=== PATIENT | female | born 1955 | race Two or more races ===

== ENCOUNTER 2022-04-22 08:55 | Outpatient (REF) | payer MEDICARE, MEDICAID, SELFPAY ==
[2022-04-22 10:00] LABS: Hematocrit 37.7 % (37.0-47.0); Hemoglobin 12.2 g/dl (12.0-16.0); Mean Corpuscular HGB Conc 32.4 g/dl (31.0-35.0); Mean Corpuscular Hemoglobin 29.3 pg (27.0-33.0); Mean Corpuscular Volume 90.4 fL (80.0-98.0); Mean Platelet Volume 9.5 fL (9.4-12.3); Platelet Count 349 X10*3/uL (160-400); Red Blood Count 4.17 X10*6/uL (4.20-5.50); Red Cell Distribution Width 14.8 % (11.0-16.0); White Blood Count 11.5 X10*3/uL (4.8-10.8)
[2022-04-22 10:44] LABS: Alanine Aminotransferase 21 U/L (0-31); Albumin Level 3.5 g/dL (3.5-5.0); Alkaline Phosphatase 79 U/L (39-117); Anion Gap 15 (12-20); Aspartate Amino Transferase 20 U/L (5-31); Bilirubin Total 0.3 mg/dL (0.0-1.0); Blood Urea Nitrogen 46 mg/dL (9-16); Carbon Dioxide 18 mmol/L (22-29); Chloride 109 mmol/L (96-108); Cholesterol 169 mg/dL; Estimated Glomerular Filt Rate 17; Glucose Random 101 mg/dL (60-115); HDL Cholesterol 60 mg/dL; LDL Cholesterol Calculated 82 mg/dl; Potassium 4.9 mmol/L (3.3-5.1); Sodium 137 mmol/L (135-145); Total Protein 6.2 g/dL (6.5-8.0); Triglycerides 135 mg/dL
[2022-04-22 10:58] LABS: TSH reflex Free T4 0.28 uIU/mL (0.32-4.0)
[2022-04-22 12:27] LABS: Estimated Average Glucose 114 mg/dL; Hemoglobin A1c % 5.6 %
== END 2022-04-22 08:56 | disposition home or self-care (01) ==
LOC: HO.LAB 08:55
PROVIDERS: PCP Nurse Practitioner Family; Visit Provider Nurse Practitioner Family
DX: E11.22 Type 2 diabetes mellitus with diabetic chronic kidney disease (principal); N18.4 Chronic kidney disease, stage 4 (severe); E04.1 Nontoxic single thyroid nodule; Z13.0 Encounter for screening for diseases of the blood and blood-forming organs and certain disorders involving the immune mechanism; Z13.21 Encounter for screening for nutritional disorder; Z13.29 Encounter for screening for other suspected endocrine disorder; Z13.220 Encounter for screening for lipoid disorders
CPT/HCPCS: 36415; 80053; 80061; 82306; 83036; 84439; 84443; 85027

== ENCOUNTER → 2022-05-18 09:10 | Outpatient (BNVA) | payer MEDICARE, MEDICAID, SELFPAY | PROVIDERS: PCP Nurse Practitioner Family; Visit Provider Internal Medicine | DX: K57.92 Diverticulitis of intestine, part unspecified, without perforation or abscess without bleeding (principal); K20.90 Esophagitis, unspecified without bleeding; K92.2 Gastrointestinal hemorrhage, unspecified | CPT/HCPCS: 99202 ==

== ENCOUNTER 2022-05-26 08:41 | Outpatient (REF) | payer MEDICARE, MEDICAID, SELFPAY ==
--- NOTE | ~2022-05-26 | US_ITS ---
EXAMINATION: US THYROID CLINICAL INFORMATION: Nontoxic single thyroid nodule. COMPARISON: None available. TECHNIQUE: Linear transducer grayscale and color Doppler examination with attention to the region of the thyroid. FINDINGS: SIZE: Measurements of the thyroid lobes and nodules are given in sagittal, anteroposterior and transverse dimensions respectively. Right Thyroid Lobe: 6.0 x 2.8 x 2.4 cm, volume 21.1 mL. Parenchyma: The gland echotexture is heterogeneous. Thyroid vascularity is normal. Left Thyroid Lobe: 5.7 x 2.2 x 1.8 cm, volume 11.8 mL. Parenchyma: The gland echotexture is heterogeneous. Thyroid vascularity is normal. Isthmus: 0.6 cm in maximum AP dimension. No focal thyroid nodule is seen. NODES: No lymphadenopathy is seen in the tissue surrounding the thyroid gland. US/US thyroid IMPRESSION: Heterogeneous thyroid parenchyma. No focal nodule. ACR TI-RADS RECOMMENDATION REFERENCE: Ultrasound-guided fine-needle aspiration, followup ultrasound, no further follow up. * TR1 (0 point) and TR2 (2 points): No FNA or follow up. * TR3 (3 points): FNA if more than or equal to 2.5 cm in maximum dimension, followup ultrasound in 1, 3 and 5 years if 1.5 to 2.4 cm in maximum dimension. * TR4 (4-6 points): FNA if more than or equal to 1.5 cm in maximum dimension, followup ultrasound in 1, 2, 3 and 5 years if 1 to 1.4 cm in maximum dimension. * TR5 (more than or equal to 7 points): FNA if more than or equal to 1 cm in maximum dimension, followup ultrasound every year for 5 years if 0.5 to 0.9 cm in maximum dimension. * TR3, TR4 or TR5 nodules that are below the size threshold for followup receive no follow up.
[2022-05-26 09:37] LABS: Estimated Average Glucose 117 mg/dL; Hemoglobin A1c % 5.7 %
[2022-05-26 10:10] LABS: TSH reflex Free T4 0.28 uIU/mL (0.32-4.0)
== END 2022-05-26 08:42 | disposition home or self-care (01) ==
LOC: HO.US 08:41
PROVIDERS: PCP Nurse Practitioner Family; Visit Provider Nurse Practitioner Family
DX: E04.1 Nontoxic single thyroid nodule (principal); E11.9 Type 2 diabetes mellitus without complications; E03.9 Hypothyroidism, unspecified
CPT/HCPCS: 36415; 76536; 83036; 84439; 84443

== ENCOUNTER 2022-05-27 13:25 | Outpatient (REF) | payer MEDICARE, MEDICAID, SELFPAY ==
--- NOTE | ~2022-05-27 | CT_ITS ---
EXAMINATION: CT CHEST SCREENING CLINICAL INFORMATION: 40 pack year smoking history. Former smoker. Quit 1 year ago. COMPARISON: None available. TECHNIQUE: Multidetector volumetric CT imaging of the chest is performed without contrast using low dose technique. Additional 2D coronal and sagittal reformatted images and axial 3D maximum intensity projection (MIP) images are generated on the CT workstation. This CT examination was performed using dose optimization techniques as appropriate, variously including the following: *Automated exposure control *Adjustment of mA and/or kV according to patient size (this includes techniques or standardized protocols for targeted exams where dose is matched to indication/reason for exam; i.e. extremities or head) *Use of iterative reconstruction technique DLP: 56 mGy-cm FINDINGS: LUNGS: Mild emphysema. 8 mm left upper lobe nodule in the anterior segment adjacent to the mediastinum axial image 168 series 5. Heterogeneous predominantly groundglass attenuation area in the inferior segment of the lingula measuring 1.5 cm axial image 291 series 5 MEDIASTINUM: Small calcification in the right lobe of the thyroid gland. No imaging follow-up recommended. Normal heart size. No pericardial effusion. Calcified but normal caliber thoracic aorta. No enlarged hilar or mediastinal lymph nodes no pericardial effusion. CORONARY ARTERY CALCIFICATION: Moderate PLEURA: There is no pleural effusion. No pleural mass or thickening. AXILLA: No lymphadenopathy. UPPER ABDOMEN: The gallbladder is been removed. Low-attenuation bilateral adrenal nodules. OSSEOUS STRUCTURES: Degenerative changes of the spine and curvature to the right. CT/CT lung screening IMPRESSION: Emphysema. 8 mm left upper lobe nodule. 1.5 cm groundglass attenuation area in the lingula. ASSESSMENT: Lung-RADS category 4A: Suspicious RECOMMENDATION: Low-dose chest CT follow-up in 3 months, PET/CT scan or tissue sampling should be considered.
== END 2022-05-27 13:26 | disposition home or self-care (01) ==
LOC: HO.CT 13:25
PROVIDERS: PCP Nurse Practitioner Family; Visit Provider Physician Assistant Medical
DX: Z12.2 Encounter for screening for malignant neoplasm of respiratory organs (principal); Z87.891 Personal history of nicotine dependence
CPT/HCPCS: 71271; G0296

== ENCOUNTER 2022-06-06 09:54 | Emergency (ER) | payer MEDICARE, MEDICAID, SELFPAY ==
--- NOTE | ~2022-06-06 | CT_ITS ---
EXAMINATION: CT ABDOMEN AND PELVIS WITHOUT CONTRAST CLINICAL INFORMATION: Lower abdominal pain COMPARISON: None available. TECHNIQUE: Multidetector volumetric imaging was performed from the superior aspect of the liver through the pubic symphysis. Sagittal and coronal reformatted images were obtained on the technologist's workstation. This CT examination was performed using dose optimization techniques as appropriate, variously including the following: *Automated exposure control *Adjustment of mA and/or kV according to patient size (this includes techniques or standardized protocols for targeted exams where dose is matched to indication/reason for exam; i.e. extremities or head) *Use of iterative reconstruction technique DLP: 5-7 mGy-cm FINDINGS: LUNG BASES: The visualized lung bases are unremarkable. LIVER, GALLBLADDER, AND BILIARY TREE: The liver is normal in size, shape, and attenuation. No focal hepatic lesion or biliary ductal dilatation is present. The gallbladder has been removed. PANCREAS: Unremarkable. SPLEEN: Unremarkable. ADRENAL GLANDS: Bilateral low-attenuation adrenal nodules suggestive of benign lipid rich adenomas. These measure 1.6 x 2.6 cm on the right and 1.4 x 2.3 cm on the left. No imaging follow-up recommended. KIDNEYS AND URETERS: The kidneys are normal in size, shape, and attenuation. No hydronephrosis, hydroureter, or calculi seen. No perinephric stranding. BLADDER: Unremarkable. GASTROINTESTINAL TRACT: There is diverticulosis of the colon. There is wall thickening of the sigmoid colon and stranding of the surrounding fat suggestive of acute sigmoid diverticulitis. This abuts the uterus and adnexa. No evidence of obstruction, perforation or abscess. There is constipation. Small and large bowel are otherwise normal. The appendix is normal. ABDOMINAL WALL: No significant hernia is appreciated. LYMPH NODES: Normal. VASCULAR: Atherosclerotic disease. No aneurysm PELVIC VISCERA: Diverticulitis of the sigmoid colon abuts the uterus and both adnexa. OSSEOUS STRUCTURES: Scoliosis and degenerative changes of the spine. Mild degenerative changes at the. CT/CT abdomen pelvis wo IV con IMPRESSION: Sigmoid diverticulitis. Fleischner guidelines were followed.
[2022-06-06 10:22] VITALS: BP 141/65; PULSE 67; RESP 18; TEMP 36.1; O2SAT 99; BMI 29.9
--- NOTE | 2022-06-06 11:08 | ED_ITS ---
HPI - Abdominal Pain General Chief Complaint: Extremity Injury, Lower Stated Complaint: abd pain Time Seen by Provider: 06/06/22 11:00 Source: patient, family (son) and associate scientist Mode of arrival: ambulatory Limitations: language barrier History of Present Illness HPI narrative: Patient is a 66-year-old female with history chronic kidney disease stage 4, HTN, hypercholesterolemia, type 2 diabetes, hypothyroid, emphysema, esophagitis, diverticulitis, GI bleed, rheumatoid arthritis presenting with lower abdominal pain since last night. Patient does endorse nausea this morning but denies any current nausea. She denies any vomiting, diarrhea, or constipation. She denies any fevers. She denies any urinary symptoms. She does report lower back pain but states this is chronic. Son reports that he recently brought patient here from [place] and states that while patient was there in March of this ye ar she had diverticulitis with perforation as well as GI bleeding. Son reports the patient has seen a new PCP here and has care scheduled with specialists. Related Data Home Medications Medication Instructions Recorded Confirmed amlodipine 5 mg tablet 5 mg PO DAILY 04/04/22 05/02/22 atorvastatin 40 mg tablet 40 mg PO DAILY 04/04/22 05/02/22 carbamazepine 200 mg tablet 200 mg PO BID 04/04/22 05/02/22 albuterol sulfate 2 mg/5 mL oral 2 mg PO TID 05/18/22 syrup albuterol sulfate 90 mcg/actuation 1 inh inhalation QID 05/18/22 aerosol inhaler (Ventolin HFA) Previous Rx's Medication Instructions Recorded empagliflozin 10 mg tablet 10 mg PO DAILY 30 days #90 tabs 05/16/22 (Jardiance) glipizide 10 mg tablet 10 mg PO DAILY 30 days #90 tabs 05/16/22 linagliptin 5 mg tablet (Tradjenta) 5 mg PO DAILY 30 days #90 tabs 05/16/22 lisinopril 40 mg tablet 40 mg PO DAILY 30 days #90 tabs 05/16/22 montelukast 10 mg tablet 10 mg PO DAILY 30 days #90 tabs 05/16/22 peg 3350-electrolytes 236 240 ml PO Q10M colonoscopy #4,000 05/18/22 gram-22.74 gram-6.74 gram-5.86 mL gram solution (Golytely) levothyroxine 175 mcg capsule 175 mcg PO DAILY #30 caps 05/26/22 amoxicillin 500 mg-potassium 1 tab PO BID diverticulitis #20 06/06/22 clavulanate 125 mg tablet tabs (Augmentin) oxycodone 5 mg tablet 5 mg PO Q6H PRN pain #12 tabs 06/06/22 Allergies Allergy/AdvReac Type Severity Reaction Status Date / Time No Known Allergies Allergy Verified 06/06/22 10:24 Review of Systems Review of Systems Yes all other systems are reviewed and are negative [facility] Past Medical History Medical History CKD (chronic kidney disease), stage IV Diverticulitis Emphysema lung Epilepsy GI bleed Gout HTN (hypertension) Hypercholesteremia Hypothyroid Personal history of nicotine dependence Rheumatoid arthritis Right elbow pain Thyroid nodule Type 2 diabetes mellitus Surgical History History of cholecystectomy History of esophagogastroduodenoscopy (EGD) History of tubal ligation Hx of colonoscopy Family History Family History Sister SLE (systemic lupus erythematosus) Breast cancer Mental health problem Mother Diabetes Father Diabetes Brother Brain tumor Social History Social History (Updated 05/27/22 @ 13:29 by Edwina Thrasher PA-C) Household Members: Children Household Members Other:: Living with son in his house Housing: House Alcohol intake: never Patient Tobacco Use Status: Former Tobacco user Years Smoked: (former smoker - onset 16yo - 1ppd x 50yrs, 50pyh - quit 12/2021) Smoked in Last 30 Days: No Use of substances other than those prescribed or required for medical reasons: No Advance Directives: No Advance Directives Information Provided: Yes service: No Physical Exam ED Vital Signs: Vital Signs - 24 hr 06/06/22 10:22 06/06/22 14:43 Temperature 97.0 F Pulse Rate 67 61 Respiratory Rate 18 18 Blood Pressure 141/65 H 124/56 L Pulse Oximetry 99 98 Oxygen Delivery Method Room Air Room Air BMI result Body Mass Index 29.9 Appearance: Alert. Oriented X3. No acute distress. Head: normocephalic, atraumatic. Eyes: Pupils equal, round and reactive to light. ENT: Pharynx normal. No tonsillar swelling or exudate. Neck: Normal inspection. Neck supple. CVS: Normal heart rate and rhythm. Pulses normal. Respiratory: No respiratory distress. Breath sounds normal. Abdomen: Soft, tenderness to both lower quadrants, R>L, +BS x4, no CVA tenderness Skin: Skin warm and dry. Normal skin color. Normal skin turgor. No rashes. Extremities: No lower extremity edema. No joint swelling. Neuro/psych: Oriented X 3. No motor deficit. No sensory deficit. CN II-XII intact. Normal speech and cognition. Course Course Course Narrative: 13:37 CT abdomen reveals sigmoid diverticulitis, creatnine elevated as compared to prior one month ago, leukocytosis on CBC. Ordered normal saline bolus, await ing results of urinalysis and will repeat BMP after bolus infused. Ordered Zofran for nausea and Morphine for pain. Medical Decision Making Medical Decision Making [facility] Narrative: 66-year-old female with recent diverticulitis with perforation presenting with lower abdominal pain since last night. CT abdomen reveals sigmoid diverticulitis. Leukocytosis on CBC, creatnine elevated but improved after IV fluids. Overall patient nontoxic appearing, no fever, pain controlled, tolerating PO. Discussed with patient and son outpatient treatment versus admission. Through shared decision making, patient and son prefer to attempt outpatient treatment at this time. Return precautions discussed with patient and son including fever, worsening pain, persistent nausea and vomiting, new onset of melena. Differential Diagnosis Differential Diagnoses: The differential diagnosis associated with the presentation includes Considered appendicitis, ovarian cyst, malignancy or mass, Crohns or inflammatory bowel disease, perforated diverticulum, urinary tract infection, renal colic, pyelonephritis. Admission/Observation Consideration of admission/observation: Escalation of care including admission/observation considered Discussed option of admission with patient and son, they prefer to treat outpatient at this time and will return with any complications. Lab Data [facility] Lab Attestation statement: I reviewed the patient's lab results. 06/06/22 12:21 06/06/22 12:21 Labs: Lab Results 06/06/22 06/06/22 06/06/22 Range/Units 12:21 12:21 13:36 WBC 16.9 H (4.8-10.8) X10*3/uL RBC 4.26 (4.20-5.50) X10*6/uL Hgb 12.5 (12.0-16.0) g/dl Hct 38.7 (37.0-47.0) % MCV 90.8 (80.0-98.0) fL MCH 29.3 (27.0-33.0) pg MCHC 32.3 (31.0-35.0) g/dl RDW 14.0 (11.0-16.0) % Plt Count 337 (160-400) X10*3/uL MPV 8.9 L (9.4-12.3) fL Immature Gran % (Auto) 0.8 H (0.0-0.4) % Neut % (Auto) 79.4 H (45-73) % Lymph % (Auto) 14.0 L (20-40) % [place] % (Auto) 5.0 (2-11) % Eos % (Auto) 0.5 (0-4) % Baso % (Auto) 0.3 (0-2) % Lymph # (Auto) 2.4 (1.2-4.9) X10*3/uL [place] # (Auto) 0.8 (0.1-1.2) X10*3/uL Eos # (Auto) 0.1 (0.0-0.4) X10*3/uL Baso # (Auto) 0.1 (0.0-0.2) X10*3/uL Abs Immat Gran (auto) 0.14 H (0.00-0.03) X10*3/uL Absolute Neuts (auto) 13.4 H (2.0-8.3) x10*3/uL Absolute Nucleated RBC 0.000 (0.0-0.012) X10*3/uL Nucleated RBC % (auto) 0.0 (0.0-0.2) /100WBC Sodium 138 (135-145) mmol/L Potassium 5.1 (3.3-5.1) mmol/L Chloride 111 H (96-108) mmol/L Carbon Dioxide 19 L (22-29) mmol/L Anion Gap 13 (12-20) BUN 46 H (9-16) mg/dL Creatinine 3.23 H (0.5-1.4) mg/dL Estim Creat Clear Calc 16.7 Estimated GFR 14 Random Glucose 133 H (60-115) mg/dL Calcium 9.3 (8.4-10.2) mg/dL Urine Color Yellow Urine Appearance Clear Urine pH 5.5 (5.0-9.0) Ur Specific [place] 1.015 (1.005-1.025) Urine Protein 300 (3+) H (Neg-Trace) mg/dL Urine Glucose (UA) 500 H (Negative) mg/dL Urine Ketones Negative (Negative) mg/dL Urine Blood Trace H (Negative) Urine Nitrite Negative (Negative) Ur Leukocyte Esterase Negative (Negative) Urine RBC 0-2 (0-2) /HPF Urine WBC 0-5 (0-5) /HPF Ur Squamous Epith Cells 0-2 (0-2) /HPF Urine Bacteria None Seen (None Seen) Hyaline Casts 0-2 (0-2) /LPF 06/06/22 Range/Units 15:43 WBC (4.8-10.8) X10*3/uL RBC (4.20-5.50) X10*6/uL Hgb (12.0-16.0) g/dl Hct (37.0-47.0) % MCV (80.0-98.0) fL MCH (27.0-33.0) pg MCHC (31.0-35.0) g/dl RDW (11.0-16.0) % Plt Count (160-400) X10*3/uL MPV (9.4-12.3) fL Immature Gran % (Auto) (0.0-0.4) % Neut % (Auto) (45-73) % Lymph % (Auto) (20-40) % [place] % (Auto) (2-11) % Eos % (Auto) (0-4) % Baso % (Auto) (0-2) % Lymph # (Auto) (1.2-4.9) X10*3/uL [place] # (Auto) (0.1-1.2) X10*3/uL Eos # (Auto) (0.0-0.4) X10*3/uL Baso # (Auto) (0.0-0.2) X10*3/uL Abs Immat Gran (auto) (0.00-0.03) X10*3/uL Absolute Neuts (auto) (2.0-8.3) x10*3/uL Absolute Nucleated RBC (0.0-0.012) X10*3/uL Nucleated RBC % (auto) (0.0-0.2) /100WBC Sodium 138 (135-145) mmol/L Potassium 4.8 (3.3-5.1) mmol/L Chloride 114 H (96-108) mmol/L Carbon Dioxide 19 L (22-29) mmol/L Anion Gap 10 L (12-20) BUN 42 H (9-16) mg/dL Creatinine 2.99 H (0.5-1.4) mg/dL Estim Creat Clear Calc 18.1 Estimated GFR 16 Random Glucose 146 H (60-115) mg/dL Calcium 8.3 L D (8.4-10.2) mg/dL Urine Color Urine Appearance Urine pH (5.0-9.0) Ur Specific [place] (1.005-1.025) Urine Protein (Neg-Trace) mg/dL Urine Glucose (UA) (Negative) mg/dL Urine Ketones (Negative) mg/dL Urine Blood (Negative) Urine Nitrite (Negative) Ur Leukocyte Esterase (Negative) Urine RBC (0-2) /HPF Urine WBC (0-5) /HPF Ur Squamous Epith Cells (0-2) /HPF Urine Bacteria (None Seen) Hyaline Casts (0-2) /LPF Independent Interpretation I performed an independent interpretation of an: CT Scan Interpretation: I independently reviewed the CT scan and agree with the radiologist's interpretation. Radiology Impression Discussion of test interpretation with radiology: I have reviewed the radiologist's reading. Independent Historian Clinical information obtained from an independent historian. History obtained from or confirmed by: Other (son at bedside) External Record Review External record reviewed: Outpatient record recent PCP visits Prescription Management I considered prescription management with: Pain Medication and Antibiotic Chronic Conditions Patient?s care impacted by: Diabetes, Hypertension and Other (CKD) Medications Administered Discontinued Medications Generic Name Dose Route Start Last Admin Trade Name Freq PRN Reason Stop Dose Admin Sodium Chloride 1,000 mls @ 999 mls/hr 06/06/22 13:34 06/06/22 16:00 Ns IV 06/06/22 14:34 Infused .Q1H1M STA Infusion Morphine Sulfate 4 mg 06/06/22 13:48 06/06/22 14:10 Morphine Sulfate 4 Mg/Ml Cartridge IVPUSH 06/06/22 13:49 4 mg ONCE ONE Administration Protocol Ondansetron HCl 4 mg 06/06/22 13:48 06/06/22 14:11 Ondansetron Hcl 4 Mg/2 Ml Vial IVPUSH 06/06/22 13:49 4 mg ONCE ONE Administration Discharge Plan Discharge Clinical Impression: Sigmoid diverticulitis Patient Disposition: Home, Self-Care Instructions: Diverticulitis (ED), Diverticulitis Diet (ED) Additional Instructions: Controle charlie niveles de glucosa en nan velvet veces al d?a. Comun?quese con erickson proveedor de atenci?n primaria si charlie niveles de az?car en la nan se elevan. Regrese si presenta fiebre, empeoramiento del dolor, n?useas y v?mitos persistentes, o heces de color shawn oscuro o con nan. Le est?n recetando medicamentos para el dolor, as? kendall un antibi?mika para tratar erickson infecci?n. Debe nixon todo el curso de antibi?ticos seg?n lo prescrito hasta que se terminen. Comun?quese con erickson proveedor de atenci?n primaria para notificarle que le diagnosticaron diverticulitis hoy para que puedan programar meet visita de seguimiento. Prescriptions: New amoxicillin-pot clavulanate [Augmentin] 500-125 mg tablet 1 tab PO BID Qty: 20 0RF oxycodone 5 mg tablet 5 mg PO Q6H PRN (Reason: pain) Qty: 12 0RF Rx Instructions: Partial Fill upon patient request. No Action Jardiance 10 mg tablet 10 mg PO DAILY 30 Days Qty: 90 0RF glipizide 10 mg tablet 10 mg PO DAILY 30 Days Qty: 90 0RF Tradjenta 5 mg tablet 5 mg PO DAILY 30 Days Qty: 90 0RF lisinopril 40 mg tablet 40 mg PO DAILY 30 Days Qty: 90 0RF montelukast 10 mg tablet 10 mg PO DAILY 30 Days Qty: 90 0RF levothyroxine 175 mcg capsule 175 mcg PO DAILY Qty: 30 3RF carbamazepine 200 mg tablet 200 mg PO BID amlodipine 5 mg tablet 5 mg PO DAILY atorvastatin 40 mg tablet 40 mg PO DAILY albuterol sulfate [Ventolin HFA] 90 mcg/actuation HFA aerosol inhaler 1 inh inhalation QID albuterol sulfate 2 mg/5 mL syrup 2 mg PO TID peg 3350-electrolytes [Golytely] 236-22.74-6.74 -5.86 gram recon soln 240 ml PO Q10M Qty: 4000 0RF Rx Instructions: as per split prep instructions, until fecal effluent is clear Interventions: ED Discharge Assessment Last Done: 06/06/22 16:56 Discharge Date/Time: 06/06/22 16:56 Print Language: Palestinian
[2022-06-06 12:24] LABS: MANUAL DIFF FLAG NO
[2022-06-06 12:25] LABS: Basophils Absolute Auto 0.1 X10*3/uL (0.0-0.2); Basophils Percent Auto 0.3 % (0-2); Eosinophils Absolute Auto 0.1 X10*3/uL (0.0-0.4); Eosinophils Percent Auto 0.5 % (0-4); Hematocrit 38.7 % (37.0-47.0); Hemoglobin 12.5 g/dl (12.0-16.0); Imm Gran Abs Auto 0.14 X10*3/uL (0.00-0.03); Imm Gran Pct Auto 0.8 % (0.0-0.4); Lymphocytes Absolute Auto 2.4 X10*3/uL (1.2-4.9); Mean Corpuscular HGB Conc 32.3 g/dl (31.0-35.0); Mean Corpuscular Hemoglobin 29.3 pg (27.0-33.0); Mean Corpuscular Volume 90.8 fL (80.0-98.0); Mean Platelet Volume 8.9 fL (9.4-12.3); Monocytes Absolute Auto 0.8 X10*3/uL (0.1-1.2); Neutrophils Absolute Auto 13.4 x10*3/uL (2.0-8.3); Neutrophils Percent Auto 79.4 % (45-73); Platelet Count 337 X10*3/uL (160-400); Red Blood Count 4.26 X10*6/uL (4.20-5.50); White Blood Count 16.9 X10*3/uL (4.8-10.8)
[2022-06-06 12:39] LABS: Anion Gap 13 (12-20); Blood Urea Nitrogen 46 mg/dL (9-16); Calcium 9.3 mg/dL (8.4-10.2); Carbon Dioxide 19 mmol/L (22-29); Chloride 111 mmol/L (96-108); Creatinine Clr Calc Pharmacy 16.7; Estimated Glomerular Filt Rate 14; Glucose Random 133 mg/dL (60-115); Potassium 5.1 mmol/L (3.3-5.1); Sodium 138 mmol/L (135-145)
[2022-06-06 13:54] LABS: Appearance Urine Clear; Color Urine Yellow; Glucose Urine UA 500 mg/dL (Negative); Leukocyte Esterase Urine Negative (Negative); Nitrite Urine Negative (Negative); PH 5.5 (5.0-9.0); Specific Gravity - Urine 1.015 (1.005-1.025); UMIC TRIGGER UACC YES; Urine Blood Trace (Negative); Urine Ketones Negative (Negative); Urine Protein 300 (3+) mg/dL (Neg-Trace)
[2022-06-06 13:59] LABS: Bacteria Urine None Seen (None Seen); Hyaline Casts Urine 0-2 /LPF (0-2); RBC Urine 0-2 /HPF (0-2); Squamous Epithelial Cell Urine 0-2 /HPF (0-2); WBC Urine 0-5 /HPF (0-5)
[2022-06-06] MEDS: 0.9 % Sodium Chloride 1,000 ML 999 ML IV (14:05)
[2022-06-06] MEDS: Morphine Sulfate 4 MG/ML CARTRIDGE IVPUSH (14:10)
[2022-06-06] MEDS: ondansetron HCL 4 MG/2 ML VIAL IVPUSH (14:11)
[2022-06-06 14:43] VITALS: BP 124/56; PULSE 61; RESP 18; O2SAT 98
[2022-06-06 16:08] LABS: Anion Gap 10 (12-20); Blood Urea Nitrogen 42 mg/dL (9-16); Calcium 8.3 mg/dL (8.4-10.2); Carbon Dioxide 19 mmol/L (22-29); Chloride 114 mmol/L (96-108); Creatinine Clr Calc Pharmacy 18.1; Estimated Glomerular Filt Rate 16; Glucose Random 146 mg/dL (60-115); Potassium 4.8 mmol/L (3.3-5.1); Sodium 138 mmol/L (135-145)
== END 2022-06-06 16:56 | disposition home or self-care (01) ==
PROVIDERS: Registered Nurse Emergency; Emergency Provider Emergency Medicine; PCP Nurse Practitioner Family
DX: K57.32 Diverticulitis of large intestine without perforation or abscess without bleeding (principal); R10.30 Lower abdominal pain, unspecified; E11.22 Type 2 diabetes mellitus with diabetic chronic kidney disease; I12.9 Hypertensive chronic kidney disease with stage 1 through stage 4 chronic kidney disease, or unspecified chronic kidney disease; N18.4 Chronic kidney disease, stage 4 (severe); E78.00 Pure hypercholesterolemia, unspecified; Z79.02 Long term (current) use of antithrombotics/antiplatelets; Z79.899 Other long term (current) drug therapy
CPT/HCPCS: 36415; 74176; 80048; 81001; 85025; 96361; 96374; 96375; 99284; J2270; J2405

== ENCOUNTER 2022-06-22 07:37 | Outpatient (REF) | payer MEDICARE, MEDICAID, SELFPAY ==
--- NOTE | ~2022-06-22 | MM_ITS ---
EXAMINATION: MM SCREENING DIGITAL BREAST TOMOSYNTHESIS, BILATERAL CLINICAL INFORMATION: Screening. Asymptomatic. Prior outside mammography from [place] currently unavailable. The lifetime risk of breast cancer based on the Tyrer-Cuzick Model is 5%. COMPARISON: None. TECHNIQUE: Digital breast tomosynthesis is performed in both the craniocaudal and mediolateral oblique views along with computer-aided detection (CAD). Synthesized 2D images are generated from the tomosynthesis. Additional bilateral MLO views are provided. FINDINGS: There are scattered areas of fibroglandular density (ACR BI-RADS breast composition Category b). There are no significant masses, abnormal calcifications, or other abnormalities. There is no architectural abnormality. The axilla and skin contours are unremarkable. If prior outside mammography is able to be retrieved, comparison will be made in an addendum report. MM/MM tomosynthesis screening BI IMPRESSION: No mammographic evidence of malignancy. ASSESSMENT: BI-RADS 1: Negative RECOMMENDATION: Routine annual mammography screening. This patient's information was entered into a reminder system with a target due date for their next mammogram.
== END 2022-06-22 07:38 | disposition home or self-care (01) ==
LOC: HO.MAMMO 07:37
PROVIDERS: PCP Nurse Practitioner Family; Visit Provider Nurse Practitioner Family
DX: Z12.31 Encounter for screening mammogram for malignant neoplasm of breast (principal)
CPT/HCPCS: 77063; 77067

== ENCOUNTER → 2022-06-24 09:02 | Outpatient (BNVA) | payer MEDICAID, SELFPAY | PROVIDERS: PCP Nurse Practitioner Family; Visit Provider Surgery | DX: R91.1 Solitary pulmonary nodule (principal) | CPT/HCPCS: 99202 ==

== ENCOUNTER → 2022-06-29 08:50 | Outpatient (BNVA) | payer MEDICAID, SELFPAY | PROVIDERS: PCP Nurse Practitioner Family; Visit Provider Internal Medicine Endocrinology, Diabetes & Metabolism | DX: E03.9 Hypothyroidism, unspecified (principal) | CPT/HCPCS: 99202 ==

== ENCOUNTER 2022-06-29 09:25 | Outpatient (REF) | payer MEDICAID, SELFPAY ==
[2022-06-29 11:38] LABS: Free T4 (Free Thyroxine) 1.48 ng/dL (0.71-1.85); Thyroid Stimulating Hormone 0.07 uIU/mL (0.32-4.0)
[2022-07-01 10:29] LABS: Thyroid Peroxidase Antibodies >900 IU/mL (<9)
== END 2022-06-29 09:26 | disposition home or self-care (01) ==
LOC: HO.10HDL 09:25
PROVIDERS: Visit Provider Internal Medicine Endocrinology, Diabetes & Metabolism
DX: E03.9 Hypothyroidism, unspecified (principal)
CPT/HCPCS: 36415; 84439; 84443; 86376

== ENCOUNTER 2022-07-01 08:29 | Outpatient (REF) | payer MEDICAID, SELFPAY ==
--- NOTE | 2022-07-01 09:40 | PFT_ITS ---
FLOWS: 1. FEV1 62% of predicted at 1.42 L. 2. FVC 62% of predicted at 1.84 L. 3. FEV1 to FVC ratio of 0.77. 4. No bronchodilator response except in small to medium airways. LUNG VOLUMES: 1. Total lung capacity 73% of predicted at 3.61 L. 2. Residual volume 87% of predicted at 1.80 L. 3. Slow vital capacity 63% of predicted at 1.80 L. 4. Expiratory reserve volume 12% of predicted at 0.79 L. 5. Diffusion capacity is moderately decreased, diffusion capacity adjusted, being mildly decreased after correction for alveolar ventilation. IMPRESSION: Moderate restrictive ventilatory defect with no bronchodilator response except in small to medium airways. Diffuse expiratory reserve volume suggest extrathoracic restriction likely secondary to abdominal obesity. Decreased diffusion capacity suggests restrictive ventilatory defect, suggest underlying primary parenchymal disease. Clinical correlation is advised. MD MARLENY Goldberg/MODL / [id number]
== END 2022-07-01 08:30 | disposition home or self-care (01) ==
LOC: HO.RESP 08:29
PROVIDERS: PCP Nurse Practitioner Family; Visit Provider Surgery
DX: R91.1 Solitary pulmonary nodule (principal)
CPT/HCPCS: 94010; 94727; 94729

== ENCOUNTER 2022-07-25 09:30 | Outpatient (RCR) | payer MEDICAID, MEDICARE, SELFPAY ==
--- NOTE | 2022-05-23 09:51 | MHC.OT.EP ---
[address] [phone] Occupational Therapy Plan of Care Patient Name: Alberto Cr Date of Evaluation: 05/23/22 Diagnosis: Right elbow pain Pain Location: Right forearm musculature, 8/10 w/ movement Right elbow painful w/ resting on table Pain Score: 8 Pain Scale Used: Numeric (0 - 10) Aggravating Factors: Movement, sleeping Alleviating Factors: None used currently Assessment: 66 yo right hand dominant female fell and broke her elbow December 2021, elbow was repair w/ ORIF, she was never referred to therapy, but know has insurance approval and referred for OT through PCP. She has recently moved from [place] and lives with her son, he has been doing most of the housework, although prior to injury she was ind w/ all aspect. On assessment, she has decreased end range elbow flex, ext, pro and sup and gross grasp is low B/L'ly, but significant;y lower on right side (25lb left gross grasp versus 10lb right gross grasp). Pain is primarily in forearm musculature and occasionally in elbow at surgical site, but mostly just wehen she rests her arm down on harder surface. She will benefit from cont'd therapy to optimize range and strength, while also encouraging functional activity to increase independence. Frequency and Duration: The patient will be seen 2/x wk for 6 weeks Short Term Goals: Ind w/ HEP Elbow ext to 20 degrees Pt to demo light bimanual funtional task w/ ease (folding towels) Pt to report ease w/ getting out of bed using right arm for assist Shelter Goals: QuickDASH score <35 pts Right gross grasp >25lb Pt to report ease w/ showers and dressing Right elbow ext 15 degress Right elbow flex 140 degrees Pain free elbow at rest Treatment Plan: Therapeutic Exercise Therapeutic Activity Home Exercise Program Patient Education ADL Training MHP Joint Mobilization Soft Tissue Mobilization Electronically Signed By: KEIRA Walker/Nicolas CHT Please Sign and return to therapist. Thank you once again for your referral.
--- NOTE | 2022-07-25 10:19 | MHC.OT.DC ---
[address] [phone] F: [phone] Occupational Therapy Discharge Note Patient Name: Alberto Dee Provider: JARED Arreguin Diagnosis: Right elbow pain Date of Evaluation: 05/23/22 Date of Discharge: 07/25/22 Treatments to Date: 9 Discharge Status: Achieved Goals Improved Function Independent with HEP Recommend MD Follow-up Discharge Summary: Alberto was referred to OT for management of right elbow pain and stiffness following fracture last year. She has done well w/ goals for elbow w/ no c/o elbow pain and overall good functional range in elbow. Primary issue now is high pain in thumb. She has relief w/ nighttime spice and we have fabricated hand based CMC orthosis for comfort and support. She would benefit from referral to outpatient plant specialist, and possible return to OT to address hand/thumb pain. Electronically Signed By: Nery Heart OTR/Nicolas CHT Reviewed/agree with student documentation: Therapist: Please Sign and return to therapist, thank you for your referral.
== END 2022-07-25 10:20 | disposition home or self-care (01) ==
LOC: HO.OT 09:30
PROVIDERS: PCP Nurse Practitioner Family; Visit Provider Nurse Practitioner Family
DX: M25.521 Pain in right elbow (principal)
CPT/HCPCS: 29125; 97035; 97110; 97140; 97166; 97760

== ENCOUNTER → 2022-08-01 08:57 | Outpatient (BNVA) | payer MEDICARE, MEDICAID, SELFPAY | PROVIDERS: PCP Nurse Practitioner Family; Visit Provider Nurse Practitioner Family | DX: G40.909 Epilepsy, unspecified, not intractable, without status epilepticus (principal); R40.0 Somnolence; R06.83 Snoring; R91.1 Solitary pulmonary nodule | CPT/HCPCS: 99202 ==

== ENCOUNTER 2022-08-11 09:40 | Day surgery (SDC) | payer MEDICARE, MEDICAID, SELFPAY ==
[2022-08-09 10:04] VITALS: BMI 30.5
--- NOTE | 2022-08-09 14:43 | P.CONAN_ITS ---
HPI - Anesthesia Eval Consult details Narrative: 66yo F for Upper Endoscopy and Colonoscopy CKD St 4 Hx seizures - none x >15 years per neuro visit [facility] Active Problems Active Problems: All Active Problems (Updated 08/01/22 @ 10:31 by Kevon Singh CNP) Daytime sleepiness (Acute) Snoring (Acute) Pulmonary nodule (Acute) Esophagitis (Acute) Epilepsy (Acute) CKD (chronic kidney disease), stage IV (Acute) HTN (hypertension) (Acute) Hypercholesteremia (Acute) Type 2 diabetes mellitus (Acute) Hypothyroid (Acute) Thyroid nodule (Acute) Emphysema lung (Acute) Personal history of nicotine dependence (Acute) Gout (Acute) Right elbow pain (Acute) GI bleed (Acute) Diverticulitis (Acute) Rheumatoid arthritis (Acute) Past Medical History Medical History CKD (chronic kidney disease), stage IV Diverticulitis Emphysema lung Epilepsy Esophagitis GI bleed Gout HTN (hypertension) Hypercholesteremia Hypothyroid Personal history of nicotine dependence Rheumatoid arthritis Right elbow pain Thyroid nodule Tubular adenoma of colon Type 2 diabetes mellitus Family History Family History Sister SLE (systemic lupus erythematosus) Breast cancer Mental health problem Mother Diabetes Acute arthritis Alzheimer disease Age related osteoporosis Father Diabetes HTN (hypertension) Brother Brain tumor Family/Other Breast cancer Lupus Acute arthritis Family/Other HTN (hypertension) Thyroid cancer Other Mental health disorder Surgical History Surgical History History of cholecystectomy History of colonoscopy History of elbow surgery History of esophagogastroduodenoscopy (EGD) History of lung surgery History of tubal ligation Social History Social History Household Members: Children Household Members Other:: Living with son in his house Housing: House Alcohol intake: never Patient Tobacco Use Status: Former Tobacco user Years Smoked: (former smoker - onset 16yo - 1ppd x 50yrs, 50pyh - quit 12/2021) e-Cigarette/Vaping Use: Never Used Second Hand Smoke Exposure: Yes service: No Cognitive needs: Yes (WHEELCHAIR) Hearing needs: No Vision needs: Yes (Glasses) Meds Allergies Allergy/AdvReac Type Severity Reaction Status Date / Time No Known Allergies Allergy Verified 08/26/22 10:29 Home Medications Medication Instructions Recorded Confirmed Last Taken Type albuterol sulfate 2 mg/5 mL oral 2 mg PO TID 05/18/22 08/26/22 Unknown History syrup amlodipine 5 mg tablet 10 mg PO DAILY 08/02/22 08/26/22 Unknown History Exam Exam Date and Time: August 09, 2022 1443 Height,Weight and Vital Signs: Height 5 ft 3 in Weight 78.018 kg Pertinent Lab Results Pertinent Lab Results: Laboratory Tests 06/06/22 06/06/22 12:21 15:43 WBC 16.9 H Hgb 12.5 Hct 38.7 Plt Count 337 Sodium 138 Potassium 4.8 Chloride 114 H Carbon Dioxide 19 L BUN 42 H Creatinine 2.99 H Narrative Narrative: PFT 06/2022 FLOWS:? 1. FEV1 62% of predicted at 1.42 L. 2. FVC 62% of predicted at 1.84 L. 3. FEV1 to FVC ratio of 0.77. 4. No bronchodilator response except in small to medium airways. ?? LUNG VOLUMES:? 1. Total lung capacity 73% of predicted at 3.61 L. 2. Residual volume 87% of predicted at 1.80 L. 3. Slow vital capacity 63% of predicted at 1.80 L. 4. Expiratory reserve volume 12% of predicted at 0.79 L. 5. Diffusion capacity is moderately decreased, diffusion capacity adjusted, being mildly decreased after correction for alveolar ventilation. ?? IMPRESSION:? Moderate restrictive ventilatory defect with no bronchodilator response except in small to medium airways.? Diffuse expiratory reserve volume suggest extrathoracic restriction likely secondary to abdominal obesity.? Decreased diffusion capacity suggests restrictive ventilatory defect, suggest underlying primary parenchymal disease.? Clinical correlation is advised. Assessment and Plan Assessment Anesthesia Assessment: Chart Reviewed
--- NOTE | 2022-08-11 09:15 | MHC.SHP ---
Pre-Procedural Eval Section A Date of Service: 08/11/22 Section B Chief Complaint: Diverticulitis intestine, part unspecified,reflux Details of Present Illness: PMH: CKD (chronic kidney disease), stage IV Diverticulitis Emphysema lung Epilepsy GI bleed Gout HTN (hypertension) Hypercholesteremia Hypothyroid Personal history of nicotine dependence Rheumatoid arthritis Right elbow pain Thyroid nodule Type 2 diabetes mellitus Surgical History History of cholecystectomy History of esophagogastroduodenoscopy (EGD) History of tubal ligation Hx of colonoscopy Relevant Family History (Specify if Yes): No Present Medications: see Short Stay Collaborative assessment Allergies: Allergies Allergy/AdvReac Type Severity Reaction Status Date / Time No Known Allergies Allergy Verified 08/02/22 09:07 Review of Systems Review of Systems Comment: Ten point ROS negative Exam Exam Comment: Gen appear: No acute distress HEENT: no icterus Chest: No overt resp distress Abd: soft, nontender, nondistended Psych: Stable affect, answering questions appropriately Neuro: A/Ox3 noted to move all extremities spontaneously Ext: no peripheral edema Plan Diagnosis/Plan: Unchanged I have reviewed the history and physical and performed a pertinent physical examination on my patient. No changes have occurred unless specified. Time Spent With Patient Time: Total time managing care of this patient today ____ minutes.
[2022-08-11] MEDS: Albuterol Sulfate (0.083%) 2.5 MG/3 ML VIAL.NEB INHALE (10:36)
[2022-08-11 10:37] VITALS: PULSE 66; RESP 16; O2SAT 99
[2022-08-11 10:38] VITALS: BP 167/68; PULSE 66; RESP 16; TEMP 36.8; O2SAT 94; BMI 30.5
[2022-08-11 10:56] LABS: Glucose, Whole Blood 114 mg/dL (60-115)
[2022-08-11 11:12] LABS: Anion Gap 15 (12-20); Carbon Dioxide 24 mmol/L (22-29); Chloride 105 mmol/L (96-108); Potassium 5.2 mmol/L (3.3-5.1); Sodium 139 mmol/L (135-145)
--- NOTE | 2022-08-11 12:58 | P.OP_ITS ---
Operative Note Operative Note Date of Service: 08/11/22 Narrative: Procedure:?Esophagogastroduodenoscopy and colonoscopy Endoscopist:?Zahira Hurley MD Indication:?Diverticulitis, esophagitis Anesthesia Provider:?Celena Steiner Anesthesia Type:?MAC Instrument:?Olympus GIF-H190, PCF-190L EGD Procedure:?? The procedure, indications, preparation and potential complications were reviewed with the patient, who indicated understanding and gave written informed consent to proceed. A special education professor helped with the encounter. A physical exam was performed. The endoscope was introduced through the mouth, and advanced to the second part of duodenum. The mucosa was carefully examined on slow withdrawal of the endosco pe. The patient tolerated the procedure well. There were no immediate complications.? EGD Findings:? * Esophagus:? Normal mucosa noted in the entire esophagus. The Z line was at 40 cm.? * Stomach:? Flecks of heme without definite erosions or ulcerations noted throughout body and antrum of the stomach. Random cold forceps biopsies were taken to rule out H pylori. * Duodenum:? Erythema and ulceration of the duodenal bulb. Normal mucosa was noted in the remaining duodenum to the extent examined. A small diverticulum was noted in the early second portion of the duodenum. Cold forceps biopsies were taken from the duodenal bulb. Colonoscopy Procedure:? The patient was then turned for the colonoscopy. A digital rectal exam was performed which was abnormal for external hemorrhoids.? A distal attachment cap was affixed to the tip of the scope and the colonoscope was then inserted throug h the anus and advanced through the colon to the cecum at 85 cm, and terminal ileum.? Appendiceal orifice and ileocecal valve were identified.? Mucosa was carefully examined under high definition white light as the instrument was slowly withdrawn in a retrograde panoramic fashion. Retroflexion was performed in rectum. The procedure was not difficult. There were no immediate obvious complications. The quality of the prep was BBPS: 1+2+2 = inadequate in R colon Withdrawal time 17 minutes. Limitations: Poor prep Findings: Mucosa: Fecal sediment in cecum precluded complete visualisation, remaining colon mucosa was within normal limits. Protruding lesions: * 3 sessile polyps of size 4-6 mm in the transverse colon. Cold snare polypectomy was performed. The polyps were completely removed and retrieved. * 1 sessile polyp of 5 mm in descending colon. Cold snare polypectomy was performed. The polyp was completely removed and retrieved. * Medium internal hemorrhoids without stigmata of recent bleeding. Excavated lesions: * Severe diverticulosis was noted on the left side of the colon. Impression: 1. Normal esophagus 2. Gastritis (biopsy) 3. Duodenitis (biopsy) 4. Duodenal diverticulum 5. Poor prep in cecum 6. Total of 4 polyps removed 7. Internal hemorrhoids 8. Diverticulosis Recommendations:?? * Follow biopsy results, office will call or send a letter within 7-10 days.? * Repeat colonoscopy in 1 year due to poor prep, if pt in good health. * Start omeprazole 20mg once daily x 8 weeks Findings were reviewed with the patient.
[2022-08-11 13:00] VITALS: BP 88/52; PULSE 93; RESP 16; TEMP 36.9; O2SAT 97
[2022-08-11 13:15] VITALS: BP 86/62; PULSE 86; RESP 17; O2SAT 96
[2022-08-11 13:28] VITALS: BP 102/63; PULSE 86; RESP 18; TEMP 36.7; O2SAT 99
== END 2022-08-11 14:07 | disposition home or self-care (01) ==
PROVIDERS: Anesthesiology; PCP Nurse Practitioner Family; Visit Provider Internal Medicine
PROC: (CPT 45385; principal; 2022-08-11 11:30)
DX: K57.92 Diverticulitis of intestine, part unspecified, without perforation or abscess without bleeding (principal); D12.3 Benign neoplasm of transverse colon; D12.4 Benign neoplasm of descending colon; K57.30 Diverticulosis of large intestine without perforation or abscess without bleeding; K64.4 Residual hemorrhoidal skin tags; K64.8 Other hemorrhoids; K29.70 Gastritis, unspecified, without bleeding; K29.80 Duodenitis without bleeding; K57.10 Diverticulosis of small intestine without perforation or abscess without bleeding; I12.9 Hypertensive chronic kidney disease with stage 1 through stage 4 chronic kidney disease, or unspecified chronic kidney disease; E11.22 Type 2 diabetes mellitus with diabetic chronic kidney disease; N18.4 Chronic kidney disease, stage 4 (severe); J43.9 Emphysema, unspecified
CPT/HCPCS: 45385; 43239; 36415; 80051; 82947; 88305; 88342; 94640

== ENCOUNTER 2022-08-24 08:57 | Outpatient (AMB) | payer MEDICARE, MEDICAID, SELFPAY ==
--- NOTE | 2022-08-24 09:00 | A.OFFVIS_ITS ---
Intake Vital Signs 08/24/22 09:03 Height 5 ft 3 in Weight 171 lb 15.369 oz BMI 30.5 Intake Visit Reasons: S/P double; Dr. Hurley Intake Note: Alberto presents in the office as a follow up. CC: She is not having any concerns today Welt Maker Required: Yes Welt Maker Name: Son Allergies No Known Allergies Allergy (Verified 08/02/22 09:07) HPI HPI Comments History of Present Illness Details THis is a 66y.o F who recently moved from [place] who is here to establish care for GI issues as following. Patient is here with her son who states that back in Feb she developed sudden onset of bloody stools associated with lightheadedness and dizziness which prompted her visit to the local hospital ([facility]). Records reviewed. Initial Hb was noted to be 5. Underwent 8u PRBC transfusion over the course of [address] abd showed complicated diverticulitis with contained perf of sigmoid colon. Was managed with Abx. Pt also underwent an EGD which showed esophagitis per son's report and was given high dose PPI x 4 weeks. Due to difficulty pursuing follow-up as outpatient with a microscopist, as well as testing projects administrator (patient has CKD progressed during this admission), her son decided to bring her to [facility] for further care. Currently, patient does not have any gastrointestinal complaints to include abdominal pain, nausea, vomiting. No changes in bowel habits. No melena or maroon stools. Most recent hemoglobin is 12.2 from last month. Her last colonoscopy was more than 5 years ago. She does not recall if she had polyps. 08/11/22 - EGD/[place]: Impression: 1. Normal esophagus 2. Gastritis (biopsy) 3. Duodenitis (biopsy) 4. Duodenal diverticulum 5. Poor prep in cecum 6. Total of 4 polyps removed 7. Internal hemorrhoids 8. Diverticulosis Diagnosis A.? Duodenal bulb, biopsy:? Duodenal mucosa with predominantly preserved villi, Shavon's gland hyperplasia, and focal mild changes suggesting chronic/nonspecific duodenitis. B.? Stomach, random, biopsy:? Gastric antral and body mucosa with mild reactive changes, congestion, and focal minimal chronic inactive inflammation; negative for intestinal metaplasia and dysplasia (see comment).? C.? Colon, transverse, 3 polyps:? Tubular adenomas, three (2 of 3 appear excised); negative for high-grade dysplasia and carcinoma.? D.? Colon, descending, polyp:? Tubular adenoma; negative for high-grade dysplasia and carcinoma.? 08/24/22 Patient here accompanied by her son. 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 Has no gastrointestinal complaints. Reviewed results of the endoscopy and colonoscopy. Reassured that the esophag itis has healed up. No H pylori and gastric biopsies. All the 4 polyps were tubular adenoma and ideally, patient should have repeat colonoscopy within a year due to poor prep. However, she is currently undergoing workup for lung cancer through Dr. Camp. Son reports that so far, assessment is that this was stage I lung cancer that was completely surgically resected. However, 2nd opinion is being awaited to see if she needs any adjuvant therapy. [facility] Medical History (Updated 08/24/22 @ 09:57 by Zahira Hurley MD) CKD (chronic kidney disease), stage IV Diverticulitis Emphysema lung Epilepsy Esophagitis GI bleed Gout HTN (hypertension) Hypercholesteremia Hypothyroid Personal history of nicotine dependence Rheumatoid arthritis Right elbow pain Thyroid nodule Tubular adenoma of colon Type 2 diabetes mellitus Surgical History History of cholecystectomy History of colonoscopy History of elbow surgery History of esophagogastroduodenoscopy (EGD) History of lung surgery History of tubal ligation Family History Sister SLE (systemic lupus erythematosus) Breast cancer Mental health problem Mother Diabetes Acute arthritis Alzheimer disease Age related osteoporosis Father Diabetes HTN (hypertension) Brother Brain tumor Family/Other Breast cancer Lupus Acute arthritis Family/Other HTN (hypertension) Thyroid cancer Other Mental health disorder Social History Household Members: Children Household Members Other:: Living with son in his house Housing: House Alcohol intake: never Patient Tobacco Use Status: Former Tobacco user Years Smoked: (former smoker - onset 16yo - 1ppd x 50yrs, 50pyh - quit 12/2021) e-Cigarette/Vaping Use: Never Used Second Hand Smoke Exposure: Yes service: No Cognitive needs: Yes (WHEELCHAIR) Hearing needs: No Vision needs: Yes (Glasses) Review of Systems Const All systems reviewed & are unremarkable except as noted in HPI and below Physical Exam Vital Signs: BMI result Body Mass Index 30.5 Gen appear: NAD HEENT: nonicteric, no cervical lymphadenopathy Chest: CTA CVS: Regular S1/S2 Abd: soft, nontender, nondistended, bowel sounds + Ext: no peripheral edema Neuro: A/Ox3, noted to move all extremities spontaneously Psych: interacting appropriately Assessment & Plan Assessment & Plan (1) Esophagitis: Code(s): K20.90 - Esophagitis, unspecified without bleeding (2) Personal history of colonic polyps: Code(s): Z86.010 - Personal history of colonic polyps (3) Lung cancer: Code(s): C34.90 - Malignant neoplasm of unspecified part of unspecified bronchus or lung (4) Diverticulosis: Code(s): K57.90 - Diverticulosis of intestine, part unspecified, without perforation or abscess without bleeding Plan 1. Complicated diverticulitis: Personal history of polyps: Has significant burden of diverticulosis in the left colon. Was also noted to have 4 tubular adenomas at the very least. However, due to poor prep, we did review the indication for repeat colonoscopy in the year if patient is still in good health. Son knows to call the office by February 2023, if he wishes to pursue with a repeat colonoscopy in the context of underlying lung cancer. 2. Hx of esophagitis: This is completely healed up based on the most recent upper endoscopy. Decrease omeprazole to 10 mg p.o. daily. Follow-up as needed. Coding Level of Care Code Est Pt Level 4 (48050) Diagnoses Esophagitis K20.90 Personal history of colonic polyps Z86.010 Lung cancer C34.90 Diverticulosis K57.90
[2022-08-24 09:03] VITALS: BMI 30.5
== END 2022-08-24 09:40 | disposition home or self-care (01) ==
PROVIDERS: PCP Nurse Practitioner Family; Visit Provider Internal Medicine
DX: K20.90 Esophagitis, unspecified without bleeding (principal); Z86.010 Personal history of colon polyps; C34.90 Malignant neoplasm of unspecified part of unspecified bronchus or lung; K57.90 Diverticulosis of intestine, part unspecified, without perforation or abscess without bleeding
CPT/HCPCS: 99214

== ENCOUNTER → 2022-08-24 08:57 | Outpatient (BNVA) | payer MEDICARE, MEDICAID, SELFPAY | PROVIDERS: PCP Nurse Practitioner Family; Visit Provider Internal Medicine | DX: K57.92 Diverticulitis of intestine, part unspecified, without perforation or abscess without bleeding (principal); K20.90 Esophagitis, unspecified without bleeding; E11.22 Type 2 diabetes mellitus with diabetic chronic kidney disease; N18.4 Chronic kidney disease, stage 4 (severe); C34.90 Malignant neoplasm of unspecified part of unspecified bronchus or lung; Z90.49 Acquired absence of other specified parts of digestive tract; Z86.010 Personal history of colon polyps; Z99.3 Dependence on wheelchair | CPT/HCPCS: 99212 ==

== ENCOUNTER 2022-08-26 09:42 | Outpatient (AMB) | payer MEDICARE, MEDICAID, SELFPAY ==
--- NOTE | 2022-08-26 10:29 | MHC.OFFVIS ---
Intake Vital Signs 08/26/22 11:02 Height 5 ft 3 in Weight 174 lb BMI 30.8 BP 130/80 Pulse 65 Pulse Oximetry (%) 96 Intake Visit Reasons: Follow up per Tia Allergies No Known Allergies Allergy (Verified 08/26/22 10:29) Medication List - Last Reconciled 08/26/22 by Immanuel Sawant MD albuterol sulfate 90 mcg/actuation (Ventolin HFA) 1 inh inhalation QID albuterol sulfate 2 mg PO TID amlodipine 10 mg PO DAILY atorvastatin 40 mg PO DAILY carbamazepine ER 200 mg PO ONCE 90 days empagliflozin (Jardiance) 10 mg PO DAILY 30 days levothyroxine 150 mcg PO DAILY linagliptin (Tradjenta) 5 mg PO DAILY 30 days montelukast 10 mg PO DAILY 30 days omeprazole 20 mg PO DAILY oxycodone 5 mg PO Q6H PRN HPI Follow up per Tia HPI Details 66-year-old woman who underwent a navigational bronchoscopy dye marking Davinci left upper lobe wedge resection and mediastinal lymphadenectomy on 07/26/2022. On frozen section in the operating room they could not tell me definitively if this was malignant or not. Given its small size and her borderline pulmonary function testing/overall health decided to complete a lymph node dissection and ensure that the margins were negative and stop at that. She has done well postoperatively although did have some acute kidney injury afterwards which has resolved and followed by Nephrology in [place]. Final pathology did come back as adenocarcinoma colo id type TTF1 positive. All lymph nodes were negative making this a pT2a N0 stage I B lung cancer. She denies any fevers chills or drainage from her wounds. She does still have discomfort from her incisions mostly at night when lying on her side. [facility] Medical History CKD (chronic kidney disease), stage IV Diverticulitis Emphysema lung Epilepsy Esophagitis GI bleed Gout HTN (hypertension) Hypercholesteremia Hypothyroid Personal history of nicotine dependence Rheumatoid arthritis Right elbow pain Thyroid nodule Tubular adenoma of colon Type 2 diabetes mellitus Surgical History History of cholecystectomy History of colonoscopy History of elbow surgery History of esophagogastroduodenoscopy (EGD) History of lung surgery History of tubal ligation Family History Sister SLE (systemic lupus erythematosus) Breast cancer Mental health problem Mother Diabetes Acute arthritis Alzheimer disease Age related osteoporosis Father Diabetes HTN (hypertension) Brother Brain tumor Family/Other Breast cancer Lupus Acute arthritis Family/Other HTN (hypertension) Thyroid cancer Other Mental health disorder Social History Household Members: Children Household Members Other:: Living with son in his house Housing: House Alcohol intake: never Patient Tobacco Use Status: Former Tobacco user Years Smoked: (former smoker - onset 16yo - 1ppd x 50yrs, 50pyh - quit 12/2021) e-Cigarette/Vaping Use: Never Used Second Hand Smoke Exposure: Yes service: No Cognitive needs: Yes (WHEELCHAIR) Hearing needs: No Vision needs: Yes (Glasses) Physical Exam General: No acute distress HEENT: Moist mucous membranes, normocephalic, pupils equal round and reactive to light. Neck: No thyromegaly, supple, no JVD Lymph: No cervical, supraclavicular, or other lymphadenopathy Chest: No chest wall abnormalities or deformities wounds are healing well Heart: Regular rate and rhythm Lungs: Clear to auscultation bilaterally Abdomen: Soft, nontender, normal bowel sounds Extremities: No edema, cyanosis, or clubbing. Full range of motion Neuro: Grossly intact, alert and oriented x3, and nonfocal Skin: Warm and dry no rashes Affect: Normal Assessment & Plan Assessment & Plan (1) Lung cancer: Code(s): C34.90 - Malignant neoplasm of unspecified part of unspecified bronchus or lung Plan: I had a discussion with her and her son through an batch plant supervisor about the findings on her pathology about the situation in the operating room. The ideal treatment would have been to remove the lobe of the lung although not sure she would have tolerated that quite as well. At this point I did discuss with her there are specific markers that are still pending and options moving forward will be just to follow this with serial CT scans versus adding chemotherapy/immunotherapy for a sublobar resection for lung cancer versus reoperation for completion lobectomy. She is pretty clear as she does not want the reoperation. I will plan on referring her to Medical Oncology for further discussion and from my standpoint will plan on a six-month follow-up CT scan of the chest and a visit with me after that as per protocol. Protocol is [address] scans for the 1st 2 years postoperatively followed by yearly for [address] Each [address] scan has a history of physical afterwards as long as there are no new changes this is the schedule we will follow. She and her son understood all that, all questions were answered, and I will plan on seeing her in 6 months. I also gave her a prescription for oxycodone which I directed her to use only at night to help her sleep and to use Tylenol during the day. She cannot use the NSAIDs due to her kidney disease. Orders: Orders CT chest wo IV con 6 Months C34.90 - Malignant neoplasm of unspecified part of unspecified bronchus or lung Coding Level of Care Code Global (03283) Diagnoses Lung cancer C34.90
[2022-08-26 11:02] VITALS: BP 130/80; PULSE 65; O2SAT 96; BMI 30.8
== END 2022-08-26 11:00 | disposition home or self-care (01) ==
PROVIDERS: PCP Nurse Practitioner Family; Visit Provider Surgery
DX: C34.90 Malignant neoplasm of unspecified part of unspecified bronchus or lung (principal)
CPT/HCPCS: 99024

== ENCOUNTER → 2022-08-26 09:42 | Outpatient (BNVA) | payer MEDICARE, MEDICAID, SELFPAY | PROVIDERS: PCP Nurse Practitioner Family; Visit Provider Surgery | DX: C34.90 Malignant neoplasm of unspecified part of unspecified bronchus or lung (principal) ==

== ENCOUNTER → 2022-08-30 20:30 | Outpatient (REF) | payer MEDICARE, MEDICAID, SELFPAY | LOC: HO.SL 20:30 | PROVIDERS: PCP Nurse Practitioner Family; Visit Provider Nurse Practitioner Family | DX: G47.33 Obstructive sleep apnea (adult) (pediatric) (principal); R40.0 Somnolence; R06.83 Snoring | CPT/HCPCS: 95810 ==

== ENCOUNTER → 2022-08-30 22:10 | Outpatient (BNV) | payer MEDICARE, MEDICAID, SELFPAY | PROVIDERS: PCP Nurse Practitioner Family; Visit Provider Psychiatry & Neurology Neurology | DX: G47.33 Obstructive sleep apnea (adult) (pediatric) (principal) | CPT/HCPCS: 95811 ==

== ENCOUNTER 2022-09-16 13:49 | Outpatient (REF) | payer MEDICARE, MEDICAID, SELFPAY ==
--- NOTE | ~2022-09-16 | MR_ITS ---
EXAMINATION: MR BRAIN WITHOUT CONTRAST CLINICAL INFORMATION: Posttraumatic seizures COMPARISON: None TECHNIQUE: Multiplanar multisequence MR imaging of the brain was obtained without intravenous contrast. FINDINGS: There is no acute infarct on diffusion-weighted imaging. There is no intracranial hemorrhage on iron-sensitive imaging. No extra-axial collection or mass effect/herniation. Patchy periventricular and deep white matter T2 FLAIR hyperintensities consistent with moderate underlying microangiopathy. Limited assessment of the hippocampi due to motion artifact. No convincing evidence of mesial temporal sclerosis No hydrocephalus. The ventricles are normal in morphology and size. The major flow voids at the skull base are preserved. Partially empty sella. The cerebellar tonsils are normally positioned. The craniocervical junction is normal. Marrow signal is within normal limits. The visualized soft tissues are without significant abnormality. Mild maxillary sinus mucosal thickening. MR/MR head/brain wo con IMPRESSION: Moderate chronic white matter microangiopathy. Otherwise unremarkable noncontrast MRI of the brain. No structural abnormality to explain seizures is identified.
== END 2022-09-16 13:50 | disposition home or self-care (01) ==
LOC: HO.MRI 13:49
PROVIDERS: PCP Nurse Practitioner Family; Visit Provider Nurse Practitioner Family
DX: R56.1 Post traumatic seizures (principal)
CPT/HCPCS: 70551

== ENCOUNTER 2022-09-27 11:45 | Emergency (ER) | payer MEDICARE, MEDICAID, SELFPAY ==
--- NOTE | ~2022-09-27 | XR_ITS ---
EXAMINATION: XR LUMBOSACRAL SPINE CLINICAL INFORMATION: Pain. COMPARISON: None available. TECHNIQUE: Three views of the lumbosacral spine. FINDINGS: There is grade 1 anterolisthesis L5 over S1. There is mild curvature of the lumbar spine convex to the left. There is diffuse moderate thoracolumbar disc degenerative change with loss of disc space, endplate change and osteophytes. The bone mineralization is within normal limits. The vertebral body heights are maintained. There is atherosclerotic plaque of the abdominal aorta. The soft tissues are unremarkable. XR/XR lumbar spine 2-3V IMPRESSION: Moderate diffuse thoracolumbar disc degenerative change with grade 1 anterolisthesis L5 over S1 and mild curvature of the lumbar spine convex to the left. No fracture identified.
--- NOTE | 2022-09-27 12:53 | ED_ITS ---
HPI - General Adult General Chief complaint: Abdominal Pain Stated complaint: Lower back pain Time Seen by Provider: 09/27/22 18:44 Source: patient and family Limitations: no limitations History of Present Illness HPI narrative: 66-year-old female with low back pain. The pain is an 8 or a 9/10. The pain is constant. Is worse with movement, twisting, bending, lifting. The pain does not radiate. There is no associated numbness, tingling or focal weakness. She denies any loss of bowel or bladder control. The pain is described as sharp and achy in nature. Patient notes that the pain started after her lung surgery and July of this year. Has been getting progressively worse. She has been taking Tylenol without relief. She cannot take NSAIDs due to chronic kidney disease. Patient denies any urinary frequency, urgency or dysuria. She denies any hematuria Related Data Home Medications Medication Instructions Recorded Confirmed albuterol sulfate 2 mg/5 mL oral 2 mg PO TID 05/18/22 08/26/22 syrup amlodipine 5 mg tablet 10 mg PO DAILY 08/02/22 08/26/22 Previous Rx's Medication Instructions Recorded empagliflozin 10 mg tablet 10 mg PO DAILY 30 days #90 tabs 05/16/22 (Jardiance) linagliptin 5 mg tablet (Tradjenta) 5 mg PO DAILY 30 days #90 tabs 05/16/22 oxycodone 5 mg tablet 5 mg PO Q6H PRN pain #12 tabs 06/06/22 levothyroxine 150 mcg tablet 150 mcg PO DAILY #30 tabs 06/29/22 atorvastatin 40 mg tablet 40 mg PO DAILY #90 tabs 07/19/22 montelukast 10 mg tablet 10 mg PO DAILY 30 days #90 tabs 07/19/22 albuterol sulfate 90 mcg/actuation 1 inh inhalation QID #8.5 grams 07/20/22 aerosol inhaler (Ventolin HFA) carbamazepine 200 mg 200 mg PO ONCE 90 days #90 caps 08/01/22 capsule,extended release [id number] omeprazole 20 mg capsule,delayed 20 mg PO DAILY #90 caps 08/11/22 release capsaicin 0.1 % topical cream 1 appl topical TID PRN pain #60 09/27/22 grams cyclobenzaprine 10 mg tablet 10 mg PO TID PRN muscle spasm #14 09/27/22 tabs gabapentin 300 mg capsule 300 mg PO TID #30 caps 09/27/22 oxycodone 5 mg tablet 5 mg PO Q8H PRN pain #10 tabs 09/27/22 Allergies Allergy/AdvReac Type Severity Reaction Status Date / Time No Known Allergies Allergy Verified 08/26/22 10:29 Review of Systems Review of Systems: CONSTITUTIONAL: Denies weight loss, fever and chills. HEENT: Denies changes in vision and hearing. RESPIRATORY: Denies SOB and cough. CV: Denies palpitations no CP. GI: Denies abdominal pain, nausea, vomiting and diarrhea. : Denies dysuria and urinary frequency. MSK: + myalgia and joint pain. SKIN: Denies rash and pruritus. NEUROLOGICAL: Denies headache and syncope. PSYCHIATRIC: Denies recent changes in mood. Denies anxiety and depression. All other ROS are negative unless in HPI PMFSH Past Medical History Medical History CKD (chronic kidney disease), stage IV Diverticulitis Emphysema lung Epilepsy Esophagitis GI bleed Gout HTN (hypertension) Hypercholesteremia Hypothyroid Personal history of nicotine dependence Rheumatoid arthritis Right elbow pain Thyroid nodule Tubular adenoma of colon Type 2 diabetes mellitus Surgical History History of cholecystectomy History of colonoscopy History of elbow surgery History of esophagogastroduodenoscopy (EGD) History of lung surgery History of tubal ligation Family History Family History Sister SLE (systemic lupus erythematosus) Breast cancer Mental health problem Mother Diabetes Acute arthritis Alzheimer disease Age related osteoporosis Father Diabetes HTN (hypertension) Brother Brain tumor Family/Other Breast cancer Lupus Acute arthritis Family/Other HTN (hypertension) Thyroid cancer Other Mental health disorder Social History Social History Household Members: Children Household Members Other:: Living with son in his house Housing: House Alcohol intake: never Patient Tobacco Use Status: Former Tobacco user Years Smoked: (former smoker - onset 16yo - 1ppd x 50yrs, 50pyh - quit 12/2021) Smoked in Last 30 Days: No e-Cigarette/Vaping Use: Never Used Second Hand Smoke Exposure: Yes Use of substances other than those prescribed or required for medical reasons: No Advance Directives: No Advance Directives Information Provided: No service: No Cognitive needs: Yes (WHEELCHAIR) Hearing needs: No Vision needs: Yes (Glasses) Physical Exam ED Vital Signs: Vital Signs - 24 hr 09/27/22 12:56 09/27/22 18:41 09/27/22 19:41 Temperature 97.8 F 98.2 F 98.4 F Pulse Rate 56 53 56 Respiratory Rate 18 14 17 Blood Pressure 153/54 H 152/64 H 142/65 H Pulse Oximetry 97 99 97 Oxygen Delivery Method Room Air Room Air Room Air BMI result Body Mass Index 30.8 GEN: Well developed, no acute distress, alert, oriented HEENT: Normocephalic, atraumatic, normal external ears, nose appears normal, no oropharyngeal edema or exudates Eyes: Normal to appearance Neck: Supple, no lymphadenopathy Respiratory: Talks in complete sentences, no respiratory distress, clear to a uscultation bilaterally Cardiovascular: Regular rate and rhythm, no murmurs rubs or gallops Abdomen: Soft, nontender, nondistended, no guarding, no rebound Back: No CVA tenderness, lumbar paraspinous tenderness, no midline tenderness or step-off Extremities: No clubbing cyanosis or edema Neurologic: No focal neurologic deficits, cranial nerves 2-12 intact, strength is 5/5 bilaterally, normal gait Skin: No rash Course Course Course Narrative: This is an RME: Additional HPI, ROS, PE not included below will be deferred to primary provider. Patient is a 66 year old female with a history of lung cancer, DM, and CKD presenting with lower back pain and urinary frequency going on for the past few days. Patient has not been able to sleep well due to the pain. Patient rates the pain a 9/10 and she cannot really stand up. Plan: urine, labs Reevaluation(s) Reevaluation #1: The workup is complete. There is no evidence urinary tract infection. The x- ray of the lumbar spine shows significant degenerative changes, disc space narrowing some anterior spondylolisthesis at L5-S1. I believe this is an acute on chronic medical condition. I am recommending follow-up with primary care provider and physical therapy. In the meantime, I will make significant recommendations for pain management. I did inform her that we are likely to not get her pain to a 0. My target pain level for her would proxy probably be about a 4 or 5/10. Time: 20:06 Medications Administered Discontinued Medications Generic Name Dose Route Start Last Admin Trade Name Matt PRN Reason Stop Dose Admin Acetaminophen 975 mg 09/27/22 19:04 09/27/22 19:19 Acetaminophen 325 Mg Tablet PO 09/27/22 19:05 975 mg ONCE ONE Administration Cyclobenzaprine HCl 10 mg 09/27/22 19:04 09/27/22 19:18 Cyclobenzaprine Hcl 10 Mg Tablet PO 09/27/22 19:05 10 mg ONCE ONE Administration Gabapentin 300 mg 09/27/22 19:04 09/27/22 19:19 Gabapentin 300 Mg Capsule PO 09/27/22 19:05 300 mg ONCE ONE Administration Lidocaine 1 patch 09/27/22 19:04 09/27/22 19:19 Lidocaine 4 % Patch Adh..Patch TRANSDERMA 09/27/22 19:05 1 patch ONCE ONE Administration Protocol Medical Decision Making Medical Decision Making [facility] Narrative: Patient presents with acute on chronic low back pain. There is no acute trauma. There is no history of intravenous drug abuse. There is no radiculopathy. There are no red flags at this time. Patient cannot take NSAIDs. She can take Tylenol but has not been assisting with her pain and discomfort. Differential diagnosis includes strain, sprain, muscle spasm, fracture, neuropathic. Although there is no trauma, doubt indication for imaging but will obtain an x-ray of the lumbar spine to minimize radiation. Spinal stenosis would be another consideration however an MRI is not indicated in this setting. There is no concern at this time for epidural abscess or cauda equinus syndrome. This does not appear to be an acute neurosurgical emergency. Will provide patient with analgesia. Will obtain a urinalysis to make sure there is no UTI or pyelonephritis. Differential Diagnosis Differential Diagnoses: The differential diagnosis associated with the presentation includes (See above) Admission/Observation Consideration of admission/observation: Escalation of care including admission/observation considered Lab Data [facility] Lab Attestation statement: I reviewed the patient's lab results. 09/27/22 16:09 09/27/22 16:09 Labs: Lab Results 09/27/22 09/27/22 09/27/22 Range/Units 16:09 16:09 19:31 WBC 7.9 (4.8-10.8) X10*3/uL RBC 4.12 L (4.20-5.50) X10*6/uL Hgb 12.0 (12.0-16.0) g/dl Hct 36.9 L (37.0-47.0) % MCV 89.6 (80.0-98.0) fL MCH 29.1 (27.0-33.0) pg MCHC 32.5 (31.0-35.0) g/dl RDW 14.4 (11.0-16.0) % Plt Count 269 (160-400) X10*3/uL MPV 9.0 L (9.4-12.3) fL Immature Gran % (Auto) 0.9 H (0.0-0.4) % Neut % (Auto) 61.2 (45-73) % Lymph % (Auto) 29.3 (20-40) % [place] % (Auto) 6.2 (2-11) % Eos % (Auto) 1.9 (0-4) % Baso % (Auto) 0.5 (0-2) % Lymph # (Auto) 2.3 (1.2-4.9) X10*3/uL [place] # (Auto) 0.5 (0.1-1.2) X10*3/uL Eos # (Auto) 0.2 (0.0-0.4) X10*3/uL Baso # (Auto) 0.0 (0.0-0.2) X10*3/uL Abs Immat Gran (auto) 0.07 H (0.00-0.03) X10*3/uL Absolute Neuts (auto) 4.8 (2.0-8.3) x10*3/uL Absolute Nucleated RBC 0.000 (0.0-0.012) X10*3/uL Nucleated RBC % (auto) 0.0 (0.0-0.2) /100WBC Sodium 136 (135-145) mmol/L Potassium 4.5 (3.3-5.1) mmol/L Chloride 107 (96-108) mmol/L Carbon Dioxide 22 (22-29) mmol/L Anion Gap 12 (12-20) BUN 55 H (9-16) mg/dL Creatinine 3.16 H (0.5-1.4) mg/dL Estim Creat Clear Calc 17.3 Estimated GFR 15 Random Glucose 207 H (60-115) mg/dL Calcium 9.1 D (8.4-10.2) mg/dL Magnesium 2.3 (1.6-2.6) mg/dL Total Bilirubin 0.2 (0.0-1.0) mg/dL AST 19 (5-31) U/L ALT 21 (0-31) U/L Alkaline Phosphatase 125 H (39-117) U/L Total Protein 6.9 (6.5-8.0) g/dL Albumin 3.6 (3.5-5.0) g/dL Urine Color Yellow Urine Appearance Clear Urine pH 5.5 (5.0-9.0) Ur Specific [place] 1.015 (1.005-1.025) Urine Protein 300 (3+) H (Neg-Trace) mg/dL Urine Glucose (UA) >=1000 H (Negative) mg/dL Urine Ketones Negative (Negative) mg/dL Urine Blood Negative (Negative) Urine Nitrite Negative (Negative) Ur Leukocyte Esterase Negative (Negative) Urine RBC 0-2 (0-2) /HPF Urine WBC 0-5 (0-5) /HPF Ur Squamous Epith Cells 0-2 (0-2) /HPF Urine Bacteria None Seen (None Seen) Hyaline Casts 0-2 (0-2) /LPF Independent Interpretation I performed an independent interpretation of an: Plain X-Ray (Lumbar: Degenerative changes noted multilevel. There is disc space narrowing throughout. There is anterior spondylolisthesis at L5-S1. There is no acute fracture.) Prescription Management I considered prescription management with: Pain Medication Discharge Plan Discharge Clinical Impression: Low back pain Patient Disposition: Home, Self-Care Instructions: Chronic Back Pain (DC), Back Pain (ED) Additional Instructions: For your pain: Tylenol/acetaminophen 1000 mg every 6 hours as needed Gabapentin 300 mg 3 times daily Cyclobenzaprine 10 mg every 8 hours as needed for muscle spasm, may cause drowsiness Lidocaine patch daily as needed Capsaicin cream apply to the affected area 3-4 times daily. I am recommending follow-up with her primary care provider in 1-2 weeks for consideration of physical therapy. Consider complementary care such as chiropractics, acupuncture, cupping, stretching, etc.. Prescriptions: New gabapentin 300 mg capsule 300 mg PO TID Qty: 30 0RF cyclobenzaprine 10 mg tablet 10 mg PO TID PRN (Reason: muscle spasm) Qty: 14 0RF capsaicin 0.1 % cream 1 appl topical TID PRN (Reason: pain) Qty: 60 0RF Rx Instructions: do not wash area for at least 30 min after application oxycodone 5 mg tablet 5 mg PO Q8H PRN (Reason: pain) Qty: 10 0RF Rx Instructions: Partial Fill upon patient request. No Action Jardiance 10 mg tablet 10 mg PO DAILY 30 Days Qty: 90 0RF Tradjenta 5 mg tablet 5 mg PO DAILY 30 Days Qty: 90 0RF levothyroxine 150 mcg tablet 150 mcg PO DAILY Qty: 30 5RF atorvastatin 40 mg tablet 40 mg PO DAILY Qty: 90 1RF montelukast 10 mg tablet 10 mg PO DAILY 30 Days Qty: 90 3RF albuterol sulfate [Ventolin HFA] 90 mcg/actuation HFA aerosol inhaler 1 inh inhalation QID Qty: 8.5 3RF oxycodone 5 mg tablet 5 mg PO Q6H PRN (Reason: pain) Qty: 12 0RF Rx Instructions: Partial Fill upon patient request. omeprazole 20 mg capsule,delayed release(DR/EC) 20 mg PO DAILY Qty: 90 0RF amlodipine 5 mg tablet 10 mg PO DAILY carbamazepine 200 mg capsule, ER multiphase 12 hr 200 mg PO ONCE 90 Days Qty: 90 3RF albuterol sulfate 2 mg/5 mL syrup 2 mg PO TID Referrals: Zoya Colon, LUNCHROOM OPERATOR [Primary Care Provider] - 1 week
[2022-09-27 12:56] VITALS: BP 153/54; PULSE 56; RESP 18; TEMP 36.6; O2SAT 97; BMI 30.8
[2022-09-27 16:12] LABS: MANUAL DIFF FLAG NO
[2022-09-27 16:14] LABS: Basophils Percent Auto 0.5 % (0-2); Eosinophils Absolute Auto 0.2 X10*3/uL (0.0-0.4); Eosinophils Percent Auto 1.9 % (0-4); Hematocrit 36.9 % (37.0-47.0); Imm Gran Abs Auto 0.07 X10*3/uL (0.00-0.03); Imm Gran Pct Auto 0.9 % (0.0-0.4); Lymphocytes Absolute Auto 2.3 X10*3/uL (1.2-4.9); Lymphocytes Percent Auto 29.3 % (20-40); Mean Corpuscular HGB Conc 32.5 g/dl (31.0-35.0); Mean Corpuscular Hemoglobin 29.1 pg (27.0-33.0); Mean Corpuscular Volume 89.6 fL (80.0-98.0); Monocytes Absolute Auto 0.5 X10*3/uL (0.1-1.2); Monocytes Percent Auto 6.2 % (2-11); Neutrophils Absolute Auto 4.8 x10*3/uL (2.0-8.3); Neutrophils Percent Auto 61.2 % (45-73); Platelet Count 269 X10*3/uL (160-400); Red Blood Count 4.12 X10*6/uL (4.20-5.50); Red Cell Distribution Width 14.4 % (11.0-16.0); White Blood Count 7.9 X10*3/uL (4.8-10.8)
[2022-09-27 16:27] LABS: Alanine Aminotransferase 21 U/L (0-31); Albumin Level 3.6 g/dL (3.5-5.0); Alkaline Phosphatase 125 U/L (39-117); Anion Gap 12 (12-20); Aspartate Amino Transferase 19 U/L (5-31); Bilirubin Total 0.2 mg/dL (0.0-1.0); Blood Urea Nitrogen 55 mg/dL (9-16); Calcium 9.1 mg/dL (8.4-10.2); Carbon Dioxide 22 mmol/L (22-29); Chloride 107 mmol/L (96-108); Creatinine Clr Calc Pharmacy 17.3; Estimated Glomerular Filt Rate 15; Glucose Random 207 mg/dL (60-115); Magnesium 2.3 mg/dL (1.6-2.6); Potassium 4.5 mmol/L (3.3-5.1); Sodium 136 mmol/L (135-145); Total Protein 6.9 g/dL (6.5-8.0)
[2022-09-27 18:41] VITALS: BP 152/64; PULSE 53; RESP 14; TEMP 36.8; O2SAT 99
--- NOTE | 2022-09-27 18:48 | PC.NURSE ---
Pt stated she had a procedure to remove nodules from her left lung. Pt stated since then she has been sleeping in uncountable positions and has pain radiating from her lower back to her left shoulder. Pt stated she cant tell if it's back pain or kidney pain. 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
[2022-09-27] MEDS: Cyclobenzaprine HCl 10 MG TABLET PO (19:18)
[2022-09-27] MEDS: Lidocaine 4 % Patch ADH..PATCH 1 PATCH TRANSDERMA (19:19)
[2022-09-27] MEDS: Acetaminophen 325 MG TABLET 975 MG PO (19:19)
[2022-09-27] MEDS: Gabapentin 300 MG CAPSULE PO (19:19)
[2022-09-27 19:37] LABS: Appearance Urine Clear; Color Urine Yellow; Glucose Urine UA >=1000 mg/dL (Negative); Leukocyte Esterase Urine Negative (Negative); Nitrite Urine Negative (Negative); PH 5.5 (5.0-9.0); Specific Gravity - Urine 1.015 (1.005-1.025); UMIC TRIGGER UACC YES; Urine Blood Negative (Negative); Urine Ketones Negative (Negative); Urine Protein 300 (3+) mg/dL (Neg-Trace)
[2022-09-27 19:41] VITALS: BP 142/65; PULSE 56; RESP 17; TEMP 36.9; O2SAT 97
[2022-09-27 19:42] LABS: Bacteria Urine None Seen (None Seen); Hyaline Casts Urine 0-2 /LPF (0-2); RBC Urine 0-2 /HPF (0-2); Squamous Epithelial Cell Urine 0-2 /HPF (0-2); WBC Urine 0-5 /HPF (0-5)
--- NOTE | 2022-09-27 20:13 | PC.NURSE ---
this rn assumed care of pt @ 1900. pt calm and cooperative. pt son at bedside. pt moved to 17h bed. pt medicated according to noemi
--- NOTE | 2022-09-27 20:35 | PC.NURSE ---
pt son and pt provided with discharge packet, pt son and pt verbalized understanding of discharge plan. pt ambulatory at discharge. pt reports decreased pain at discharge
== END 2022-09-27 20:35 | disposition home or self-care (01) ==
PROVIDERS: Physician Assistant; Emergency Provider Emergency Medicine; PCP Nurse Practitioner Family
DX: M54.50 Low back pain, unspecified (principal); E11.9 Type 2 diabetes mellitus without complications; I10 Essential (primary) hypertension; E78.00 Pure hypercholesterolemia, unspecified; C34.90 Malignant neoplasm of unspecified part of unspecified bronchus or lung; Z87.891 Personal history of nicotine dependence; Z79.899 Other long term (current) drug therapy
CPT/HCPCS: 36415; 72100; 80053; 81001; 83735; 85025; 99283; 99284

== ENCOUNTER 2022-10-05 12:38 | Outpatient (REF) | payer MEDICARE, MEDICAID, SELFPAY ==
--- NOTE | 2022-10-05 12:41 | EEG_ITS ---
FINDINGS: The waking background activity consists of low-voltage fast frequencies seen diffusely intermixed with diffuse low voltage 4 to 5 hertz theta. Photic stimulation is without activation. Hyperventilation was omitted. No focal, lateralizing, or paroxysmal discharges are seen. IMPRESSION: This EEG is considered abnormal due to diffuse background slowing consistent with a diffuse encephalopathic process. No epileptiform discharges are seen. MD ANI Chávez/MODL / [phone]
== END 2022-10-05 12:39 | disposition home or self-care (01) ==
LOC: HO.NEURO 12:38
PROVIDERS: PCP Nurse Practitioner Family; Visit Provider Nurse Practitioner Family
DX: G40.909 Epilepsy, unspecified, not intractable, without status epilepticus (principal)
CPT/HCPCS: 95816

== ENCOUNTER 2022-10-19 09:50 | Emergency (ER) | payer MEDICARE, MEDICAID, SELFPAY ==
--- NOTE | ~2022-10-19 | XR_ITS ---
EXAMINATION: XR CHEST CLINICAL INFORMATION: Shortness of breath and cough COMPARISON: Chest CT from 05/27/2022 TECHNIQUE: 2 views of the chest were obtained. FINDINGS: Lungs are well-inflated and clear. Trachea is midline in position. No interstitial disease, consolidation or mass. No pleural effusion or pneumothorax. Cardiac silhouette and pulmonary vessels are normal in size. The mediastinum and dorothy have normal contour. There is atherosclerotic calcification of the aorta. Multilevel discovertebral degenerative change of the spine. Old healed fracture of left lateral seventh rib. Cholecystectomy clips are present in the upper abdomen. XR/XR chest 2V IMPRESSION: No evidence of pneumonia. No acute cardiopulmonary abnormality.
[2022-10-19 11:13] VITALS: BP 177/65; PULSE 86; RESP 18; TEMP 36.9; O2SAT 91; BMI 30.8
--- NOTE | 2022-10-19 11:13 | ED_ITS ---
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 She states she has been using her nebulizer and inhalers intermittently with minimal improvement. She states she is bringing up white and light yellow phlegm. she denies any chest pain or fevers at home. She took a COVID does a home that was negative. MD elicited complaint: shortness of breath and cough Pertinent past history: COPD Onset (ago): day(s) (5) Context: recent illness Timing: intermittent Severity: moderate Exacerbating factors: exertion and humidity Relieving factors: bronchodilators Known history of: COPD Associated symptoms: cough, wheezing, sputum production and chest congestion Treatment prior to arrival: none Related Data Home oxygen amount: none Previous Rx's Medication Instructions Recorded doxycycline hyclate 100 mg tablet 100 mg PO BID #14 tabs 10/19/22 ipratropium 0.5 mg-albuterol 3 mg 3 ml inhalation Q4H PRN shortness 10/19/22 (2.5 mg base)/3 mL nebulization of breath or wheezing #90 mL soln prednisone 20 mg tablet 40 mg PO DAILY #10 tabs 10/19/22 Allergies Allergy/AdvReac Type Severity Reaction Status Date / Time No Known Allergies Allergy Verified 10/19/22 11:13 Review of Systems Review of Systems: Yes all other systems are reviewed and are negative [facility] Social History Social History Advance Directives: No Advance Directives Information Provided: No Physical Exam Vital Signs: Vital Signs: Last Vital Signs Temp 98.4 F 10/19/22 13:07 Pulse 66 10/19/22 14:07 Resp 18 10/19/22 14:07 BP 151/73 H 10/19/22 13:07 Pulse Ox 94 10/19/22 13:07 O2 Del Method Room Air 10/19/22 13:07 BMI result Body Mass Index 30.8 Appearance: Alert. Oriented X3. No acute distress. Head: normocephalic, atraumatic. Eyes: Pupils equal, round and reactive to light. ENT: Pharynx normal. No tonsillar swelling or exudate. Neck: Normal inspection. Neck supple. CVS: Normal heart rate and rhythm. Pulses normal. Respiratory: No respiratory distress. Breath sounds With scattered inspiratory and expiratory wheezes throughout. speaking in complete sentences. No audible wheezing Abdomen: Soft and nontender. +BS x4 Skin: Skin warm and dry. Normal skin color. Normal skin turgor. No rashes. Extremities: No lower extremity edema. No joint swelling. No calf tenderness. Neuro/psych: Oriented X 3. No motor deficit. No sensory deficit. CN II-XII intact. Normal speech and cognition. Course Course Course Narrative: *Greek speaking This is a rapid medical exam. Deferred additional HPI, ROS, PE to primary provider. 67 yo female with past medical history of asthma, DM, hypothyroidism, HTN here with productive cough x 5 days w/ chest tightness. Flew home from [place] where she was visiting her son who was sick with similar symptoms. Did COVID test which was negative. In triage wheezing throughout. Saturation 93% She did 4 puffs of her inhaler in triage. Will obtain CXR, viral testing. Medications Administered Discontinued Medications Generic Name Dose Route Start Last Admin Trade Name Freq PRN Reason Stop Dose Admin Albuterol/Ipratropium 3 ml 10/19/22 13:15 10/19/22 14:04 Albuterol/Iprat 2.5/0.5mg 3 Ml Ampul.Neb INHALE 10/19/22 13:16 3 ml ONCE ONE Administration Medical Decision Making Medical Decision Making [facility] Narrative: 67-year-old female with history of COPD, former smoker presents to the ER for evaluation of shortness of breath and productive cough for the last 5 days. She has some scattered wheezing on exam on arrival. SpO2 91-94%. Given her history of COPD this is acceptable range. She is not in any respiratory distress. She was given a DuoNeb with improvement in aeration and wheezing. She is feeling better. Her chest x-ray today showed no evidence of pneumonia. She tested negative for COVID, flu, RSV. She has a nebulizer machine at home, needs refills of the nebulizer medication. At this time comfortable discharging home with oral prednisone, antibiotics, neb treatments for COPD exacerbation. SpO2 94%. Lung sounds were improved. She was given strict return precautions and encourage follow-up with her statistical financial analyst. Patient expressed understanding, medical staff credentialing coordinator used to explained diagnosis and management. Differential Diagnosis Differential Diagnoses: The differential diagnosis associated with the presentation includes acute COPD exacerbation, asthma exacerbation, CHF exacerbation, pneumonia, bronchitis, COVID, flu, other viral syndrome Admission/Observation Consideration of admission/observation: Escalation of care including admission/observation considered elderly female w/ copd exacerbation considered admission but she improved with nebulizer treatment Lab Data MDM Lab Attestation statement: I reviewed the patient's lab results. Labs: Lab Results 10/19/22 Range/Units 11:36 Influenza Type A (PCR) NEGATIVE (Negative) Influenza Type B (PCR) NEGATIVE (Negative) RSV RNA Qual (PCR) NEGATIVE (Negative) SARS-CoV-2 RNA (RT-PCR) NEGATIVE (Negative) Independent Interpretation I performed an independent interpretation of an: Plain X-Ray Interpretation: Chest x-ray reviewed, question trace left lower low pleural effusion, no focal consolidation. Radiology Impression Discussion of test interpretation with radiology: I have reviewed the radiologist's reading. Radiologist Impression: EXAMINATION: XR CHEST CLINICAL INFORMATION: Shortness of breath and cough COMPARISON: Chest CT from 05/27/2022 TECHNIQUE: 2 views of the chest were obtained. FINDINGS: Lungs are well-inflated and clear. Trachea is midline in position. No interstitial disease, consolidation or mass. No pleural effusion or pneumothorax.? Cardiac silhouette and pulmonary vessels are normal in size. The mediastinum and dorothy have normal contour. There is atherosclerotic calcification of the aorta. Multilevel discovertebral degenerative change of the spine. Old healed fracture of left lateral seventh rib. Cholecystectomy clips are present in the upper abdomen. XR/XR chest 2V IMPRESSION: No evidence of pneumonia. No acute cardiopulmonary abnormality. External Record Review External record reviewed: Outpatient record, Prior outpatient labs and Prior outpatient radiology Tests considered The following testing was considered but not selected: considered lab work and EKG however she appeared well had improvement with nebulizer treatment. Low suspicion for cardiac etiology Prescription Management I considered prescription management with: Antibiotic and Other ( Bronchodilators and steroids) Chronic Conditions Patient?s care impacted by: Other ( COPD) Discharge Plan Discharge Clinical Impression: COPD exacerbation Patient Disposition: Home, Self-Care Instructions: COPD (Chronic Obstructive Pulmonary Disease) (DC) Additional Instructions: You tested negative for COVID, flu, RSV. Your chest x-ray did not show any evidence of pneumonia. Recommend using your nebulizer every 4 hours until you are feeling better. Take the prescribed steroid medication as directed, complete the entire course. Take the prescribed antibiotics as directed as well, this is for COPD exacerbation. Rest and stay hydrated. If you develop new or worsening symptoms call 911 or come back to the ER for further evaluation. Tu prueba fue negativa para COVID, gripe, RSV. Erickson radiograf?a de t?rax no mostr? ninguna evidencia de neumon?a. Recomiende usar erickson nebulizador cada 4 horas hasta que se sienta mejor. Central el medicamento esteroide recetado seg?n las indicaciones y complete todo el tratamiento. Central tambi?n los antibi?ticos recetados seg?n las indicaciones, esto es para la exacerbaci?n de la EPOC. Descansa y mantente hidratado. Si desarrolla s?ntomas nuevos o que empeoran, llame al 911 o regrese a la abner de emergencias para meet evaluaci?n adicional. Prescriptions: New prednisone 20 mg tablet 40 mg PO DAILY Qty: 10 0RF doxycycline hyclate 100 mg tablet 100 mg PO BID Qty: 14 0RF ipratropium-albuterol 0.5 mg-3 mg(2.5 mg base)/3 mL solution for nebulization 3 ml inhalation Q4H PRN (Reason: shortness of breath or wheezing) Qty: 90 0RF Rx Instructions: until breathing returns to target peak flow/parameters Referrals: [facility] [place] Pulmonology Services [Provider Group] Interventions: ED Discharge Assessment Last Done: 10/19/22 15:49 Discharge Date/Time: 10/19/22 15:51
[2022-10-19 12:24] LABS: Influenza A PCR NEGATIVE (Negative); Influenza B PCR NEGATIVE (Negative); Resp Syncy Virus RNA Qual PCR NEGATIVE (Negative); SARS COV2 PCR INHOUSE NEGATIVE (Negative)
[2022-10-19 13:07] VITALS: BP 151/73; PULSE 81; RESP 20; TEMP 36.9; O2SAT 94
--- NOTE | 2022-10-19 13:08 | PC.NURSE ---
pt a&ox3. respirations even and unlabored. pt has bilateral inspiratory and expiratory wheezing.
[2022-10-19] MEDS: Albuterol/Iprat 2.5/0.5MG 3 ML AMPUL.NEB INHALE (14:04)
[2022-10-19 14:07] VITALS: PULSE 66; RESP 18; O2SAT 96
== END 2022-10-19 15:51 | disposition home or self-care (01) ==
PROVIDERS: Nurse Practitioner Family; Emergency Provider Emergency Medicine
DX: J44.1 Chronic obstructive pulmonary disease with (acute) exacerbation (principal); R06.02 Shortness of breath; Z87.891 Personal history of nicotine dependence; Z20.822 Contact with and (suspected) exposure to COVID-19; Z20.828 Contact with and (suspected) exposure to other viral communicable diseases
CPT/HCPCS: 0241U; 71046; 94640; 99284

== ENCOUNTER 2022-10-20 09:13 | Outpatient (AMB) | payer MEDICARE, MEDICAID, SELFPAY ==
--- NOTE | 2022-10-20 09:17 | MHC.OFFVIS ---
Intake Vital Signs 10/20/22 09:28 Height 5 ft 3 in Weight 170 lb BMI 30.1 BP 120/60 Blood Pressure Location Lt brachial Position Sitting Pulse 72 Pulse Source Pulse Oximeter Pulse Oximetry (%) 90 L Oxygen Delivery Method Room Air Intake Visit Reasons: 2m follow up Epilepsy-VM not set up Intake Note: NPV for Epilepsy Pari Mutuel Ticket Seller Required: Yes Pari Mutuel Ticket Seller Name: Sabianist Allergies No Known Allergies Allergy (Verified 11/03/22 14:10) HPI HPI Comments History of Present Illness Details 67 y/o female patient presents for follow up of epilepsy. Pt was accompanied by her son. Pt's seizure well managed with carbamazepine 200 mg ER daily, and had seizure free for more than 15 years now. Pt underwent split night sleep study. The baseline portion of the sleep study was significant for severe degree of sleep apnea with increased severity in REM. AHI was 49/hr, REM AHI was 60/hr. She trialed on CPAP [id number], and her breathing and oxygenation stablized on CPAP at [id number]. Pt reports she had lung biopsy last week and the result pending. [facility] Medical History (Updated 11/16/22 @ 21:16 by Kevon Singh CNP) Cataracts, both eyes Glaucoma Tubular adenoma of colon Esophagitis Personal history of nicotine dependence Gout Right elbow pain Thyroid nodule HTN (hypertension) GI bleed Diverticulitis CKD (chronic kidney disease), stage IV Hypothyroid Emphysema lung Epilepsy Type 2 diabetes mellitus Hypercholesteremia Surgical History (Updated 11/03/22 @ 14:10 by Mariella Ornelas) History of elbow surgery History of lung surgery History of colonoscopy History of esophagogastroduodenoscopy (EGD) History of cholecystectomy History of tubal ligation Family History (System 11/03/22 @ 14:10 by Mariella Ornelas) Sister SLE (systemic lupus erythematosus) Breast cancer Mental health problem Mother Diabetes Acute arthritis Alzheimer disease Age related osteoporosis Father Diabetes HTN (hypertension) Brother Brain tumor Family/Other Breast cancer Lupus Acute arthritis Family/Other HTN (hypertension) Thyroid cancer Other Mental health disorder Social History (System 11/03/22 @ 14:10 by Mariella Ornelas) Household Members: Children Household Members Other:: Living with son in his house Housing: House Alcohol intake: never Patient Tobacco Use Status: Former Tobacco user Years Smoked: (former smoker - onset 16yo - 1ppd x 50yrs, 50pyh - quit 12/2021) e-Cigarette/Vaping Use: Never Used Second Hand Smoke Exposure: Yes service: No Cognitive needs: Yes (WHEELCHAIR) Hearing needs: No Vision needs: Yes (Glasses) Review of Systems Const All systems reviewed & are unremarkable except as noted in HPI and below ENT Reports Normal hearing present Neuro Reports Normal hearing present Physical Exam Vital Signs: Last Vital Signs Pulse 72 10/20/22 09:28 BP 120/60 10/20/22 09:28 Pulse Ox 90 L 10/20/22 09:28 Oxygen Delivery Method Room Air 10/20/22 09:28 BMI result Body Mass Index 30.1 Const General: cooperative and tired appearing Nutritional Appearance: obese Orientation/consciousness: patient oriented x3 Limitations: language barrier (Wolof speaking only.) and wheelchair Resp Effort & Inspection: normal respiratory effort and able to speak in complete sentences Neuro General: patient oriented x3 and moves all extremities Cranial nerves: Yes Normal facial strength present, Yes Midline tongue present, Yes Symmetric palate elevation present, Yes Normal hearing present, Yes Ability to bilaterally rotate head present and Yes Ability to bilaterally elevate shoulders present Cognition (Neuro): normal cognition Motor exam (neuro): 5/5 motor strength present throughout, Pronator motor function not present and no tremor noted Psych Appearance: grossly normal Mental Status: mental status grossly normal Affect: normal affect Attitude: cooperative Assessment & Plan Assessment & Plan (1) MILLICENT on CPAP: Code(s): G47.33 - Obstructive sleep apnea (adult) (pediatric) (2) Epilepsy: Comment: since age 36 Code(s): G40.909 - Epilepsy, unspecified, not intractable, without status epilepticus Plan Advised patient to start CPAP at [id number]. Stressed compliance, use CPAP nightly and more than 4 hrs. Continue to take carbamanzepine 200 mg ER daily. Medications: Discontinued oxycodone Partial Fill upon patient request. Discontinued Reason: Patient no longer taking 5 mg PO Q6H PRN 12 tabs 0RF pain K57.32 - Diverticulitis of large intestine without perforation or abscess without bleeding Coding Level of Care Code Est Pt Level 4 (35786) Diagnoses MILLICENT on CPAP G47.33 Epilepsy G40.909
[2022-10-20 09:28] VITALS: BP 120/60; PULSE 72; O2SAT 90; BMI 30.1
== END 2022-10-20 09:48 | disposition home or self-care (01) ==
PROVIDERS: PCP Nurse Practitioner Family; Visit Provider Nurse Practitioner Family
DX: G47.33 Obstructive sleep apnea (adult) (pediatric) (principal); G40.909 Epilepsy, unspecified, not intractable, without status epilepticus
CPT/HCPCS: 99214

== ENCOUNTER → 2022-10-20 09:13 | Outpatient (BNVA) | payer MEDICARE, MEDICAID, SELFPAY | PROVIDERS: PCP Nurse Practitioner Family; Visit Provider Nurse Practitioner Family | DX: G40.909 Epilepsy, unspecified, not intractable, without status epilepticus (principal); G47.33 Obstructive sleep apnea (adult) (pediatric) | CPT/HCPCS: 99212 ==

== ENCOUNTER 2022-10-26 08:22 | Outpatient (REF) | payer MEDICARE, MEDICAID, SELFPAY ==
[2022-10-26 10:19] LABS: Hematocrit 43.5 % (37.0-47.0); Hemoglobin 13.8 g/dl (12.0-16.0); Mean Corpuscular HGB Conc 31.7 g/dl (31.0-35.0); Mean Corpuscular Hemoglobin 28.6 pg (27.0-33.0); Mean Corpuscular Volume 90.1 fL (80.0-98.0); Mean Platelet Volume 9.6 fL (9.4-12.3); Platelet Count 384 X10*3/uL (160-400); Red Blood Count 4.83 X10*6/uL (4.20-5.50); Red Cell Distribution Width 13.8 % (11.0-16.0); White Blood Count 17.5 X10*3/uL (4.8-10.8)
[2022-10-26 10:25] LABS: Estimated Average Glucose 148 mg/dL; Hemoglobin A1c % 6.8 % (<6.0)
[2022-10-26 10:26] LABS: Alanine Aminotransferase 25 U/L (0-31); Albumin Level 3.8 g/dL (3.5-5.0); Alkaline Phosphatase 118 U/L (39-117); Anion Gap 15 (12-20); Aspartate Amino Transferase 17 U/L (5-31); Bilirubin Total 0.1 mg/dL (0.0-1.0); Blood Urea Nitrogen 73 mg/dL (9-16); Calcium 9.3 mg/dL (8.4-10.2); Carbon Dioxide 20 mmol/L (22-29); Chloride 104 mmol/L (96-108); Cholesterol 252 mg/dL (<200); Estimated Glomerular Filt Rate 14; Glucose Fasting 183 mg/dL (60-99); HDL Cholesterol 59 mg/dL (>40); Potassium 4.8 mmol/L (3.3-5.1); Sodium 134 mmol/L (135-145); Total Protein 7.2 g/dL (6.5-8.0); Triglycerides 402 mg/dL (<150)
[2022-10-26 10:36] LABS: Phosphorus 5.3 mg/dL (2.7-4.5); Uric Acid 7.8 mg/dL (2.4-5.7)
[2022-10-26 10:43] LABS: Band Neutrophils Percent 6 % (3-5); Eosinophils Absolute Manual 0.2 X10*3/uL (0.0-0.4); Eosinophils Percent Manual 1 % (0-4); Lymphocytes Absolute Manual 3.5 X10*3/uL (1.2-4.9); Lymphocytes Percent Manual 20 % (20-40); Metamyelocytes Absolute 0.4 X10*3/uL; Metamyelocytes Percent 2 %; Monocytes Absolute Manual 1.8 X10*3/uL (0.1-1.2); Monocytes Percent Manual 10 % (2-11); Neutrophils Absolute Manual 11.7 X10*3/uL (2.0-8.3); Neutrophils Percent Manual 61 % (45-73)
[2022-10-26 10:45] LABS: Platelet Estimate NORMAL (NORMAL); Platelet Morphology Comment NORMAL; RBC Morphology NORMAL
[2022-10-26 10:50] LABS: Vitamin D 25-OH Total 33.7 ng/mL (>30)
[2022-10-26 10:56] LABS: Creatinine Urine 65.09 mg/dL; Protein/Creatinine Ratio, Ur 5.39 (<0.2); Total Protein Urine Random 351 mg/dL (<12)
[2022-10-28 23:58] LABS: Calcium (PTHI) 9.1 mg/dL (8.6-10.4); PTHI 308 pg/mL (16-77)
== END 2022-10-26 08:23 | disposition home or self-care (01) ==
LOC: HO.10HDL 08:22
PROVIDERS: Absent Provider Internal Medicine Nephrology; Visit Provider Nurse Practitioner Family
DX: Z13.220 Encounter for screening for lipoid disorders (principal); I12.9 Hypertensive chronic kidney disease with stage 1 through stage 4 chronic kidney disease, or unspecified chronic kidney disease; E11.22 Type 2 diabetes mellitus with diabetic chronic kidney disease; N18.32 Chronic kidney disease, stage 3b; M05.20 Rheumatoid vasculitis with rheumatoid arthritis of unspecified site; M17.0 Bilateral primary osteoarthritis of knee; M19.041 Primary osteoarthritis, right hand; M19.042 Primary osteoarthritis, left hand
CPT/HCPCS: 36415; 80053; 80061; 82306; 82570; 83036; 83735; 83970; 84100; 84156; 84550; 85007; 85027; 99202

== ENCOUNTER 2022-10-26 08:42 | Outpatient (AMB) | payer MEDICAID, MEDICARE, SELFPAY ==
--- NOTE | 2022-10-26 08:50 | MHC.OFFVIS ---
Intake Vital Signs 10/26/22 08:51 Height 5 ft 3 in Weight 168 lb 6.931 oz BMI 29.8 BP 116/70 Blood Pressure Location Rt brachial Position Sitting Pulse 54 Pulse Source Pulse Oximeter Temp 97.3 F Temp Source Skin Pulse Oximetry (%) 96 Intake Visit Reasons: RA Intake Note: shoulders, wrists, knees and low back pain [employer] Required: Yes [employer]anners Name: Arsenio Woodward Accompanied by: Son Allergies No Known Allergies Allergy (Verified 10/26/22 08:53) Medication List - Last Reconciled 10/26/22 by Beryl Ravi MD albuterol sulfate 90 mcg/actuation (Ventolin HFA) 1 inh inhalation QID albuterol sulfate 2 mg PO TID amlodipine 10 mg PO DAILY atorvastatin 40 mg PO DAILY capsaicin 0.1% 1 appl topical TID PRN carbamazepine ER 200 mg PO ONCE 90 days cyclobenzaprine 10 mg PO TID PRN dorzolamide 2% drps ophthalmic (eye) empagliflozin (Jardiance) 10 mg PO DAILY 30 days gabapentin 300 mg PO TID levothyroxine 150 mcg PO DAILY linagliptin (Tradjenta) 5 mg PO DAILY 30 days montelukast 10 mg PO DAILY 30 days omeprazole 20 mg PO DAILY oxycodone 5 mg PO Q8H PRN HPI HPI Comments History of Present Illness Details This is a 67-year-old female with recently diagnosed adenocarcinoma of the lung s/p resection, waiting for oncology appointment who presents as a new patient for evaluation of arthritis. Patient stated that she was diagnosed with arthritis by her PCP in [place]. She is unaware of any history of rheumatoid arthritis or any family history of inflammatory arthritis. Patient states that she has pain in both thumbs and both knees with going up and down the stairs. She uses Tylenol with some relief. Over the last week and have she believes that she caught an infection from a family member and she has been more fatigued and coughing. [facility] Medical History (Updated 10/26/22 @ 09:31 by Beryl Ravi MD) Tubular adenoma of colon Esophagitis Personal history of nicotine dependence Gout Right elbow pain Thyroid nodule HTN (hypertension) GI bleed Diverticulitis CKD (chronic kidney disease), stage IV Hypothyroid Emphysema lung Epilepsy Type 2 diabetes mellitus Hypercholesteremia Surgical History History of elbow surgery History of lung surgery History of colonoscopy History of esophagogastroduodenoscopy (EGD) History of cholecystectomy History of tubal ligation Family History Sister SLE (systemic lupus erythematosus) Breast cancer Mental health problem Mother Diabetes Acute arthritis Alzheimer disease Age related osteoporosis Father Diabetes HTN (hypertension) Brother Brain tumor Family/Other Breast cancer Lupus Acute arthritis Family/Other HTN (hypertension) Thyroid cancer Other Mental health disorder Social History Household Members: Children Household Members Other:: Living with son in his house Housing: House Alcohol intake: never Patient Tobacco Use Status: Former Tobacco user Years Smoked: (former smoker - onset 16yo - 1ppd x 50yrs, 50pyh - quit 12/2021) e-Cigarette/Vaping Use: Never Used Second Hand Smoke Exposure: Yes service: No Cognitive needs: Yes (WHEELCHAIR) Hearing needs: No Vision needs: Yes (Glasses) Review of Systems Const Reports fatigue and Reports weakness Card Reports dyspnea Resp Reports dyspnea GI Reports nausea Musc Reports arthralgias Neuro Reports weakness Psych Reports abnormal sleep pattern, Reports anxiety and Reports depression Endo Reports fatigue and Reports polydipsia Physical Exam Vital Signs: Last Vital Signs Temp 97.3 F 10/26/22 08:51 Pulse 54 10/26/22 08:51 BP 116/70 10/26/22 08:51 Pulse Ox 96 10/26/22 08:51 BMI result Body Mass Index 29.8 Const General: cooperative and tired appearing Nutritional Appearance: overweight Orientation/consciousness: patient oriented x3 Limitations: no limitations HEENT Head: Yes normocephalic and Yes atraumatic Mouth: moist mucous membranes Resp Effort & Inspection: normal respiratory effort and able to speak in complete sentences Auscultation: rhonchi Skin General skin exam: no rashes or lesions noted Neuro General: patient oriented x3 Extrem Other: Osteoarthritic changes of both hands with prominent Heberden's nodes Bilateral 1st CMC joint tenderness, positive grind test on the right Bilateral knee crepitus Mildly reduced right elbow extension (metal plate) Assessment & Plan Assessment & Plan (1) Osteoarthritis of hands, bilateral: Code(s): M19.041 - Primary osteoarthritis, right hand; M19.042 - Primary osteoarthritis, left hand Qualifiers: Osteoarthritis type: primary Qualified Code(s): M19.041 - Primary osteoarthritis, right hand; M19.042 - Primary osteoarthritis, left hand Plan: This is a 67-year-old female who presents for evaluation of joint pain. Upon evaluation patient has bilateral hand osteoarthritis. Check bilateral hand x-rays. Discussed different treatment strategies for hand osteoarthritis. I suggested using Tylenol, cannot use systemic NSAIDs due to history of CKD, can use topical Voltaren gel as needed. Will refer patient occupational therapy. Can consider an injection next visit if no improvement. Advised patient's son that patient should control her blood sugar for a few days before the appointment if she would like an injection (2) Bilateral primary osteoarthritis of knee: Code(s): M17.0 - Bilateral primary osteoarthritis of knee Plan: Check bilateral knee x-rays. Tylenol as needed. Can use Voltaren gel sparingly. Can consider an injection next visit Plan I spent 46 minutes reviewing patient's chart, evaluating patient, ordering diagnostic workup, counseling patient and documenting in the chart Orders: Orders XR hand wrist RT Today M19.041 - Primary osteoarthritis, right hand, M19.042 - Primary osteoarthritis, left hand XR knee LT 3V Today M17.0 - Bilateral primary osteoarthritis of knee OT Evaluation and Treatment Today M19.041 - Primary osteoarthritis, right hand, M19.042 - Primary osteoarthritis, left hand XR hand wrist LT Today M19.041 - Primary osteoarthritis, right hand, M19.042 - Primary osteoarthritis, left hand XR knee RT 3V Today M17.0 - Bilateral primary osteoarthritis of knee XR knee standing BI Today M17.0 - Bilateral primary osteoarthritis of knee Coding Level of Care Code New Pt Level 4 (25418) Diagnoses Primary osteoarthritis of both hands M19.041; M19.042 Osteoarthritis type: primary Bilateral primary osteoarthritis of knee M17.0
[2022-10-26 08:51] VITALS: BP 116/70; PULSE 54; TEMP 36.3; O2SAT 96; BMI 29.8
== END 2022-10-26 09:23 | disposition home or self-care (01) ==
PROVIDERS: PCP Nurse Practitioner Family; Visit Provider Student in an Organized Health Care Education/Training Program
DX: M19.041 Primary osteoarthritis, right hand (principal); M19.042 Primary osteoarthritis, left hand; M17.0 Bilateral primary osteoarthritis of knee
CPT/HCPCS: 99204

== ENCOUNTER → 2022-11-01 14:43 | Outpatient (BNV) | payer MEDICARE, MEDICAID, SELFPAY | PROVIDERS: PCP Nurse Practitioner Family; Referring Provider Surgery; Visit Provider Internal Medicine Medical Oncology | DX: C34.92 Malignant neoplasm of unspecified part of left bronchus or lung (principal) | CPT/HCPCS: 99204; 99213 ==

== ENCOUNTER 2022-11-03 08:30 | Outpatient (AMB) | payer MEDICARE, MEDICAID, SELFPAY ==
[2022-11-03 09:11] VITALS: BP 144/72; PULSE 58; RESP 13; O2SAT 97; BMI 30.5
--- NOTE | 2022-11-03 09:11 | MHC.PC.OV ---
Vital Signs 11/03/22 09:11 Height 5 ft 3 in Weight 172 lb 6 oz BMI 30.5 BP 144/72 H Blood Pressure Location Rt brachial Position Sitting Respiration 13 Pulse 58 Pulse Source Pulse Oximeter Pulse Oximetry (%) 97 Oxygen Delivery Method Room Air Intake Visit Reasons: DM, Epilepsy, Diverticulitis, Pulm nodule. Intake Note: Patient's son states that he would like to discuss other symptoms that have been present lately. Patient hasnt taken amlodipine for about week now. Patient's son would also like to discuss her mental health. Corporate Statistical Financial Analyst Required: Yes Corporate Statistical Financial Analyst Name: ([employer]) Son Accompanied by: Self / Same As Patient Allergies No Known Allergies Allergy (Verified 11/03/22 14:10) Tobacco use date assessed: 08/02/22 Fall risk assessment: 1 Fall in past year Last assessed Fall Risk: 11/03/22 Dental Screening Dental Screen Date: 11/03/22 Did you have a dental visit in the last 12 months?: Yes Did you have a dental problem in the last 6 months where you did not have access to dental care?: No Was dental information given to patient?: Patient has dentist HPI HPI Comments History of Present Illness Details 66-year-old female history of hypercholesteremia, type 2 diabetes mellitus, epilepsy, emphysema, hypothyroid, rheumatoid arthritis, CKD, diverticulitis and GI bleed.? Patient also underwent low-dose chest CT which revealedORDER #: [id number] CT/CT lung screening IMPRESSION: Emphysema. 8 mm left upper lobe nodule. 1.5 cm groundglass attenuation area in the lingula. ASSESSMENT:? Lung-RADS category 4A:? Suspicious RECOMMENDATION: Low-dose chest CT follow-up in 3 months, PET/CT scan or tissue sampling should be considered. Patient was seen by Dr. Camp following this and the plan is for patient to undergo a navigational bronchoscopy with left upper lobe resection and possible lobectomy. Tissue sampling showed adenocarcinoma, patient was referred to Dr. Vasquez oncology. Oncology in the process of pursuing possible molecular testing to develop treatment plan. Last office visit patient was having difficulty closing hands, likely related to Rheumatoid arthritis, patient was referred to rheumatology and was seen was told she does not have rheumatoid arthritis, likely related to osteoarthritis. Patient advised treatment Tylenol Arthritis and capsaicin cream. Patient continues to follow with Neurology for history of epilepsy, stable on carbamazepine. Patient son states not has difficulty sleeping, patient is requesting something to take for sleep. Will trial hydroxyzine 25 mg HS as needed. Also report patient a history of major depression, stopped her meds on own in . Patient and son states she was previous on clonezepam, elavil. Discussed initiating patient on medication for depression, however they would like to hold this time and be refer to psychiatry for recommended treatment. [facility] Medical History (Updated 11/03/22 @ 14:10 by Mariella Ornelas) Cataracts, both eyes Glaucoma Tubular adenoma of colon Esophagitis Personal history of nicotine dependence Gout Right elbow pain Thyroid nodule HTN (hypertension) GI bleed Diverticulitis CKD (chronic kidney disease), stage IV Hypothyroid Emphysema lung Epilepsy Type 2 diabetes mellitus Hypercholesteremia Surgical History (Updated 11/03/22 @ 14:10 by Mariella Ornelas) History of elbow surgery History of lung surgery History of colonoscopy History of esophagogastroduodenoscopy (EGD) History of cholecystectomy History of tubal ligation Family History (System 11/03/22 @ 14:10 by Mariella Ornelas) Sister SLE (systemic lupus erythematosus) Breast cancer Mental health problem Mother Diabetes Acute arthritis Alzheimer disease Age related osteoporosis Father Diabetes HTN (hypertension) Brother Brain tumor Family/Other Breast cancer Lupus Acute arthritis Family/Other HTN (hypertension) Thyroid cancer Other Mental health disorder Social History (System 11/03/22 @ 14:10 by Mariella Ornelas) Household Members: Children Household Members Other:: Living with son in his house Housing: House Alcohol intake: never Patient Tobacco Use Status: Former Tobacco user Years Smoked: (former smoker - onset 16yo - 1ppd x 50yrs, 50pyh - quit 12/2021) e-Cigarette/Vaping Use: Never Used Second Hand Smoke Exposure: Yes service: No Cognitive needs: Yes (WHEELCHAIR) Hearing needs: No Vision needs: Yes (Glasses) Questionnaire Thrive Questionnaire Date Thrive assessed: 04/04/22 SHAUNA-7 AMB Questionnaire SHAUNA-7 Date SHAUNA - 7 assessed: 05/02/22 Source: Developed by Drs. Pa Lopez, Nettie Melendez, Leroy Echols and colleagues, with an educational shana from [employer]. Review of Systems Const Denies chills, Denies fatigue, Denies fever(s) and Denies poor appetite Eyes Denies no additional complaints ENT Reports Normal hearing present Card Denies chest pain, Denies syncope, Denies rapid heart rate and Denies dyspnea Resp Denies cough and Denies dyspnea GI Denies change in stool character, Denies constipation, Denies diarrhea, Denies nausea and Denies vomiting Denies urinary frequency, Denies dysuria and Denies urinary urgency Neuro Reports Normal hearing present, Denies confusion and Denies syncope Psych Denies confusion Endo Denies fatigue Physical exam (Primary Care) Vital Signs: Last Vital Signs Pulse 58 11/03/22 09:11 Resp 13 11/03/22 09:11 BP 144/72 H 11/03/22 09:11 Pulse Ox 97 11/03/22 09:11 Oxygen Delivery Method Room Air 11/03/22 09:11 BMI result Body Mass Index 30.5 Tobacco/Smoking Status: Tobacco use Status Tobacco use date assessed 08/02/22 11/03/22 09:24 Patient Tobacco Use Status Former Tobacco user 11/03/22 09:24 e-Cigarette/Vaping Use Never Used 11/03/22 09:24 Thrive Assessment: Date of Thrive Assessment Date Thrive assessed 04/04/22 11/03/22 09:24 Const General: No confusion Orientation/consciousness: No confusion HENMT Head: Yes normocephalic and Yes atraumatic Eyes Conjunctivae: conjunctivae normal Chest Chest palpation & inspection: normal inspection of the chest Resp Effort & Inspection: normal respiratory effort Auscultation: clear to auscultation bilaterally, no crackles, no rhonchi and no wheezes Cardio Rate: regular rate Rhythm: regular rhythm Heart sounds: S1 normal heart sound present and S2 normal heart sound present GI Inspection: Yes normal to inspection Neuro General: No confusion Cranial nerves: Yes Normal hearing present Extrem General: No edema Assessment and Plan Assessment & Plan (1) Major depression: Code(s): F32.9 - Major depressive disorder, single episode, unspecified Plan: Referral entered to Psychiatry as requested. (2) Adenocarcinoma of lung: Code(s): C34.90 - Malignant neoplasm of unspecified part of unspecified bronchus or lung Plan: Continue follow with Oncology. (3) Osteoarthritis of hands, bilateral: Code(s): M19.041 - Primary osteoarthritis, right hand; M19.042 - Primary osteoarthritis, left hand Qualifiers: Osteoarthritis type: primary Qualified Code(s): M19.041 - Primary osteoarthritis, right hand; M19.042 - Primary osteoarthritis, left hand Plan: Continue on Tylenol Arthritis as needed as pain. Continue to follow-up rheumatology. (4) HTN (hypertension): Code(s): I10 - Essential (primary) hypertension Plan: Continue on amlodipine 10 mg daily. Blood pressure elevated in office today 144/72, however son reports that she ran out of her amlodipine 1 week ago refill sent on this medication. Follow low-salt diet and exercise. (5) CKD (chronic kidney disease), stage IV: Comment: (Advanced CKD headed towards ESRD per Dr. Agarwal, Renal Doctor seen 07/2022) Code(s): N18.4 - Chronic kidney disease, stage 4 (severe) Plan: Continue to follow with welding rod coater. (6) Hypothyroid: Code(s): E03.9 - Hypothyroidism, unspecified Plan: Continue on levothyroxine. Continue to follow with endocrinology. (7) Type 2 diabetes mellitus: Code(s): E11.9 - Type 2 diabetes mellitus without complications Plan: Hemoglobin A1c 6.6% Continue Tradjenta. Patient educated to decrease the amount of carbohydrate intake such as pasta, bread, rice and potatoes are all sugar in addition to the sweet stuff. Remember that fruits are good but they also have sugar. (8) Epilepsy: Comment: since age 36 Code(s): G40.909 - Epilepsy, unspecified, not intractable, without status epilepticus Plan: Continue carbamazepine. Continue to follow with Neurology. (9) Hypercholesteremia: Code(s): E78.00 - Pure hypercholesterolemia, unspecified Plan: Continue on atorvastatin 40 mg daily. Low-cholesterol diet. Plan Follow-up in 3 months Orders: Referrals Psychiatry Referral F32.9 - Major depressive disorder, single episode, unspecified Counseling Referral F32.9 - Major depressive disorder, single episode, unspecified Medications: New amlodipine 10 mg (2 x 5 mg) PO DAILY 60 tabs 3RF I10 - Essential (primary) hypertension Coding Level of Care Code Est Pt Level 4 (25676) Diagnoses Major depression F32.9 Adenocarcinoma of lung C34.90 Primary osteoarthritis of both hands M19.041; M19.042 Osteoarthritis type: primary HTN (hypertension) I10 CKD (chronic kidney disease), stage IV N18.4 Hypothyroid E03.9 Type 2 diabetes mellitus E11.9 Epilepsy G40.909 Hypercholesteremia E78.00
== END 2022-11-03 09:48 | disposition home or self-care (01) ==
PROVIDERS: PCP Nurse Practitioner Family; Visit Provider Nurse Practitioner Family
DX: I12.9 Hypertensive chronic kidney disease with stage 1 through stage 4 chronic kidney disease, or unspecified chronic kidney disease (principal); N18.4 Chronic kidney disease, stage 4 (severe); E11.22 Type 2 diabetes mellitus with diabetic chronic kidney disease; G40.909 Epilepsy, unspecified, not intractable, without status epilepticus; E03.9 Hypothyroidism, unspecified; F32.9 Major depressive disorder, single episode, unspecified; C34.90 Malignant neoplasm of unspecified part of unspecified bronchus or lung; M19.041 Primary osteoarthritis, right hand; M19.042 Primary osteoarthritis, left hand; E78.00 Pure hypercholesterolemia, unspecified
CPT/HCPCS: 99214

== ENCOUNTER 2022-11-25 07:25 | Outpatient (REF) | payer MEDICARE, MEDICAID, SELFPAY ==
--- NOTE | ~2022-11-25 | XR_ITS ---
EXAMINATION: XR WRIST, RIGHT XR HAND, RIGHT CLINICAL INFORMATION: Primary osteoarthritis, right hand COMPARISON: None available. TECHNIQUE: PA, lateral, and oblique views of the right wrist and PA, lateral, and oblique views of the right hand FINDINGS: RIGHT WRIST: The bones are demineralized. No fracture. Negative ulnar variant. Mild degenerative change of the triscaphe joint and first carpometacarpal joint. No erosions or soft tissue calcifications. RIGHT HAND: The bones are demineralized. No fracture. Alignment is anatomic. There is moderate degenerative change of the PIP and DIP joints with marked degenerative change of the DIP joint of the index finger with marginal osteophytes and heterotopic bone formation. No erosions or soft tissue calcifications. XR/XR hand wrist RT IMPRESSION: 1. No acute bony abnormality. 2. Degenerative changes of the right hand and wrist. 3. Negative ulnar variant of the right wrist.
--- NOTE | ~2022-11-25 | XR_ITS ---
EXAMINATION: XR BILATERAL KNEES CLINICAL INFORMATION: Bilateral knee pain COMPARISON: None TECHNIQUE: AP standing view of bilateral knees. 3 views of the right knee. Lateral, sunrise and 2 AP views of the left knee. FINDINGS: Left knee: Mild medial joint space narrowing. No significant joint effusion. Faint soft tissue calcifications are possibly vascular. Right knee: Mild medial joint space narrowing with small medial marginal osteophytes. No significant joint effusion. Faint soft tissue calcifications are possibly vascular. Expansile deformity with periosteal reaction at the proximal third of the right fibula of indeterminate age and etiology, possibly related to prior trauma versus bony lesion. XR/XR knee LT 4V IMPRESSION: 1. Expansile deformity with periosteal reaction at the proximal third of the right fibula of indeterminate age and etiology, possibly related to prior trauma versus bony lesion. Targeted images of the lower leg as well as possible CT scan or MRI recommended for further evaluation. Correlation with clinical exam and history recommended to determine further management. 2. Mild degenerative changes in the bilateral knees. This study was presented today November 29, 2022 at 11:54 AM interpretation. PSA staff will provide results to referring provider at this time.
--- NOTE | ~2022-11-25 | XR_ITS ---
EXAMINATION: XR WRIST, LEFT XR HAND, LEFT CLINICAL INFORMATION: Primary osteoarthritis COMPARISON: None available. TECHNIQUE: PA, lateral, and oblique views of the left wrist and PA, lateral, and oblique views of the left hand FINDINGS: LEFT WRIST: The bones are demineralized. No fracture. Negative ulnar variant. Mild degenerative change of the triscaphe joint and moderate degenerative change of the first carpometacarpal joint. Heterotopic bone formation is noted adjacent to the trapezium. No erosions or soft tissue calcifications. LEFT HAND: The bones are demineralized. No fracture. Alignment is anatomic. There is degenerative change of the PIP and DIP joints of the fingers with marked degenerative change of the PIP and DIP joints of the index finger with prominent marginal osteophytes seen at the PIP joint of the index finger. No erosions or soft tissue calcifications. XR/XR hand wrist LT IMPRESSION: 1. No acute bony abnormality. 2. Degenerative changes of the hand and wrist. 3. Negative ulnar variant.
--- NOTE | ~2022-11-25 | XR_ITS ---
EXAMINATION: XR BILATERAL KNEES CLINICAL INFORMATION: Bilateral knee pain COMPARISON: None TECHNIQUE: AP standing view of bilateral knees. 3 views of the right knee. Lateral, sunrise and 2 AP views of the left knee. FINDINGS: Left knee: Mild medial joint space narrowing. No significant joint effusion. Faint soft tissue calcifications are possibly vascular. Right knee: Mild medial joint space narrowing with small medial marginal osteophytes. No significant joint effusion. Faint soft tissue calcifications are possibly vascular. Expansile deformity with periosteal reaction at the proximal third of the right fibula of indeterminate age and etiology, possibly related to prior trauma versus bony lesion. XR/XR knee RT 3V IMPRESSION: 1. Expansile deformity with periosteal reaction at the proximal third of the right fibula of indeterminate age and etiology, possibly related to prior trauma versus bony lesion. Targeted images of the lower leg as well as possible CT scan or MRI recommended for further evaluation. Correlation with clinical exam and history recommended to determine further management. 2. Mild degenerative changes in the bilateral knees. This study was presented today November 29, 2022 at 11:54 AM interpretation. PSA staff will provide results to referring provider at this time.
[2022-11-25 08:50] LABS: MANUAL DIFF FLAG NO
[2022-11-25 09:23] LABS: Basophils Absolute Auto 0.1 X10*3/uL (0.0-0.2); Basophils Percent Auto 0.7 % (0-2); Eosinophils Absolute Auto 0.1 X10*3/uL (0.0-0.4); Eosinophils Percent Auto 1.4 % (0-4); Hematocrit 38.6 % (37.0-47.0); Hemoglobin 12.2 g/dl (12.0-16.0); Imm Gran Abs Auto 0.13 X10*3/uL (0.00-0.03); Imm Gran Pct Auto 1.5 % (0.0-0.4); Lymphocytes Absolute Auto 2.6 X10*3/uL (1.2-4.9); Lymphocytes Percent Auto 29.7 % (20-40); Mean Corpuscular HGB Conc 31.6 g/dl (31.0-35.0); Mean Corpuscular Volume 91.7 fL (80.0-98.0); Mean Platelet Volume 9.7 fL (9.4-12.3); Monocytes Absolute Auto 0.7 X10*3/uL (0.1-1.2); Neutrophils Absolute Auto 5.1 x10*3/uL (2.0-8.3); Neutrophils Percent Auto 58.7 % (45-73); Platelet Count 297 X10*3/uL (160-400); Red Blood Count 4.21 X10*6/uL (4.20-5.50); Red Cell Distribution Width 13.9 % (11.0-16.0); White Blood Count 8.8 X10*3/uL (4.8-10.8)
[2022-11-25 10:27] LABS: Alanine Aminotransferase 20 U/L (0-31); Albumin Level 3.9 g/dL (3.5-5.0); Alkaline Phosphatase 125 U/L (39-117); Anion Gap 15 (12-20); Aspartate Amino Transferase 19 U/L (5-31); Bilirubin Total 0.2 mg/dL (0.0-1.0); Blood Urea Nitrogen 53 mg/dL (9-16); Calcium 9.8 mg/dL (8.4-10.2); Carbon Dioxide 20 mmol/L (22-29); Chloride 109 mmol/L (96-108); Estimated Glomerular Filt Rate 16; Glucose Random 123 mg/dL (60-115); Potassium 4.8 mmol/L (3.3-5.1); Sodium 139 mmol/L (135-145); Total Protein 7.2 g/dL (6.5-8.0)
[2022-11-25 10:50] LABS: Free T4 (Free Thyroxine) 0.79 ng/dL (0.71-1.85)
== END 2022-11-25 07:26 | disposition home or self-care (01) ==
LOC: HO.CT 07:25
PROVIDERS: Internal Medicine Endocrinology, Diabetes & Metabolism; PCP Nurse Practitioner Family; Referring Provider Nurse Practitioner Family; Visit Provider Internal Medicine Medical Oncology
DX: Z13.0 Encounter for screening for diseases of the blood and blood-forming organs and certain disorders involving the immune mechanism (principal); M19.041 Primary osteoarthritis, right hand; M19.042 Primary osteoarthritis, left hand; M17.0 Bilateral primary osteoarthritis of knee; E87.1 Hypo-osmolality and hyponatremia; E03.9 Hypothyroidism, unspecified; C34.90 Malignant neoplasm of unspecified part of unspecified bronchus or lung
CPT/HCPCS: 36415; 73110; 73130; 73562; 73564; 80053; 84439; 84443; 85025

== ENCOUNTER 2022-12-14 08:47 | Outpatient (AMB) | payer MEDICARE, MEDICAID, SELFPAY ==
--- NOTE | 2022-12-14 08:48 | A.OFFVIS_ITS ---
Intake Vital Signs 12/14/22 08:49 Height 5 ft 3 in Weight 174 lb 9.698 oz BMI 30.9 BP 150/70 H Blood Pressure Location Lt brachial Position Sitting Pulse 57 Pulse Source Pulse Oximeter Intake Visit Reasons: Hypothyroidism Intake Note: Patient present for Hypothyroidism follow up visit. Wound Care Nurse Required: Yes Wound Care Nurse Language: Tajik Information Interpreted: non-clinical & clinical Accompanied by: Son Allergies No Known Allergies Allergy (Verified 12/14/22 08:57) Medication List - Last Reconciled 12/14/22 by Pa Benson MD albuterol sulfate 2 mg PO TID PRN albuterol sulfate 90 mcg/actuation (Ventolin HFA) 1 inh inhalation QID amlodipine 10 mg (2 x 5 mg) PO DAILY atorvastatin 40 mg PO DAILY carbamazepine ER 200 mg PO ONCE 90 days cyclobenzaprine 10 mg PO TID PRN dorzolamide 2% 0.02 drps ophthalmic (eye) DAILY empagliflozin (Jardiance) 10 mg PO DAILY 30 days ipratropium-albuterol 0.5 mg-3 mg(2.5 mg base)/3 mL 3 mL inhalation Q4H PRN levothyroxine 175 mcg PO .qod levothyroxine 150 mcg PO .qod linagliptin (Tradjenta) 5 mg PO DAILY 30 days montelukast 10 mg PO DAILY 30 days omeprazole 20 mg PO DAILY HPI HPI Comments History of Present Illness Details 67 YO F who is seen in consultation at the request of his PCP for Hyothyroidism. First diagnosed with Hypothyroidism >25 yrs Currently using levothyroxine 150 ug alt with 175 ug . On this dose for 1 wk . Was on 200 ug prior Denies - fatigue, -weight gain, +cold intolerance, +dry skin,+ hair loss, - constipation. There is no hx of hyperlipidemia . -Denies obstructive sx of goi ter . -Denies consuming any kelp or seaweed. -Denies taking amiodarone. Biotin: No Family hx of thyroid problems in mother, father, sister and son has thyroid cancer? subtype Labs: [facility] Medical History Cataracts, both eyes Glaucoma Tubular adenoma of colon Esophagitis Personal history of nicotine dependence Gout Right elbow pain Thyroid nodule HTN (hypertension) GI bleed Diverticulitis CKD (chronic kidney disease), stage IV Hypothyroid Emphysema lung Epilepsy Type 2 diabetes mellitus Hypercholesteremia Surgical History History of elbow surgery History of lung surgery History of colonoscopy History of esophagogastroduodenoscopy (EGD) History of cholecystectomy History of tubal ligation Family History Sister SLE (systemic lupus erythematosus) Breast cancer Mental health problem Mother Diabetes Acute arthritis Alzheimer disease Age related osteoporosis Father Diabetes HTN (hypertension) Brother Brain tumor Family/Other Breast cancer Lupus Acute arthritis Family/Other HTN (hypertension) Thyroid cancer Other Mental health disorder Social History Household Members: Children Household Members Other:: Living with son in his house Housing: House Alcohol intake: never Patient Tobacco Use Status: Former Tobacco user Years Smoked: (former smoker - onset 16yo - 1ppd x 50yrs, 50pyh - quit 12/2021) e-Cigarette/Vaping Use: Never Used Second Hand Smoke Exposure: Yes service: No Cognitive needs: Yes (WHEELCHAIR) Hearing needs: No Vision needs: Yes (Glasses) Physical Exam Vital Signs: Last Vital Signs Pulse 57 12/14/22 08:49 BP 150/70 H 12/14/22 08:49 BMI result Body Mass Index 30.9 HEENT reveals absence of lid lag , stare or proptosis or eyebrow loss. Thyroid gland measure 15 gms . No nodules or tenderness palpated. There is no cervical adenopathy palpated. Lungs CTA. Heart S1, S2 Reg R/R -M/R/G. Abdominal exam benign. Skin exam reveals absence of dryness or thyroid dermopathy or vitiligo. Nail exam reveals absence of thyroid acropachy or oncholysis. Neurologic exam reveals 2+ reflexes . Muscle Strength is 5/5 proximally. There are no tremors in upper extremities. 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 She appears to be clinically euthyroid but has elevated TSH on 150 mcg a suppressed TSH on 75ug . She is currently alternating 150 mcg with 175 micrograms Plan is to check TSH and free T4 in 6 weeks and adjust levothyroxine accordingly Coding Level of Care Code Est Pt Level 3 (32624) Diagnoses Hypothyroid E03.9
[2022-12-14 08:49] VITALS: BP 150/70; PULSE 57; BMI 30.9
== END 2022-12-14 09:34 | disposition home or self-care (01) ==
PROVIDERS: PCP Nurse Practitioner Family; Visit Provider Internal Medicine Endocrinology, Diabetes & Metabolism
DX: E03.9 Hypothyroidism, unspecified (principal)
CPT/HCPCS: 99213

== ENCOUNTER → 2022-12-14 08:47 | Outpatient (BNVA) | payer MEDICARE, MEDICAID, SELFPAY | PROVIDERS: PCP Nurse Practitioner Family; Visit Provider Internal Medicine Endocrinology, Diabetes & Metabolism | DX: E03.9 Hypothyroidism, unspecified (principal); Z79.899 Other long term (current) drug therapy | CPT/HCPCS: 99212 ==

== ENCOUNTER 2023-02-20 08:04 | Outpatient (AMB) | payer MEDICARE, MEDICAID, SELFPAY ==
[2023-02-20 08:21] VITALS: BP 138/86; PULSE 50; O2SAT 96; BMI 30.7
--- NOTE | 2023-02-20 08:21 | MHC.PC.OV ---
Vital Signs 02/20/23 08:21 Height 5 ft 3 in Weight 173 lb 4 oz BMI 30.7 BP 138/86 Blood Pressure Location Lt brachial Position Sitting Pulse 50 Pulse Source Pulse Oximeter Pulse Oximetry (%) 96 Oxygen Delivery Method Room Air Intake Visit Reasons: DM, Epilepsy, Adenocarcinoma Lung Laundry Room Attendant Required: No Accompanied by: Self / Same As Patient Allergies No Known Allergies Allergy (Verified 02/20/23 08:39) Medication List - Last Reconciled 02/20/23 by Ty Barros MD albuterol sulfate 2 mg PO TID PRN albuterol sulfate 90 mcg/actuation (Ventolin HFA) 1 inh inhalation QID amlodipine 10 mg (2 x 5 mg) PO DAILY atorvastatin 40 mg PO DAILY carbamazepine ER 200 mg PO ONCE 90 days cyclobenzaprine 10 mg PO TID PRN dorzolamide 2% 0.02 drps ophthalmic (eye) DAILY empagliflozin (Jardiance) 10 mg PO DAILY 30 days ipratropium-albuterol 0.5 mg-3 mg(2.5 mg base)/3 mL 3 mL inhalation Q4H PRN levothyroxine 175 mcg PO .qod levothyroxine 150 mcg PO .qod linagliptin (Tradjenta) 5 mg PO DAILY 30 days lisinopril 40 mg PO DAILY montelukast 10 mg PO DAILY 30 days omeprazole 20 mg PO DAILY Tobacco use date assessed: 02/20/23 Fall risk assessment: No Falls in past year Last assessed Fall Risk: 02/20/23 Dental Screening Dental Screen Date: 02/20/23 Did you have a dental visit in the last 12 months?: Yes Did you have a dental problem in the last 6 months where you did not have access to dental care?: No Was dental information given to patient?: Patient has dentist HPI DM, Epilepsy, Adenocarcinoma Lung HPI Details 67-year-old female presents to the office to discuss her medical conditions. I am assuming her care as her previous provider has left the office. Patient has an active diagnosis of adenocarcinoma, hypothyroidism and chronic renal failure. Patient underwent lung resection in July 2022. A decision to start chemo has not been made yet. She is under the care of an oncologist. Patient is hypothyroid and is on alternate doses of 175 and 150 mcg of Synthroid. Her last TSH is elevated. Patient has a serum creatinine of greater than 3 and has a scheduled nephrology appointment today. She is requesting an appointment for psychotherapy. Patient gives history of anxiety and depression in the past. She was taking medications in the past. [facility] Medical History Cataracts, both eyes Glaucoma Tubular adenoma of colon Esophagitis Personal history of nicotine dependence Gout Right elbow pain Thyroid nodule HTN (hypertension) GI bleed Diverticulitis CKD (chronic kidney disease), stage IV Hypothyroid Emphysema lung Epilepsy Type 2 diabetes mellitus Hypercholesteremia Surgical History History of elbow surgery History of lung surgery History of colonoscopy History of esophagogastroduodenoscopy (EGD) History of cholecystectomy History of tubal ligation Family History Sister SLE (systemic lupus erythematosus) Breast cancer Mental health problem Mother Diabetes Acute arthritis Alzheimer disease Age related osteoporosis Father Diabetes HTN (hypertension) Brother Brain tumor Family/Other Breast cancer Lupus Acute arthritis Family/Other HTN (hypertension) Thyroid cancer Other Mental health disorder Social History Household Members: Children Household Members Other:: Living with son in his house Housing: House Alcohol intake: never Patient Tobacco Use Status: Former Tobacco user Years Smoked: (former smoker - onset 16yo - 1ppd x 50yrs, 50pyh - quit 12/2021) e-Cigarette/Vaping Use: Never Used Second Hand Smoke Exposure: Yes service: No Cognitive needs: Yes (WHEELCHAIR) Hearing needs: No Vision needs: Yes (Glasses) Questionnaire PHQ-9 Over the last 2 weeks, how often have you been bothered by any of the following problems? 1. Little interest or pleasure in doing things: several days 2. Feeling down, depressed, or hopeless: several days 3. Trouble falling or staying asleep, or sleeping too much: several days 4. Feeling tired or having little energy: not at all 5. Poor appetite or overeating: not at all 6. Feeling bad about yourself - or that you are a failure or have let yourself or your family down: not at all 7. Trouble concentrating on things, such as reading the newspaper or watching television: not at all 8. Moving or speaking so slowly that other people could have noticed. Or the opposite - being so fidgety or restless that you have been moving around a lot more than usual: not at all 9. Thoughts that you would be better off or of hurting yourself in some way: not at all Total score: 3 Source: Developed by Drs. Pa Lopez, Nettie Melendez, Leroy Echols and colleagues, with an educational shana from [employer]. Thrive Questionnaire Date Thrive assessed: 02/20/23 I am a: Patient What is your living situation today?: I have a steady place to live Within the past 12 months, did the food you bought not last and you didn't have the money to get more?: Never true Within the past 12 months, did you worry whether your food would run out before you got money to buy more?: Never true Do you have trouble paying for medicines?: No Do you have trouble getting transportation to medical appointments?: No Do you have trouble paying your heating and electricity bill?: No Do you have trouble taking care of your child, family member or friend?: No Do you have trouble with day-to-day activities such as bathing, preparing meals, shopping, managing finances, etc.?: No Are you currently unemployed and looking for a job?: No Are you interested in more education?: No Please select the resources that you would like help with: None Currently or been in a relationship where the following occur: no concerns reported AUDIT C Alcohol Use Questionnaire (AUDIT-C) 1. How often do you have a drink containing alcohol?: Never Total Score: 0 SHAUNA-7 AMB Questionnaire SHAUNA-7 Date SHAUNA - 7 assessed: 02/20/23 Feeling nervous, anxious, or on edge: 1 = Several days Not being able to stop or control worryin = Several days Worrying too much about different things: 1 = Several days Trouble relaxin = Not at all Being so restless that it is hard to sit still: 0 = Not at all Becoming easily annoyed or irritable: 0 = Not at all Feeling afraid as if something awful might happen: 0 = Not at all Total SHAUNA-7 score (0-4 normal; 5-9 mild; 10-14 moderate; 15-21 severe): 3 Source: Developed by Drs. Pa Lopez, Nettie Melendez, Leroy Echols and colleagues, with an educational shana from [employer]. Physical exam (Primary Care) Vital Signs: Last Vital Signs Pulse 50 02/20/23 08:21 BP 138/86 02/20/23 08:21 Pulse Ox 96 02/20/23 08:21 Oxygen Delivery Method Room Air 02/20/23 08:21 Care Plan Goal for BP management: Blood pressure is in range. BMI result Body Mass Index 30.7 Tobacco/Smoking Status: Tobacco use Status Tobacco use date assessed 02/20/23 02/20/23 08:28 Patient Tobacco Use Status Former Tobacco user 02/20/23 08:28 e-Cigarette/Vaping Use Never Used 02/20/23 08:28 PHQ-9: PHQ-9 Score PHQ-9: Total score 3 02/20/23 08:39 Thrive Assessment: Date of Thrive Assessment Date Thrive assessed 02/20/23 02/20/23 08:28 Currently or been in a relationship where the following occur: no concerns reported Const General: cooperative and healthy appearing Nutritional Appearance: well nourished Orientation/consciousness: patient oriented x3 Limitations: no limitations HENMT Head: Yes normal to inspection Eyes General: appearance normal, both eyes and all related structures Neck Neck: Yes normal visual inspection Chest Chest palpation & inspection: normal palpation of entire chest wall Resp Effort & Inspection: normal respiratory effort Neuro General: patient oriented x3 Assessment and Plan Assessment & Plan (1) Major depression: Code(s): F32.9 - Major depressive disorder, single episode, unspecified Plan: Psychotherapy consult will be made. Based on that a psychiatric referral to be considered. (2) Adenocarcinoma of lung: Code(s): C34.90 - Malignant neoplasm of unspecified part of unspecified bronchus or lung Plan: Condition is stable. Follow-up with the oncologist. (3) CKD (chronic kidney disease), stage IV: Comment: (Advanced CKD headed towards ESRD per Dr. Agarwal, Renal Doctor seen 07/2022) Code(s): N18.4 - Chronic kidney disease, stage 4 (severe) Plan: Patient is to see the benzol still operator today. (4) Hypercholesteremia: Code(s): E78.00 - Pure hypercholesterolemia, unspecified Plan: Blood work reviewed. (5) Epilepsy: Comment: since age 36 Code(s): G40.909 - Epilepsy, unspecified, not intractable, without status epilepticus Plan: This condition is at baseline. Continue current medications. (6) Thyroid nodule: Code(s): E04.1 - Nontoxic single thyroid nodule Plan: Elevated TSH on the blood work. Synthroid dosage has been increased to 175 mcg every day. Orders: Orders AMB Hemoglobin A1c Today Z13.9 - Encounter for screening, unspecified Coding Level of Care Code Est Pt Level 5 (96461) Diagnoses Major depression F32.9 Adenocarcinoma of lung C34.90 CKD (chronic kidney disease), stage IV N18.4 Hypercholesteremia E78.00 Epilepsy G40.909 Thyroid nodule E04.1
== END 2023-02-20 08:40 | disposition home or self-care (01) ==
LOC: HO.HMGH 08:04
PROVIDERS: PCP Internal Medicine; Visit Provider Internal Medicine
DX: C34.90 Malignant neoplasm of unspecified part of unspecified bronchus or lung (principal); E11.22 Type 2 diabetes mellitus with diabetic chronic kidney disease; N18.4 Chronic kidney disease, stage 4 (severe); G40.909 Epilepsy, unspecified, not intractable, without status epilepticus; F32.9 Major depressive disorder, single episode, unspecified; E04.1 Nontoxic single thyroid nodule
CPT/HCPCS: 99214

== ENCOUNTER 2023-02-20 08:58 | Outpatient (REF) | payer MEDICARE, MEDICAID, SELFPAY ==
--- NOTE | ~2023-02-20 | CT_ITS ---
EXAMINATION: CT CHEST WITHOUT CONTRAST CLINICAL INFORMATION: Follow-up lung carcinoma post left upper lobe resection COMPARISON: 11/25/2022 TECHNIQUE: Multidetector volumetric CT imaging of the chest was done. Axial MIP volume rendering provided. Sagittal and coronal reformatted images were obtained. This CT examination was performed using dose optimization techniques as appropriate, variously including the following: *Automated exposure control *Adjustment of mA and/or kV according to patient size (this includes techniques or standardized protocols for targeted exams where dose is matched to indication/reason for exam; i.e. extremities or head) *Use of iterative reconstruction technique DLP: 149 mGy-cm FINDINGS: Limited lower cervical images again demonstrate a calcified right thyroid nodule, previously described. No additional specific imaging follow-up is needed, as thyroid ultrasound has already been performed. LUNGS: Post operative pleural and parenchymal changes in the left hemithorax are unchanged. Scarring at the left lung base and right paravertebral linear opacities are stable. Coarse opacities in the right posterior costophrenic sulcus are also unchanged and may reflect early developing fibrosis. No new mass, nodule or consolidation has developed. Small right apical granuloma is stable. The trachea and major bronchi are patent. MEDIASTINUM: No adenopathy has developed. There are extensive aortic valvular and three-vessel coronary artery calcifications. CORONARY ARTERY CALCIFICATION: None visualized on this study. PLEURA: There is no pleural effusion. No pleural mass or thickening. AXILLA: No lymphadenopathy. UPPER ABDOMEN: Bilateral low density adrenal masses, felt to reflect adenomata are stable, measuring 21 x 17 mm on the left with focal fat measuring -17 Hounsfield units. The right adrenal nodule measures 5 Hounsfield units precontrast and is also stable, measuring 28 x 17 mm. No specific imaging follow-up is needed. OSSEOUS STRUCTURES: Considerable degenerative changes are noted in the dorsal spine but there are no suspicious bone lesions. CT/CT chest wo IV con IMPRESSION: 1. No significant change since 11/25/2022, and no specific evidence of recurrent or metastatic disease in the chest. Fleischner guidelines were followed.
== END 2023-02-20 08:59 | disposition home or self-care (01) ==
LOC: HO.CT 08:58
PROVIDERS: PCP Internal Medicine; Visit Provider Surgery
DX: C34.90 Malignant neoplasm of unspecified part of unspecified bronchus or lung (principal)
CPT/HCPCS: 71250

== ENCOUNTER 2023-02-27 08:45 | Outpatient (AMB) | payer MEDICARE, MEDICAID, SELFPAY ==
--- NOTE | 2023-02-27 09:07 | A.OFFVIS_ITS ---
Intake Vital Signs 02/27/23 09:09 Height 5 ft 3 in Weight 169 lb 6 oz BMI 30.0 BP 140/80 H Blood Pressure Location Lt brachial Position Sitting Pulse 55 Pulse Source Pulse Oximeter Pulse Oximetry (%) 96 Oxygen Delivery Method Room Air Intake Visit Reasons: 4m follow up Epilepsy-Confirmed Intake Note: patients presents for four month f/U epilepsy. Allergies No Known Allergies Allergy (Verified 02/27/23 09:13) HPI HPI Comments History of Present Illness Details 67 y/o female patient presents for follo w up of epilepsy and MILLICENT. Pt was accompanied by her son. Pt's seizure well managed with carbamazepine 200 mg ER daily, and had seizure free for more than 15 years now. Pt underwent split night sleep study. The baseline portion of the sleep study was significant for severe degree of sleep apnea with increased severity in REM. AHI was 49/hr, REM AHI was 60/hr. She trialed on CPAP [id number], and her breathing and oxygenation stabilized on CPAP at [id number]. She tried CPAP couple of days but felt chocking and did not like to use it. [facility] Medical History Cataracts, both eyes Glaucoma Tubular adenoma of colon Esophagitis Personal history of nicotine dependence Gout Right elbow pain Thyroid nodule HTN (hypertension) GI bleed Diverticulitis CKD (chronic kidney disease), stage IV Hypothyroid Emphysema lung Epilepsy Type 2 diabetes mellitus Hypercholesteremia Surgical History History of elbow surgery History of lung surgery History of colonoscopy History of esophagogastroduodenoscopy (EGD) History of cholecystectomy History of tubal ligation Family History Sister SLE (systemic lupus erythematosus) Breast cancer Mental health problem Mother Diabetes Acute arthritis Alzheimer disease Age related osteoporosis Father Diabetes HTN (hypertension) Brother Brain tumor Family/Other Breast cancer Lupus Acute arthritis Family/Other HTN (hypertension) Thyroid cancer Other Mental health disorder Social History Household Members: Children Household Members Other:: Living with son in his house Housing: House Alcohol intake: never Patient Tobacco Use Status: Former Tobacco user Years Smoked: (former smoker - onset 16yo - 1ppd x 50yrs, 50pyh - quit 12/2021) e-Cigarette/Vaping Use: Never Used Second Hand Smoke Exposure: Yes service: No Cognitive needs: Yes (WHEELCHAIR) Hearing needs: No Vision needs: Yes (Glasses) Review of Systems Const All systems reviewed & are unremarkable except as noted in HPI and below ENT Reports Normal hearing present Neuro Reports Normal hearing present Physical Exam Vital Signs: Last Vital Signs Pulse 55 02/27/23 09:09 BP 140/80 H 02/27/23 09:09 Pulse Ox 96 02/27/23 09:09 Oxygen Delivery Method Room Air 02/27/23 09:09 BMI result Body Mass Index 30.0 Const General: cooperative and tired appearing Nutritional Appearance: obese Orientation/consciousness: patient oriented x3 Limitations: language barrier (Divehi speaking only.) and wheelchair Resp Effort & Inspection: normal respiratory effort and able to speak in complete sentences Neuro General: patient oriented x3 and moves all extremities Cranial nerves: Yes Normal facial strength present, Yes Midline tongue present, Yes Symmetric palate elevation present, Yes Normal hearing present, Yes Ability to bilaterally rotate head present and Yes Ability to bilaterally elevate shoulders present Cognition (Neuro): normal cognition Motor exam (neuro): 5/5 motor strength present throughout, Pronator motor function not present and no tremor noted Psych Appearance: grossly normal Mental Status: mental status grossly normal Affect: normal affect Attitude: cooperative Assessment & Plan Assessment & Plan (1) MILLICENT on CPAP: Code(s): G47.33 - Obstructive sleep apnea (adult) (pediatric) (2) Epilepsy: Comment: since age 36 Code(s): G40.909 - Epilepsy, unspecified, not intractable, without status epilepticus Plan Advised patient to try CPAP at [id number]. Stressed compliance, use CPAP nightly and more than 4 hrs. May try while she was watching TV and rest to get used to it. Continue to take carbamanzepine 200 mg ER daily. Medications: Refilled carbamazepine ER 200 mg PO ONCE 90 caps 3RF 90 days Coding Level of Care Code Est Pt Level 3 (15472) Diagnoses MILLICENT on CPAP G47.33 Epilepsy G40.909
[2023-02-27 09:09] VITALS: BP 140/80; PULSE 55; O2SAT 96
== END 2023-02-27 09:38 | disposition home or self-care (01) ==
PROVIDERS: PCP Nurse Practitioner Family; Visit Provider Nurse Practitioner Family
DX: G47.33 Obstructive sleep apnea (adult) (pediatric) (principal); G40.909 Epilepsy, unspecified, not intractable, without status epilepticus
CPT/HCPCS: 99213

== ENCOUNTER → 2023-02-27 08:45 | Outpatient (BNVA) | payer MEDICARE, MEDICAID, SELFPAY | PROVIDERS: PCP Nurse Practitioner Family; Visit Provider Nurse Practitioner Family | DX: G40.909 Epilepsy, unspecified, not intractable, without status epilepticus (principal); G47.33 Obstructive sleep apnea (adult) (pediatric) | CPT/HCPCS: 99212 ==

== ENCOUNTER 2023-03-28 12:38 | Outpatient (REF) | payer MEDICARE, MEDICAID, SELFPAY ==
--- NOTE | 2023-03-28 13:38 | ECG_ITS ---
Test Reason : COPD Blood Pressure : / mmHG Vent. Rate : 060 BPM Atrial Rate : 060 BPM P-R Int : 152 ms QRS Dur : 092 ms QT Int : 436 ms P-R-T Axes : 068 062 -51 degrees QTc Int : 436 ms Normal sinus rhythm Minimal voltage criteria for LVH, may be normal variant ( Sokolow-Bautista ) T wave abnormality, consider anterolateral ischemia Abnormal ECG No previous ECGs available Referred By: Salma Mace Electronically Signed By:Avelino Kong
[2023-03-28 13:50] LABS: MANUAL DIFF FLAG NO
[2023-03-28 14:20] LABS: Basophils Absolute Auto 0.1 X10*3/uL (0.0-0.2); Basophils Percent Auto 0.7 % (0-2); Eosinophils Absolute Auto 0.2 X10*3/uL (0.0-0.4); Eosinophils Percent Auto 2.4 % (0-4); Hematocrit 38.3 % (37.0-47.0); Hemoglobin 12.2 g/dl (12.0-16.0); Imm Gran Abs Auto 0.08 X10*3/uL (0.00-0.03); Imm Gran Pct Auto 1.1 % (0.0-0.4); Lymphocytes Absolute Auto 1.6 X10*3/uL (1.2-4.9); Mean Corpuscular HGB Conc 31.9 g/dl (31.0-35.0); Mean Corpuscular Hemoglobin 28.8 pg (27.0-33.0); Mean Corpuscular Volume 90.5 fL (80.0-98.0); Mean Platelet Volume 9.5 fL (9.4-12.3); Monocytes Absolute Auto 0.6 X10*3/uL (0.1-1.2); Monocytes Percent Auto 7.9 % (2-11); Neutrophils Percent Auto 66.9 % (45-73); Platelet Count 278 X10*3/uL (160-400); Red Blood Count 4.23 X10*6/uL (4.20-5.50); Red Cell Distribution Width 13.3 % (11.0-16.0); White Blood Count 7.5 X10*3/uL (4.8-10.8)
[2023-03-28 14:37] LABS: Troponin-I High Sensitivity 28.1 ng/L (<3.5-17.0)
[2023-03-28 14:42] LABS: Anion Gap 13 (12-20); Blood Urea Nitrogen 48 mg/dL (9-16); Calcium 9.2 mg/dL (8.4-10.2); Carbon Dioxide 19 mmol/L (22-29); Chloride 111 mmol/L (96-108); Estimated Glomerular Filt Rate 14; Glucose Random 105 mg/dL (60-115); Potassium 4.4 mmol/L (3.3-5.1); Sodium 139 mmol/L (135-145)
[2023-03-29 07:19] LABS: Immunoglobulin E 438 kU/L (<OR=114)
[2023-03-29 15:42] LABS: Cyclic Citrullinated Peptide <16 UNITS
[2023-04-03 13:38] LABS: Asperg fumigatus Precip Abs NEGATIVE (NEGATIVE); Micropoly faeni Abs NEGATIVE (NEGATIVE); Pigeon serum Abs NEGATIVE (NEGATIVE); Saccharo pora viridis Abs NEGATIVE (NEGATIVE); Thermo candidus Abs NEGATIVE (NEGATIVE); Thermoa vulgaris #1 NEGATIVE (NEGATIVE)
[2023-04-06 14:13] LABS: Anti Nuclear Antibody Screen NEGATIVE (NEGATIVE)
== END 2023-03-28 12:39 | disposition home or self-care (01) ==
LOC: HO.LAB 12:38
PROVIDERS: PCP Internal Medicine; Referring Provider Physician Assistant Surgical; Visit Provider Hospitalist
DX: R07.89 Other chest pain (principal); J84.9 Interstitial pulmonary disease, unspecified; R91.8 Other nonspecific abnormal finding of lung field; J44.9 Chronic obstructive pulmonary disease, unspecified
CPT/HCPCS: 36415; 80048; 82785; 84484; 85025; 86038; 86200; 86331; 86606; 86609; 93005; 99202

== ENCOUNTER 2023-03-28 12:38 | Outpatient (AMB) | payer MEDICARE, MEDICAID, SELFPAY ==
--- NOTE | 2023-03-28 12:53 | MHC.OFFVIS ---
Intake Vital Signs 03/28/23 12:54 Height 5 ft 3 in Weight 172 lb BMI 30.5 Pulse 62 Pulse Source Pulse Oximeter Pulse Oximetry (%) 97 Oxygen Delivery Method Room Air Intake Visit Reasons: Shortness of breath Special Effects Artist Required: No Allergies No Known Allergies Allergy (Verified 03/28/23 12:55) HPI HPI Comments History of Present Illness Details The patient is here for a pulmonary evaluation. The patient is a 67 year woman with a known history of COPD, MILLICENT on CPAP renal insufficiency with a diagnosis of pulmonary adenocarcinoma status post wedge resection back in 2022. Now she is presenting with dyspnea. The patient states that has been having progressive dyspnea to the point that even minimal activities resulting in shortness of breath. She stays is moderate severity. She had 1 episode also when she was sleeping with CPAP that she woke up with shortness of breath. The patient also has been noticing some chest pressure sensation. She was washing dishes yesterday and she felt pressure sensation. During our brief walking oximetry today she also experienced some chest pressure sensation. Denies any discomfort at rest. Denies having a recent cardiac evaluation or EKG. We did review her imaging studies. She did have a CT scan of the chest done on 02/20/2023 and we did reviewed in compared to her previous CT scan from 2022. It appears that she has increased atelectasis and also areas of interstitial changes suggesting some degree of interstitial lung disease primarily at the bases in the periphery. No significant emphysema. [facility] Medical History (Updated 03/29/23 @ 08:31 by Wilner Trimble MD) COPD (chronic obstructive pulmonary disease) ILD (interstitial lung disease) Chest discomfort Cataracts, both eyes Glaucoma Tubular adenoma of colon Esophagitis Personal history of nicotine dependence Gout Right elbow pain Thyroid nodule HTN (hypertension) GI bleed Diverticulitis CKD (chronic kidney disease), stage IV Hypothyroid Emphysema lung Epilepsy Type 2 diabetes mellitus Hypercholesteremia Surgical History History of elbow surgery History of lung surgery History of colonoscopy History of esophagogastroduodenoscopy (EGD) History of cholecystectomy History of tubal ligation Family History Sister SLE (systemic lupus erythematosus) Breast cancer Mental health problem Mother Diabetes Acute arthritis Alzheimer disease Age related osteoporosis Father Diabetes HTN (hypertension) Brother Brain tumor Family/Other Breast cancer Lupus Acute arthritis Family/Other HTN (hypertension) Thyroid cancer Other Mental health disorder Social History Household Members: Children Household Members Other:: Living with son in his house Housing: House Alcohol intake: never Patient Tobacco Use Status: Former Tobacco user Years Smoked: (former smoker - onset 16yo - 1ppd x 50yrs, 50pyh - quit 12/2021) e-Cigarette/Vaping Use: Never Used Second Hand Smoke Exposure: Yes service: No Cognitive needs: Yes (WHEELCHAIR) Hearing needs: No Vision needs: Yes (Glasses) Review of Systems Const Reports fatigue and Reports weakness Card Reports chest pain, Reports chest pain with activity and Reports dyspnea Resp Reports dyspnea GI Reports nausea Musc Reports arthralgias Neuro Reports weakness Psych Reports abnormal sleep pattern Endo Reports fatigue and Reports polydipsia Physical Exam Vital Signs: Last Vital Signs Pulse 62 03/28/23 12:54 Pulse Ox 97 03/28/23 12:54 Oxygen Delivery Method Room Air 03/28/23 12:54 BMI result Body Mass Index 30.5 Const General: comfortable HEENT Head: Yes normocephalic Neck Neck: Yes supple Chest Chest palpation & inspection: normal inspection of the chest Resp Effort & Inspection: normal respiratory effort Auscultation: diminished lung sounds Cardio Heart sounds: S1 normal heart sound present and S2 normal heart sound present GI Palpation (GI): Soft to palpation Skin General skin exam: no rashes or lesions noted Extrem General: Yes no clubbing, cyanosis or edema Results Reviewed Results Reviewed: [address] [address] [address] Scan Report Signed Patient: Alberto Jose MR#: [id number] : 1955 Acct:[id number] Age/Sex: 67 / F ADM Date: 02/20/23 Loc: HO.CT Attending Dr: Immanuel Sawant MD Ordering Physician: Immanuel Sawant MD Date of Service: 02/20/23 Procedure(s): CT chest wo IV con Accession Number(s): [id number] cc: Immanuel Sawant MD; Ty Barros MD~ EXAMINATION: CT CHEST WITHOUT CONTRAST CLINICAL INFORMATION: Follow-up lung carcinoma post left upper lobe resection COMPARISON: 11/25/2022 TECHNIQUE: Multidetector volumetric CT imaging of the chest was done. Axial MIP volume rendering provided. Sagittal and coronal reformatted images were obtained. This CT examination was performed using dose optimization techniques as appropriate, variously including the following: *Automated exposure control *Adjustment of mA and/or kV according to patient size (this includes techniques or standardized protocols for targeted exams where dose is matched to indication/reason for exam; i.e. extremities or head) *Use of iterative reconstruction technique DLP: 149 mGy-cm FINDINGS: Limited lower cervical images again demonstrate a calcified right thyroid nodule, previously described. No additional specific imaging follow-up is needed, as thyroid ultrasound has already been performed. LUNGS: Post operative pleural and parenchymal changes in the left hemithorax are unchanged. Scarring at the left lung base and right paravertebral linear opacities are stable. Coarse opacities in the right posterior costophrenic sulcus are also unchanged and may reflect early developing fibrosis. No new mass, nodule or consolidation has developed. Small right apical granuloma is stable. The trachea and major bronchi are patent. MEDIASTINUM: No adenopathy has developed. There are extensive aortic valvular and three-vessel coronary artery calcifications. CORONARY ARTERY CALCIFICATION: None visualized on this study. PLEURA: There is no pleural effusion. No pleural mass or thickening. AXILLA: No lymphadenopathy. UPPER ABDOMEN: Bilateral low density adrenal masses, felt to reflect adenomata are stable, measuring 21 x 17 mm on the left with focal fat measuring -17 Hounsfield units. The right adrenal nodule measures 5 Hounsfield units precontrast and is also stable, measuring 28 x 17 mm. No specific imaging follow-up is needed. OSSEOUS STRUCTURES: Considerable degenerative changes are noted in the dorsal spine but there are no suspicious bone lesions. CT/CT chest wo IV con IMPRESSION: 1. No significant change since 11/25/2022, and no specific evidence of recurrent or metastatic disease in the chest. Fleischner guidelines were followed. Dictated By: Ghanshyam Jiang MD Signed By: <Electronically signed by Ghanshyam Jiang MD in OV> 02/24/23 0859 DD/ 0930 TD/TT: Hostess Cashier: Assessment & Plan Assessment & Plan (1) Chest discomfort: Code(s): R07.89 - Other chest pain (2) COPD (chronic obstructive pulmonary disease): Code(s): J44.9 - Chronic obstructive pulmonary disease, unspecified Qualifiers: COPD type: emphysema Emphysema type: centrilobular Qualified Code(s): J43.2 - Centrilobular emphysema (3) ILD (interstitial lung disease): Code(s): J84.9 - Interstitial pulmonary disease, unspecified (4) MILLICENT on CPAP: Code(s): G47.33 - Obstructive sleep apnea (adult) (pediatric) (5) Pulmonary nodule: Code(s): R91.1 - Solitary pulmonary nodule (6) Lung cancer: Code(s): C34.90 - Malignant neoplasm of unspecified part of unspecified bronchus or lung Qualifiers: Laterality: left Lung location: upper lobe of lung Qualified Code(s): C34.12 - Malignant neoplasm of upper lobe, left bronchus or lung Plan Start Breo (no LAMA due to glaucoma) ALEXANDRE as needed Bloodwork EKG PFTs overnight oximetry on CPAP on RA F/U 6-8 weeks Orders: Orders Basic Metabolic Panel 03/28/23 J84.9 - Interstitial pulmonary disease, unspecified, R07.89 - Other chest pain PEYTON Reflex Titer and Pattern 03/28/23 J84.9 - Interstitial pulmonary disease, unspecified, R07.89 - Other chest pain Troponin-I High Sensitivity 03/28/23 J84.9 - Interstitial pulmonary disease, unspecified, R07.89 - Other chest pain Hypersensitive Pneumonitis Prf 03/28/23 J84.9 - Interstitial pulmonary disease, unspecified, R07.89 - Other chest pain, R91.8 - Other nonspecific abnormal finding of lung field ECG 12 lead EKG 03/28/23 J44.9 - Chronic obstructive pulmonary disease, unspecified, R07.89 - Other chest pain Complete Blood Count Auto Diff 03/28/23 J84.9 - Interstitial pulmonary disease, unspecified, R07.89 - Other chest pain Cyclic Citrullinated Peptide 03/28/23 J84.9 - Interstitial pulmonary disease, unspecified, R07.89 - Other chest pain Immunoglobulin E 03/28/23 J84.9 - Interstitial pulmonary disease, unspecified, R07.89 - Other chest pain Overnight Pulse Oximetry 03/28/23 J44.9 - Chronic obstructive pulmonary disease, unspecified PFT pulmonary function test Today J43.2 - Centrilobular emphysema Medications: New fluticasone furoate-vilanterol 200-25 mcg/dose (Breo Ellipta) 1 inh inhalation DAILY 30 days 60 ea 11RF J45.909 - Unspecified asthma, uncomplicated Coding Level of Care Code New Pt Level 4 (99145) Diagnoses Chest discomfort R07.89 Centrilobular emphysema J43.2 COPD type: emphysema Emphysema type: centrilobular ILD (interstitial lung disease) J84.9 MILLICENT on CPAP G47.33 Pulmonary nodule R91.1 Malignant neoplasm of upper lobe of left lung C34.12 Laterality: left Lung location: upper lobe of lung Time Spent (min) 40
[2023-03-28 12:54] VITALS: PULSE 62; O2SAT 97; BMI 30.5
== END 2023-03-28 13:25 | disposition home or self-care (01) ==
PROVIDERS: PCP Internal Medicine; Referring Provider Physician Assistant Surgical; Visit Provider Hospitalist
DX: R07.89 Other chest pain (principal); J43.2 Centrilobular emphysema; J84.9 Interstitial pulmonary disease, unspecified; G47.33 Obstructive sleep apnea (adult) (pediatric); R91.1 Solitary pulmonary nodule; C34.12 Malignant neoplasm of upper lobe, left bronchus or lung
CPT/HCPCS: 99204

== ENCOUNTER → 2023-03-28 13:38 | Outpatient (BNV) | payer MEDICARE, MEDICAID, SELFPAY | PROVIDERS: PCP Internal Medicine; Referring Provider Physician Assistant Surgical; Visit Provider Internal Medicine Cardiovascular Disease | DX: J44.9 Chronic obstructive pulmonary disease, unspecified (principal) | CPT/HCPCS: 93010 ==

== ENCOUNTER 2023-04-10 14:32 | Outpatient (AMB) | payer MEDICARE, MEDICAID, SELFPAY ==
--- NOTE | 2023-04-10 14:38 | MHC.OFFVIS ---
Intake Vital Signs 04/10/23 14:40 Height 5 ft 3 in Weight 167 lb 8.821 oz BMI 29.7 BP 174/73 H Blood Pressure Location Lt brachial Position Sitting Pulse 66 Intake Visit Reasons: Follow up Diverticulosis Intake Note: Alberto presents in the office as a follow up for diverticulosis. CC: She is having issues with her saliva - she feels like her mouth gets dry and she will feel like there is saliva or phlegm in her throat a lot of the time. She states that she will go 4 or 5 days without having a BM and she will have to take medications to have a BM. Lining Inserter Required: Yes Lining Inserter Name: [id number] Wily Danielle Allergies No Known Allergies Allergy (Verified 04/10/23 14:53) HPI HPI Comments History of Present Illness Details THis is a 66y.o F who recently moved from [place] who is here for follow up. Patient is here with her son who states that back in Feb she developed sudden onset of bloody stools associated with lightheadedness and dizziness which prompted her visit to the local hospital ([facility]). Records reviewed. Initial Hb was noted to be 5. Underwent 8u PRBC transfusion over the course of [address] abd showed complicated diverticulitis with contained perf of sigmoid colon. Was managed with Abx. Pt also underwent an EGD which showed esophagitis per son's report and was given high dose PPI x 4 weeks. Due to difficulty pursuing follow-up as outpatient with a health education assistant, as well as sec accountant (patient has CKD progressed during this admission), her son decided to bring her to [facility] for further care. Currently, patient does not have any gastrointestinal complaints to include abdominal pain, nausea, vomiting. No changes in bowel habits. No melena or maroon stools. Most recent hemoglobin is 12.2 from last month. Her last colonoscopy was more than 5 years ago. She does not recall if she had polyps. 08/11/22 - EGD/[facility]rell: Impression: 1. Normal esophagus 2. Gastritis (biopsy) 3. Duodenitis (biopsy) 4. Duodenal diverticulum 5. Poor prep in cecum 6. Total of 4 polyps removed 7. Internal hemorrhoids 8. Diverticulosis Diagnosis A.? Duodenal bulb, biopsy:? Duodenal mucosa with predominantly preserved villi, Shavon's gland hyperplasia, and focal mild changes suggesting chronic/nonspecific duodenitis. B.? Stomach, random, biopsy:? Gastric antral and body mucosa with mild reactive changes, congestion, and focal minimal chronic inactive inflammation; negative for intestinal metaplasia and dysplasia (see comment).? C.? Colon, transverse, 3 polyps:? Tubular adenomas, three (2 of 3 appear excised); negative for high-grade dysplasia and carcinoma.? D.? Colon, descending, polyp:? Tubular adenoma; negative for high-grade dysplasia and carcinoma.? 08/24/22 Patient here accompanied by her son. Seen with the help of ophthalmic medical assistant. Has no gastrointestinal complaints. Reviewed results of the endoscopy and colonoscopy. Reassured that the esophagitis has healed up. No H pylori and gastric biopsies. All the 4 polyps were tubular adenoma and ideally, patient should have repeat colonoscopy within a year due to poor prep. However, she is currently undergoing workup for lung cancer through Dr. Camp. Son reports that so far, assessment is that this was stage I lung cancer that was completely surgically resected. However, 2nd opinion is being awaited to see if she needs any adjuvant therapy. 04/10/23: Pt here to discuss timing of colo - last colo poor prep in cecum. However, appears continues to have residual pulm symptoms despite wedge resection of lung adenoca back in 2022. Seeing Dr Trimble and awaiting PFTs for dyspnea. Also sees Dr Vasquez for ? adjuvant therapy - however pt declines chemotherapy and molecular testing not available for immunotherapy. Gets regular surveillance scans. In addition, pt also reports chronic constipation. Diet low in fiber. Son occasionally gives miralax to which she responds very well. [facility] Medical History COPD (chronic obstructive pulmonary disease) ILD (interstitial lung disease) Chest discomfort Cataracts, both eyes Glaucoma Tubular adenoma of colon Esophagitis Personal history of nicotine dependence Gout Right elbow pain Thyroid nodule HTN (hypertension) GI bleed Diverticulitis CKD (chronic kidney disease), stage IV Hypothyroid Emphysema lung Epilepsy Type 2 diabetes mellitus Hypercholesteremia Surgical History History of elbow surgery History of lung surgery History of colonoscopy History of esophagogastroduodenoscopy (EGD) History of cholecystectomy History of tubal ligation Family History Sister SLE (systemic lupus erythematosus) Breast cancer Mental health problem Mother Diabetes Acute arthritis Alzheimer disease Age related osteoporosis Father Diabetes HTN (hypertension) Brother Brain tumor Family/Other Breast cancer Lupus Acute arthritis Family/Other HTN (hypertension) Thyroid cancer Other Mental health disorder Social History Household Members: Children Household Members Other:: Living with son in his house Housing: House Alcohol intake: never Patient Tobacco Use Status: Former Tobacco user Years Smoked: (former smoker - onset 16yo - 1ppd x 50yrs, 50pyh - quit 12/2021) e-Cigarette/Vaping Use: Never Used Second Hand Smoke Exposure: Yes service: No Cognitive needs: Yes (WHEELCHAIR) Hearing needs: No Vision needs: Yes (Glasses) Review of Systems Const All systems reviewed & are unremarkable except as noted in HPI and below Physical Exam Vital Signs: Last Vital Signs Pulse 66 04/10/23 14:40 BP 174/73 H 04/10/23 14:40 BMI result Body Mass Index 29.7 Const General: no acute distress and tired appearing Orientation/consciousness: patient oriented x3 Resp Effort & Inspection: normal respiratory effort Neuro General: patient oriented x3 and gait normal Extrem General: Yes normal to inspection and Yes full ROM Psych Appearance: grossly normal and well kempt Assessment & Plan Assessment & Plan (1) Diverticulosis: Code(s): K57.90 - Diverticulosis of intestine, part unspecified, without perforation or abscess without bleeding (2) Personal history of colonic polyps: Code(s): Z86.010 - Personal history of colonic polyps (3) Chronic constipation: Code(s): K59.09 - Other constipation Plan Reviewed that would favor holding off surveillance colo for now if has no other sx such as blood in stool or new onset of diarrhea. This can be addressed once pulm status optimized. In terms of constipation, advised to increase fiber intake and educated that no restriction from diverticulosis standpoint, in fact a healthy intake of fiber 20-30g/day is encouraged. Can add psyllium to help with adequate daily intake. Also recommend senna +/- miralax as needed for constipation. Follow up in 3 months. Medications: New psyllium husk mix into at least 8 oz of water before administering 1 tbsp PO DAILY 660 grams 1RF sennosides (senna) 17.2 mg (2 x 8.6 mg) PO DAILY 30 days 60 tabs 1RF Coding Level of Care Code Est Pt Level 4 (97595) Diagnoses Diverticulosis K57.90 Personal history of colonic polyps Z86.010 Chronic constipation K59.09
[2023-04-10 14:40] VITALS: BP 174/73; PULSE 66; BMI 29.7
== END 2023-04-10 15:46 | disposition home or self-care (01) ==
PROVIDERS: PCP Internal Medicine; Visit Provider Internal Medicine
DX: K57.90 Diverticulosis of intestine, part unspecified, without perforation or abscess without bleeding (principal); Z86.010 Personal history of colon polyps; K59.09 Other constipation
CPT/HCPCS: 99214

== ENCOUNTER → 2023-04-10 14:32 | Outpatient (BNVA) | payer MEDICARE, MEDICAID, SELFPAY | PROVIDERS: PCP Internal Medicine; Visit Provider Internal Medicine | DX: K57.90 Diverticulosis of intestine, part unspecified, without perforation or abscess without bleeding (principal); K59.09 Other constipation; Z86.010 Personal history of colon polyps | CPT/HCPCS: 99212 ==

== ENCOUNTER 2023-04-11 08:15 | Outpatient (REF) | payer MEDICARE, MEDICAID, SELFPAY ==
--- NOTE | ~2023-04-11 | MR_ITS ---
EXAMINATION: MR LOWER LEG WITHOUT CONTRAST, RIGHT CLINICAL INFORMATION: Right knee pain. Possible history of lung cancer. Malignant neoplasm of long bone. COMPARISON: Right knee radiographs dated 11/25/2022. TECHNIQUE: Multisequence MR imaging of the right lower leg was obtained without contrast on a high-field strength scanner. FINDINGS: BONE: Within the proximal diametaphysis of the fibula, there is a healed, nondisplaced fracture with associated new bone/callus formation. No persistent marrow edema. No periosteal reaction or soft tissue component. No adjacent soft tissue edema. No evidence of an underlying neoplastic osseous lesion. No marrow edema or evidence of acute osseous injury. No acute stress reaction or fracture. No concerning lytic or blastic osseous lesion. MUSCLES/TENDONS: The visualized muscles and tendons are intact without edema or evidence of acute injury. No measurable tear. LIGAMENTS: Grossly intact intra-articular ligaments within the right knee; however, evaluation is limited on large [id number] imaging. SOFT TISSUES: No abnormal soft tissue mass or fluid collection. MR/MR lower leg RT wo con IMPRESSION: 1. Healed, nondisplaced fracture within the proximal fibular diametaphysis with associated new bone/callus formation. No persistent marrow edema, periosteal reaction, or soft tissue component. No evidence of an underlying neoplastic osseous lesion. 2. No acute osseous injury. 3. No acute muscle or tendon injury.
[2023-04-11 08:29] LABS: MANUAL DIFF FLAG NO
[2023-04-11 09:31] LABS: Basophils Absolute Auto 0.1 X10*3/uL (0.0-0.2); Basophils Percent Auto 0.6 % (0-2); Eosinophils Absolute Auto 0.1 X10*3/uL (0.0-0.4); Hematocrit 38.7 % (37.0-47.0); Hemoglobin 12.5 g/dl (12.0-16.0); Imm Gran Abs Auto 0.07 X10*3/uL (0.00-0.03); Imm Gran Pct Auto 0.7 % (0.0-0.4); Lymphocytes Absolute Auto 1.8 X10*3/uL (1.2-4.9); Lymphocytes Percent Auto 16.9 % (20-40); Mean Corpuscular HGB Conc 32.3 g/dl (31.0-35.0); Mean Corpuscular Hemoglobin 28.8 pg (27.0-33.0); Mean Corpuscular Volume 89.2 fL (80.0-98.0); Mean Platelet Volume 9.6 fL (9.4-12.3); Monocytes Absolute Auto 0.6 X10*3/uL (0.1-1.2); Neutrophils Absolute Auto 7.9 x10*3/uL (2.0-8.3); Neutrophils Percent Auto 74.8 % (45-73); Platelet Count 292 X10*3/uL (160-400); Red Blood Count 4.34 X10*6/uL (4.20-5.50); Red Cell Distribution Width 13.2 % (11.0-16.0); White Blood Count 10.5 X10*3/uL (4.8-10.8)
[2023-04-11 09:42] LABS: Estimated Average Glucose 140 mg/dL; Hemoglobin A1c % 6.5 % (<6.0)
[2023-04-11 10:39] LABS: Creatinine Urine 48.92 mg/dL
[2023-04-11 11:37] LABS: Alanine Aminotransferase 18 U/L (0-31); Albumin Level 3.9 g/dL (3.5-5.0); Alkaline Phosphatase 116 U/L (39-117); Anion Gap 12 (12-20); Aspartate Amino Transferase 18 U/L (5-31); Bilirubin Total 0.2 mg/dL (0.0-1.0); Blood Urea Nitrogen 51 mg/dL (9-16); Calcium 9.3 mg/dL (8.4-10.2); Carbon Dioxide 20 mmol/L (22-29); Chloride 108 mmol/L (96-108); Cholesterol 172 mg/dL (<200); Estimated Glomerular Filt Rate 16; Glucose Fasting 142 mg/dL (60-99); HDL Cholesterol 60 mg/dL (>40); LDL Cholesterol Calculated 89 mg/dL (<100); Potassium 4.3 mmol/L (3.3-5.1); Sodium 136 mmol/L (135-145); TSH reflex Free T4 0.24 uIU/mL (0.32-4.0); Total Protein 7.1 g/dL (6.5-8.0); Triglycerides 118 mg/dL (<150)
[2023-04-11 12:11] LABS: Free T4 (Free Thyroxine) 1.32 ng/dL (0.71-1.85)
== END 2023-04-11 08:16 | disposition home or self-care (01) ==
LOC: HO.MRI 08:15
PROVIDERS: PCP Nurse Practitioner Family; Visit Provider Student in an Organized Health Care Education/Training Program
DX: E11.22 Type 2 diabetes mellitus with diabetic chronic kidney disease (principal); N18.4 Chronic kidney disease, stage 4 (severe); C40.20 Malignant neoplasm of long bones of unspecified lower limb; E03.9 Hypothyroidism, unspecified; E78.00 Pure hypercholesterolemia, unspecified; Z13.0 Encounter for screening for diseases of the blood and blood-forming organs and certain disorders involving the immune mechanism
CPT/HCPCS: 36415; 73718; 80053; 80061; 82043; 82570; 83036; 84439; 84443; 85025

== ENCOUNTER 2023-04-12 13:41 | Outpatient (REF) | payer MEDICARE, MEDICAID, SELFPAY ==
[2023-04-12 09:39] VITALS: PULSE 59; RESP 16; O2SAT 99
--- NOTE | 2023-04-12 15:19 | PFT_ITS ---
Flows: FEV1: 65 % of predicted at 1.43 L FVC: 70 % of predicted at 1.97 L FEV1/FVC: 73 % Bronchodilator response: Absent Volumes: No lung volumes measurements performed secondary to a technical issue. Diffusion capacity: Moderately decreased, adjusts to being mildly decreased after correction for alveolar ventilation. Impression: No obstructive ventilatory defect. Spirometry suggests underlying restrictive ventilatory defect. No bronchodilator response. Decreased diffusion capacity with likely restrictive ventilatory defect suggests underlying pulmonary parenchymal disease. Clinical correlation is advised. MTDD
== END 2023-04-12 13:42 | disposition home or self-care (01) ==
LOC: HO.RESP 13:41
PROVIDERS: PCP Internal Medicine; Visit Provider Hospitalist
DX: J43.2 Centrilobular emphysema (principal)
CPT/HCPCS: 94010; 94640; 94727; 94729

== ENCOUNTER → 2023-04-12 15:19 | Outpatient (BNV) | payer MEDICARE, MEDICAID, SELFPAY | PROVIDERS: PCP Internal Medicine; Visit Provider Internal Medicine Pulmonary Disease | DX: J43.2 Centrilobular emphysema (principal) | CPT/HCPCS: 94060; 94729 ==

== ENCOUNTER 2023-04-13 13:07 | Outpatient (AMB) | payer MEDICARE, MEDICAID, SELFPAY ==
[2023-04-13 13:08] VITALS: BP 156/72; PULSE 62; BMI 30.6
--- NOTE | 2023-04-13 13:08 | A.OFFVIS_ITS ---
Intake Vital Signs 04/13/23 13:08 Height 5 ft 3 in Weight 172 lb 13.478 oz BMI 30.6 BP 156/72 H Blood Pressure Location Lt brachial Position Sitting Pulse 62 Pulse Source Pulse Oximeter Intake Visit Reasons: f/u hypothyroidism Intake Note: Patient present today for Hypothyroidism follow up visit. School Bus Driver/Teacher Assistant Required: Yes School Bus Driver/Teacher Assistant Language: Deputy Court Name: [facility] medical staff Information Interpreted: non-clinical & clinical Accompanied by: Friend Allergies No Known Allergies Allergy (Verified 04/13/23 13:15) HPI HPI Comments History of Present Illness Details 67 YO F who is seen in consultation at the request of his PCP for Hyothyroidism. First diagnosed with Hypothyroidism >25 yrs Currently using levothyroxine h 175 ug . On this dose for 1 wk . Was on 200 ug prior Denies - fatigue, -weight gain, +cold intolerance, +dry skin,+ hair loss, - constipation. There is no hx of hyperlipidemia . -Denies obstructive sx of goiter . -Denies consuming any kelp or seaweed. -Denies taking amiodarone. Biotin: No Family hx of thyroid problems in mother, father, sister and son has thyroid cancer? subtype Labs: [facility] Medical History COPD (chronic obstructive pulmonary disease) ILD (interstitial lung disease) Chest discomfort Cataracts, both eyes Glaucoma Tubular adenoma of colon Esophagitis Personal history of nicotine dependence Gout Right elbow pain Thyroid nodule HTN (hypertension) GI bleed Diverticulitis CKD (chronic kidney disease), stage IV Hypothyroid Emphysema lung Epilepsy Type 2 diabetes mellitus Hypercholesteremia Surgical History History of elbow surgery History of lung surgery History of colonoscopy History of esophagogastroduodenoscopy (EGD) History of cholecystectomy History of tubal ligation Family History Sister SLE (systemic lupus erythematosus) Breast cancer Mental health problem Mother Diabetes Acute arthritis Alzheimer disease Age related osteoporosis Father Diabetes HTN (hypertension) Brother Brain tumor Family/Other Breast cancer Lupus Acute arthritis Family/Other HTN (hypertension) Thyroid cancer Other Mental health disorder Social History Household Members: Children Household Members Other:: Living with son in his house Housing: House Alcohol intake: never Patient Tobacco Use Status: Former Tobacco user Years Smoked: (former smoker - onset 16yo - 1ppd x 50yrs, 50pyh - quit 12/2021) e-Cigarette/Vaping Use: Never Used Second Hand Smoke Exposure: Yes service: No Cognitive needs: Yes (WHEELCHAIR) Hearing needs: No Vision needs: Yes (Glasses) Physical Exam Vital Signs: Last Vital Signs Pulse 62 04/13/23 13:08 BP 156/72 H 04/13/23 13:08 BMI result Body Mass Index 30.6 HEENT reveals absence of lid lag , stare or proptosis or eyebrow loss. Thyroid gland measure 15 gms . No nodules or tenderness palpated. There is no cervical adenopathy palpated. Lungs CTA. Heart S1, S2 Reg R/R -M/R/G. Abdominal exam benign. Skin exam reveals absence of dryness or thyroid dermopathy or vitiligo. Nail exam reveals absence of thyroid acropachy or oncholysis. Neurologic exam reveals 2+ reflexes . Muscle Strength is 5/5 proximally. There are no tremors in upper extremities. 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 She appears to be clinically euthyroid but has elevated TSH on 1 50 mcg a suppressed TSH on 175ug . She is currently alternating 150 mcg with 175 micrograms Plan is to have the patient take 150 mcg Monday to Monday and 175 mcg Monday and Monday and check TSH and free T4 in 6 weeks and adjust levothyroxine accordingly (2) Hypothyroid: Code(s): E03.9 - Hypothyroidism, unspecified Plan: See above plan Orders: Orders Thyroid Stimulating Hormone 6 Weeks E03.9 - Hypothyroidism, unspecified Free T4 (Free Thyroxine) 6 Weeks E03.9 - Hypothyroidism, unspecified Medications: New levothyroxine Take Monday to Monday 150 mcg PO DAILY 60 caps 5RF Changed From levothyroxine 175 mcg PO DAILY 90 tabs 1RF To levothyroxine Take on Monday and Monday 175 mcg PO DAILY 25 tabs 1RF Coding Level of Care Code Est Pt Level 3 (43404) Diagnoses Hypothyroid E03.9
== END 2023-04-13 13:33 | disposition home or self-care (01) ==
PROVIDERS: PCP Internal Medicine; Visit Provider Internal Medicine Endocrinology, Diabetes & Metabolism
DX: E03.9 Hypothyroidism, unspecified (principal)
CPT/HCPCS: 99213

== ENCOUNTER → 2023-04-13 13:07 | Outpatient (BNVA) | payer MEDICARE, MEDICAID, SELFPAY | PROVIDERS: PCP Internal Medicine; Visit Provider Internal Medicine Endocrinology, Diabetes & Metabolism | DX: E03.9 Hypothyroidism, unspecified (principal) | CPT/HCPCS: 99212 ==

== ENCOUNTER 2023-05-03 14:23 | Outpatient (AMB) | payer MEDICARE, MEDICAID, SELFPAY ==
--- NOTE | 2023-05-03 14:34 | A.OFFVIS_ITS ---
Intake Vital Signs 05/03/23 14:45 Height 5 ft 3 in Weight 171 lb 4.787 oz BMI 30.3 BP 144/58 H Blood Pressure Location Rt brachial Position Sitting Respiration 24 H Pulse 64 Pulse Source Auscultation Temp 97.2 F Temp Source Skin Intake Visit Reasons: RA Intake Note: Patient last seen 10/26/22 presents today for follow up and test results. Law Instructor Required: Yes Law Instructor Language: Vietnamese Information Interpreted: clinical only Accompanied by: Friend Allergies No Known Allergies Allergy (Verified 05/03/23 14:46) Medication List - Last Reconciled 05/03/23 by Beryl Ravi MD albuterol sulfate 2 mg PO TID PRN albuterol sulfate 90 mcg/actuation (Ventolin HFA) 1 inh inhalation QID amlodipine 10 mg (2 x 5 mg) PO DAILY atorvastatin 40 mg PO DAILY bimatoprost 0.01% (Lumigan) drps ophthalmic (eye) DAILY brimonidine 0.2% drps ophthalmic (eye) ONCE brimonidine-timolol 0.2-0.5 % (Combigan) drps ophthalmic (eye) ONCE carbamazepine ER 200 mg PO ONCE 90 days dorzolamide 2% 0.02 drps ophthalmic (eye) DAILY empagliflozin (Jardiance) 10 mg PO DAILY 30 days fluticasone propion-salmeterol 250-50 mcg/dose (Wixela Inhub) 1 inh inhalation Q12H 30 days ipratropium-albuterol 0.5 mg-3 mg(2.5 mg base)/3 mL 3 mL inhalation Q4H PRN levothyroxine 150 mcg PO DAILY levothyroxine 175 mcg PO DAILY linagliptin (Tradjenta) 5 mg PO DAILY 30 days lisinopril 40 mg PO DAILY montelukast 10 mg PO DAILY 30 days nebulizers As directed omeprazole 20 mg PO DAILY psyllium husk 1 tbsp PO DAILY sennosides (senna) 17.2 mg (2 x 8.6 mg) PO DAILY 30 days HPI HPI Comments History of Present Illness Details 67-year-old female with osteoarthritis r eturns for follow-up. Last visit I referred patient to occupational therapy. Patient was not able to go to therapy. Right knee x-ray showed findings suggestive of a mass versus fracture, the MRI confirmed a healed fracture in the proximal tibia. I referred patient to Orthopedics. She has not been evaluated yet. She continues to have bilateral knee pain. Recently she has been having bilateral lower lumbar back pain. Initial history: This is a 67-year-old female with recently diagnosed adenocarcinoma of the lung s/p resection, waiting for oncology appointment who presents as a new patient for evaluation of arthritis. Patient stated that she was diagnosed with arthritis by her PCP in [place]. She is unaware of any history of rheumatoid arthritis or any family history of inflammatory arthritis. Patient states that she has pain in both thumbs and both knees with going up and down the stairs. She uses Tylenol with some relief. Over the last week and have she believes that she caught an infection from a family member and she has been more fatigued and coughing. [facility] Medical History COPD (chronic obstructive pulmonary disease) ILD (interstitial lung disease) Chest discomfort Cataracts, both eyes Glaucoma Tubular adenoma of colon Esophagitis Personal history of nicotine dependence Gout Right elbow pain Thyroid nodule HTN (hypertension) GI bleed Diverticulitis CKD (chronic kidney disease), stage IV Hypothyroid Emphysema lung Epilepsy Type 2 diabetes mellitus Hypercholesteremia Surgical History History of elbow surgery History of lung surgery History of colonoscopy History of esophagogastroduodenoscopy (EGD) History of cholecystectomy History of tubal ligation Family History Sister SLE (systemic lupus erythematosus) Breast cancer Mental health problem Mother Diabetes Acute arthritis Alzheimer disease Age related osteoporosis Father Diabetes HTN (hypertension) Brother Brain tumor Family/Other Breast cancer Lupus Acute arthritis Family/Other HTN (hypertension) Thyroid cancer Other Mental health disorder Social History Household Members: Children Household Members Other:: Living with son in his house Housing: House Alcohol intake: never Patient Tobacco Use Status: Former Tobacco user Years Smoked: (former smoker - onset 16yo - 1ppd x 50yrs, 50pyh - quit 12/2021) e-Cigarette/Vaping Use: Never Used Second Hand Smoke Exposure: Yes service: No Cognitive needs: Yes (WHEELCHAIR) Hearing needs: No Vision needs: Yes (Glasses) Review of Systems Const Reports fatigue and Reports weakness GI Reports nausea Musc Reports arthralgias Neuro Reports weakness Psych Reports abnormal sleep pattern, Reports anxiety and Reports depression Endo Reports fatigue Physical Exam Vital Signs: Last Vital Signs Temp 97.2 F 05/03/23 14:45 Pulse 64 05/03/23 14:45 Resp 24 H 05/03/23 14:45 BP 144/58 H 05/03/23 14:45 BMI result Body Mass Index 30.3 Const General: cooperative and tired appearing Nutritional Appearance: overweight Orientation/consciousness: patient oriented x3 Limitations: no limitations HEENT Head: Yes normocephalic and Yes atraumatic Mouth: moist mucous membranes Resp Effort & Inspection: normal respiratory effort and able to speak in complete sentences Auscultation: rhonchi Skin General skin exam: no rashes or lesions noted Neuro General: patient oriented x3 Extrem Other: Osteoarthritic changes of both hands with prominent Heberden's nodes Bilateral 1st CMC joint tenderness, positive grind test on the right Bilateral knee crepitus Mildly reduced right elbow extension (metal plate) Bilateral lumbar paraspinal muscle tenderness Positive straight leg raise test bilaterally Office Procedures Joint Injection/Drain Joint Injection/Drain Primary Site: right thumb Prep: site was prepped using sterile technique and ethochloride spray was applied Injected: 20 mg of, Kenalog and other (0.1 mL of 1% lidocaine) Approach Used: other Procedure: The patient tolerated the procedure well Coding Details: After prepping the right 1st CMC joint area with ChloraPrep, ethyl chloride spray was used then using a 27 gauge needle 20 mg of Kenalog mixed with 0.1 cc of 1% lidocaine was injected into the joint space - Small Joint Procedure code (CPT) selection complete Results Reviewed Results Reviewed: MR/MR lower leg RT wo con IMPRESSION: 1. Healed, nondisplaced fracture within the proximal fibular diametaphysis with associated new bone/callus formation. No persistent marrow edema, periosteal reaction, or soft tissue component. No evidence of an underlying neoplastic osseous lesion. 2. No acute osseous injury. 3. No acute muscle or tendon injury. Assessment & Plan Assessment & Plan (1) Osteoarthritis of hands, bilateral: Code(s): M19.041 - Primary osteoarthritis, right hand; M19.042 - Primary osteoarthritis, left hand Qualifiers: Osteoarthritis type: primary Qualified Code(s): M19.041 - Primary osteoarthritis, right hand; M19.042 - Primary osteoarthritis, left hand Plan: This is a 67-year-old female with bilateral hand osteoarthritis returns for follow-up. Most symptomatic is the 1st CMC joints bilaterally Patient has been using Tylenol and Voltaren gel without relief. She has not been able to go to occupational therapy. We discussed risks and benefits of steroid injections. Her HbA1c is 6.5%, per son her blood sugar is in the 90s fasting. Patient wanted to proceed with right 1st CMC joint injection. With patient's consent, right 1st CMC joint was injected with Kenalog today. Advised patient to watch her blood sugars over the coming 3-4 days. If there is improve ment patient can call our office for an injection in the left hand (2) Lumbar radiculopathy: Code(s): M54.16 - Radiculopathy, lumbar region Plan: Referred to pain management Plan I spent 26 minutes reviewing patient's chart, evaluating patient, counseling patient and documenting in the chart Orders: Orders AMB Joint Injection/Aspiration Today M18.9 - Osteoarthritis of first carpometacarpal joint, unspecified Referrals Pain Management Referral M54.16 - Radiculopathy, lumbar region Coding Level of Care Code Est Pt Level 4 (02166) Diagnoses Primary osteoarthritis of both hands M19.041; M19.042 Osteoarthritis type: primary Lumbar radiculopathy M54.16 CPT Codes Coding - 58676 - Small joint: 29420 - Small Joint ([id number])
[2023-05-03 14:45] VITALS: BP 144/58; PULSE 64; RESP 24; TEMP 36.2; BMI 30.3
== END 2023-05-03 15:27 | disposition home or self-care (01) ==
PROVIDERS: PCP Internal Medicine; Visit Provider Student in an Organized Health Care Education/Training Program
DX: M19.041 Primary osteoarthritis, right hand (principal); M19.042 Primary osteoarthritis, left hand; M54.16 Radiculopathy, lumbar region
CPT/HCPCS: 20600; 99213

== ENCOUNTER → 2023-05-03 14:23 | Outpatient (BNVA) | payer MEDICARE, MEDICAID, SELFPAY | PROVIDERS: PCP Internal Medicine; Visit Provider Student in an Organized Health Care Education/Training Program | DX: M19.041 Primary osteoarthritis, right hand (principal); M19.042 Primary osteoarthritis, left hand; M54.16 Radiculopathy, lumbar region; M18.9 Osteoarthritis of first carpometacarpal joint, unspecified | CPT/HCPCS: 20600; 99212 ==

== ENCOUNTER 2023-05-04 07:51 | Outpatient (AMB) | payer MEDICARE, MEDICAID, SELFPAY ==
[2023-05-04 08:25] VITALS: BP 138/70; BMI 31.1
--- NOTE | 2023-05-04 08:25 | A.OFFVIS_ITS ---
Vital Signs 05/04/23 08:25 Height 5 ft 3 in Weight 175 lb 6 oz BMI 31.1 BP 138/70 Blood Pressure Location Rt brachial Position Sitting Intake Visit Reasons: 2M f/u - CONF W/address Intake Note: Not sleeping and tired. Global Project Manager Required: No Accompanied by: Child Allergies No Known Allergies Allergy (Verified 05/25/23 09:29) HPI Comments Details: 67 y/o female patient presents for follow up of epilepsy and MILLICENT. Pt was accompanied by her son. Pt's seizure well managed with carbamazepine 200 mg ER daily, and had seizure free for more than 15 years now. Pt underwent split night sleep study. The baseline portion of the sleep study was significant for severe degree of sleep apnea with increased severity in REM. AHI was 49/hr, REM AHI was 60/hr. She trialed on CPAP [id number], and her breathing and oxygenation stabilized on CPAP at 19uaO7H. She tried CPAP couple of days but felt chocking and did not like to use it. The CPAP compliance and therapy response (01/09/23-04/08/23) reviewed. She is on CPAP at 12 cmH2O. The usage days 34% and the average usage hours 5 hrs. The AHI was 6.1 The apnea index was central 0.3 and the obstructive 0.7 PFSH Medical History COPD (chronic obstructive pulmonary disease) ILD (interstitial lung disease) Chest discomfort Cataracts, both eyes Glaucoma Tubular adenoma of colon Esophagitis Personal history of nicotine dependence Gout Right elbow pain Thyroid nodule HTN (hypertension) GI bleed Diverticulitis CKD (chronic kidney disease), stage IV Hypothyroid Emphysema lung Epilepsy Type 2 diabetes mellitus Hypercholesteremia Surgical History History of elbow surgery History of lung surgery History of colonoscopy History of esophagogastroduodenoscopy (EGD) History of cholecystectomy History of tubal ligation Family History Sister SLE (systemic lupus erythematosus) Breast cancer Mental health problem Mother Diabetes Acute arthritis Alzheimer disease Age related osteoporosis Father Diabetes HTN (hypertension) Brother Brain tumor Family/Other Breast cancer Lupus Acute arthritis Family/Other HTN (hypertension) Thyroid cancer Other Mental health disorder Social History Household Members: Children Household Members Other:: Living with son in his house Housing: House Alcohol intake: never Patient Tobacco Use Status: Former Tobacco user Years Smoked: (former smoker - onset 16yo - 1ppd x 50yrs, 50pyh - quit 12/2021) e-Cigarette/Vaping Use: Never Used Second Hand Smoke Exposure: Yes service: No Current occupational status: disabled Cognitive needs: Yes (WHEELCHAIR) Hearing needs: No Vision needs: Yes (Glasses) Review of Systems Const All systems reviewed & are unremarkable except as noted in HPI and below ENT Reports Normal hearing present Neuro Reports Normal hearing present Physical Exam Vital Signs: Last Vital Signs BP 138/70 05/04/23 08:25 BMI result Body Mass Index 31.1 Const General: cooperative and tired appearing Nutritional Appearance: obese Orientation/consciousness: patient oriented x3 Limitations: language barrier (Lithuanian speaking only.) and wheelchair Resp Effort & Inspection: normal respiratory effort and able to speak in complete sentences Neuro General: patient oriented x3 and moves all extremities Cranial nerves: Yes Normal facial strength present, Yes Midline tongue present, Yes Symmetric palate elevation present, Yes Normal hearing present, Yes Ability to bilaterally rotate head present and Yes Ability to bilaterally elevate shoulders present Cognition (Neuro): normal cognition Motor exam (neuro): 5/5 motor strength present throughout, Pronator motor function not present and no tremor noted Psych Appearance: grossly normal Mental Status: mental status grossly normal Affect: normal affect Attitude: cooperative Assessment & Plan Assessment & Plan (1) MILLICENT on CPAP: Code(s): G47.33 - Obstructive sleep apnea (adult) (pediatric) Category: Medical (2) Epilepsy: Comment: since age 36 Code(s): G40.909 - Epilepsy, unspecified, not intractable, without status epilepticus Category: Medical Plan Continue to use CPAP at 06ylT1R. Stressed compliance, use CPAP nightly and more than 4 hrs. May try while she was watching TV and rest to get used to it. Continue to take carbamanzepine 200 mg ER daily.
== END 2023-05-04 08:57 | disposition home or self-care (01) ==
PROVIDERS: PCP Internal Medicine; Visit Provider Nurse Practitioner Family
DX: G47.33 Obstructive sleep apnea (adult) (pediatric) (principal); G40.909 Epilepsy, unspecified, not intractable, without status epilepticus
CPT/HCPCS: 99214

== ENCOUNTER → 2023-05-04 07:51 | Outpatient (BNVA) | payer MEDICARE, MEDICAID, SELFPAY | PROVIDERS: PCP Internal Medicine; Visit Provider Nurse Practitioner Family | DX: G40.909 Epilepsy, unspecified, not intractable, without status epilepticus (principal); G47.33 Obstructive sleep apnea (adult) (pediatric) | CPT/HCPCS: 99212 ==

== ENCOUNTER 2023-05-05 09:28 | Outpatient (AMB) | payer MEDICARE, MEDICAID, SELFPAY ==
--- NOTE | 2023-05-05 09:31 | MHC.OFFVIS ---
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 Has taken multiple falls. She was seen with Rheumatology in the past where she was given Tylenol PRN as well a Voltaren Gel. 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 Has taken multiple falls. She was seen with Rheumatology in the past where she was given Tylenol PRN as well a Voltaren Gel. History of right fibula fracture She actually complains of pain in most of her joints and her pain is not more in the right knee. She was concerned because she was told she had a fracture in the knee. Radiographs and MRI demonstrated a healing fibular shaft fracture distal to the knee joint. [facility] Medical History COPD (chronic obstructive pulmonary disease) ILD (interstitial lung disease) Chest discomfort Cataracts, both eyes Glaucoma Tubular adenoma of colon Esophagitis Personal history of nicotine dependence Gout Right elbow pain Thyroid nodule HTN (hypertension) GI bleed Diverticulitis CKD (chronic kidney disease), stage IV Hypothyroid Emphysema lung Epilepsy Type 2 diabetes mellitus Hypercholesteremia Surgical History History of elbow surgery History of lung surgery History of colonoscopy History of esophagogastroduodenoscopy (EGD) History of cholecystectomy History of tubal ligation Family History Sister SLE (systemic lupus erythematosus) Breast cancer Mental health problem Mother Diabetes Acute arthritis Alzheimer disease Age related osteoporosis Father Diabetes HTN (hypertension) Brother Brain tumor Family/Other Breast cancer Lupus Acute arthritis Family/Other HTN (hypertension) Thyroid cancer Other Mental health disorder Social History Household Members: Children Household Members Other:: Living with son in his house Housing: House Alcohol intake: never Patient Tobacco Use Status: Former Tobacco user Years Smoked: (former smoker - onset 16yo - 1ppd x 50yrs, 50pyh - quit 12/2021) e-Cigarette/Vaping Use: Never Used Second Hand Smoke Exposure: Yes service: No Cognitive needs: Yes (WHEELCHAIR) Hearing needs: No Vision needs: Yes (Glasses) Physical Exam Vital Signs: BMI result Body Mass Index 31.0 Extrem Other: no effusion ttp medial joint line bilateral knees ttp over entire knee Results Reviewed Results Reviewed: I personally reviewed relevant radiographs. Mild medial and PF OA I personally reviewed the MR images. 1. Healed, nondisplaced fracture within the proximal fibular diametaphysis with associated new bone/callus formation. No persistent marrow edema, periosteal reaction, or soft tissue component. No evidence of an underlying neoplastic osseous lesion. 2. No acute osseous injury. 3. No acute muscle or tendon injury. Assessment & Plan Assessment & Plan (1) Chronic pain: Code(s): G89.29 - Other chronic pain Plan: Chronic pain all over her body. No imaging or clinical findings to suggest knee pathology. SHe has an appt with pain management and I recommend she keep it. We discussed injections but she is diabetic and recently had a right thumb injection. PT was discussed but she is not interested in that at this time. Coding Level of Care Code New Pt Level 3 (60431) Diagnoses Chronic pain G89.29
[2023-05-05 09:32] VITALS: BMI 31.0
== END 2023-05-05 10:21 | disposition home or self-care (01) ==
PROVIDERS: PCP Internal Medicine; Visit Provider Orthopaedic Surgery
DX: G89.29 Other chronic pain (principal)
CPT/HCPCS: 99203

== ENCOUNTER → 2023-05-05 09:28 | Outpatient (BNVA) | payer MEDICARE, MEDICAID, SELFPAY | PROVIDERS: PCP Internal Medicine; Visit Provider Orthopaedic Surgery | DX: M25.561 Pain in right knee (principal); M25.562 Pain in left knee; G89.29 Other chronic pain; Z87.81 Personal history of (healed) traumatic fracture | CPT/HCPCS: 99202 ==

== ENCOUNTER 2023-05-17 11:26 | Outpatient (REF) | payer MEDICARE, MEDICAID, SELFPAY ==
--- NOTE | ~2023-05-17 | XR_ITS ---
EXAMINATION: XR LUMBOSACRAL SPINE WITH OBLIQUES CLINICAL INFORMATION: Lumbar spondylosis, without myelopathy or radiculopathy. COMPARISON: Radiographs dated 09/27/2022. TECHNIQUE: AP, both oblique, and lateral views of the lumbar spine. Lateral view of the lumbosacral junction. FINDINGS: Vertebral body heights are normal. There is a mild lumbar levoscoliosis. There is multi-level marked lower thoracic and lumbar degenerative disc disease, including T8-T9 through T12-L1 and L2-L3 through L5-S1. At L5-S1, note is made of a 5 mm anterolisthesis. No acute fracture or spondylolisthesis is seen. There is multi-level lumbar endplate arthropathy. There is facet arthropathy, most pronounced at L5-S1. No spondylolysis defect there is seen on the oblique views. The paravertebral soft tissues are unremarkable. There are right upper quadrant surgical clips. XR/XR lumbar spine 4V min IMPRESSION: 1. There is a mild lumbar levoscoliosis. 2. There is multi-level marked thoracolumbar degenerative disc disease, as detailed. Particular note is made of a 5 mm anterolisthesis at L5-S1. 3. There is multi-level thoracolumbar endplate arthropathy. 4. There is facet arthropathy, most pronounced at L5-S1. 5. No spondylolysis defect is seen.
== END 2023-05-17 11:27 | disposition home or self-care (01) ==
LOC: HO.XRAY 11:26
PROVIDERS: PCP Internal Medicine; Visit Provider Registered Nurse Emergency
DX: Z13.89 Encounter for screening for other disorder (principal)
CPT/HCPCS: 72110

== ENCOUNTER 2023-05-17 11:26 | Outpatient (AMB) | payer MEDICARE, MEDICAID, SELFPAY ==
[2023-05-17 11:40] VITALS: BP 190/80; PULSE 54; RESP 16; O2SAT 98; BMI 30.1
--- NOTE | 2023-05-17 11:40 | A.OFFVIS_ITS ---
Intake Vital Signs 05/17/23 11:40 Height 5 ft 3 in Weight 170 lb 2 oz BMI 30.1 BP 190/80 H Blood Pressure Location Lt brachial Position Sitting Respiration 16 Pulse 54 Pulse Source Pulse Oximeter Pulse Oximetry (%) 98 Oxygen Delivery Method Room Air Intake Visit Reasons: LUMBAR RADICULOPATHY Allergies No Known Allergies Allergy (Verified 05/17/23 11:40) HPI HPI Comments History of Present Illness Details Alberto is a very pleasant 67-year-old female who presents to the office today for evaluation management of her chronic lower back pain Patient complains of pain across her lower back that started approximately 2 years ago. She denies inciting injury, denies falls, denies motor vehicle accident. Pain rating is a 10/10, worse with standing, sitting, walking, twisting, bending Pain does not radiate, she denies numbness, weakness, burning, tingling of either lower extremities. Denies red flag symptoms including new loss of bowel, bladder or saddle anesthesia Endorses tenderness to palpation across the lower back Patient has not tried physical therapy, chiropractor, acupuncture or massage. She is never undergone interventional management. Patient is diabetic, most recent A1c of 6.5. Currently under care of Rheumatology, she receives steroid injection approximately 1 month ago to the right hand and she has an upcoming appointment for steroid injection to the left hand. She has not currently taking anything for the pain in her back. She has tried Tylenol but it did not help her pain. In terms of muscle damage condition is described as aching, spasming, stabbing, sharp, tingling, shooting, dull, tiring, squeezing and throbbing Pain is negatively impacting patient's enjoyment of life, general activity, mood, normal work, sleep and walking [facility] Medical History COPD (chronic obstructive pulmonary disease) ILD (interstitial lung disease) Chest discomfort Cataracts, both eyes Glaucoma Tubular adenoma of colon Esophagitis Personal history of nicotine dependence Gout Right elbow pain Thyroid nodule HTN (hypertension) GI bleed Diverticulitis CKD (chronic kidney disease), stage IV Hypothyroid Emphysema lung Epilepsy Type 2 diabetes mellitus Hypercholesteremia Surgical History History of elbow surgery History of lung surgery History of colonoscopy History of esophagogastroduodenoscopy (EGD) History of cholecystectomy History of tubal ligation Family History Sister SLE (systemic lupus erythematosus) Breast cancer Mental health problem Mother Diabetes Acute arthritis Alzheimer disease Age related osteoporosis Father Diabetes HTN (hypertension) Brother Brain tumor Family/Other Breast cancer Lupus Acute arthritis Family/Other HTN (hypertension) Thyroid cancer Other Mental health disorder Social History Household Members: Children Household Members Other:: Living with son in his house Housing: House Alcohol intake: never Patient Tobacco Use Status: Former Tobacco user Years Smoked: (former smoker - onset 16yo - 1ppd x 50yrs, 50pyh - quit 12/2021) e-Cigarette/Vaping Use: Never Used Second Hand Smoke Exposure: Yes service: No Cognitive needs: Yes (WHEELCHAIR) Hearing needs: No Vision needs: Yes (Glasses) Review of Systems Const All systems reviewed & are unremarkable except as noted in HPI and below Physical Exam Vital Signs: Last Vital Signs Pulse 54 05/17/23 11:40 Resp 16 05/17/23 11:40 BP 190/80 H 05/17/23 11:40 Pulse Ox 98 05/17/23 11:40 Oxygen Delivery Method Room Air 05/17/23 11:40 BMI result Body Mass Index 30.1 General: awake, alert, oriented. Answers questions appropriately. Fully engaged in examination. Skin: warm, dry, intact HEENT: Normocephalic. Hearing intact. Cardiac: External chest normal in appearance. Respiratory: No cough, audible wheezing or stridor. Abdomen: without gross distension. MS: No obvious swelling or deformities. Able to stand on bilateral tiptoes and bilateral heels.? Able to transition from sit to stand unassisted. Ambulates with bilaterally normal heel strike and toe off Bilateral lower extremity strength 5/5 Nontender to palpation bilateral PSIS Tender to palpation lumbar midline vertebrae and paraspinal muscles Lower range of motion intact SLR with dorsiflexion negative bilaterally PONCHO negative bilaterally Facet loading positive Neurological: Oriented to person, place, time and situation. Thought process intact. No gait abnormalities appreciated. Psychiatric: Appropriate mood and affect. Good judgment and insight. Results Reviewed Results Reviewed: 09/2022 XR/XR lumbar spine 2-3V IMPRESSION: Moderate diffuse thoracolumbar disc degenerative change with grade 1 anterolisthesis L5 over S1 and mild curvature of the lumbar spine convex to the left. No fracture identified. Assessment & Plan Assessment & Plan (1) Lumbar spondylosis: Code(s): M47.816 - Spondylosis without myelopathy or radiculopathy, lumbar region (2) Myofascial low back pain: Code(s): M54.50 - Low back pain, unspecified Plan Patient presented to the office today for evaluation management of her chronic lower back pain History, physical exam and provocative testing consistent with lumbar spondylosis and lumbar myofascial back pain. X-ray ordered for further evaluation Lidocaine 5% patches, apply to most painful area on for 12 hours off for 12 hours. Order placed for PT eval and treat, patient requests [facility] in [place]. Order will be faxed as requested. Discussed options for treatment including diagnostic interventional testing, epidural steroid injections, peripheral nerve stimulation with Sprint, RFA and more permanent neuromodulation. Patient currently receiving steroid injections from Rheumatology, will try to avoid additional use of injectable steroids if possible. If patient does not receive relief of pain after physical therapy will plan for diagnostic L3-L4 DR L5 MBB is followed by Sprint versus RFA. All questions and concerns have been answered and patient agrees with the plan. Follow up after injections and sooner if needed. Orders: Orders XR lumbar spine 4V min Today M47.816 - Spondylosis without myelopathy or radiculopathy, lumbar region PT Evaluation and Treatment Today M47.816 - Spondylosis without myelopathy or radiculopathy, lumbar region, M54.50 - Low back pain, unspecified Medications: New lidocaine 5% leave on most painful area for up to 12 hrs 1 patch topical DAILY 30 ea 3RF Coding Level of Care Code New Pt Level 4 (08991) Diagnoses Lumbar spondylosis M47.816 Myofascial low back pain M54.50
== END 2023-05-17 11:58 | disposition home or self-care (01) ==
PROVIDERS: PCP Internal Medicine; Visit Provider Registered Nurse Emergency
DX: M47.816 Spondylosis without myelopathy or radiculopathy, lumbar region (principal); M54.50 Low back pain, unspecified
CPT/HCPCS: 99204; 99214

== ENCOUNTER 2023-05-17 12:00 | Outpatient (REF) | payer MEDICARE, MEDICAID, SELFPAY ==
[2023-05-17 14:09] LABS: Free T4 (Free Thyroxine) 1.12 ng/dL (0.71-1.85); Thyroid Stimulating Hormone 0.66 uIU/mL (0.32-4.0)
== END 2023-05-17 12:01 | disposition home or self-care (01) ==
LOC: HO.10HDL 12:00
PROVIDERS: Visit Provider Internal Medicine Endocrinology, Diabetes & Metabolism
DX: E03.9 Hypothyroidism, unspecified (principal); M47.816 Spondylosis without myelopathy or radiculopathy, lumbar region
CPT/HCPCS: 36415; 72110; 84439; 84443; 99202

== ENCOUNTER 2023-05-24 12:12 | Outpatient (AMB) | payer MEDICARE, MEDICAID, SELFPAY ==
[2023-05-24 12:39] VITALS: BP 150/62; PULSE 57; O2SAT 94; BMI 30.8
--- NOTE | 2023-05-24 12:39 | A.OFFVIS_ITS ---
Intake Vital Signs 05/24/23 12:39 Height 5 ft 3 in Weight 173 lb 11.588 oz BMI 30.8 BP 150/62 H Blood Pressure Location Rt brachial Position Sitting Pulse 57 Pulse Source Pulse Oximeter Pulse Oximetry (%) 94 Oxygen Delivery Method Room Air Intake Visit Reasons: OA/cm Intake Note: Patient last seen 05/03/23 presents today for 3wk follow up and possible injection. Reports injection on R wrist was helpful and would like L wrist injection. States her blood sugar numbers have been good. Textile Chemist Required: Yes Textile Chemist Name: Milka [id number] Information Interpreted: clinical only Accompanied by: Friend Allergies No Known Allergies Allergy (Verified 05/24/23 12:40) Medication List - Last Reconciled 05/24/23 by Beryl Ravi MD albuterol sulfate 2 mg PO TID PRN albuterol sulfate 90 mcg/actuation (Ventolin HFA) 1 inh inhalation QID amlodipine 10 mg (2 x 5 mg) PO DAILY atorvastatin 40 mg PO DAILY bimatoprost 0.01% (Lumigan) drps ophthalmic (eye) DAILY brimonidine 0.2% drps ophthalmic (eye) ONCE brimonidine-timolol 0.2-0.5 % (Combigan) drps ophthalmic (eye) ONCE carbamazepine ER 200 mg PO ONCE 90 days dorzolamide 2% 0.02 drps ophthalmic (eye) DAILY empagliflozin (Jardiance) 10 mg PO DAILY 30 days fluticasone propion-salmeterol 250-50 mcg/dose (Wixela Inhub) 1 inh inhalation Q12H 30 days ipratropium-albuterol 0.5 mg-3 mg(2.5 mg base)/3 mL 3 mL inhalation Q4H PRN levothyroxine 150 mcg PO DAILY levothyroxine 175 mcg PO DAILY lidocaine 5% 1 patch topical DAILY linagliptin (Tradjenta) 5 mg PO DAILY 30 days lisinopril 40 mg PO DAILY montelukast 10 mg PO DAILY 30 days nebulizers As directed omeprazole 20 mg PO DAILY psyllium husk 1 tbsp PO DAILY sennosides (senna) 17.2 mg (2 x 8.6 mg) PO DAILY 30 days HPI HPI Comments History of Present Illness Details 67-year-old female with osteoarthritis r eturns for follow-up. Right thumb CMC injection done last visit was helpful. She did not have any hyperglycemia afterwards. She would like to do the left thumb today. Initial history: This is a 67-year-old female with recently diagnosed adenocarcinoma of the lung s/p resection, waiting for oncology appointment who presents as a new patient for evaluation of arthritis. Patient stated that she was diagnosed with arthritis by her PCP in [place]. She is unaware of any history of rheumatoid arthritis or any family history of inflammatory arthritis. Patient states that she has pain in both thumbs and both knees with going up and down the stairs. She uses Tylenol with some relief. Over the last week and have she believes that she caught an infection from a family member and she has been more fatigued and coughing. [facility] Medical History COPD (chronic obstructive pulmonary disease) ILD (interstitial lung disease) Chest discomfort Cataracts, both eyes Glaucoma Tubular adenoma of colon Esophagitis Personal history of nicotine dependence Gout Right elbow pain Thyroid nodule HTN (hypertension) GI bleed Diverticulitis CKD (chronic kidney disease), stage IV Hypothyroid Emphysema lung Epilepsy Type 2 diabetes mellitus Hypercholesteremia Surgical History History of elbow surgery History of lung surgery History of colonoscopy History of esophagogastroduodenoscopy (EGD) History of cholecystectomy History of tubal ligation Family History Sister SLE (systemic lupus erythematosus) Breast cancer Mental health problem Mother Diabetes Acute arthritis Alzheimer disease Age related osteoporosis Father Diabetes HTN (hypertension) Brother Brain tumor Family/Other Breast cancer Lupus Acute arthritis Family/Other HTN (hypertension) Thyroid cancer Other Mental health disorder Social History Household Members: Children Household Members Other:: Living with son in his house Housing: House Alcohol intake: never Patient Tobacco Use Status: Former Tobacco user Years Smoked: (former smoker - onset 16yo - 1ppd x 50yrs, 50pyh - quit 12/2021) e-Cigarette/Vaping Use: Never Used Second Hand Smoke Exposure: Yes service: No Cognitive needs: Yes (WHEELCHAIR) Hearing needs: No Vision needs: Yes (Glasses) Review of Systems Musc Reports arthralgias Physical Exam Vital Signs: Last Vital Signs Pulse 57 05/24/23 12:39 BP 150/62 H 05/24/23 12:39 Pulse Ox 94 05/24/23 12:39 Oxygen Delivery Method Room Air 05/24/23 12:39 BMI result Body Mass Index 30.8 Const General: cooperative and tired appearing Nutritional Appearance: overweight Orientation/consciousness: patient oriented x3 Limitations: no limitations HEENT Head: Yes normocephalic and Yes atraumatic Mouth: moist mucous membranes Resp Effort & Inspection: normal respiratory effort and able to speak in complete sentences Skin General skin exam: no rashes or lesions noted Neuro General: patient oriented x3 Extrem Other: Osteoarthritic changes of both hands with prominent Heberden's nodes Office Procedures Joint Injection/Drain Joint Injection/Drain Primary Site: left thumb Prep: site was prepped using sterile technique and ethochloride spray was applied Injected: 20 mg of, Kenalog and other (0.2 mL of 1% lidocaine) Approach Used: other Procedure: The patient tolerated the procedure well Coding Details: After prepping the left 1st CMC joint area with ChloraPrep, ethyl chloride spray was used then using a 27 gauge needle 10 mg of Kenalog mixed with 0.1 cc of 1% lidocaine was injected into the joint space - Small Joint Procedure code (CPT) selection complete Assessment & Plan Assessment & Plan (1) Osteoarthritis of hands, bilateral: Code(s): M19.041 - Primary osteoarthritis, right hand; M19.042 - Primary osteoarthritis, left hand Qualifiers: Osteoarthritis type: primary Qualified Code(s): M19.041 - Primary osteoarthritis, right hand; M19.042 - Primary osteoarthritis, left hand Plan: This is a 67-year-old female with bilateral hand osteoarthritis returns for follow-up. Most symptomatic is the 1st CMC joints bilaterally Patient has been using Tylenol and Voltaren gel without relief. She has not been able to go to occupational therapy. Right 1st CMC joint injected 04/2023 with good relief. Patient requesting left thumb injection today. With patient's consent, left 1st CMC joint was injected with Kenalog today. Discussed with patient, the earliest repeat injection would be in 3-4 months. Follow-up as needed Plan I spent 16 minutes reviewing patient's chart, evaluating patient, counseling patient and documenting in the chart Orders: Orders AMB Joint Injection/Aspiration Today M18.9 - Osteoarthritis of first carpometacarpal joint, unspecified Coding Level of Care Code Est Pt Level 3 (04359) Diagnoses Primary osteoarthritis of both hands M19.041; M19.042 Osteoarthritis type: primary CPT Codes Coding - 08506 - Small joint: 66436 - Small Joint ([id number])
== END 2023-05-24 12:57 | disposition home or self-care (01) ==
PROVIDERS: PCP Internal Medicine; Visit Provider Student in an Organized Health Care Education/Training Program
DX: M19.041 Primary osteoarthritis, right hand (principal); M19.042 Primary osteoarthritis, left hand
CPT/HCPCS: 20600; 99213

== ENCOUNTER → 2023-05-24 12:12 | Outpatient (BNVA) | payer MEDICARE, MEDICAID, SELFPAY | PROVIDERS: PCP Internal Medicine; Visit Provider Student in an Organized Health Care Education/Training Program | DX: M19.041 Primary osteoarthritis, right hand (principal); M19.042 Primary osteoarthritis, left hand | CPT/HCPCS: 20600; 99212 ==

== ENCOUNTER 2023-05-25 08:41 | Outpatient (AMB) | payer MEDICARE, MEDICAID, SELFPAY ==
--- NOTE | 2023-05-25 08:51 | A.OFFPC_ITS ---
Vital Signs 05/25/23 08:54 Height 5 ft 3 in Weight 173 lb 4 oz BMI 30.7 BP 140/64 H Blood Pressure Location Lt brachial Position Sitting Pulse 58 Pulse Source Pulse Oximeter Pulse Oximetry (%) 98 Oxygen Delivery Method Room Air Intake Visit Reasons: 3mth f/u Intake Note: Patient is here to follow up on COPD, HTN, CKD, DM. Complaint of lower back pain on jesse for months. Payable Processor Required: Yes Payable Processor Language: Sintering Plant Supervisor Name: Fito([id number]) Information Interpreted: non-clinical & clinical Commercial Driver: Present Accompanied by: staff Allergies No Known Allergies Allergy (Verified 05/25/23 09:29) Medication List - Last Reconciled 05/25/23 by Ty Barros MD albuterol sulfate 2 mg PO TID PRN albuterol sulfate 90 mcg/actuation (Ventolin HFA) 1 inh inhalation QID amlodipine 10 mg (2 x 5 mg) PO DAILY atorvastatin 40 mg PO DAILY bimatoprost 0.01% (Lumigan) drps ophthalmic (eye) DAILY brimonidine 0.2% drps ophthalmic (eye) ONCE brimonidine-timolol 0.2-0.5 % (Combigan) drps ophthalmic (eye) ONCE carbamazepine ER 200 mg PO ONCE 90 days dorzolamide 2% 0.02 drps ophthalmic (eye) DAILY empagliflozin (Jardiance) 10 mg PO DAILY 30 days fluticasone propion-salmeterol 250-50 mcg/dose (Wixela Inhub) 1 inh inhalation Q12H 30 days ipratropium-albuterol 0.5 mg-3 mg(2.5 mg base)/3 mL 3 mL inhalation Q4H PRN levothyroxine 150 mcg PO DAILY levothyroxine 175 mcg PO DAILY lidocaine 5% 1 patch topical DAILY linagliptin (Tradjenta) 5 mg PO DAILY 30 days montelukast 10 mg PO DAILY 30 days nebulizers As directed omeprazole 20 mg PO DAILY psyllium husk 1 tbsp PO DAILY sennosides (senna) 17.2 mg (2 x 8.6 mg) PO DAILY 30 days Tobacco use date assessed: 05/25/23 Last assessed Fall Risk: 05/25/23 Dental Screening Dental Screen Date: 02/20/23 HPI 3mth f/u HPI Details 67-year-old female presents to the offic e to discuss her chronic medical conditions. Patient comes to the office with a female internal controls specialist. A commercial credit analyst through the iPad was arranged. Patient continues to report low back pain. The symptoms of pain are present every day. Since last office visit, patient has seen a deli department manager. She is received injections in both the right and left hand. She is diagnosis of osteoa rthritis. Symptoms of pain were relieved in the right hand but the left hand has no relief despite the injection. She was also seen at pain management Center and physical therapy has been ordered. She has been asked to follow-up with them at the end of her physical therapy regimen. Patient reports that she has not able to exercise much due to pain. In addition she does have hypothyroidism and chronic kidney disease. [facility] Medical History COPD (chronic obstructive pulmonary disease) ILD (interstitial lung disease) Chest discomfort Cataracts, both eyes Glaucoma Tubular adenoma of colon Esophagitis Personal history of nicotine dependence Gout Right elbow pain Thyroid nodule HTN (hypertension) GI bleed Diverticulitis CKD (chronic kidney disease), stage IV Hypothyroid Emphysema lung Epilepsy Type 2 diabetes mellitus Hypercholesteremia Surgical History History of elbow surgery History of lung surgery History of colonoscopy History of esophagogastroduodenoscopy (EGD) History of cholecystectomy History of tubal ligation Family History Sister SLE (systemic lupus erythematosus) Breast cancer Mental health problem Mother Diabetes Acute arthritis Alzheimer disease Age related osteoporosis Father Diabetes HTN (hypertension) Brother Brain tumor Family/Other Breast cancer Lupus Acute arthritis Family/Other HTN (hypertension) Thyroid cancer Other Mental health disorder Social History Household Members: Children Household Members Other:: Living with son in his house Housing: House Alcohol intake: never Patient Tobacco Use Status: Former Tobacco user Years Smoked: (former smoker - onset 16yo - 1ppd x 50yrs, 50pyh - quit 12/2021) e-Cigarette/Vaping Use: Never Used Second Hand Smoke Exposure: Yes service: No Current occupational status: disabled Cognitive needs: Yes (WHEELCHAIR) Hearing needs: No Vision needs: Yes (Glasses) Questionnaire Thrive Questionnaire Date Thrive assessed: 02/20/23 SHAUNA-7 AMB Questionnaire SHAUNA-7 Date SHAUNA - 7 assessed: 02/20/23 Source: Developed by Drs. Pa Lopez, Nettie Melendez, Leroy Echols and colleagues, with an educational shana from [email or web address]. Physical exam (Primary Care) Vital Signs: Last Vital Signs Pulse 58 05/25/23 08:54 BP 140/64 H 05/25/23 08:54 Pulse Ox 98 05/25/23 08:54 Oxygen Delivery Method Room Air 05/25/23 08:54 Care Plan Goal for BP management: Blood pressure is in range. BMI result Body Mass Index 30.7 Tobacco/Smoking Status: Tobacco use Status Tobacco use date assessed 05/25/23 05/25/23 09:08 Patient Tobacco Use Status Former Tobacco user 05/25/23 09:08 e-Cigarette/Vaping Use Never Used 05/25/23 09:08 Thrive Assessment: Date of Thrive Assessment Date Thrive assessed 02/20/23 05/25/23 09:08 Const General: cooperative and healthy appearing Nutritional Appearance: well nourished Orientation/consciousness: patient oriented x3 Limitations: no limitations HENMT Head: Yes normal to inspection Eyes General: appearance normal, both eyes and all related structures Neck Neck: Yes normal visual inspection Chest Chest palpation & inspection: normal palpation of entire chest wall Resp Effort & Inspection: normal respiratory effort Back/Spine/Pelvis Other: Back: No paraspinal spasm. No spinal tenderness. Discomfort over the left and right hips. Neuro General: patient oriented x3 Assessment and Plan Assessment & Plan (1) Myofascial low back pain: Code(s): M54.50 - Low back pain, unspecified Plan: 20 minutes was spent discussing this condition. Additional time was spent reviewing the documentation from the consultants. Patient has chronic kidney disease and should not be taking anti-inflammatories on a regular basis. This would make her kidney disease worse. Therefore she should continue on the lidocaine patches that have been provided to her by the deli department manager and pain management center. Muscle relaxant has been added to the regimen. Coding Level of Care Code Est Pt Level 4 (25730) Diagnoses Myofascial low back pain M54.50
[2023-05-25 08:54] VITALS: BP 140/64; PULSE 58; O2SAT 98; BMI 30.7
== END 2023-05-25 09:32 | disposition home or self-care (01) ==
PROVIDERS: PCP Internal Medicine; Visit Provider Internal Medicine
DX: M54.50 Low back pain, unspecified (principal)
CPT/HCPCS: 99214

== ENCOUNTER 2023-06-12 12:28 | Outpatient (REF) | payer MEDICARE, MEDICAID, SELFPAY ==
[2023-06-12 13:06] LABS: MANUAL DIFF FLAG NO
[2023-06-12 14:16] LABS: Basophils Absolute Auto 0.1 X10*3/uL (0.0-0.2); Basophils Percent Auto 0.6 % (0-2); Eosinophils Absolute Auto 0.1 X10*3/uL (0.0-0.4); Eosinophils Percent Auto 1.1 % (0-4); Hematocrit 38.5 % (37.0-47.0); Hemoglobin 12.4 g/dl (12.0-16.0); Imm Gran Abs Auto 0.07 X10*3/uL (0.00-0.03); Imm Gran Pct Auto 0.9 % (0.0-0.4); Lymphocytes Absolute Auto 1.8 X10*3/uL (1.2-4.9); Lymphocytes Percent Auto 22.9 % (20-40); Mean Corpuscular HGB Conc 32.2 g/dl (31.0-35.0); Mean Corpuscular Hemoglobin 28.8 pg (27.0-33.0); Mean Corpuscular Volume 89.3 fL (80.0-98.0); Mean Platelet Volume 9.5 fL (9.4-12.3); Monocytes Absolute Auto 0.6 X10*3/uL (0.1-1.2); Monocytes Percent Auto 7.4 % (2-11); Neutrophils Absolute Auto 5.3 x10*3/uL (2.0-8.3); Neutrophils Percent Auto 67.1 % (45-73); Platelet Count 267 X10*3/uL (160-400); Red Blood Count 4.31 X10*6/uL (4.20-5.50); Red Cell Distribution Width 13.7 % (11.0-16.0)
[2023-06-12 14:52] LABS: Alanine Aminotransferase 28 U/L (0-31); Albumin Level 3.8 g/dL (3.5-5.0); Alkaline Phosphatase 92 U/L (39-117); Anion Gap 10 (12-20); Aspartate Amino Transferase 22 U/L (5-31); Bilirubin Total 0.2 mg/dL (0.0-1.0); Blood Urea Nitrogen 53 mg/dL (9-16); Calcium 9.2 mg/dL (8.4-10.2); Carbon Dioxide 19 mmol/L (22-29); Chloride 110 mmol/L (96-108); Estimated Glomerular Filt Rate 14; Glucose Random 105 mg/dL (60-115); Magnesium 2.1 mg/dL (1.6-2.6); Phosphorus 4.2 mg/dL (2.7-4.5); Potassium 4.4 mmol/L (3.3-5.1); Sodium 135 mmol/L (135-145); Uric Acid 7.3 mg/dL (2.4-5.7)
[2023-06-12 14:58] LABS: Parathyroid Hormone Intact 499.2 pg/mL (8.7-77.1)
[2023-06-12 16:59] LABS: Total Protein Urine Random 290 mg/dL (<12)
[2023-06-14 13:08] LABS: Prot Elec - Albumin 3.5 g/dL (3.8-4.8); Prot Elec - Alpha1 0.3 g/dL (0.2-0.3); Prot Elec - Alpha2 0.9 g/dL (0.5-0.9); Prot Elec - Beta 1 0.5 g/dL (0.4-0.6); Prot Elec - Beta 2 0.4 g/dL (0.2-0.5); Prot Elec - Gamma 0.9 g/dL (0.8-1.7); Prot Elec - Total Protein 6.3 g/dL (6.1-8.1)
[2023-06-16 02:14] LABS: VITAMIN D (1,25 OH) D3 21 pg/mL; Vit D (1,25-Dihydroxy) Total 21 pg/mL (18-72); Vitamin D (1,25 OH) D2 <8 pg/mL
== END 2023-06-12 12:29 | disposition home or self-care (01) ==
LOC: HO.LAB 12:28
PROVIDERS: PCP Internal Medicine; Visit Provider Internal Medicine Nephrology
DX: I12.9 Hypertensive chronic kidney disease with stage 1 through stage 4 chronic kidney disease, or unspecified chronic kidney disease (principal); E11.22 Type 2 diabetes mellitus with diabetic chronic kidney disease; N18.4 Chronic kidney disease, stage 4 (severe); M06.9 Rheumatoid arthritis, unspecified; G40.909 Epilepsy, unspecified, not intractable, without status epilepticus
CPT/HCPCS: 36415; 80053; 82652; 83735; 83970; 84100; 84156; 84165; 84550; 85025; 99212

== ENCOUNTER 2023-06-12 13:14 | Outpatient (AMB) | payer MEDICARE, MEDICAID, SELFPAY ==
[2023-06-12 14:03] VITALS: BP 140/68; PULSE 76; RESP 18; O2SAT 96; BMI 30.7
--- NOTE | 2023-06-12 14:03 | MHC.OFFVIS ---
Vital Signs 06/12/23 14:03 Height 5 ft 3 in Weight 173 lb 1 oz BMI 30.7 BP 140/68 H Blood Pressure Location Lt brachial Position Sitting Respiration 18 Pulse 76 Pulse Source Pulse Oximeter Pulse Oximetry (%) 96 Oxygen Delivery Method Room Air Intake Visit Reasons: Shortness of breath Allergies No Known Allergies Allergy (Verified 06/12/23 14:03) HPI Comments Details: The patient is a 67 year woman with a known history of COPD, MILLICENT on CPAP renal insufficiency with a diagnosis of pulmonary adenocarcinoma status post wedge resection back in 2022. Now she is presenting with dyspnea. The patient states that has been having progressive dyspnea to the point that even minimal activities resulting in shortness of breath. She stays is moderate severity. She had 1 episode also when she was sleeping with CPAP that she woke up with shortness of breath. The patient also has been noticing some chest pressure sensation. She was washing dishes yesterday and she felt pressure sensation. During our brief walking oximetry today she also experienced some chest pressure sensation. Denies any discomfort at rest. Denies having a recent cardiac evaluation or EKG. We did review her imaging studies. She did have a CT scan of the chest done on 02/20/2023 and we did reviewed in compared to her previous CT scan from 2022. It appears that she has increased atelectasis and also areas of interstitial changes suggesting some degree of interstitial lung disease primarily at the bases in the periphery. No significant emphysema. 06/12/2023 the patient is here for pulmonary follow-up visit. The patient overall has been doing about the same. She still complaining of productive cough with mucus production usually whitish in color. Moderate severity. Typically worse in the morning. Her inhalers have been helpful. In addition to that the patient did have pulmonary function studies which I personally reviewed. She does have a restrictive ventilatory defects primarily because of her lung resection. No evidence of any obstruction. The patient does have chronic bronchitis however. She will continue with inhaler I do believe that treating her with azithromycin 3 times a week for 3-4 weeks will be helpful to see if there is improvement in the mucus burden. Otherwise she may be a good candidate for Daliresp. The patient is scheduled to undergo colonoscopy. At this point medically she is doing very well and is able to proceed with a colonoscopy at this time. Patient should be tolerate anesthesia. She also had a CT scan of the chest followed closely by Dr. Camp from thoracic surgery demonstrating no evidence of any recurrence in her pulmonary nodules are stable. [facility] Medical History COPD (chronic obstructive pulmonary disease) ILD (interstitial lung disease) Chest discomfort Cataracts, both eyes Glaucoma Tubular adenoma of colon Esophagitis Personal history of nicotine dependence Gout Right elbow pain Thyroid nodule HTN (hypertension) GI bleed Diverticulitis CKD (chronic kidney disease), stage IV Hypothyroid Emphysema lung Epilepsy Type 2 diabetes mellitus Hypercholesteremia Surgical History History of elbow surgery History of lung surgery History of colonoscopy History of esophagogastroduodenoscopy (EGD) History of cholecystectomy History of tubal ligation Family History Sister SLE (systemic lupus erythematosus) Breast cancer Mental health problem Mother Diabetes Acute arthritis Alzheimer disease Age related osteoporosis Father Diabetes HTN (hypertension) Brother Brain tumor Family/Other Breast cancer Lupus Acute arthritis Family/Other HTN (hypertension) Thyroid cancer Other Mental health disorder Social History Household Members: Children Household Members Other:: Living with son in his house Housing: House Alcohol intake: never Patient Tobacco Use Status: Former Tobacco user Years Smoked: (former smoker - onset 16yo - 1ppd x 50yrs, 50pyh - quit 12/2021) e-Cigarette/Vaping Use: Never Used Second Hand Smoke Exposure: Yes service: No Current occupational status: disabled Cognitive needs: Yes (WHEELCHAIR) Hearing needs: No Vision needs: Yes (Glasses) Review of Systems Const Reports fatigue and Reports weakness Card Denies chest pain, Denies chest pain with activity and Reports dyspnea Resp Reports chest congestion, Reports cough and Reports dyspnea GI Reports nausea Musc Reports arthralgias Neuro Reports weakness Psych Reports abnormal sleep pattern Endo Reports fatigue and Reports polydipsia Physical Exam Vital Signs: Last Vital Signs Pulse 76 06/12/23 14:03 Resp 18 06/12/23 14:03 BP 140/68 H 06/12/23 14:03 Pulse Ox 96 06/12/23 14:03 Oxygen Delivery Method Room Air 04/29/24 14:03 BMI result Body Mass Index 30.7 Const General: comfortable HEENT Head: Yes normocephalic Neck Neck: Yes supple Chest Chest palpation & inspection: normal inspection of the chest Resp Effort & Inspection: normal respiratory effort Auscultation: diminished lung sounds Cardio Heart sounds: S1 normal heart sound present and S2 normal heart sound present GI Palpation (GI): Soft to palpation Skin General skin exam: no rashes or lesions noted Extrem General: Yes no clubbing, cyanosis or edema Assessment & Plan Assessment & Plan (1) Chest discomfort: Code(s): R07.89 - Other chest pain Category: Medical (2) COPD (chronic obstructive pulmonary disease): Code(s): J44.9 - Chronic obstructive pulmonary disease, unspecified Category: Medical Qualifiers: COPD type: emphysema Emphysema type: centrilobular Qualified Code(s): J43.2 - Centrilobular emphysema (3) ILD (interstitial lung disease): Code(s): J84.9 - Interstitial pulmonary disease, unspecified Category: Medical (4) MILLICENT on CPAP: Code(s): G47.33 - Obstructive sleep apnea (adult) (pediatric) Category: Medical (5) Pulmonary nodule: Code(s): R91.1 - Solitary pulmonary nodule Category: Medical (6) Lung cancer: Code(s): C34.90 - Malignant neoplasm of unspecified part of unspecified bronchus or lung Category: Medical Qualifiers: Laterality: left Lung location: upper lobe of lung Qualified Code(s): C34.12 - Malignant neoplasm of upper lobe, left bronchus or lung Plan continue Breo (no LAMA due to glaucoma) ALEXANDRE as needed start Azithromycin MWF x 1 month consider DAliresp overnight oximetry on CPAP on RA F/U 4 months Medications: New azithromycin Take 1 tablet on Monday/Monday/Monday 250 mg PO 3XW 28 days 12 tabs 0RF K21.9 - Gastro-esophageal reflux disease without esophagitis Coding Level of Care Code Est Pt Level 4 (05442) Diagnoses Chest discomfort R07.89 Centrilobular emphysema J43.2 COPD type: emphysema Emphysema type: centrilobular ILD (interstitial lung disease) J84.9 MILLICENT on CPAP G47.33 Pulmonary nodule R91.1 Malignant neoplasm of upper lobe of left lung C34.12 Laterality: left Lung location: upper lobe of lung Time Spent (min) 17
== END 2023-06-12 14:30 | disposition home or self-care (01) ==
PROVIDERS: PCP Internal Medicine; Visit Provider Hospitalist
DX: R07.89 Other chest pain (principal); J43.2 Centrilobular emphysema; J84.9 Interstitial pulmonary disease, unspecified; G47.33 Obstructive sleep apnea (adult) (pediatric); R91.1 Solitary pulmonary nodule; C34.12 Malignant neoplasm of upper lobe, left bronchus or lung
CPT/HCPCS: 99214

== ENCOUNTER 2023-07-17 11:22 | Outpatient (AMB) | payer MEDICARE, MEDICAID, SELFPAY ==
[2023-07-17 13:08] VITALS: BP 130/76; PULSE 62; TEMP 36.2; O2SAT 96; BMI 30.8
--- NOTE | 2023-07-17 13:08 | MHC.OFFWIV ---
Intake Vital Signs 07/17/23 13:08 Height 5 ft 3 in Weight 174 lb BMI 30.8 BP 130/76 Blood Pressure Location Lt brachial Position Sitting Pulse 62 Pulse Source Pulse Oximeter Temp 97.2 F Temp Source Temporal Artery Scan Pulse Oximetry (%) 96 Oxygen Delivery Method Room Air Intake Visit Reasons: EP Allergic reaction Intake Note: pt is here today allergic reaction started 3 weeks ago Patient Tobacco Use Status: Former Tobacco user Allergies No Known Allergies Allergy (Verified 07/17/23 13:34) Do you need a note to return to daycare/school/sports/work: No HPI HPI Comments History of Present Illness Details Patient presents to the walk-in today for sick visit Endorses diffuse itching for last 3 weeks Started after she was given vitamin-D 55992 units to take once weekly but she misunderstood and was taking it daily for over one-week Stopped taking the vitamin-D about 2 weeks ago She had a diffuse rash but that has resolved, itching persists PFSH Medical History COPD (chronic obstructive pulmonary disease) ILD (interstitial lung disease) Chest discomfort Cataracts, both eyes Glaucoma Tubular adenoma of colon Esophagitis Personal history of nicotine dependence Gout Right elbow pain Thyroid nodule HTN (hypertension) GI bleed Diverticulitis CKD (chronic kidney disease), stage IV Hypothyroid Emphysema lung Epilepsy Type 2 diabetes mellitus Hypercholesteremia Surgical History History of elbow surgery History of lung surgery History of colonoscopy History of esophagogastroduodenoscopy (EGD) History of cholecystectomy History of tubal ligation Family History Sister SLE (systemic lupus erythematosus) Breast cancer Mental health problem Mother Diabetes Acute arthritis Alzheimer disease Age related osteoporosis Father Diabetes HTN (hypertension) Brother Brain tumor Family/Other Breast cancer Lupus Acute arthritis Family/Other HTN (hypertension) Thyroid cancer Other Mental health disorder Social History Household Members: Children Household Members Other:: Living with son in his house Housing: House Alcohol intake: never Patient Tobacco Use Status: Former Tobacco user Years Smoked: (former smoker - onset 16yo - 1ppd x 50yrs, 50pyh - quit 12/2021) e-Cigarette/Vaping Use: Never Used Second Hand Smoke Exposure: Yes service: No Current occupational status: disabled Cognitive needs: Yes (WHEELCHAIR) Hearing needs: No Vision needs: Yes (Glasses) Review of Systems Const All systems reviewed & are unremarkable except as noted in HPI and below Physical Exam Vital Signs: Last Vital Signs Temp 97.2 F 07/17/23 13:08 Pulse 62 07/17/23 13:08 BP 130/76 07/17/23 13:08 Pulse Ox 96 07/17/23 13:08 Oxygen Delivery Method Room Air 07/17/23 13:08 BMI result Body Mass Index 30.8 General: awake, alert, oriented. Answers questions appropriately. Fully engaged in examination. Skin: warm, dry, intact. No visible rash, lesions, wounds. Dry skin to both arms HEENT: Normocephalic. Hearing intact. Cardiac: External chest normal in appearance. Respiratory: No cough, audible wheezing or stridor. Abdomen: without gross distension. MS: No obvious swelling or deformities. Neurological: Oriented to person, place, time and situation. Thought process intact. Psychiatric: Appropriate mood and affect. Good judgment and insight. Assessment & Plan Assessment & Plan (1) Itching: Code(s): L29.9 - Pruritus, unspecified Plan Recommend Aquaphor or Cetaphil lotion for dry skin Hydroxyzine 25 mg p.o. b.i.d. as needed for itching Continue holding vitamin-D until symptoms resolve Follow up with PCP or return here for any new or worsening symptoms Medications: New hydroxyzine HCl 25 mg PO BID PRN 30 tabs 0RF itching Coding Level of Care Code Est Pt Level 3 (91727) Diagnoses Itching L29.9
== END 2023-07-17 14:18 | disposition home or self-care (01) ==
PROVIDERS: PCP Internal Medicine; Visit Provider Registered Nurse Emergency
DX: L29.9 Pruritus, unspecified (principal)
CPT/HCPCS: 99213

== ENCOUNTER 2023-07-18 11:47 | Outpatient (REF) | payer MEDICARE, MEDICAID, SELFPAY ==
--- NOTE | ~2023-07-18 | MM_ITS ---
EXAMINATION: MM SCREENING DIGITAL BREAST TOMOSYNTHESIS, BILATERAL CLINICAL INFORMATION: Screening. Asymptomatic. COMPARISON: Mammography: This study is compared with prior exams dating back to 2022. TECHNIQUE: Digital breast tomosynthesis is performed in both the craniocaudal and mediolateral oblique views along with computer-aided detection (CAD). Synthesized 2D images are generated from the tomosynthesis. FINDINGS: There are scattered areas of fibroglandular density (ACR BI-RADS breast composition Category b). There are no significant masses, abnormal calcifications, or other abnormalities. MM/MM tomosynthesis screening BI IMPRESSION: No mammographic evidence of malignancy. ASSESSMENT: BI-RADS BI-RADS 1 - Negative RECOMMENDATION: Routine annual mammography screening. 1 year F/U This examination should not preclude the clinical evaluation of a suspicious palpable abnormality. This patient's information was entered into a reminder system with a target due date for their next mammogram.
== END 2023-07-18 11:48 | disposition home or self-care (01) ==
LOC: HO.MAMMO 11:47
PROVIDERS: PCP Internal Medicine; Visit Provider Internal Medicine
DX: Z12.31 Encounter for screening mammogram for malignant neoplasm of breast (principal)
CPT/HCPCS: 77063; 77067

== ENCOUNTER → 2023-07-18 12:15 | Outpatient (BNV) | payer MEDICARE, MEDICAID, SELFPAY | PROVIDERS: PCP Internal Medicine; Visit Provider Radiology Diagnostic Radiology | DX: Z12.31 Encounter for screening mammogram for malignant neoplasm of breast (principal) | CPT/HCPCS: 77063; 77067 ==

== ENCOUNTER 2023-09-19 09:53 | Outpatient (REF) | payer MEDICARE, MEDICAID, SELFPAY ==
[2023-09-19 10:32] LABS: MANUAL DIFF FLAG NO
[2023-09-19 10:56] LABS: Basophils Absolute Auto 0.1 X10*3/uL (0.0-0.2); Basophils Percent Auto 0.7 % (0-2); Eosinophils Absolute Auto 0.2 X10*3/uL (0.0-0.4); Eosinophils Percent Auto 2.5 % (0-4); Hematocrit 40.3 % (37.0-47.0); Hemoglobin 12.9 g/dl (12.0-16.0); Imm Gran Abs Auto 0.11 X10*3/uL (0.00-0.03); Imm Gran Pct Auto 1.5 % (0.0-0.4); Lymphocytes Absolute Auto 1.6 X10*3/uL (1.2-4.9); Lymphocytes Percent Auto 21.9 % (20-40); Mean Corpuscular Hemoglobin 29.2 pg (27.0-33.0); Mean Corpuscular Volume 91.2 fL (80.0-98.0); Mean Platelet Volume 9.2 fL (9.4-12.3); Monocytes Absolute Auto 0.5 X10*3/uL (0.1-1.2); Neutrophils Absolute Auto 4.8 x10*3/uL (2.0-8.3); Neutrophils Percent Auto 66.4 % (45-73); Platelet Count 267 X10*3/uL (160-400); Red Blood Count 4.42 X10*6/uL (4.20-5.50); Red Cell Distribution Width 13.6 % (11.0-16.0); White Blood Count 7.2 X10*3/uL (4.8-10.8)
[2023-09-19 11:27] LABS: Alanine Aminotransferase 26 U/L (0-31); Albumin Level 3.9 g/dL (3.5-5.0); Alkaline Phosphatase 89 U/L (39-117); Anion Gap 13 (12-20); Aspartate Amino Transferase 24 U/L (5-31); Bilirubin Total 0.2 mg/dL (0.0-1.0); Blood Urea Nitrogen 46 mg/dL (9-16); Calcium 9.3 mg/dL (8.4-10.2); Carbon Dioxide 21 mmol/L (22-29); Chloride 107 mmol/L (96-108); Estimated Glomerular Filt Rate 14; Glucose Random 101 mg/dL (60-115); Iron 79 mcg/dL (30-160); Magnesium 2.2 mg/dL (1.6-2.6); Percent Iron Saturation 26 % (15-50); Phosphorus 4.6 mg/dL (2.7-4.5); Potassium 4.8 mmol/L (3.3-5.1); Sodium 136 mmol/L (135-145); Total Iron Binding Capacity 307 mcg/dL (228-428); Total Protein 7.4 g/dL (6.5-8.0); Unsaturated Iron Binding 228 ug/dL; Uric Acid 6.6 mg/dL (2.4-5.7)
[2023-09-19 11:29] LABS: Parathyroid Hormone Intact 496.9 pg/mL (8.7-77.1)
[2023-09-19 11:47] LABS: Creatinine Urine 35.84 mg/dL
[2023-09-19 11:54] LABS: Ferritin 41 ng/mL (10-250); Vitamin D 25-OH Total 22.8 ng/mL (>30)
[2023-09-19 12:00] LABS: Protein/Creatinine Ratio, Ur 10.69 (<0.2); Total Protein Urine Random 383 mg/dL (<12)
== END 2023-09-19 09:54 | disposition home or self-care (01) ==
LOC: HO.LAB 09:53
PROVIDERS: PCP Internal Medicine; Visit Provider Internal Medicine Nephrology
DX: I12.9 Hypertensive chronic kidney disease with stage 1 through stage 4 chronic kidney disease, or unspecified chronic kidney disease (principal); E11.22 Type 2 diabetes mellitus with diabetic chronic kidney disease; N18.4 Chronic kidney disease, stage 4 (severe); R60.0 Localized edema; M06.9 Rheumatoid arthritis, unspecified
CPT/HCPCS: 36415; 80053; 82306; 82570; 82728; 83540; 83735; 83970; 84100; 84156; 84550; 85025

== ENCOUNTER 2023-09-21 09:39 | Outpatient (AMB) | payer MEDICARE, MEDICAID, SELFPAY ==
[2023-09-21 09:49] VITALS: BP 142/68; PULSE 55; O2SAT 97; BMI 30.7
--- NOTE | 2023-09-21 09:49 | MHC.PC.OV ---
Vital Signs 09/21/23 09:49 Height 5 ft 3 in Weight 173 lb 0.8 oz BMI 30.7 BP 142/68 H Blood Pressure Location Lt brachial Position Sitting Pulse 55 Pulse Source Pulse Oximeter Pulse Oximetry (%) 97 Oxygen Delivery Method Room Air Intake Visit Reasons: 3mth f/u Intake Note: Patient is here to follow up Decorator Hand Required: No Allergies No Known Allergies Allergy (Verified 09/26/23 10:20) Medication List - Last Reconciled 09/26/23 by Ty Barros MD albuterol sulfate 2 mg PO TID PRN albuterol sulfate 90 mcg/actuation (Ventolin HFA) 1 inh inhalation QID amlodipine 10 mg (2 x 5 mg) PO DAILY atorvastatin 40 mg PO DAILY brimonidine-timolol 0.2-0.5 % (Combigan) 0.2 drps ophthalmic (eye) ONCE carbamazepine ER 200 mg PO ONCE 90 days dorzolamide 2% 0.02 drps ophthalmic (eye) DAILY empagliflozin (Jardiance) 10 mg PO DAILY 30 days ergocalciferol (vitamin D2) 1,250 mcg PO DAILY fluticasone propion-salmeterol 250-50 mcg/dose (Wixela Inhub) 1 inh inhalation Q12H 30 days ipratropium-albuterol 0.5 mg-3 mg(2.5 mg base)/3 mL 3 mL inhalation Q4H PRN levothyroxine 150 mcg PO DAILY levothyroxine 175 mcg PO DAILY linagliptin (Tradjenta) 5 mg PO DAILY 30 days montelukast 10 mg PO DAILY 30 days nebulizers As directed psyllium husk 1 tbsp PO DAILY sennosides (senna) 17.2 mg (2 x 8.6 mg) PO DAILY 30 days sertraline 50 mg PO DAILY trazodone 100 mg PO BEDTIME PRN Tobacco use date assessed: 05/25/23 Fall risk assessment: No Falls in past year Last assessed Fall Risk: 09/21/23 Dental Screening Dental Screen Date: 02/20/23 HPI 3mth f/u HPI Details 67-year-old female presents to the office to discuss her chronic medical conditions. She is accompanied by a female powertrain engineer. Patient only speaks Marshallese and an surgical instruments inspector was used. Patient has worsening renal disease and her creatinine levels appear to be rising. Patient is aware of the same and had seen the sales floor associate. Plans are being made to place a AV fistula should she need dialysis. Patient has also been recently diagnosed with adenocarcinoma of the lung. She has had some wedge resection and is under surveillance therapy by the oncologist.. Patient is compliant with medications for diabetes. Her A1c is 6.5. Does not check her blood sugars on her own. 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 She lives alone and able to do all activities of daily living. [facility] Medical History COPD (chronic obstructive pulmonary disease) ILD (interstitial lung disease) Chest discomfort Cataracts, both eyes Glaucoma Tubular adenoma of colon Esophagitis Personal history of nicotine dependence Gout Right elbow pain Thyroid nodule HTN (hypertension) GI bleed Diverticulitis CKD (chronic kidney disease), stage IV Hypothyroid Emphysema lung Epilepsy Type 2 diabetes mellitus Hypercholesteremia Surgical History History of elbow surgery History of lung surgery History of colonoscopy History of esophagogastroduodenoscopy (EGD) History of cholecystectomy History of tubal ligation Family History Sister SLE (systemic lupus erythematosus) Breast cancer Mental health problem Mother Diabetes Acute arthritis Alzheimer disease Age related osteoporosis Father Diabetes HTN (hypertension) Brother Brain tumor Family/Other Breast cancer Lupus Acute arthritis Family/Other HTN (hypertension) Thyroid cancer Other Mental health disorder Social History Household Members: Children Household Members Other:: Living with son in his house Housing: House Alcohol intake: never Patient Tobacco Use Status: Former Tobacco user Years Smoked: (former smoker - onset 16yo - 1ppd x 50yrs, 50pyh - quit 12/2021) e-Cigarette/Vaping Use: Never Used Second Hand Smoke Exposure: Yes service: No Current occupational status: disabled Cognitive needs: Yes (WHEELCHAIR) Hearing needs: No Vision needs: Yes (Glasses) Questionnaire Thrive Questionnaire Date Thrive assessed: 02/20/23 AUDIT C Alcohol Use Questionnaire (AUDIT-C) 1. How often do you have a drink containing alcohol?: Never 3. How often do you have six or more drinks on one occasion?: Never Total Score: 0 SHAUNA-7 AMB Questionnaire SHAUNA-7 Date SHUANA - 7 assessed: 02/20/23 Source: Developed by Drs. Pa Lopez, Nettie Melendez, Leroy Echols and colleagues, with an educational shana from [employer]. Physical exam (Primary Care) Vital Signs: Last Vital Signs Pulse 55 09/21/23 09:49 BP 142/68 H 09/21/23 09:49 Pulse Ox 97 09/21/23 09:49 Oxygen Delivery Method Room Air 09/21/23 09:49 Care Plan Goal for BP management: Blood pressure is in range. BMI result Body Mass Index 30.7 Tobacco/Smoking Status: Tobacco use Status Tobacco use date assessed 05/25/23 09/21/23 09:50 Patient Tobacco Use Status Former Tobacco user 09/21/23 09:50 e-Cigarette/Vaping Use Never Used 09/21/23 09:50 Thrive Assessment: Date of Thrive Assessment Date Thrive assessed 02/20/23 09/21/23 09:50 Const General: cooperative and healthy appearing Nutritional Appearance: well nourished Orientation/consciousness: patient oriented x3 Limitations: no limitations HENMT Head: Yes normal to inspection Eyes General: appearance normal, both eyes and all related structures Neck Neck: Yes normal visual inspection Chest Chest palpation & inspection: normal palpation of entire chest wall Resp Effort & Inspection: normal respiratory effort Neuro General: patient oriented x3 Results AMB Hemoglobin A1c AMB Hemoglobin A1c 6.2 % Last Edit by NIKITA Beasley on 09/21/23 10:25 Results Reviewed Results Reviewed: Laboratory Last Values Hgb A1c (Clinic) 6.2 % (4.0-6.0) H 09/21/23 08:45 Assessment and Plan Assessment & Plan (1) CKD (chronic kidney disease), stage IV: Comment: (Advanced CKD headed towards ESRD per Dr. Agarwal, Renal Doctor seen 07/2022) Code(s): N18.4 - Chronic kidney disease, stage 4 (severe) Plan: As above. (2) Type 2 diabetes mellitus: Code(s): E11.9 - Type 2 diabetes mellitus without complications Plan: A1c is in range. Continue medications at same dosage. Counseling on the importance of exercise and diet done. Patient was advised to check blood sugars at least once a day. (3) Hypercholesteremia: Code(s): E78.00 - Pure hypercholesterolemia, unspecified Plan: Blood work reviewed (4) Lung cancer: Code(s): C34.90 - Malignant neoplasm of unspecified part of unspecified bronchus or lung Qualifiers: Laterality: left Lung location: upper lobe of lung Qualified Code(s): C34.12 - Malignant neoplasm of upper lobe, left bronchus or lung Plan: 15 minutes spent reviewing oncologist note. Patient currently is under surveillance. Orders: Orders AMB Hemoglobin A1c 09/21/23 E11.9 - Type 2 diabetes mellitus without complications Coding Level of Care Code Est Pt Level 4 (14246) Complex EM visit Add On G2211 Diagnoses CKD (chronic kidney disease), stage IV N18.4 Type 2 diabetes mellitus E11.9 Hypercholesteremia E78.00 Malignant neoplasm of upper lobe of left lung C34.12 Laterality: left Lung location: upper lobe of lung
== END 2023-09-21 10:37 | disposition home or self-care (01) ==
PROVIDERS: PCP Internal Medicine; Visit Provider Internal Medicine
DX: E11.9 Type 2 diabetes mellitus without complications (principal)
CPT/HCPCS: 83036; 99214; G2211

== ENCOUNTER 2023-10-10 10:06 | Outpatient (REF) | payer MEDICARE, MEDICAID, SELFPAY ==
[2023-10-10 11:23] LABS: Free T4 (Free Thyroxine) 0.72 ng/dL (0.71-1.85); Thyroid Stimulating Hormone 4.09 uIU/mL (0.32-4.0)
== END 2023-10-10 10:07 | disposition home or self-care (01) ==
LOC: HO.LAB 10:06
PROVIDERS: Visit Provider Internal Medicine Endocrinology, Diabetes & Metabolism
DX: E03.9 Hypothyroidism, unspecified (principal)
CPT/HCPCS: 36415; 84439; 84443

== ENCOUNTER 2023-10-12 13:26 | Outpatient (AMB) | payer MEDICARE, MEDICAID, SELFPAY ==
--- NOTE | 2023-10-12 13:54 | MHC.OFFVIS ---
Vital Signs 10/12/23 13:55 Height 5 ft 3 in Weight 175 lb 4.28 oz BMI 31.0 BP 144/84 H Blood Pressure Location Rt brachial Position Sitting Pulse 65 Pulse Source Pulse Oximeter Intake Visit Reasons: Hyperthyroidism Intake Note: Patient present today for Hyperthyroidism follow up. Clinical Liaison Required: Yes Clinical Liaison Language: Cellophane Casting Machine Repairer Services: Clinical Liaison Offered & Declined Clinical Liaison Name: Son Accompanied by: Son Allergies No Known Allergies Allergy (Verified 10/12/23 13:56) Medication List - Last Reconciled 10/12/23 by Pa Benson MD albuterol sulfate 2 mg PO TID PRN albuterol sulfate 90 mcg/actuation (Ventolin HFA) 1 inh inhalation QID amlodipine 10 mg (2 x 5 mg) PO DAILY atorvastatin 40 mg PO DAILY brimonidine-timolol 0.2-0.5 % (Combigan) 0.2 drps ophthalmic (eye) ONCE carbamazepine ER 200 mg PO ONCE 90 days dorzolamide 2% 0.02 drps ophthalmic (eye) DAILY empagliflozin (Jardiance) 10 mg PO DAILY 30 days ergocalciferol (vitamin D2) 1,250 mcg PO DAILY fluticasone propion-salmeterol 250-50 mcg/dose (Wixela Inhub) 1 inh inhalation Q12H 30 days ipratropium-albuterol 0.5 mg-3 mg(2.5 mg base)/3 mL 3 mL inhalation Q4H PRN levothyroxine 150 mcg PO DAILY levothyroxine 175 mcg PO DAILY linagliptin (Tradjenta) 5 mg PO DAILY 30 days montelukast 10 mg PO DAILY 30 days nebulizers As directed psyllium husk 1 tbsp PO DAILY sennosides (senna) 17.2 mg (2 x 8.6 mg) PO DAILY 30 days sertraline 50 mg PO DAILY trazodone 100 mg PO BEDTIME PRN HPI Comments Details: 67 YO F who is seen in consultation at the request of his PCP for Hyothyroidism. First diagnosed with Hypothyroidism >25 yrs Currently using levothyroxine h 150 ug . QD - and 175 ug Mon and Monday Denies - fatigue, -weight gain, +cold intolerance, +dry skin,+ hair loss, -constipation. There is no hx of hyperlipidemia . -Denies obstructive sx of goiter . -Denies consuming any kelp or seaweed. -Denies taking amiodarone. Biotin: No Family hx of thyroid problems in mother, father, sister and son has thyroid cancer? subtype Labs: [facility] Medical History COPD (chronic obstructive pulmonary disease) ILD (interstitial lung disease) Chest discomfort Cataracts, both eyes Glaucoma Tubular adenoma of colon Esophagitis Personal history of nicotine dependence Gout Right elbow pain Thyroid nodule HTN (hypertension) GI bleed Diverticulitis CKD (chronic kidney disease), stage IV Hypothyroid Emphysema lung Epilepsy Type 2 diabetes mellitus Hypercholesteremia Surgical History History of elbow surgery History of lung surgery History of colonoscopy History of esophagogastroduodenoscopy (EGD) History of cholecystectomy History of tubal ligation Family History Sister SLE (systemic lupus erythematosus) Breast cancer Mental health problem Mother Diabetes Acute arthritis Alzheimer disease Age related osteoporosis Father Diabetes HTN (hypertension) Brother Brain tumor Family/Other Breast cancer Lupus Acute arthritis Family/Other HTN (hypertension) Thyroid cancer Other Mental health disorder Social History Household Members: Children Household Members Other:: Living with son in his house Housing: House Alcohol intake: never Patient Tobacco Use Status: Former Tobacco user Years Smoked: (former smoker - onset 16yo - 1ppd x 50yrs, 50pyh - quit 12/2021) e-Cigarette/Vaping Use: Never Used Second Hand Smoke Exposure: Yes service: No Current occupational status: disabled Cognitive needs: Yes (WHEELCHAIR) Hearing needs: No Vision needs: Yes (Glasses) Physical Exam Vital Signs: BMI result Body Mass Index 31.0 HEENT reveals absence of lid lag , stare or proptosis or eyebrow loss. Thyroid gland measure 15 gms . No nodules or tenderness palpated. There is no cervical adenopathy palpated. Lungs CTA. Heart S1, S2 Reg R/R -M/R/G. Abdominal exam benign. Skin exam reveals absence of dryness or thyroid dermopathy or vitiligo. Nail exam reveals absence of thyroid acropachy or oncholysis. Neurologic exam reveals 2+ reflexes . Muscle Strength is 5/5 proximally. There are no tremors in upper extremities. 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 currently being replacement 150 mcg levothyroxine-F and 175 ug Mon and Monday She appears to be clinically euthyroid but has elevated TSH Plan is to increase the dose to 175 mcg levothyroxine each day recheck TSH and free T4 in 6 weeks time (2) Hypothyroid: Code(s): E03.9 - Hypothyroidism, unspecified Category: Medical Plan: See plan above Orders: Orders Thyroid Stimulating Hormone 6 Weeks E03.9 - Hypothyroidism, unspecified Free T4 (Free Thyroxine) 6 Weeks E03.9 - Hypothyroidism, unspecified Medications: Changed From levothyroxine take 175 ug Mon and Monday 175 mcg PO DAILY 10 tabs 4RF To levothyroxine 175 mcg PO DAILY 30 tabs 4RF Discontinued levothyroxine take 150 ug M-F Discontinued Reason: Doctor's Order 150 mcg PO DAILY 20 tabs 5RF Coding Level of Care Code Est Pt Level 3 (72295) Diagnoses Hypothyroid E03.9
[2023-10-12 13:55] VITALS: BP 144/84; PULSE 65; BMI 31.0
== END 2023-10-12 14:11 | disposition home or self-care (01) ==
PROVIDERS: PCP Internal Medicine; Visit Provider Internal Medicine Endocrinology, Diabetes & Metabolism
DX: E03.9 Hypothyroidism, unspecified (principal)
CPT/HCPCS: 99213

== ENCOUNTER → 2023-10-12 13:26 | Outpatient (BNVA) | payer MEDICARE, MEDICAID, SELFPAY | PROVIDERS: PCP Internal Medicine; Visit Provider Internal Medicine Endocrinology, Diabetes & Metabolism | DX: E03.9 Hypothyroidism, unspecified (principal) | CPT/HCPCS: 99212 ==

== ENCOUNTER 2023-10-26 09:52 | Outpatient (AMB) | payer MEDICARE, MEDICAID, SELFPAY ==
--- NOTE | 2023-10-26 09:54 | A.OFFVIS_ITS ---
Vital Signs 10/26/23 09:55 Height 5 ft 3 in Weight 173 lb 6 oz BMI 30.7 BP 152/86 H Blood Pressure Location Rt brachial Position Sitting Respiration 65 H Pulse 98 Pulse Source Pulse Oximeter Intake Visit Reasons: Follow up - CONF Intake Note: Pt presents to the office for a 6 month follow up for epilepsy. Print Finishing Worker Required: Yes Print Finishing Worker Services: Print Finishing Worker Present Print Finishing Worker Name: Sherri Quispe CMA Allergies No Known Allergies Allergy (Verified 10/26/23 09:55) Medication List - Last Reconciled 10/26/23 by Valeri Tapia MD albuterol sulfate 2 mg PO TID PRN albuterol sulfate 90 mcg/actuation (Ventolin HFA) 1 inh inhalation QID amlodipine 10 mg (2 x 5 mg) PO DAILY atorvastatin 40 mg PO DAILY brimonidine-timolol 0.2-0.5 % (Combigan) 0.2 drps ophthalmic (eye) ONCE carbamazepine ER 200 mg PO ONCE 90 days dorzolamide 2% 0.02 drps ophthalmic (eye) DAILY empagliflozin (Jardiance) 10 mg PO DAILY 30 days ergocalciferol (vitamin D2) 1,250 mcg PO DAILY fluticasone propion-salmeterol 250-50 mcg/dose (Wixela Inhub) 1 inh inhalation Q12H 30 days ipratropium-albuterol 0.5 mg-3 mg(2.5 mg base)/3 mL 3 mL inhalation Q4H PRN levothyroxine 175 mcg PO DAILY linagliptin (Tradjenta) 5 mg PO DAILY 30 days montelukast 10 mg PO DAILY 30 days nebulizers As directed psyllium husk 1 tbsp PO DAILY sennosides (senna) 17.2 mg (2 x 8.6 mg) PO DAILY 30 days sertraline 100 mg PO DAILY trazodone 150 mg PO BEDTIME PRN HPI Comments Details: 68 y/o female patient presents for follow up of epilepsy and MILLICENT. Pt's seizure well managed with carbamazepine 200 mg ER daily, and had seizure free for more than 15 years now. Pt underwent split night sleep study. The baseline portion of the sleep study was significant for severe degree of sleep apnea with increased severity in REM. AHI was 49/hr, REM AHI was 60/hr. She trialed on CPAP [id number], and her breathing and oxygenation stabilized on CPAP at [id number]. She is not compliant with CPAP - she says her throat is dry and uncomfortable.. The CPAP compliance and therapy response (07/27/23-10/24/23) reviewed. She is on CPAP at 12 cmH2O. The usage days 29% and the average usage hours 3hrs The AHI was 5.2 The apnea index was central 0.1 and the obstructive 01.6 PFSH Medical History COPD (chronic obstructive pulmonary disease) ILD (interstitial lung disease) Chest discomfort Cataracts, both eyes Glaucoma Tubular adenoma of colon Esophagitis Personal history of nicotine dependence Gout Right elbow pain Thyroid nodule HTN (hypertension) GI bleed Diverticulitis CKD (chronic kidney disease), stage IV Hypothyroid Emphysema lung Epilepsy Type 2 diabetes mellitus Hypercholesteremia Surgical History History of elbow surgery History of lung surgery History of colonoscopy History of esophagogastroduodenoscopy (EGD) History of cholecystectomy History of tubal ligation Family History Sister SLE (systemic lupus erythematosus) Breast cancer Mental health problem Mother Diabetes Acute arthritis Alzheimer disease Age related osteoporosis Father Diabetes HTN (hypertension) Brother Brain tumor Family/Other Breast cancer Lupus Acute arthritis Family/Other HTN (hypertension) Thyroid cancer Other Mental health disorder Social History Household Members: Children Household Members Other:: Living with son in his house Housing: House Alcohol intake: never Patient Tobacco Use Status: Former Tobacco user Years Smoked: (former smoker - onset 16yo - 1ppd x 50yrs, 50pyh - quit 12/2021) e-Cigarette/Vaping Use: Never Used Second Hand Smoke Exposure: Yes service: No Current occupational status: disabled Cognitive needs: Yes (WHEELCHAIR) Hearing needs: No Vision needs: Yes (Glasses) Review of Systems ENT Reports Normal hearing present Neuro Reports Normal hearing present Physical Exam Vital Signs: Last Vital Signs Pulse 98 10/26/23 09:55 Resp 65 H 10/26/23 09:55 BP 152/86 H 10/26/23 09:55 BMI result Body Mass Index 30.7 Const General: cooperative and tired appearing Nutritional Appearance: obese Orientation/consciousness: patient oriented x3 Limitations: language barrier (Ukrainian speaking only.) and wheelchair Resp Effort & Inspection: normal respiratory effort and able to speak in complete sentences Neuro General: patient oriented x3 and moves all extremities Cranial nerves: Yes Normal facial strength present, Yes Midline tongue present, Yes Symmetric palate elevation present, Yes Normal hearing present, Yes Ability to bilaterally rotate head present and Yes Ability to bilaterally elevate shoulders present Cognition (Neuro): normal cognition Motor exam (neuro): 5/5 motor strength present throughout, Pronator motor function not present and no tremor noted Assessment & Plan Assessment & Plan (1) MILLICENT on CPAP: Code(s): G47.33 - Obstructive sleep apnea (adult) (pediatric) Category: Medical (2) Epilepsy: Comment: since age 36 Code(s): G40.909 - Epilepsy, unspecified, not intractable, without status epilepticus Category: Medical Plan Continue to use CPAP at [id number].Increase humidification level to hep with dry throat. Stressed compliance, use CPAP nightly and more than 4 hrs. Continue to take carbamanzepine 200 mg ER daily. Coding Level of Care Code Est Pt Level 4 (66977) Diagnoses MILLICENT on CPAP G47.33 Epilepsy G40.909
[2023-10-26 09:55] VITALS: BP 152/86; PULSE 98; RESP 65; BMI 30.7
== END 2023-10-26 10:27 | disposition home or self-care (01) ==
PROVIDERS: PCP Internal Medicine; Visit Provider Psychiatry & Neurology Neurology
DX: G47.33 Obstructive sleep apnea (adult) (pediatric) (principal); G40.909 Epilepsy, unspecified, not intractable, without status epilepticus
CPT/HCPCS: 99214

== ENCOUNTER → 2023-10-26 09:52 | Outpatient (BNVA) | payer MEDICARE, MEDICAID, SELFPAY | PROVIDERS: PCP Internal Medicine; Visit Provider Psychiatry & Neurology Neurology | DX: G40.909 Epilepsy, unspecified, not intractable, without status epilepticus (principal); G47.33 Obstructive sleep apnea (adult) (pediatric); Z99.89 Dependence on other enabling machines and devices; Z91.199 Patient's noncompliance with other medical treatment and regimen due to unspecified reason | CPT/HCPCS: 99212 ==

== ENCOUNTER 2023-11-13 13:12 | Outpatient (AMB) | payer MEDICARE, MEDICAID, SELFPAY ==
--- NOTE | 2023-11-13 13:26 | MHC.OFFVIS ---
Vital Signs 11/13/23 13:31 Height 5 ft 3 in Weight 171 lb 15.369 oz BMI 30.5 BP 124/70 Blood Pressure Location Rt brachial Pulse 54 Pulse Source Pulse Oximeter Pulse Oximetry (%) 99 Oxygen Delivery Method Room Air Intake Visit Reasons: Shortness of breath Public Speaking Coach Required: No Allergies No Known Allergies Allergy (Verified 11/13/23 13:26) HPI Comments Details: The patient is a 68 year woman with a known history of COPD, MILLICENT on CPAP renal insufficiency with a diagnosis of pulmonary adenocarcinoma status post wedge resection back in 2022. Now she is presenting with dyspnea. The patient states that has been having progressive dyspnea to the point that even minimal activities resulting in shortness of breath. She stays is moderate severity. She had 1 episode also when she was sleeping with CPAP that she woke up with shortness of breath. The patient also has been noticing some chest pressure sensation. She was washing dishes yesterday and she felt pressure sensation. During our brief walking oximetry today she also experienced some chest pressure sensation. Denies any discomfort at rest. Denies having a recent cardiac evaluation or EKG. We did review her imaging studies. She did have a CT scan of the chest done on 02/20/2023 and we did reviewed in compared to her previous CT scan from 2022. It appears that she has increased atelectasis and also areas of interstitial changes suggesting some degree of interstitial lung disease primarily at the bases in the periphery. No significant emphysema. 06/12/2023 the patient is here for pulmonary follow-up visit. The patient overall has been doing about the same. She still complaining of productive cough with mucus production usually whitish in color. Moderate severity. Typically worse in the morning. Her inhalers have been helpful. In addition to that the patient did have pulmonary function studies which I personally reviewed. She does have a restrictive ventilatory defects primarily because of her lung resection. No evidence of any obstruction. The patient does have chronic bronchitis however. She will continue with inhaler I do believe that treating her with azithromycin 3 times a week for 3-4 weeks will be helpful to see if there is improvement in the mucus burden. Otherwise she may be a good candidate for Daliresp. The patient is scheduled to undergo colonoscopy. At this point medically she is doing very well and is able to proceed with a colonoscopy at this time. Patient should be tolerate anesthesia. She also had a CT scan of the chest followed closely by Dr. Camp from thoracic surgery demonstrating no evidence of any recurrence in her pulmonary nodules are stable. 11/13/2023 the patient is here for pulmonary follow-up visit. The patient overall is doing well. She is not using any maintenance inhalers at this time. She is complaining of dyspnea on exertion. [id number] severity. She also has DuoNeb at home for her nebulizer. She does use it. However, she does have glaucoma. She has stopped all anticholinergics to minimize the risk worsening glaucoma. She understands this. The patient was supposed to be on Breo but she has not been using it. I did speak to her about the importance of using Breo and how to use it effectively so she does not get any adverse effects. She is going to start debris and also to the pharmacy. The patient did have a CT scan back in 03/04/2023 demonstrating some scarring and some atelectasis as well as postoperative changes. Her surgery was back in 2022. The patient does have a scheduled CT scan coming up. Will follow-up with those results. In the meantime we talked about deep breathing exercises and considering online pulmonary rehabilitation at this time. I did give her the information. The patient also also using her CPAP. The CPAP therapy continues to be affecting beneficial. She does follow Neurology for that. Right now the patient is doing well will try to maximize her respiratory therapy and she will follow-up in 6 months. [facility] Medical History COPD (chronic obstructive pulmonary disease) ILD (interstitial lung disease) Chest discomfort Cataracts, both eyes Glaucoma Tubular adenoma of colon Esophagitis Personal history of nicotine dependence Gout Right elbow pain Thyroid nodule HTN (hypertension) GI bleed Diverticulitis CKD (chronic kidney disease), stage IV Hypothyroid Emphysema lung Epilepsy Type 2 diabetes mellitus Hypercholesteremia Surgical History History of elbow surgery History of lung surgery History of colonoscopy History of esophagogastroduodenoscopy (EGD) History of cholecystectomy History of tubal ligation Family History Sister SLE (systemic lupus erythematosus) Breast cancer Mental health problem Mother Diabetes Acute arthritis Alzheimer disease Age related osteoporosis Father Diabetes HTN (hypertension) Brother Brain tumor Family/Other Breast cancer Lupus Acute arthritis Family/Other HTN (hypertension) Thyroid cancer Other Mental health disorder Social History Household Members: Children Household Members Other:: Living with son in his house Housing: House Alcohol intake: never Patient Tobacco Use Status: Former Tobacco user Years Smoked: (former smoker - onset 16yo - 1ppd x 50yrs, 50pyh - quit 12/2021) e-Cigarette/Vaping Use: Never Used Second Hand Smoke Exposure: Yes service: No Current occupational status: disabled Cognitive needs: Yes (WHEELCHAIR) Hearing needs: No Vision needs: Yes (Glasses) Review of Systems Const Reports fatigue and Reports weakness Card Denies chest pain, Denies chest pain with activity and Reports dyspnea Resp Reports chest congestion, Reports cough and Reports dyspnea GI Reports nausea Musc Reports arthralgias Neuro Reports weakness Psych Reports abnormal sleep pattern Endo Reports fatigue and Reports polydipsia Physical Exam Vital Signs: Last Vital Signs Pulse 54 11/13/23 13:31 BP 124/70 11/13/23 13:31 Pulse Ox 99 11/13/23 13:31 Oxygen Delivery Method Room Air 11/13/23 13:31 BMI result Body Mass Index 30.5 Const General: comfortable HEENT Head: Yes normocephalic Neck Neck: Yes supple Chest Chest palpation & inspection: normal inspection of the chest Resp Effort & Inspection: normal respiratory effort Auscultation: diminished lung sounds Cardio Heart sounds: S1 normal heart sound present and S2 normal heart sound present GI Palpation (GI): Soft to palpation Skin General skin exam: no rashes or lesions noted Extrem General: Yes no clubbing, cyanosis or edema Assessment & Plan Assessment & Plan (1) COPD (chronic obstructive pulmonary disease): Code(s): J44.9 - Chronic obstructive pulmonary disease, unspecified Category: Medical Qualifiers: COPD type: emphysema Emphysema type: centrilobular Qualified Code(s): J43.2 - Centrilobular emphysema (2) ILD (interstitial lung disease): Code(s): J84.9 - Interstitial pulmonary disease, unspecified Category: Medical (3) MILLICENT on CPAP: Code(s): G47.33 - Obstructive sleep apnea (adult) (pediatric) Category: Medical (4) Pulmonary nodule: Code(s): R91.1 - Solitary pulmonary nodule Category: Medical (5) Lung cancer: Code(s): C34.90 - Malignant neoplasm of unspecified part of unspecified bronchus or lung Category: Medical Qualifiers: Laterality: left Lung location: upper lobe of lung Qualified Code(s): C34.12 - Malignant neoplasm of upper lobe, left bronchus or lung Plan continue Breo (no LAMA due to glaucoma) ALEXANDRE as needed consider Daliresp overnight oximetry on CPAP Serial CT chest F/U 6-8 months Medications: New fluticasone furoate-vilanterol 200-25 mcg/dose (Breo Ellipta) 1 inh inhalation DAILY 60 ea 11RF 30 days albuterol sulfate 2.5 mg (3 mL) inhalation Q6H PRN 180 mL 11RF shortness of breath or wheezing 30 days Discontinued ipratropium-albuterol 0.5 mg-3 mg(2.5 mg base)/3 mL until breathing returns to target peak flow/parameters Discontinued Reason: Doctor's Order 3 mL inhalation Q4H PRN 90 mL 0RF shortness of breath or wheezing Coding Level of Care Code Est Pt Level 4 (53187) Diagnoses Centrilobular emphysema J43.2 COPD type: emphysema Emphysema type: centrilobular ILD (interstitial lung disease) J84.9 MILLICENT on CPAP G47.33 Pulmonary nodule R91.1 Malignant neoplasm of upper lobe of left lung C34.12 Laterality: left Lung location: upper lobe of lung Time Spent (min) 16
[2023-11-13 13:31] VITALS: BP 124/70; PULSE 54; O2SAT 99; BMI 30.5
== END 2023-11-13 14:03 | disposition home or self-care (01) ==
PROVIDERS: PCP Internal Medicine; Visit Provider Hospitalist
DX: J43.2 Centrilobular emphysema (principal); J84.9 Interstitial pulmonary disease, unspecified; G47.33 Obstructive sleep apnea (adult) (pediatric); R91.1 Solitary pulmonary nodule; C34.12 Malignant neoplasm of upper lobe, left bronchus or lung
CPT/HCPCS: 99214

== ENCOUNTER → 2023-11-13 13:12 | Outpatient (BNVA) | payer MEDICARE, MEDICAID, SELFPAY | PROVIDERS: PCP Internal Medicine; Visit Provider Hospitalist | DX: J43.2 Centrilobular emphysema (principal); J84.9 Interstitial pulmonary disease, unspecified; R91.1 Solitary pulmonary nodule; G47.33 Obstructive sleep apnea (adult) (pediatric); C34.12 Malignant neoplasm of upper lobe, left bronchus or lung | CPT/HCPCS: 99212 ==

== ENCOUNTER 2023-11-14 08:40 | Outpatient (REF) | payer MEDICARE, MEDICAID, SELFPAY ==
--- NOTE | ~2023-11-14 | CT_ITS ---
EXAMINATION: CT CHEST WITHOUT CONTRAST CLINICAL INFORMATION: Follow-up lung CA status post surgery. COMPARISON: 02/20/2023, 12/26/2022. TECHNIQUE: Multidetector volumetric CT imaging of the chest was done. Axial MIP volume rendering provided. Sagittal and coronal reformatted images were obtained. This CT examination was performed using dose optimization techniques as appropriate, variously including the following: *Automated exposure control *Adjustment of mA and/or kV according to patient size (this includes techniques or standardized protocols for targeted exams where dose is matched to indication/reason for exam; i.e. extremities or head) *Use of iterative reconstruction technique DLP: 171 mGy-cm FINDINGS: NODULES: -Stable calcified granulomas scattered in both lungs. -3 mm nodule left upper lobe anteriorly (series 5, image 166), unchanged. -No new or enlarging nodules. LUNGS: -There is has been a left upper lobe medial wedge resection. There is pleural scarring and a linear suture line. -Scarring in the medial lower lobes right greater than left extending into the paravertebral regions are stable. Similar interstitial groundglass and reticular opacities in the subpleural lower lobes bilaterally, minimally in the right middle lobe and more prominently in the lingula, appears slightly progressed from the prior exam, suggesting developing interstitial fibrotic lung disease such as NSIP or UIP. -Diffuse mild bronchiectasis and bronchial wall thickening, suggestive of chronic bronchitis, similar. -No pleural effusions or pneumothorax. No pleural masses. MEDIASTINUM: -Normal-appearing thyroid aside from a calcified right inferior pole nodule measuring 6 mm. -Subcentimeter mediastinal lymph nodes again noted, stable. No pathologic lymphadenopathy. -Moderate calcification of the aorta with associated tortuosity, however no aneurysm is evident. There is dense calcification of the aortic annulus. -Main pulmonary artery is enlarged at 3.7 cm, suggesting pulmonary arterial hypertension. -Heart size is borderline enlarged. No pericardial effusion. -Esophagus appears mildly patulous but otherwise grossly normal. Suspect a small type I hiatus hernia. CORONARY ARTERY CALCIFICATION: -Heavy three-vessel coronary calcification, with left main involvement as well. AXILLA/CHEST WALL: No masses or lymphadenopathy. UPPER ABDOMEN: -There has been a cholecystectomy. -There are stable low-density adrenal adenomas bilaterally. OSSEOUS STRUCTURES: -There are bilateral healed rib fractures. -There are moderate to advanced degenerative changes throughout the spine with mild to moderate right convex scoliosis. There is a minimal superior endplate deformity of T3, as well as T5, which appear chronic. CT/CT chest wo IV con IMPRESSION: 1. No specific evidence of recurrent or metastatic disease in the chest. 2. Slightly worsening basilar subpleural interstitial changes, suggesting developing fibrotic lung disease, such as an abscess on AP, UIP, or fibrotic lung disease based on underlying collagen vascular disease. 3. No new or enlarging pulmonary nodules. Stable postoperative changes medial right upper lobe. 4. Additional ancillary findings as discussed in the body of the report. Fleischner guidelines were followed. Electronically signed by: Dileep St MD 12/21/2023 01:15 PM [facility]
[2023-11-15 16:21] LABS: GFR POC 16
== END 2023-11-14 08:41 | disposition home or self-care (01) ==
LOC: HO.CT 08:40
PROVIDERS: PCP Internal Medicine; Visit Provider Internal Medicine Medical Oncology
DX: R91.1 Solitary pulmonary nodule (principal)
CPT/HCPCS: 71250; 82565

== ENCOUNTER → 2023-11-14 08:42 | Outpatient (BNV) | payer MEDICARE, MEDICAID, SELFPAY | PROVIDERS: PCP Internal Medicine; Visit Provider Radiology Diagnostic Radiology | DX: R91.1 Solitary pulmonary nodule (principal) | CPT/HCPCS: 71250 ==

== ENCOUNTER 2023-11-22 09:03 | Outpatient (REF) | payer MEDICARE, MEDICAID, SELFPAY ==
[2023-11-22 10:51] LABS: Free T4 (Free Thyroxine) 1.07 ng/dL (0.71-1.85); Thyroid Stimulating Hormone 0.79 uIU/mL (0.32-4.0)
== END 2023-11-22 09:04 | disposition home or self-care (01) ==
LOC: HO.LAB 09:03
PROVIDERS: PCP Internal Medicine; Visit Provider Internal Medicine Endocrinology, Diabetes & Metabolism
DX: E03.9 Hypothyroidism, unspecified (principal)
CPT/HCPCS: 36415; 84439; 84443

== ENCOUNTER 2023-12-04 09:44 | Outpatient (AMB) | payer MEDICARE, MEDICAID, SELFPAY ==
--- NOTE | 2023-12-04 09:47 | MHC.OFFVIS ---
Vital Signs 12/04/23 09:48 Height 5 ft 3 in Weight 168 lb BMI 29.8 BP 152/65 H Blood Pressure Location Lt brachial Position Sitting Pulse 56 Intake Visit Reasons: 3 month f.u - r/s Intake Note: Patient follow up for chronic Constipation. Patient cc: Nauseas, abdominal bloating, and between loose stool and constipation. Patient denies any other GI issues for today. Career And Guidance Counselor Required: Yes Career And Guidance Counselor Name: [facility] Interpeter Accompanied by: Friend Allergies No Known Allergies Allergy (Verified 12/04/23 09:47) HPI Comments Details: THis is a 66y.o F who recently moved from [place] who is here for follow up. Patient is here with her son who states that back in Feb she developed sudden onset of bloody stools associated with lightheadedness and dizziness which prompted her visit to the local hospital ([facility]). Records reviewed. Initial Hb was noted to be 5. Underwent 8u PRBC transfusion over the course of [address] abd showed complicated diverticulitis with contained perf of sigmoid colon. Was managed with Abx. Pt also underwent an EGD which showed esophagitis per son's report and was given high dose PPI x 4 weeks. Due to difficulty pursuing follow-up as outpatient with a machine made shoe unit worker, as well as patent legal assistant (patient has CKD progressed during this admission), her son decided to bring her to [facility] for further care. Currently, patient does not have any gastrointestinal complaints to include abdominal pain, nausea, vomiting. No changes in bowel habits. No melena or maroon stools. Most recent hemoglobin is 12.2 from last month. Her last colonoscopy was more than 5 years ago. She does not recall if she had polyps. 08/11/22 - EGD/[place]: Impression: 1. Normal esophagus 2. Gastritis (biopsy) 3. Duodenitis (biopsy) 4. Duodenal diverticulum 5. Poor prep in cecum 6. Total of 4 polyps removed 7. Internal hemorrhoids 8. Diverticulosis Diagnosis A.? Duodenal bulb, biopsy:? Duodenal mucosa with predominantly preserved villi, Shavon's gland hyperplasia, and focal mild changes suggesting chronic/nonspecific duodenitis. B.? Stomach, random, biopsy:? Gastric antral and body mucosa with mild reactive changes, congestion, and focal minimal chronic inactive inflammation; negative for intestinal metaplasia and dysplasia (see comment).? C.? Colon, transverse, 3 polyps:? Tubular adenomas, three (2 of 3 appear excised); negative for high-grade dysplasia and carcinoma.? D.? Colon, descending, polyp:? Tubular adenoma; negative for high-grade dysplasia and carcinoma.? 08/24/22 Patient here accompanied by her son. Seen with the help of dewer. Has no gastrointestinal complaints. Reviewed results of the endoscopy and colonoscopy. Reassured that the esophagitis has healed up. No H pylori and gastric biopsies. All the 4 polyps were tubular adenoma and ideally, patient should have repeat colonoscopy within a year due to poor prep. However, she is currently undergoing workup for lung cancer through Dr. Camp. Son reports that so far, assessment is that this was stage I lung cancer that was completely surgically resected. However, 2nd opinion is being awaited to see if she needs any adjuvant therapy. 04/10/23: Pt here to discuss timing of colo - last colo poor prep in cecum. However, appears continues to have residual pulm symptoms despite wedge resection of lung adenoca back in 2022. Seeing Dr Trimble and awaiting PFTs for dyspnea. Also sees Dr Vasquez for ? adjuvant therapy - however pt declines chemotherapy and molecular testing not available for immunotherapy. Gets regular surveillance scans. In addition, pt also reports chronic constipation. Diet low in fiber. Son occasionally gives miralax to which she responds very well. 12/04/23: Here for routine follow up. Here with ARLINE Ray. Career And Guidance Counselor present to help with the encounter. Pt reports no gastrointestinal complaints at this time. Constipation is better controlled with the bowel regimen in fact some times get stools that are too liquidy. No melena or hematochezia. CBC reviewed and counts stable. Resp status has improved. Renal function continues to slowly decline. Tells me an AV fistula has been planned in anticipation of requiring DOLL MAKER in future. COUNT INCLUDES THE [facility] Medical History COPD (chronic obstructive pulmonary disease) ILD (interstitial lung disease) Chest discomfort Cataracts, both eyes Glaucoma Tubular adenoma of colon Esophagitis Personal history of nicotine dependence Gout Right elbow pain Thyroid nodule HTN (hypertension) GI bleed Diverticulitis CKD (chronic kidney disease), stage IV Hypothyroid Emphysema lung Epilepsy Type 2 diabetes mellitus Hypercholesteremia Surgical History History of elbow surgery History of lung surgery History of colonoscopy History of esophagogastroduodenoscopy (EGD) History of cholecystectomy History of tubal ligation Family History Sister SLE (systemic lupus erythematosus) Breast cancer Mental health problem Mother Diabetes Acute arthritis Alzheimer disease Age related osteoporosis Father Diabetes HTN (hypertension) Brother Brain tumor Family/Other Breast cancer Lupus Acute arthritis Family/Other HTN (hypertension) Thyroid cancer Other Mental health disorder Social History Household Members: Children Household Members Other:: Living with son in his house Housing: House Alcohol intake: never Patient Tobacco Use Status: Former Tobacco user Years Smoked: (former smoker - onset 16yo - 1ppd x 50yrs, 50pyh - quit 12/2021) e-Cigarette/Vaping Use: Never Used Second Hand Smoke Exposure: Yes service: No Current occupational status: disabled Cognitive needs: Yes (WHEELCHAIR) Hearing needs: No Vision needs: Yes (Glasses) Review of Systems Const All systems reviewed & are unremarkable except as noted in HPI and below Physical Exam Vital Signs: Last Vital Signs Pulse 56 12/04/23 09:48 BP 152/65 H 12/04/23 09:48 BMI result Body Mass Index 29.8 Assessment & Plan Assessment & Plan (1) Diverticulosis: Code(s): K57.90 - Diverticulosis of intestine, part unspecified, without perforation or abscess without bleeding Category: Medical (2) Personal history of colonic polyps: Code(s): Z86.010 - Personal history of colon polyps Category: Medical Plan At present, pt would like to hold off scheduling a repeat colonoscopy yodit as episode of severe LGIB was likely from diverticulosis. Does need a repeat colo for complete exam as cecum not adequately visualized and had at least 4 TAs noted however this can be addressed at next appt as per mutual decision making. follow up 6 months Coding Level of Care Code Est Pt Level 3 (67674) Diagnoses Diverticulosis K57.90 Personal history of colonic polyps Z86.010
[2023-12-04 09:48] VITALS: BP 152/65; PULSE 56; BMI 29.8
== END 2023-12-04 10:29 | disposition home or self-care (01) ==
PROVIDERS: PCP Internal Medicine; Visit Provider Internal Medicine
DX: K57.90 Diverticulosis of intestine, part unspecified, without perforation or abscess without bleeding (principal); Z86.0100 Personal history of colon polyps, unspecified
CPT/HCPCS: 99213

== ENCOUNTER → 2023-12-04 09:44 | Outpatient (BNVA) | payer MEDICARE, MEDICAID, SELFPAY | PROVIDERS: PCP Internal Medicine; Visit Provider Internal Medicine | DX: K57.90 Diverticulosis of intestine, part unspecified, without perforation or abscess without bleeding (principal); Z86.0100 Personal history of colon polyps, unspecified | CPT/HCPCS: 99212 ==

== ENCOUNTER 2023-12-19 12:35 | Outpatient (AMB) | payer MEDICARE, MEDICAID, SELFPAY ==
[2023-12-19 13:07] VITALS: BMI 29.8
--- NOTE | 2023-12-19 13:07 | A.OFFVIS_ITS ---
Vital Signs 12/19/23 13:07 Height 5 ft 3 in Weight 168 lb BMI 29.8 Intake Visit Reasons: Follow up Intake Note: Patient presents for follow up. Allergies No Known Allergies Allergy (Verified 12/19/23 13:14) HPI Comments Details: 68 y/o female patient presents for follow up of epilepsy and MILLICENT. Pt's seizure well managed with carbamazepine 200 mg ER daily, and had seizure free for more than 15 years now. Pt underwent split night sleep study. The baseline portion of the sleep study was significant for severe degree of sleep apnea with increased severity in REM. AHI was 49/hr, REM AHI was 60/hr. She trialed on CPAP [id number], and her breathing and oxygenation stabilized on CPAP at [id number]. She is not compliant with CPAP - she says her throat is dry and uncomfortable.. The CPAP compliance and therapy response () reviewed. She is on CPAP at 12 cmH2O. The usage days 63% and the average usage hours 5hrs The AHI was 7 The apnea index was central 0.1 and the obstructive 01.6 PFSH Medical History COPD (chronic obstructive pulmonary disease) ILD (interstitial lung disease) Chest discomfort Cataracts, both eyes Glaucoma Tubular adenoma of colon Esophagitis Personal history of nicotine dependence Gout Right elbow pain Thyroid nodule HTN (hypertension) GI bleed Diverticulitis CKD (chronic kidney disease), stage IV Hypothyroid Emphysema lung Epilepsy Type 2 diabetes mellitus Hypercholesteremia Surgical History History of elbow surgery History of lung surgery History of colonoscopy History of esophagogastroduodenoscopy (EGD) History of cholecystectomy History of tubal ligation Family History Sister SLE (systemic lupus erythematosus) Breast cancer Mental health problem Mother Diabetes Acute arthritis Alzheimer disease Age related osteoporosis Father Diabetes HTN (hypertension) Brother Brain tumor Family/Other Breast cancer Lupus Acute arthritis Family/Other HTN (hypertension) Thyroid cancer Other Mental health disorder Social History Household Members: Children Household Members Other:: Living with son in his house Housing: House Alcohol intake: never Patient Tobacco Use Status: Former Tobacco user Years Smoked: (former smoker - onset 16yo - 1ppd x 50yrs, 50pyh - quit 12/2021) e-Cigarette/Vaping Use: Never Used Second Hand Smoke Exposure: Yes service: No Current occupational status: disabled Cognitive needs: Yes (WHEELCHAIR) Hearing needs: No Vision needs: Yes (Glasses) Review of Systems ENT Reports Normal hearing present Neuro Reports Normal hearing present Physical Exam Vital Signs: BMI result Body Mass Index 29.8 Const General: cooperative and tired appearing Nutritional Appearance: obese Orientation/consciousness: patient oriented x3 Limitations: language barrier (Prydeinig speaking only.) and wheelchair Resp Effort & Inspection: normal respiratory effort and able to speak in complete sentences Neuro General: patient oriented x3 and moves all extremities Cranial nerves: Yes Normal facial strength present, Yes Midline tongue present, Yes Symmetric palate elevation present, Yes Normal hearing present, Yes Ability to bilaterally rotate head present and Yes Ability to bilaterally elevate shoulders present Cognition (Neuro): normal cognition Motor exam (neuro): 5/5 motor strength present throughout, Pronator motor function not present and no tremor noted Assessment & Plan Assessment & Plan (1) MILLICENT on CPAP: Code(s): G47.33 - Obstructive sleep apnea (adult) (pediatric) Category: Medical (2) Epilepsy: Comment: since age 36 Code(s): G40.909 - Epilepsy, unspecified, not intractable, without status epilepticus Category: Medical Qualifiers: Epilepsy type: unspecified Intractability: not intractable Status epilepticus: without status epilepticus Qualified Code(s): G40.909 - Epilepsy, unspecified, not intractable, without status epilepticus Plan Continue to use CPAP at [id number].Increase humidification level to hep with dry throat.- f/u with [facility] St[facility] compliance, use CPAP nightly and more than 4 hrs. Continue to take carbamanzepine 200 mg ER daily. Coding Level of Care Code Est Pt Level 4 (86059) Complex EM visit Add On G2211 Diagnoses MILLICENT on CPAP G47.33 Nonintractable epilepsy without status epilepticus, unspecified epilepsy type G40.909 Epilepsy type: unspecified Intractability: not intractable Status epilepticus: without status epilepticus
== END 2023-12-19 13:29 | disposition home or self-care (01) ==
LOC: HO.HSMS 12:35
PROVIDERS: PCP Internal Medicine; Visit Provider Psychiatry & Neurology Neurology
DX: G47.33 Obstructive sleep apnea (adult) (pediatric) (principal); G40.909 Epilepsy, unspecified, not intractable, without status epilepticus
CPT/HCPCS: 99214; G2211

== ENCOUNTER → 2023-12-19 12:35 | Outpatient (BNVA) | payer MEDICARE, MEDICAID, SELFPAY | PROVIDERS: PCP Internal Medicine; Visit Provider Psychiatry & Neurology Neurology | DX: G40.909 Epilepsy, unspecified, not intractable, without status epilepticus (principal); G47.33 Obstructive sleep apnea (adult) (pediatric); Z99.3 Dependence on wheelchair; Z99.89 Dependence on other enabling machines and devices; Z91.199 Patient's noncompliance with other medical treatment and regimen due to unspecified reason | CPT/HCPCS: 99212 ==

== ENCOUNTER 2023-12-27 09:47 | Outpatient (AMB) | payer MEDICARE, MEDICAID, SELFPAY ==
--- NOTE | 2023-12-27 09:49 | A.OFFPC_ITS ---
Vital Signs 12/27/23 09:54 Height 5 ft 3 in Weight 168 lb 6 oz BMI 29.8 BP 120/62 Blood Pressure Location Rt brachial Position Sitting Intake Visit Reasons: 3mth f/u Intake Note: Patient is here to follow up on Chronic pain, COPD, MILLICENT, HTN, DM. Pt decline flu shot today. Electrical Worker Required: Yes Electrical Worker Language: Carpenter Rough Name: Nataly ([phone]) Information Interpreted: non-clinical & clinical Environmental Emergencies Planner: Present Accompanied by: head banquet waitress Allergies No Known Allergies Allergy (Verified 12/27/23 10:42) Medication List - Last Reconciled 12/27/23 by Ty Barros MD albuterol sulfate 90 mcg/actuation (Ventolin HFA) 1 inh inhalation QID albuterol sulfate 2.5 mg (3 mL) inhalation Q6H PRN 30 days amlodipine 10 mg (2 x 5 mg) PO DAILY atorvastatin 40 mg PO DAILY bimatoprost 0.01% (Lumigan) drps ophthalmic (eye) brimonidine 0.2% 1 drp ophthalmic (eye) TID brimonidine-timolol 0.2-0.5 % (Combigan) 0.2 drps ophthalmic (eye) ONCE carbamazepine ER 200 mg PO ONCE 90 days empagliflozin (Jardiance) 10 mg PO DAILY 30 days ergocalciferol (vitamin D2) 1,250 mcg PO DAILY fluticasone furoate-vilanterol 200-25 mcg/dose (Breo Ellipta) 1 inh inhalation DAILY 30 days fluticasone propion-salmeterol 250-50 mcg/dose (Wixela Inhub) 1 inh inhalation Q12H 30 days labetalol mg PO levothyroxine 175 mcg PO DAILY linagliptin (Tradjenta) 5 mg PO DAILY 30 days montelukast 10 mg PO DAILY 30 days nebulizers As directed psyllium husk 1 tbsp PO DAILY sennosides (senna) 17.2 mg (2 x 8.6 mg) PO DAILY 30 days sertraline 100 mg PO DAILY trazodone 150 mg PO BEDTIME PRN Tobacco use date assessed: 12/27/23 Fall risk assessment: No Falls in past year Last assessed Fall Risk: 12/27/23 Dental Screening Dental Screen Date: 02/20/23 HPI 3mth f/u HPI Details 68-year-old female presents to the [facility] e to discuss her chronic medical conditions. She is accompanied by her [employer]. Both of them need translators, the same was provided using an iPad. Since last office visit, patient has had vascular access for dialysis. No decision has been made to start dialysis yet. She is compliant with her medications and doing all her activities of daily living. [facility] Medical History COPD (chronic obstructive pulmonary disease) ILD (interstitial lung disease) Chest discomfort Cataracts, both eyes Glaucoma Tubular adenoma of colon Esophagitis Personal history of nicotine dependence Gout Right elbow pain Thyroid nodule HTN (hypertension) GI bleed Diverticulitis CKD (chronic kidney disease), stage IV Hypothyroid Emphysema lung Epilepsy Type 2 diabetes mellitus Hypercholesteremia Surgical History History of elbow surgery History of lung surgery History of colonoscopy (~08/11/22) History of esophagogastroduodenoscopy (EGD) History of cholecystectomy History of tubal ligation Family History Sister SLE (systemic lupus erythematosus) Breast cancer Mental health problem Mother Diabetes Acute arthritis Alzheimer disease Age related osteoporosis Father Diabetes HTN (hypertension) Brother Brain tumor Family/Other Breast cancer Lupus Acute arthritis Family/Other HTN (hypertension) Thyroid cancer Other Mental health disorder Social History Household Members: Children Household Members Other:: Living with son in his house Housing: House Alcohol intake: never Patient Tobacco Use Status: Former Tobacco user Years Smoked: (former smoker - onset 16yo - 1ppd x 50yrs, 50pyh - quit 12/2021) e-Cigarette/Vaping Use: Never Used Second Hand Smoke Exposure: Yes service: No Current occupational status: disabled Cognitive needs: Yes (WHEELCHAIR) Hearing needs: No Vision needs: Yes (Glasses) Questionnaire Thrive Questionnaire Date Thrive assessed: 02/20/23 SHAUNA-7 AMB Questionnaire SHAUNA-7 Date SHAUNA - 7 assessed: 02/20/23 Source: Developed by Drs. Pa Lopez, Nettie B.W. Leroy Melendez and colleagues, with an educational shana from [employer]. Physical exam (Primary Care) Vital Signs: Last Vital Signs BP 120/62 12/27/23 09:54 BMI result Body Mass Index 29.8 Tobacco/Smoking Status: Tobacco use Status Tobacco use date assessed 12/27/23 12/27/23 10:10 Patient Tobacco Use Status Former Tobacco user 12/27/23 09:51 e-Cigarette/Vaping Use Never Used 12/27/23 09:51 Thrive Assessment: Date of Thrive Assessment Date Thrive assessed 02/20/23 12/27/23 09:51 Const General: cooperative and healthy appearing Nutritional Appearance: well nourished Orientation/consciousness: patient oriented x3 Limitations: no limitations HENMT Head: Yes normal to inspection Eyes General: appearance normal, both eyes and all related structures Neck Neck: Yes normal visual inspection Chest Chest palpation & inspection: normal palpation of entire chest wall Resp Effort & Inspection: normal respiratory effort Neuro General: patient oriented x3 Results AMB Hemoglobin A1c AMB Hemoglobin A1c 6.2 % Last Edit by NIKITA Waters on 12/27/23 10:20 Results Reviewed Results Reviewed: Laboratory Last Values Hgb A1c (Clinic) 6.2 % (4.0-6.0) H 12/27/23 09:52 Coding Level of Care Code Est Pt Level 4 (63882) Complex EM visit Add On G2211 Diagnoses HTN (hypertension) I10 Type 2 diabetes mellitus E11.9 CKD (chronic kidney disease), stage IV N18.4 Malignant neoplasm of upper lobe of left lung C34.12 Laterality: left Lung location: upper lobe of lung Assessment & Plan Assessment & Plan (1) HTN (hypertension): Code(s): I10 - Essential (primary) hypertension Category: Medical Plan: Blood pressure is in range. Continue current medications. (2) Type 2 diabetes mellitus: Code(s): E11.9 - Type 2 diabetes mellitus without complications Category: Medical Plan: A1c is in range. Continue current medications. (3) CKD (chronic kidney disease), stage IV: Comment: (Advanced CKD headed towards ESRD per Dr. Agarwal, Renal Doctor seen 07/2022) Code(s): N18.4 - Chronic kidney disease, stage 4 (severe) Category: Medical Plan: The vascular access on the left arm is healing. Continue follow-up. (4) Lung cancer: Code(s): C34.90 - Malignant neoplasm of unspecified part of unspecified bronchus or lung Category: Medical Qualifiers: Laterality: left Lung location: upper lobe of lung Qualified Code(s): C34.12 - Malignant neoplasm of upper lobe, left bronchus or lung Plan: Condition is stable. Patient has received her flu vaccine. Orders: Orders AMB Hemoglobin A1c Today E11.9 - Type 2 diabetes mellitus without complications
[2023-12-27 09:54] VITALS: BP 120/62; BMI 29.8
== END 2023-12-27 10:42 | disposition home or self-care (01) ==
PROVIDERS: PCP Internal Medicine; Visit Provider Internal Medicine
DX: I12.9 Hypertensive chronic kidney disease with stage 1 through stage 4 chronic kidney disease, or unspecified chronic kidney disease (principal); E11.9 Type 2 diabetes mellitus without complications; N18.4 Chronic kidney disease, stage 4 (severe); C34.12 Malignant neoplasm of upper lobe, left bronchus or lung

== ENCOUNTER → 2023-12-27 09:47 | Outpatient (BNVA) | payer MEDICARE, MEDICAID, SELFPAY | PROVIDERS: PCP Internal Medicine; Visit Provider Internal Medicine | DX: I12.9 Hypertensive chronic kidney disease with stage 1 through stage 4 chronic kidney disease, or unspecified chronic kidney disease (principal); E11.22 Type 2 diabetes mellitus with diabetic chronic kidney disease; N18.4 Chronic kidney disease, stage 4 (severe); C34.12 Malignant neoplasm of upper lobe, left bronchus or lung | CPT/HCPCS: 83036; 99212 ==

== ENCOUNTER 2024-03-18 11:53 | Outpatient (REF) | payer MEDICARE, MEDICAID, SELFPAY ==
[2024-03-18 12:11] LABS: MANUAL DIFF FLAG NO
[2024-03-18 12:14] LABS: Basophils Percent Auto 0.6 % (0-2); Eosinophils Absolute Auto 0.1 X10*3/uL (0.0-0.4); Eosinophils Percent Auto 0.8 % (0-4); Hematocrit 34.9 % (37.0-47.0); Hemoglobin 11.1 g/dl (12.0-16.0); Imm Gran Abs Auto 0.03 X10*3/uL (0.00-0.03); Imm Gran Pct Auto 0.5 % (0.0-0.4); Lymphocytes Absolute Auto 0.9 X10*3/uL (1.2-4.9); Lymphocytes Percent Auto 14.1 % (20-40); Mean Corpuscular HGB Conc 31.8 g/dl (31.0-35.0); Mean Corpuscular Hemoglobin 28.5 pg (27.0-33.0); Mean Corpuscular Volume 89.7 fL (80.0-98.0); Mean Platelet Volume 9.3 fL (9.4-12.3); Monocytes Absolute Auto 0.5 X10*3/uL (0.1-1.2); Monocytes Percent Auto 8.7 % (2-11); Neutrophils Absolute Auto 4.7 x10*3/uL (2.0-8.3); Neutrophils Percent Auto 75.3 % (45-73); Platelet Count 186 X10*3/uL (160-400); Red Blood Count 3.89 X10*6/uL (4.20-5.50); White Blood Count 6.2 X10*3/uL (4.8-10.8)
[2024-03-18 12:34] LABS: Alanine Aminotransferase 21 U/L (0-31); Albumin Level 3.6 g/dL (3.5-5.0); Alkaline Phosphatase 79 U/L (39-117); Anion Gap 11 (12-20); Aspartate Amino Transferase 21 U/L (5-31); Bilirubin Total 0.2 mg/dL (0.0-1.0); Blood Urea Nitrogen 51 mg/dL (9-16); Calcium 8.5 mg/dL (8.4-10.2); Carbon Dioxide 21 mmol/L (22-29); Chloride 108 mmol/L (96-108); Estimated Glomerular Filt Rate 14; Potassium 4.5 mmol/L (3.3-5.1); Sodium 135 mmol/L (135-145); Total Protein 6.8 g/dL (6.5-8.0)
[2024-03-18 12:50] LABS: Glucose Random 98 mg/dL (60-115)
--- OUTSIDE RECORDS SUMMARY | 2024-03-18 13:16 | XMS_ITS | Clinical Summary ---
Author Organization [facility] Address [address] [address] Phone Care Team Providers Care Collision Repair Technician Name Role Phone Ty Barros MD Primary Care Provider + Allergies No known active allergies Medications amLODIPine (NORVASC) 5 MG tablet Take 10 mg by mouth 1 (one) time each day 3 Active atorvastatin (LIPITOR) 40 MG tablet Take 40 mg by mouth 1 (one) time each day 3 Active carBAMazepine (TEGretol) 200 MG tablet Take 200 mg by mouth 1 (one) time each day 3 Active levothyroxine (SYNTHROID, LEVOTHROID) 175 MCG tablet Take 175 mcg by mouth 1 (one) time each day 3 Active Tradjenta 5 MG tablet Take 5 mg by mouth 1 (one) time each day 3 Active montelukast (SINGULAIR) 10 MG tablet Take 10 mg by mouth 1 (one) time each day 3 Active Albuterol Sulfate 108 (90 Base) MCG/ACT aerosol powder Inhale 1 puff 4 (four) times a day if needed Active albuterol (PROVENTIL,VENT KATHERINE) 2 MG/5ML syrup Take 2 mg by mouth in the morning and 2 mg in the evening and 2 mg before bedtime. Active Jardiance 10 MG tablet Take 10 mg by mouth 1 (one) time each day 3 Active dorzolamide (TRUSOPT) 2 % ophthalmic solution Administer 1 drop into both eyes in the morning and 1 drop in the evening and 1 drop before bedtime. Active brimonidine-ning olol (Combigan) 0.2-0.5 % ophthalmic solution 1 drop every 12 (twelve) hours 1 drop TID left eye and 1 drop BID in the right eye Active ergocalciferol (Drisdol) 1.25 MG (04555 UT) capsule Take 1 capsule (50,000 Units total) by mouth 1 (one) time per week 12 capsule 3 4 06/21/19 25 Active Lumigan 0.01 % ophthalmic drops Administer 1 drop into both eyes every night 4 Active sertraline (ZOLOFT) 100 MG tablet Take 100 mg by mouth 1 (one) time each day 4 Active traZODone (DESYREL) 100 MG tablet Take 100 mg by mouth at bed time 4 Active labetalol (NORMODYNE) 100 MG tablet 1/2 tablet every night at bedtime 90 tablet 3 4 Active Active Problems Problem Noted Date Diagnosed Date Cyst of kidney 10/05/2023 Localized edema 02/19/2023 Epilepsy, not otherwise specified 02/19/2023 History of malignant neoplasm of thoracic cavity structure 08/09/2022 Overview (06/20/2023): Last Assessment & Plan: Ms. Tayo Dee is a 66 y/o female recently moved here from [place], former smoker who is part of the [facility] and was followed for an 8 mm nodule. She is S/P a Robotic VATS Left upper lobe wedge resection on July 26, 2022. She returns today for her postoperative follow-up 1. She is recovering well from surgery. Pain is moderate and she has been using Tylenol and Oxycodone q 6hr. I will reorder Oxycodone 5 mg and spoke to her about lengthing the duration between pills to 8 and then 12 hours. JAY BENITEZ checked. Called to [facility] 2. 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 Biomarkers pending. Follow up with Dr. Sawant on August 26 at [facility]. 3. She is being followed by [facility] for kidney disease. 4. Per NCCN guidelines, she will be followed for [address] scan of the chest. Every 6 months X 2 years then annually X 3 years with a visit to the Thoracic Surgery Office. Patient and son wish to have these visits here at [facility]. Her next visit will be in 6 months, January 2023. 5. She is instructed to call with any questions or concerns. Chronic kidney disease, stage 4 (severe) 023 Diabetes mellitus, not otherwise specified 08/02 Hypertension 08/02/2022 Rheumatoid arthritis, not otherwise specified Encounters Date Type Department Care Team Description 03/06/2024 10:20 AM EST Office Visit [facility] [address] [place] [phone] Reuben Holbrook MD Chronic kidney disease, stage 4 (severe) (HCC) (Primary Dx); Diabetes mellitus, not otherwise specified (HCC); Hypertension; Localized edema; Rheumatoid arthritis, not otherwise specified (HCC) 01/23/2024 Orders Only [facility] [address] [phone] Reuben Holbrook MD Chronic kidney disease, stage 4 (severe) (HCC); Epilepsy, not otherwise specified (HCC); History of malignant neoplasm of thoracic cavity structure; Hypertension; Localized edema; Rheumatoid arthritis, not otherwise specified (HCC) from Last 3 Months Family History Medical History Relation Comments Brain cancer Brother tumor Diabetes Father Diabetes Mother Cancer Sister breast Lupus Sister Mental illness Sister Relation Status Comments Brother Father Mother Sister Social History Tobacco Use Types Packs/Day Years Used Date Smoking Tobacco: Never Assessed Comments Unknown Sex and Gender Information Value Date Recorded Sex Assigned at Not on file Legal Sex Female 12:50 PM EDT Gender Identity Not on file Sexual Orientation Not on file Last Filed Vital Signs Vital Sign Reading Time Taken Comments Blood Pressure 147/60 03/06/2024 10:24 AM EST Pulse 54 03/06/2024 10:24 AM EST Temperature - - Respiratory Rate - - Oxygen Saturation 90% 03/06/2024 10:24 AM EST Inhaled Oxygen Concentration - - Weight 75.9 kg (167 lb 6.4 oz) 03/06/2024 10:24 AM EST Height 160 cm (5' 3 ) 03/06/2024 10:24 AM EST Body Mass Index 29.65 03/06/2024 10:24 AM EST Plan of Treatment Upcoming Encounters Date Type Department Care Team (Late st Contact Info) Description 05/15/2024 11:40 AM EDT Office Visit [facility] [address] [phone] Reuben Holbrook MD [address] [phone] Health Maintenance Due Date Last Done Comments Breast Cancer Screening 1955 Pneumococcal Vaccine: 65+ Ye ars (1 of 2 - PCV) 10/03/1961 Colorectal Cancer Screening: Annual FOBT 10/03/2004 Colorectal Cancer Screening: Colonoscopy 10/03/2004 Colorectal Cancer Screening: Sigmoidoscopy 10/03/2004 Diabetes: Hemoglobin A1C 08/02/2022 Diabetes: Ophthalmology Exam 08/02/2022 Diabetes: Pedal Pulse Checked 08/02/2022 Diabetes: Sensory Foot Exam 08/02/2022 Diabetes: Visual Foot Exam 08/02/2022 Influenza Vaccine (#1) 2023 Hepatitis B Vaccine Aged Out No longe r eligible based on patient's age to complete this topic Insurance [place] Care Teams Collision Repair Technician Relationship Specialty Start Date End Date Ty Barros MD [address] [address] PCP - General Internal Medicine 06/21/23
--- OUTSIDE RECORDS SUMMARY | 2024-03-18 13:16 | XMS_ITS | Clinical Summary ---
Author Organization [facility] Address [address] [place] [address] Phone Care Team Providers Care Brim Curler Name Role Phone Ty Barros MD Primary Care Provider [phone] Allergies No known active allergies Medications Medication Sig Dispensed Refills Start Date End Date Status albuterol (PROVENTIL,VENTOLIN) 2 mg tablet Take 1 Tablet by mouth 3 times daily. Active albuterol sulfate (VENTOLIN HFA INHL) Inhale 1 Inhaler into the lungs 4 times daily. Active amLODIPine (NORVASC) 5 mg tablet Take 1 Tablet by mouth daily. Active atorvastatin (LIPITOR) 40 mg tablet Take 1 Tablet by mouth daily. Active bimatoprost (LUMIGAN) 0.01 % ophthalmic drops apply to the eye. Active brimonidine (ALPHAGAN) 0.2 % ophthalmic solution 1 Drop 3 times daily. Active carBAMazepine (TEGretol) 200 mg tablet Take 1 Tablet by mouth 2 times daily. Active cyclobenzaprine (FLEXERIL) 10 mg tablet Take 1 Tablet by mouth 3 times daily as needed. Active empagliflozin (Jardiance) 10 mg tablet Take 10 mg by mouth daily. Active levothyroxine (SYNTHROID, LEVOTHROID) 150 mcg tablet Take 1 Tablet by mouth daily. 5 days a week. Monday - Monday Active levothyroxine (SYNTHROID, LEVOTHROID) 175 mcg tablet Take 1 Tablet by mouth daily. On weekends. Active linaGLIPtin 5 mg tablet Take 5 mg by mouth daily. Active montelukast (SINGULAIR) 10 mg tablet Take 1 Tablet by mouth at bedtime. Active Active Problems Problem Noted Date Diagnosed Date History of lung cancer 01/17/2024 Assessment & Plan (01/17/2024 8:30 PM EST): Ms. 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 The patient declined reoperation for completion lobectomy and also declined adjuvant chemotherapy. She follows with Dr. Vasquez and pulmonology at [facility]. Patient's most recent surveillance CT scan done on December 12, 2023 shows no new or worsening pulmonary nodule, or thoracic adenopathy, to suggest recurrence or new disease. There are a few sub-5mm pulmonary nodules which are stable, as well as stable bilateral adrenal nodules likely representing adenomas. Will continues with routine chest CT surveillance with a repeat scan in 6 months, June 2024. Patient will have a follow up in the office after this scan. Multiple pulmonary nodules 01/17/2024 Encounters Date Type Department Care Team Description 01/12/2024 2:00 PM EST Office Visit Thoracic Surgery - [address] [place] [address] Devi Herrera PA History of lung cancer (Primary Dx); Multiple pulmonary nodules from Last 3 Months Surgical History Surgery Date Site/Laterality Comments CHOLECYSTECTOMY N/A PROCEDURE: HISTORICAL CHOLECYSTECTOMY ESOPHAGOGASTRODUODENOSCOPY N/A PROCEDURE: TN ESOPHAGOGASTRODUODENOSCOPY TRANSORAL DIAGNOSTIC TUBAL LIGATION N/A PROCEDURE: HISTORICAL TUBAL LIGATION COLONOSCOPY N/A PROCEDURE: HISTORICAL COLONOSCOPY OTHER SURGICAL HISTORY 07/19/2022 Left PROCEDURE: TN THORACOSCOPY W/THERA WEDGE RESEXN INITIAL UNILAT; COMMENT: CLYDE Medical History Medical History Date Comments CKD (chronic kidney disease) , symptom management only, stage 4 (severe) (CMS/HCC) DX:CKD (ch ronic kidney disease), symptom management only, stage 4 (severe) (HCC) Meckel's diverticulum DX:Meckel' s diverticulum Emphysema lung (CMS/HCC) DX:Emph ysema lung (HCC) Epilepsy with status epilept icus, not intractable (CMS/HCC) DX:Epilepsy with status epil epticus, not intractable (HCC) GI bleed DX:GI bleed Gout DX:Gout HTN (hypertension) DX:HTN (hyper tension) Hypercholesteremia DX:Hyperchole steremia Hypothyroidism DX:Hypothyroidis m Type 2 diabetes mellitus wit hout complications (CMS/HCC) DX:Type 2 diabetes mellitus without complications (HCC) Nontoxic single thyroid nodule D X:Nontoxic single thyroid nodule Rheumatoid arthritis (CMS/HCC) D X:Rheumatoid arthritis (HCC) History of nicotine dependence D X:History of nicotine dependence Right elbow pain DX:Right elbow pain History of lung cancer DX:Histor y of lung cancer Family History Medical History Relation Name Comments Other: Other Brother Diabetes Father Diabetes Mother Breast cancer Sister Mental illness Sister Other: Other Sister Relation Name Status Comments Brother Father Other Mother Sister Social History Tobacco Use Types Packs/Day Years Used Date Smoking Tobacco: Former Cigarettes Q uit: 12/14/2021 Smokeless Tobacco: Never Tobacco Cessation:Counseling Given: Not Answered Alcohol Use Standard Drinks/Week Comments Never 0 (1 standard drink = 0.6 oz pur e alcohol) Sex and Gender Information Value Date Recorded Sex Assigned at Not on file Gender Identity Not on file Sexual Orientation Not on file Job Start Date Occupation Industry Not on file Not on file Not on file Obstetrics History Last Filed Vital Signs Vital Sign Reading Time Taken Comments Blood Pressure 174/85 01/12/2024 2:32 PM EST Pulse 76 01/12/2024 2:32 PM EST Temperature 36.8 ??C (98.3 ??F) 01/12/2024 2:32 PM ES T Respiratory Rate 16 01/12/2024 2:32 PM EST Oxygen Saturation 99% 01/12/2024 2:32 PM EST Inhaled Oxygen Concentration - - Weight 84.8 kg (186 lb 14.4 oz) 01/12/2024 2:32 PM EST Height 162.6 cm (5' 4 ) 01/12/2024 2:32 PM EST Body Mass Index 32.08 01/12/2024 2:32 PM EST Plan of Treatment Health Maintenance Due Date Last Done Comments Breast Cancer Screening 1955 COVID-19 Vaccine (#1) 10/03/1960 Diabetes: Annual Foot Exam 10/03/1965 Diabetes: Annual Retina Eye Exam 10/03/1965 DTaP,Tdap,and Td Vaccines (1 - Tdap) 10/03/1974 Zoster Vaccines (1 of 2) 10/03/2005 RSV Immunization Patients 60 + Years Old (1 - Risk 60-74 years 1-dose series) 2015 Cholesterol Screening (Lipid Panel) 03/10/2023 Colorectal Cancer Screening: Colonoscopy 03/10/2023 Depression Screening 03/10/2023 Falls Risk Assessment 03/10/2023 Hepatitis C Screening 03/10/2023 Lung Cancer Screening (Low Dose CT) 03/10/2023 Medicare Annual Wellness Visit 03/10/2023 Osteoporosis Screening (Bone Density Screening) 03/10/2023 Social Influencers of Health Screening 03/10/2023 Influenza Vaccine (#1) 2023 Diabetes: Annual Urine Albumin-Creatinine Ratio (uACR) 01/12/2024 Diabetes: Blood Sugar Contro l Test (HGBA1C) 01/12/2024 Diabetes: Annual GFR (Glomerular Filtration Rate) 09/18/2024 09/19/2023, 06/12/2023 Hypertension/CHF/CAD Annual BMP Blood Test 09/18/2024 09/19/2023, 06/12/2023 Pneumococcal Vaccine: 65+ Years Completed 05/02/2022 HIB Vaccines Aged Out No longer eligi ble based on patient's age to complete this topic HPV Vaccines Aged Out No longer eligi ble based on patient's age to complete this topic Hepatitis A Vaccines Aged Out No long er eligible based on patient's age to complete this topic Hepatitis B Vaccines Aged Out No long er eligible based on patient's age to complete this topic IPV Vaccines Aged Out No longer eligi ble based on patient's age to complete this topic MMR Vaccines Aged Out No longer eligi ble based on patient's age to complete this topic Meningococcal ACWY Vaccine Aged Out N o longer eligible based on patient's age to complete this topic RSV Immunization Patients Under 20 months Aged Out No longer eligible b ased on patient's age to complete this topic Varicella Vaccines Aged Out No longer eligible based on patient's age to complete this topic Advance Directives Documents on File Type Date Recorded Patient Hospital Nurse Expl anation Health Care Decision (hx) 07/26/2022 HE [facility] PROXY Health Care Decision (hx) 07/26/2022 HE ALTH CARE PROXY Health Care Decision (hx) 07/26/2022 HE ALTH CARE PROXY Health Care Decision (hx) 07/26/2022 HE ALTH CARE PROXY Health Care Decision (hx) 07/26/2022 HE ALTH CARE PROXY Health Care Decision (hx) 07/26/2022 HE ALTH CARE PROXY Care Teams Brim Curler Relationship Specialty Start Date End Date Ty Barros MD [facility] [address] [place] [address] [address] [place] [address] PCP - General 06/08/23
--- OUTSIDE RECORDS SUMMARY | 2024-03-18 13:16 | XMS_ITS | Encounter Summary ---
Author Organization [facility] Address [address] [place] [phone] Phone Care Team Providers Care Warehouse Shipping Receiving Clerk Name Role Phone Ty Barros MD Primary Care Provider + Encounter Details Date Type Department Care Team ([facility] st Contact Info) Description 03/06/2024 10:20 AM EST Office Visit [facility] [address] [place] [phone] Reuben Holbrook MD [address] [phone] Chronic kidney disease, stage 4 (severe) (HCC) (Primary Dx); Diabetes mellitus, not otherwise specified (HCC); Hypertension; Localized edema; Rheumatoid arthritis, not otherwise specified (HCC) Social History Tobacco Use Types Packs/Day Years Used Date Smoking Tobacco: Never Assessed Comments Unknown Sex and Gender Information Value Date Recorded Sex Assigned at Not on file Legal Sex Female 12:50 PM EDT Gender Identity Not on file Sexual Orientation Not on file documented as of this encounter Last Filed Vital Signs Vital Sign Reading [...] Mass Index 29.65 03/06/2024 10:24 AM EST documented in this encounter Progress Notes * Reuben Holbrook MD - 03/06/2024 10:20 AM EST [facility] Office Visit Patient Name: Alberto Dee, Female Date of : 1955, 68 y.o. Date: 03/06/2024 History of Present Illness Alberto Dee is a 68 y.o. female who is here for follow up of multiple medical problems including advanced ckd stage 4, dm, htn and RA. Interim history since the last encounter was reviewed. No acute complaints were voiced. Denied chest pain, flank pain, hematuria, hemoptysis or fevers. All other systems were reviewed and negative. Available lab results were reviewed and discussed. Medication list was reviewed and discussed. Any available out of office blood pressure readings were reviewed and discussed. CV and Renal risk was assessed and discussed. The following portions of the patient's chart were reviewed in this encounter and updated as appropriate: Allergies Meds Problems Med Hx Surg Hx Fam Hx Past Medical History Past Medical History: Diagnosis Date Chronic kidney disease stage 4 (HCC) Diverticulitis Emphysema (lung)(pulmonary) NOS (HCC) Epilepsy (HCC) Gastrointestinal hemorrhage Hypercholesterolemia Hypertension Hypothyroidism Rheumatoid arthritis (HCC) Type 2 diabetes mellitus (HCC) Past Surgical History Past Surgical History: Procedure Laterality Date CHOLECYSTECTOMY TUBAL LIGATION Family History Family History Problem Relation Age of Onset Diabetes Mother Diabetes Father Cancer Sister breast Lupus Sister Mental illness Sister Brain cancer Brother tumor Social History Social History Tobacco Use Smoking status: Not on file Smokeless tobacco: Not on file Substance Use Topics Alcohol use: Not on file Medication List Current Outpatient Medications Medication Sig Dispense Refill albuterol (PROVENTIL,VENTOLIN) 2 MG/5ML syrup Take 2 mg by mouth in the morning and 2 mg in the evening and 2 mg before bedtime. Albuterol Sulfate 108 (90 Base) MCG/ACT aerosol powder Inhale 1 puff 4 (four) times a day if needed amLODIPine (NORVASC) 5 MG tablet Take 10 mg by mouth 1 (one) time each day atorvastatin (LIPITOR) 40 MG tablet Take 40 mg by mouth 1 (one) time each day brimonidine-timolol (Combigan) 0.2-0.5 % ophthalmic solution 1 drop every 12 (twelve) hours 1 drop TID left eye and 1 drop BID in the right eye carBAMazepine (TEGretol) 200 MG tablet Take 200 mg by mouth 1 (one) time each day dorzolamide (TRUSOPT) 2 % ophthalmic solution Administer 1 drop into both eyes in the morning and 1drop in the evening and 1 drop before bedtime. ergocalciferol (Drisdol) 1.25 MG (00918 UT) capsule Take 1 capsule (50,000 Units total) by mouth 1 (one) time per week 12 capsule 3 Jardiance 10 MG tablet Take 10 mg by mouth 1 (one) time each day labetalol (NORMODYNE) 100 MG tablet 1/2 tablet every night at bedtime 90 tablet 3 levothyroxine (SYNTHROID, LEVOTHROID) 175 MCG tablet Take 175 mcg by mouth 1 (one) time each day Lumigan 0.01 % ophthalmic drops Administer 1 drop into both eyes every night montelukast (SINGULAIR) 10 MG tablet Take 10 mg by mouth 1 (one) time each day sertraline (ZOLOFT) 100 MG tablet Take 100 mg by mouth 1 (one) time each day Tradjenta 5 MG tablet Take 5 mg by mouth 1 (one) time each day traZODone (DESYREL) 100 MG tablet Take 100 mg by mouth at bed time No current facility-administered medications for this visit. Allergy List No Known Allergies Physical Exam BP 147/60 (BP Location: Right upper arm, Patient Position: Sitting) Pulse 54 Ht 5' 3 (1.6 m) Wt 167 lb 6.4 oz (75.9 kg) SpO2 90% BMI 29.65 kg/m?? Last 3 office BP readings: BP Readings from Last 3 Encounters: 03/06/24 147/60 10/24/23 160/68 06/21/23 160/78 General: Well developed well nourished in no acute distress. Poor gait stability Neuro: alert interactive without delirium Eyes: anicteric ENT: moist membranes, no stridor Cardiovascular: regular rate and rhythm, no rub Pulmonary: no distress or tachypnea Abdomen: soft and nondistended Genitourinary: no suprapubic tenderness or bladder distension to palpation Musculoskeletal: No bony tenderness or deviation Dermatologic: No visible rash on exposed skin Hematologic: no petechiae or ecchymoses on exposed skin Extremities: edema is dependent. Has avf with good thrill and bruit left upper arm Labs Chemistry Lab Units 09/19/23 1030 06/12/23 1303 04/22/22 0000 CREATININE mg/dL 3.34* 3.22* 2.80* BUN mg/dL 46* 53* 46* POTASSIUM mmol/L 4.8 4.4 4.9 SODIUM mmol/L 136 135 137 CO2 mmol/L 21* 19* 18 CHLORIDE mmol/L 107 110* 109.0* ALBUMIN g/dL 3.9 3.8 3.5* 3.5 EGFRNAFR -- -- 17 EGFR 14 14 -- WBC AUTO X10*3/uL 7.2 8.0 11.5* HEMATOCRIT % 40.3 38.5 37.7 HEMOGLOBIN g/dl 12.9 12.4 12.2 PLATELETS AUTO X10*3/uL 267 267 349 Bone Mineral Lab Units 09/19/23 1030 06/12/23 1303 10/26/22 1010 04/22/22 0000 CALCIUM mg/dL 9.3 9.2 -- 9.0 PHOSPHORUS mg/dL 4.6* 4.2 5.3* -- ALK PHOS U/L -- -- -- 79 ALKALINE PHOSPHATASE U/L 89 92 -- -- PTH pg/mL 496.9* 499.2* 308* -- VITAMIN D ng/mL 22.8* -- 33.7 -- Urine Lab Units 09/19/23 1048 10/26/22 1010 PROT/CREAT RATIO UR 10.69* 5.39* Iron Studies Lab Units 09/19/23 1030 FERRITIN ng/mL 41 TIBC mcg/dL 307 IRON SATURATION % 26 No lab exists for component: CYCLOSPORITR 07/2022 renal sonogram shows significant echogenic changes and atrophy c/w advanced ckd Labs in [facility] system show stable creatinine 3.0 mg/dl x 8 months - no labs since 10/2023 Assessment & Plan 1. Chronic kidney disease, stage 4 (severe) ([facility]) 2. Diabetes mellitus, not otherwise specified (HCC) 3. Hypertension 4. Localized edema 5. Rheumatoid arthritis, not otherwise specified (HCC) IMPRESSION: CKD STAGE 5- DUE TO DM AND HTN - MULTIPLE GFR'S THE LAST YEAR ARE 14 CC/MIN AND SHE HAS HEAVY ESCALATING PROTEINURIA - NONADHERENT AND NO LABS SINCE FALL 2023 DM WITH COMPLICATIONS NEPHROTIC RANGE PROTEINURIA >10.5 GM/DAY IN 09/2023 - STATISTICALLY DUE TO DM NEPHROPATHY HTN - SEEMS BETTER IN OFFICE TODAY RHEUMATOID ARTHRITIS EPILEPSY H/O GI BLEED ANEMIA CKD - NOT ON NATI YET - MILD SECONDARY HYPERPARATHYROIDISM - VIT D DEFICIENT DEPENDENT EDEMA- STABLE BILATERAL ADRENAL NODULES LIKELY LIPOMATOUS LUNG CANCER S/P WEDGE RESECTION POOR INSIGHT - SON WAS HELPING BUT NOT HERE TODAY - DAUGHTER WAS HERE TODAY RECENT IMMIGRANT FROM [facility] 02/2022 WITH LIMITED OLD MEDICAL RECORDS AVAILABLE OPTIONS - SHE HAS HAD TRAINING CLASSES AND IN OFFICE EDUCATION AND CHOOSES HEMODIALYSIS AND HAD ACCESS - DR PAUL BENDER AVF CREATED LATE 2023 DISCUSSION: -she has advanced ckd with heavy proteinuria and uncontrolled htn and evolving na retention and is heading toward ESRD in the next 6 -12 mos -we spent a long time again today on dialysis and transplant education again -she has opted for hemodialysis and is scheduled for access soon -phos was better but she has little vit d detectable - she is getting loaded with ergo -given age and h/o lung cancer, she is a poor transplant candidate but I offered to have her evaluated -optimize sugar, bp and medication control as you are doing -avoid nephrotoxins -adjust meds for gfr 15 cc/min at best -no uremia or urgent indication for HD today and seem balanced clinically -procede with arm access creation -uremic precautions given -unfortunately did not do labs. Will try to capture those and have her rtc in 2- 3 mos Orders Placed This Encounter Comprehensive Metabolic Panel Uric Acid Magnesium Phosphorus PTH, Intact Vitamin D 25 Hydroxy CBC and Differential Protein, Total, Random Urine w/Creatinine (Protein/Creat Ratio) Return in about 3 months (around 06/04/2024) for OV with labs 1-2 weeks prior to visit. Reuben Holbrook MD documented in this encounter Plan of Treatment Upcoming Encounters Date Type Department Care Team (Late st Contact Info) Description 05/15/2024 11:40 AM EDT Office Visit [facility] [address] [facility] [address] [place] [phone] Reuben Holbrook MD [address] [facility] [address] [place] [address] Scheduled Orders Name Type Priority Associated Diagnoses Orde r Schedule Comprehensive Metabolic Panel Lab Routine Chronic kidney disease, stage 4 (severe) (HCC) Diabetes mellitus, not otherwise specified (HCC) Hypertension Localized edema Rheumatoid arthritis, not otherwise specified (HCC) Expected: 06/04/2024, Expires: 04/06/2025 Uric Acid Lab Routine Chronic kidney disease, stage 4 (severe) (HCC) Diabetes mellitus, not otherwise specified (HCC) Hypertension Localized edema Rheumatoid arthritis, not otherwise specified (HCC) Expected: 06/04/2024, Expires: 04/06/2025 Magnesium Lab Routine Chronic kidney disease, stage 4 (severe) (HCC) Diabetes mellitus, not otherwise specified (HCC) Hypertension Localized edema Rheumatoid arthritis, not otherwise specified (HCC) Expected: 06/04/2024, Expires: 04/06/2025 Phosphorus Lab Routine Chronic kidney disease, stage 4 (severe) (HCC) Diabetes mellitus, not otherwise specified (HCC) Hypertension Localized edema Rheumatoid arthritis, not otherwise specified (HCC) Expected: 06/04/2024, Expires: 04/06/2025 PTH, Intact Lab Routine Chronic kidney disease, stage 4 (severe) (HCC) Diabetes mellitus, not otherwise specified (HCC) Hypertension Localized edema Rheumatoid arthritis, not otherwise specified (HCC) Expected: 06/04/2024, Expires: 04/06/2025 Vitamin D 25 Hydroxy Lab Routine Chronic kidney disease, stage 4 (severe) (HCC) Diabetes mellitus, not otherwise specified (HCC) Hypertension Localized edema Rheumatoid arthritis, not otherwise specified (HCC) Expected: 06/04/2024, Expires: 04/06/2025 CBC and Differential Lab Routine Chronic kidney disease, stage 4 (severe) (HCC) Diabetes mellitus, not otherwise specified (HCC) Hypertension Localized edema Rheumatoid arthritis, not otherwise specified (HCC) Expected: 06/04/2024, Expires: 04/06/2025 Protein, Total, Random Urine w/Creatinine (Protein/Creat Ratio) Lab Routine Chronic kidney disease, stage 4 (severe) (HCC) Diabetes mellitus, not otherwise specified (HCC) Hypertension Localized edema Rheumatoid arthritis, not otherwise specified (HCC) Expected: 06/04/2024, Expires: 04/06/2025 documented as of this encounter Visit Diagnoses Diagnosis Chronic kidney disease, stage 4 (severe) (HCC)- Primary Diabetes mellitus, not otherwise specified (HCC) Hypertension Localized edema Rheumatoid arthritis, not otherwise specified (HCC) documented in this encounter Care Teams Warehouse Shipping Receiving Clerk Relationship Specialty Start Date End Date Ty Barros MD [address] [place] [address] PCP - General Internal Medicine 06/21/23 documented as of this encounter
== END 2024-03-18 11:54 | disposition home or self-care (01) ==
LOC: HO.LAB 11:53
PROVIDERS: PCP Internal Medicine; Visit Provider Internal Medicine Medical Oncology
DX: C34.90 Malignant neoplasm of unspecified part of unspecified bronchus or lung (principal)
CPT/HCPCS: 36415; 80053; 85025

== ENCOUNTER 2024-03-28 10:10 | Outpatient (AMB) | payer MEDICARE, MEDICAID, SELFPAY ==
--- NOTE | 2024-03-28 10:11 | A.OFFPC_ITS ---
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 Electroplating Language: Numerical Control Operator Name: Hernandez (son0 Information Interpreted: non-clinical & clinical (pt decline supervisor transferring and boxing service, perfer pt son to translate) Front End Architect: Present Accompanied by: Son Allergies No Known Allergies Allergy (Verified 03/28/24 10:12) Tobacco use date assessed: 03/28/24 Fall risk assessment: No Falls in past year Last assessed Fall Risk: 03/28/24 Dental Screening Dental Screen Date: 03/28/24 Did you have a dental visit in the last 12 months?: Yes Did you have a dental problem in the last 6 months where you did not have access to dental care?: No Was dental information given to patient?: Patient has dentist HPI 3mth f/u HPI Details 68-year-old female wishes to discuss her medical health via [employer]. Her son is speaking on her behalf. Patient is at baseline state of health. Her medication list was reviewed with him. Necessary medications to be refilled were ascertained. She is able to do her activities of daily living. [facility] Medical History COPD (chronic obstructive pulmonary disease) ILD (interstitial lung disease) Chest discomfort Cataracts, both eyes Glaucoma Tubular adenoma of colon Esophagitis Personal history of nicotine dependence Gout Right elbow pain Thyroid nodule HTN (hypertension) GI bleed Diverticulitis CKD (chronic kidney disease), stage IV Hypothyroid Emphysema lung Epilepsy Type 2 diabetes mellitus Hypercholesteremia Surgical History History of elbow surgery History of lung surgery History of colonoscopy (~08/11/22) History of esophagogastroduodenoscopy (EGD) History of cholecystectomy History of tubal ligation Family History Sister SLE (systemic lupus erythematosus) Breast cancer Mental health problem Mother Diabetes Acute arthritis Alzheimer disease Age related osteoporosis Father Diabetes HTN (hypertension) Brother Brain tumor Family/Other Breast cancer Lupus Acute arthritis Family/Other HTN (hypertension) Thyroid cancer Other Mental health disorder Social History Household Members: Children Household Members Other:: Living with son in his house Housing: House Alcohol intake: never Patient Tobacco Use Status: Former Tobacco user Years Smoked: (former smoker - onset 16yo - 1ppd x 50yrs, 50pyh - quit 12/2021) e-Cigarette/Vaping Use: Never Used Second Hand Smoke Exposure: Yes service: No Current occupational status: disabled Cognitive needs: Yes (WHEELCHAIR) Hearing needs: No Vision needs: Yes (Glasses) Questionnaire PHQ-9 Over the last 2 weeks, how often have you been bothered by any of the following problems? 1. Little interest or pleasure in doing things: several days 2. Feeling down, depressed, or hopeless: several days 3. Trouble falling or staying asleep, or sleeping too much: not at all 4. Feeling tired or having little energy: several days 5. Poor appetite or overeating: several days 6. Feeling bad about yourself - or that you are a failure or have let yourself or your family down: several days 7. Trouble concentrating on things, such as reading the newspaper or watching television: not at all 8. Moving or speaking so slowly that other people could have noticed. Or the opposite - being so fidgety or restless that you have been moving around a lot more than usual: not at all 9. Thoughts that you would be better off or of hurting yourself in some way: not at all Total score: 5 Depression Screening Interpretation: Positive Depression Screening Follow-up: Existing condition and In treatment Depression Screening Done: Yes Source: Developed by Drs. Pa Lopez, Nettie Melendez, Leroy Echols and colleagues, with an educational shana from [employer]. Thrive Questionnaire Date Thrive assessed: 03/28/24 I am a: Patient What is your living situation today?: I have a steady place to live Within the past 12 months, did the food you bought not last and you didn't have the money to get more?: Never true Within the past 12 months, did you worry whether your food would run out before you got money to buy more?: Never true Do you have trouble paying for medicines?: No Do you have trouble getting transportation to medical appointments?: No Do you have trouble paying your heating and electricity bill?: No Do you have trouble taking care of your child, family member or friend?: No Do you have trouble with day-to-day activities such as bathing, preparing meals, shopping, managing finances, etc.?: No Are you currently unemployed and looking for a job?: No Are you interested in more education?: No Please select the resources that you would like help with: None Currently or been in a relationship where the following occur: No concerns reported THRIVE Score: 0 AUDIT C Alcohol Use Questionnaire (AUDIT-C) 1. How often do you have a drink containing alcohol?: Never Total Score: 0 SHAUNA-7 AMB Questionnaire SHAUNA-7 Date SHAUNA - 7 assessed: 03/28/24 Feeling nervous, anxious, or on edge: 0 = Not at all Not being able to stop or control worryin = Not at all Worrying too much about different things: 0 = Not at all Trouble relaxin = Not at all Being so restless that it is hard to sit still: 0 = Not at all Becoming easily annoyed or irritable: 0 = Not at all Feeling afraid as if something awful might happen: 0 = Not at all Total SHAUNA-7 score (0-4 normal; 5-9 mild; 10-14 moderate; 15-21 severe): 0 Source: Developed by Drs. Pa Lopez, Nettie Melendez, Leroy Echols and colleagues, with an educational shana from [employer]. Physical exam (Primary Care) Tobacco/Smoking Status: Tobacco use Status Tobacco use date assessed 03/28/24 03/28/24 10:18 Patient Tobacco Use Status Former Tobacco user 03/28/24 10:18 e-Cigarette/Vaping Use Never Used 03/28/24 10:18 PHQ-9: PHQ-9 Score PHQ-9: Total score 5 03/28/24 10:18 Depression Screening Interpretation: Positive Depression Screening Follow-up: Existing condition and In treatment Thrive Assessment: Date of Thrive Assessment Date Thrive assessed 03/28/24 03/28/24 10:18 Currently or been in a relationship where the following occur: No concerns reported Telehealth Telehealth Telehealth Platform: Telephone Location of provider rendering services: practice address Location of patient: address on file Patient Identification confirmed using: Name, : Yes Telehealth method: voice only Patient verbally consented to treatment: Yes Patient verbally consented to billing insurance company: Yes Patient informed of any privacy concerns related to visit: Yes Minutes spent on Phone/Video with Pt.: 15 Coding Level of Care Code Tele Est Pt Level 3 (23515) Complex EM visit Add On G2211 Diagnoses Type 2 diabetes mellitus E11.9 Major depression F32.9 Assessment & Plan Assessment & Plan (1) Type 2 diabetes mellitus: Code(s): E11.9 - Type 2 diabetes mellitus without complications Category: Medical Plan: Blood work has been ordered. Will call with results. (2) Major depression: Code(s): F32.9 - Major depressive disorder, single episode, unspecified Category: Medical Plan: Condition is stable. Continue current medications. Orders: Orders Complete Blood Count no Diff 03/28/24 E11.9 - Type 2 diabetes mellitus without complications, F32.9 - Major depressive disorder, single episode, unspecified Lipid Panel 03/28/24 E11.9 - Type 2 diabetes mellitus without complications, F32.9 - Major depressive disorder, single episode, unspecified Thyroid Stimulating Hormone 03/28/24 E11.9 - Type 2 diabetes mellitus without complications, F32.9 - Major depressive disorder, single episode, unspecified UA and rflx microscopic 03/28/24 E11.9 - Type 2 diabetes mellitus without complications, F32.9 - Major depressive disorder, single episode, unspecified Basic Metabolic Panel 03/28/24 E11.9 - Type 2 diabetes mellitus without complications, F32.9 - Major depressive disorder, single episode, unspecified Liver Panel 03/28/24 E11.9 - Type 2 diabetes mellitus without complications, F32.9 - Major depressive disorder, single episode, unspecified Hemoglobin A1c 03/28/24 E11.9 - Type 2 diabetes mellitus without complications, F32.9 - Major depressive disorder, single episode, unspecified Medications: New ergocalciferol (vitamin D2) 1,250 mcg PO DAILY 90 caps 1RF Refilled albuterol sulfate 90 mcg/actuation (Ventolin HFA) 1 inh inhalation QID 8.5 grams 3RF J43.9 - Emphysema, unspecified Discontinued fluticasone propion-salmeterol 250-50 mcg/dose (Wixela Inhub) Discontinued Reason: Doctor's Order 1 inh inhalation Q12H 30 days 60 ea 11RF
--- OUTSIDE RECORDS SUMMARY | 2024-03-28 10:52 | XMS_ITS | Patient Health Record ---
Author Organization [facility] Abril wandy Jackman Address [address] [facility] [address] Care Team Providers Care Cloth Cutting Machine Operator Name Role Phone Ty Barros Primary Care Provider Lucy Cordoba Unavailable [phone] Allergies Allergen (clinical drug ingredient) Drug/Non Drug Allergy documented on EMR Reaction Allergy Type Onset Date Status Seasonale Unknown Drug Allergy Active Reason For Referral No Information Medications Medication SIG (Take, Route, Frequency, Duration) Notes Start Date End Date Status Diclofenac Active traZODone HCl 150 MG 1 tablet at bedtime Orally Once a day Active Sertraline HCl 100 MG 1 tablet Orally Once a day Active Montelukast Sodium 10 MG 1 tablet Orally Once a day Active Levothyroxine Sodium 175 MCG/ML 1 mL in the morning before breakfast Orally Once a day Active Jardiance 10 MG 1 tablet Orally Once a day Active Atorvastatin Calcium 40 MG 1 tablet Orally Once a day Active Vitamin D2 Active Tradjenta 5 MG 1 tablet Orally Once a day Active Extra Depth Orthopedic Shoes (1 Pair) with Customized Heat Molded Multidensity Innersoles (3 Pair) as directed Dx: NIDDM/Polyneuropathy (E11.42), Hammertoe Foot Deformity (M20.41,M20.42), Preulcerative Skin Lesion(s) (L85.1 Active carBAMazepine 200 MG 1 tablet Orally Twi ce a day Active Social History Tobacco Use: Social History Observation Description Date Details (start date - stop date) Former Smoker NA - NA Tobacco Use/Smoking Question Answer Notes Are you a: former smoker Additional Findings: Tobacco Non-User Current no n-smoker Alcohol Screen Question Answer Notes Did you have a drink containing alcohol in the p ast year? No Points 0 Interpretation Negative Tobacco use other than smoking: Question Answer Notes Are you an other tobacco user? No Problems Problem Type SNOMED Code ICD Code Onset Dates Problem Status W/U Status Risk Notes Problem Acquired hammer toe of right foot (9943711553671529 ) Other hammer toe(s) (acquired), right foot (M20.41) Active confirmed Problem Acquired hammer toe of left foot (0928172589565664 ) Other hammer toe(s) (acquired), left foot (M20.42) Active confirmed Problem Polyneuropathy due to type 2 diabetes mellitus (479555580) Type 2 diabetes mellitus with diabetic polyneuropathy (E11.42) Active confirmed Vital Signs Height 5ft 3in in 01/08/2024 Weight 175 lbs 01/08/2024 BMI 31 kg/m2 01/08/2024 Encounters Encounter Location Date Provider Diagnosis [address] [address] 10/30/2023 Lucy Cordoba Other hammer toe(s) (acquired), right foot M20.41 ; Other hammer toe(s) (acquired), left foot M20.42 ; Type 2 diabetes mellitus with diabetic polyneuropathy E11.42 and Tinea unguium B35.[address] [address] 01/08/2024 Lucy Cordoba Other hammer toe(s) (acquired), right foot M20.41 ; Other hammer toe(s) (acquired), left foot M20.42 and Type 2 diabetes mellitus with diabetic polyneuropathy E11.[address] [address] 10/30/2023 Lucy Cordoba [facility] [address] [facility] [address] [place] [address] 01/25/2024 Lucy Cordoba [address] [address] 03/25/2024 Lucy Cordoba Assessments Encounter Date Diagnosis (ICD Code) Assessment Notes Treatment Notes Treatment Clinical Notes Section Notes 10/30/2023 Other hammer toe(s) (acquired), right foot (ICD-10 - M20.41) Patient Educated with: DIABETIC FOOT CARE INSTRUCTIONS. pdf (DIABETIC FOOT CARE INSTRUCTIONS. pdf) 10/30/2023 Other hammer toe(s) (acquired), left foot (ICD-10 - M20.42) 01/08/2024 Other hammer toe(s) (acquired), right foot (ICD-10 - M20.41) Patient Educated with: DIABETIC FOOT CARE INSTRUCTIONS. pdf (DIABETIC FOOT CARE INSTRUCTIONS. pdf) 01/08/2024 Other hammer toe(s) (acquired), left foot (ICD-10 - M20.42) 10/30/2023 Type 2 diabetes mellitus with diabetic polyneuropathy (ICD-10 - E11.42) 01/08/2024 Type 2 diabetes mellitus with diabetic polyneuropathy (ICD-10 - E11.42) 10/30/2023 Tinea unguium (ICD-10 - B35.1) Plan Of Treatment Next Appt Details Provider Name:Lucy wilkins, 04/15/2024 11:15:00 AM, [address] [facility], [place], [address], Insurance Providers Payer Name Payer Address Payer Phone Subscriber Number Group Number Insured Name Patient Relationship to Insured Coverage Start Date Coverage End Date Medicare National Govt [employer] [address] [place] [address] [id number] Alberto Stevenson Self - patient is the insured Medical (General) History Medical History History ICD Code Anxiety Arthritis Back,Hip,and Knee pain Broken bones CAD (Cholesterol) Cancer Cataracts covid-19 Depression Diabetic Diverticulitis Epilepsy Gall bladder problems Glaucoma Chicken pox Bone implants/screws High Blood Pressure Kidney disease Lung disease Numbness Psychiatric disorder sinusitis thyroid Transfusions Surgical History Surgery Date(Month/Year) Gall bladder removal lung surgery fistula surgery 12/21/23
--- OUTSIDE RECORDS SUMMARY | 2024-03-28 10:52 | XMS_ITS ---
Author Organization [facility] Abril wandy [place] Address [address] [place] [address] Care Team Providers Care Gas Distribution And Emergency Clerk Name Role Phone Fiorella Ty Primary Care Provider Lucy Cordoba Unavailable [phone] REASON FOR VISIT Toe Irritation, At Risk [...] Active Encounters Encounter [facility] [address] [address] 03/25/2024 Lucy Cordoba Other hammer toe(s) (acquired), [...] Up: 2 Months, Reason: Provider Name:Lucy wilkins, 04/15/2024 11:15:00 AM, [address] [facility], [place], [address], Procedure Notes * Category Sub-Category Detail Notes Nail Reduction Nail Reduction Trimming of dyst rophic nails performed to reduce/remove overall nail length and girth, by manual and electrical means with use of a nail nipper and/or dremel, to more viable healthy nail plate or bed tissue, any number - G0127 Progress Notes * Link BURNSB: (68 yo F)Acc No.[id number]:03/25/2024 Progress Note Patient:?ARTUROPALOMALiza CLAYTON justice Provider:?Lucy Cordoba DPM :1955???Age:68 Y???Sex:Female D ate:03/25/2024 Address:[address] [place] [address] Pcp:Ty Barros Subjective: * Chief Complaints: * ???1. Toe Irritation. 2. At Risk Footcare. * HPI: ???At Risk footcare:?Pt States Last PCP Visit:?Date?12/27/2023 ???Toe pain:?Location:?B/L feet?.?Duration:?several years.?Course:?worse.?Aggravated by:?shoes, any pressure.?Treatments:?change in shoes.? * Medical History:? * Medications:?Taking Extra De pth Orthopedic Shoes (1 Pair) with Customized Heat [...] tablet Orally Twice a day Objective: * Vitals:? * Examination: ???Ophthalmology Referral: ?DIABETES EYE EXAM?Orthopedic: ?MUSCLE STRENGTH:?5/5 all groups in a symmetrical fashion, B/L.?DIGITAL DEFORMITIES:?Digital contracture, PIPJ, 2-5 B/L, incompl-reducible to push-up test, no over, nor underlapping,?there is?evidence of shoe producing skin irritation.?FOOTWEAR:?worn, non-supportive, shoe gear properties exacerbate patient's foot/toe deformity , fair condition.?General Examination: ?GENERAL APPEARANCE:?Reveals a pleasant, alert, well nourished, well- developed, well hydrated individual, who demonstrates proper attention to hygiene/body habitus, and is in no acute distress, Pt serves as own historian for office visit today.?ORIENTED:?person, place, and time.?FOOT EXAM:?Footwear Evaluation?Neurological: ?SENSORY:?Neurological exam demonstrates, reduced light touch sensation, reduced sharp/dull discrimination , reduced vibration sensation, in a stocking fashion, B/L, 5.07 monofilament test performed at plantar aspects of 5 varied sites per foot shows sensation, reduced, B/L.?Nails: ?NAILS are:?1-5 B/L, nails are elongated, overgrown, dystrophic.?Dermatologic: ?SKIN FINDINGS:?, Skin exam reveals normal color, texture, elasticity, and turgor. There are no masses, nor excrescences. The interspaces are clear, B/L.?Vascular: ?DP PULSES (B):?3/4, B/L.?PT PULSES (B):?3/4, B/L.?CAPILLARY FILL TIME:?immediate, all digits, B/L.?TROPHIC CONDITION-TEXTURE/ELASTICITY/TURGOR/HAIR GROWTH (B):?normal, B/L.?TEMPERTURE GRADIENT (C):?normal, warm to cool, proximal to distal, B/L, B/L.?PIGMENTATION:?normal, B/L.? Assessment: * Assessment: 1.?Other hammer toe(s) (acqu ired), right foot - M20.41 (Primary)???Specify :Chronic problem, Worse (4),Rx Management (4)???2.?Other hammer toe(s) (acquired), left foot - M20.42???Specify :Chronic problem, Worse (4),Rx Management (4)???3.?Type 2 diabetes mellitus with diabetic polyneuropathy - E11.42??? Plan: * Treatment: * Procedures:?Nail Reduction:?Nail Reduction?Trimming of dystrophic nails performed to reduce/remove overall nail length and girth, by manual and electrical means with use of a nail nipper and/or dremel, to more viable healthy nail plate or bed tissue, any number - G0127.? * Procedure Codes:?G0127 HOLLEY ING DYSTROPHIC NAILS ANY #, Modifiers: XS * Preventive Medicine:? ??Counseling:?Discussion:?-13: Office or other outpatient visit for the [...] have encouraged the patient to call the office.?Digital Surgery:?Digital surgery was discussed with the patient, We elected to try conservative treatment at the present time, due to the patients medical history and increased asssociated post-operative risks.?Digital Treatment:?HT- I explained to the patient the possible [...] success were answered to their verbally confirmed satisfaction.?Shoe Gear Counseling:?SHOE Rx - The patient was counseled in [...] 3 pair of custom heat-molded inserts was dispensed.? ??Screening/Special Tests:?Fall Risk?Assessment:?Performed ?Screening:?No falls in the past year ?FALLS: Screening for Future Fall Risk?Have you had two or more falls in the past year??No ?Have you had any falls with injury in the past year??No * Follow Up:?2 Months * Images: * The named appointment provid er may or may not be the originator of this progress note, and it is not deemed complete until electronically signed by the appointment provider. Sign off status: Pending * Provider:?Lucy Cordoba DPM Date:?11/2024 Generated for Yolanda souza/Mariano/Sloane on:?03/28/2024 10:52 AM EST History and Physical Notes * HPI [...] excrescences. The interspaces are clear, B/L Orthopedic FOOTWEAR: worn, non-suppor tive, shoe gear properties exacerbate patient's foot/toe deformity [...]
--- OUTSIDE RECORDS SUMMARY | 2024-03-28 10:53 | XMS_ITS ---
Author Organization [facility] Address [address] [place] [address] Care Team Providers Care Metal Pickling Equipment Operator Name Role Phone Ty Barros Primary Care Provider [phone] Lucy Cordoba Unavailable [phone] REASON FOR VISIT OandP Request for detailed Rx Encounters Encounter Location Date [facility] [address] [place] [address] 01/25/2024 Lucy Cordoba Plan Of Treatment Next Appt Details Provider Name:Lucy wilkins, 04/15/2024 11:15:00 AM, [address] [facility], [place], [address], Progress Notes * KATY LizaKelleyB: (68 yo F)Acc No.[id number]:01/25/2024 Patient:?Liza BURNS :1955???Age:68 Y???Sex:Female Address:[address] [place] [address], [address] * true * Date:? Generated for Printi ng/Mariano/eTransmitting on:?03/28/2024 10:52 AM EST
--- OUTSIDE RECORDS SUMMARY | 2024-03-28 10:53 | XMS_ITS | Clinical Summary ---
Author Organization [facility] Address [address] [address] Phone Care Team Providers Care Brazing Machine Operator Name Role Phone Ty Barros MD Primary [...] right eye Active ergocalciferol (Drisdol) 1.25 MG (75586 UT) capsule Take 1 capsule (50,000 Units [...] 66 y/o female recently moved here from [place], former smoker who is part of the [facility] and was followed for an 8 mm [...] JAY BENITEZ checked. Called to [facility] 2. 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 Biomarkers pending. Follow up with Dr. Sawant on August 26 at [facility]. 3. She is being followed by [facility] for kidney disease. 4. Per NCCN guidelines, she will be followed for [address] scan of the chest. Every 6 months X 2 years then annually X 3 years with a visit to the Thoracic Surgery Office. Patient and son wish to have these visits here at [facility]. Her next visit will be in 6 months, January 2023. 5. She is instructed to call with any questions or concerns. Chronic kidney disease, stage 4 (severe) 023 Diabetes mellitus, not otherwise specified 08/02 Hypertension 08/02/2022 Rheumatoid arthritis, not otherwise specified Encounters Date Type Department Care Team Description 03/06/2024 10:20 AM EST Office Visit [facility] [address] [place] [phone] Reuben Holbrook MD Chronic kidney disease, stage 4 (severe) (HCC) (Primary Dx); Diabetes mellitus, not otherwise specified (HCC); Hypertension; Localized edema; Rheumatoid arthritis, not otherwise specified (HCC) 01/23/2024 Orders Only [facility] [address] [phone] Reuben Holbrook MD Chronic kidney disease, stage [...] Office Visit [facility]. [address] [phone] Reuben Holbrook MD [address] [phone] Health Maintenance Due Date Last [...] [place] Care Teams Brazing Machine Operator Relationship Specialty Start Date End Date Ty Barros MD [address] [address] PCP - General Internal Medicine 06/21/23
--- OUTSIDE RECORDS SUMMARY | 2024-03-28 10:53 | XMS_ITS ---
Author Organization [facility] Address [address] [place] [address] Care Team Providers Care Die Mechanic Name Role Phone Ty Barros Primary Care Provider [phone] Lucy Cordoba Unavailable [phone] REASON FOR VISIT cx 03/25 appt Encounters Encounter Location Date Provider Diagnosis [facility] [address] [place] [address] 03/25/2024 Lucy Cordoba Plan Of Treatment Next Appt Details Provider Name:Lucy wilkins, 04/15/2024 11:15:00 AM, [address] [place] [address], [place], [address], Progress Notes * KATY JulianaGilbertB: (68 yo F)Acc No.[id number]:03/25/2024 Patient:?Liza BURNS :1955???Age:68 Y???Sex:Female Address:[address] [place] [address], [address] * true * Date:? Generated for Printi libby/Mariano/eTransmitting on:?03/28/2024 10:52 AM EST
--- OUTSIDE RECORDS SUMMARY | 2024-03-28 10:53 | XMS_ITS | Encounter Summary ---
Author Organization [facility] Address [address] [place] [phone] Phone Care Team Providers Care High School Music Teacher Name Role Phone Ty Barros MD Primary Care Provider + Encounter Details Date Type Department Care Team ([facility] st Contact Info) Description 03/06/2024 10:20 AM EST Office Visit [facility] [address] [place] [phone] Reuben Holbrook MD [address] [address] Chronic kidney disease, stage 4 [...] AM EST [facility] Office Visit Patient Name: Alberto Dee, Female [...] drop before bedtime. ergocalciferol (Drisdol) 1.25 MG (23305 UT) capsule Take 1 capsule (50,000 Units [...] and atrophy c/w advanced ckd Labs in [employer] system show stable creatinine 3.0 mg/dl x 8 months - no labs since 10/2023 Assessment & Plan 1. Chronic kidney disease, stage 4 (severe) ([facility]) 2. Diabetes mellitus, not otherwise specified (HCC) [...] DAUGHTER WAS HERE TODAY RECENT IMMIGRANT FROM [place] 02/2022 WITH LIMITED OLD MEDICAL RECORDS [...] Visit [facility] P.. [address] [facility] [address] [place] [address] Reuben Holbrook MD [address] [facility] [address] [place] [address] Scheduled Orders Name Type Priority Associated Diagnoses [...] (HCC) documented in this encounter Care Teams High School Music Teacher Relationship Specialty Start Date End Date Ty Barros MD [address] [place] [address] PCP - General Internal Medicine 06/21/23 documented as of this encounter
== END 2024-03-28 11:05 | disposition home or self-care (01) ==
LOC: HO.HMCH 10:10
PROVIDERS: PCP Internal Medicine; Visit Provider Internal Medicine
DX: E11.9 Type 2 diabetes mellitus without complications (principal); F32.9 Major depressive disorder, single episode, unspecified

== ENCOUNTER 2024-04-03 09:49 | Outpatient (REF) | payer MEDICARE, MEDICAID, SELFPAY ==
--- OUTSIDE RECORDS SUMMARY | 2024-04-03 10:14 | XMS_ITS ---
Author Organization [facility] Abril wandy Mccall Address [address] [place] [address] Care Team Providers Care Dyed Raw Stock Blower Feeder Name Role Phone Fiorella Ty Primary Care Provider [phone] Lucy Cordoba Unavailable [phone] REASON FOR VISIT Toe Irritation, At Risk [...] Active Encounters Encounter Location Date [facility] [address] [address] 03/25/2024 Lucy Cordoba Other hammer toe(s) (acquired), [...] Provider Name:Lucy wilkins, 04/15/2024 11:15:00 AM, [address] [facility], [place], [address], Procedure Notes * Category Sub-Category Detail Notes Nail Reduction Nail Reduction Trimming of dyst rophic nails performed to reduce/remove overall nail length and girth, by manual and electrical means with use of a nail nipper and/or dremel, to more viable healthy nail plate or bed tissue, any number - G0127 Progress Notes * Link BURNSB: (68 yo F)Acc No.[id number]:03/25/2024 Progress Note Patient:?ARTUROPALOMALiza CLAYTON justice Provider:?Lucy Cordoba DPM :1955???Age:68 Y???Sex:Female D ate:03/25/2024 Address:[address] [place] [address] Pcp:Ty Barros Subjective: * Chief Complaints: * [...] Cordoba DPM Date:?11/2024 Generated for Yolanda souza/Mariano/Sloane on:?04/03/2024 10:14 AM EST History and Physical Notes * [...]
--- OUTSIDE RECORDS SUMMARY | 2024-04-03 10:14 | XMS_ITS ---
Author Organization [facility] Address [address] [place] [address] Care Team Providers Care Supervisor Sulfuric Acid Plant Name Role Phone Ty Barros Primary Care Provider Lucy Cordoba Unavailable [phone] REASON FOR VISIT OandP Request for detailed Rx Encounters Encounter Location Date [facility] [address] [place] [address] 01/25/2024 Lucy Cordoba Plan Of Treatment Next Appt Details Provider Name:Lucy wilkins, 04/15/2024 11:15:00 AM, [address] [facility], [place], [address], Progress Notes * KATY LizaKelleyB: (68 yo F)Acc No.[id number]:01/25/2024 Patient:?Liza BURNS :1955???Age:68 Y???Sex:Female Address:[address] [place] [address], [address] * true * Date:? Generated for Printi ng/Mariano/eTransmitting on:?04/03/2024 10:14 AM EST
--- OUTSIDE RECORDS SUMMARY | 2024-04-03 10:14 | XMS_ITS | Patient Health Record ---
Author Organization [facility] Abril wandy Jackman Address [address] [place] [address] Care Team Providers Care Public Employment Mediator Name Role Phone Ty Barros Primary Care Provider Lucy Cordoba Unavailable [phone] Allergies Allergen (clinical drug ingredient) Drug/Non Drug [...] Problem Acquired hammer toe of right foot (3039845975822231 ) Other hammer toe(s) (acquired), right foot (M20.41) Active confirmed Problem Acquired hammer toe of left foot (2442813001639715 ) Other hammer toe(s) (acquired), left foot (M20.42) Active confirmed Problem Polyneuropathy due to type 2 diabetes mellitus (310734990) Type 2 diabetes mellitus with diabetic polyneuropathy (E11.42) Active confirmed Vital Signs Height 5ft 3in in 01/08/2024 Weight 175 lbs 01/08/2024 BMI 31 kg/m2 01/08/2024 Encounters Encounter Location Date Provider Diagnosis [address] [address] 10/30/2023 Lucy Cordoba Other hammer toe(s) (acquired), right foot M20.41 ; Other hammer toe(s) (acquired), left foot M20.42 ; Type 2 diabetes mellitus with diabetic polyneuropathy E11.42 and Tinea unguium B35.[address] [address] 01/08/2024 Lucy Cordoba Other hammer toe(s) (acquired), right foot M20.41 ; Other hammer toe(s) (acquired), left foot M20.42 and Type 2 diabetes mellitus with diabetic polyneuropathy E11.[address] [address] 10/30/2023 Lucy Cordoba [facility] [address] [facility] [address] [place] [address] 01/25/2024 Lucy Cordoba [address] [address] 03/25/2024 Lucy Cordoba Assessments Encounter Date Diagnosis [...] Provider Name:Lucy wilkins, 04/15/2024 11:15:00 AM, [address] [facility], [place], [address], Insurance Providers Payer Name Payer Address Payer Phone Subscriber Number Group Number Insured Name Patient Relationship to Insured Coverage Start Date Coverage End Date Medicare National [employer]t [employer] [address] [place] [address] [phone] [id number] Alberto Stevenson Self - patient is the [...]
--- OUTSIDE RECORDS SUMMARY | 2024-04-03 10:15 | XMS_ITS ---
Author Organization [facility] Address [address] [place] [address] Care Team Providers Care Final Finisher Forging Dies Name Role Phone Ty Barros Primary Care Provider [phone] Lucy Cordoba Unavailable [phone] REASON FOR VISIT cx 03/25 appt Encounters Encounter Location Date Provider Diagnosis [facility] [address] [place] [address] 03/25/2024 Lucy Cordoba Plan Of Treatment Next Appt Details Provider Name:Lucy wilkins, 04/15/2024 11:15:00 AM, [address] [place] [address], [place], [address], Progress Notes * KATY LizaKelleyB: (68 yo F)Acc No.[id number]:03/25/2024 Patient:?Liza BURNS :1955???Age:68 Y???Sex:Female Address:[address] [place] [address], [address] * true * Date:? Generated for Printi libby/Mariano/eTransmitting on:?04/03/2024 10:14 AM EST
--- OUTSIDE RECORDS SUMMARY | 2024-04-03 10:15 | XMS_ITS | Encounter Summary ---
Author Organization [facility] Address [address] [place] [phone] Phone Care Team Providers Care Garnetter Name Role Phone Ty Barros MD Primary Care Provider + Encounter Details Date Type Department Care Team ([facility] st Contact Info) Description 03/06/2024 10:20 AM EST Office Visit [facility] [address] [place] [phone] Reuben Holbrook MD [address] [address] Chronic kidney disease, stage 4 [...] AM EST [facility] Office Visit Patient Name: Alberto Dee, Female [...] drop before bedtime. ergocalciferol (Drisdol) 1.25 MG (92401 UT) capsule Take 1 capsule (50,000 Units [...] and atrophy c/w advanced ckd Labs in [employer] system show stable creatinine 3.0 mg/dl x 8 months - no labs since 10/2023 Assessment & Plan 1. Chronic kidney disease, stage 4 (severe) ([facility]) 2. Diabetes mellitus, not otherwise specified (HCC) [...] DAUGHTER WAS HERE TODAY RECENT IMMIGRANT FROM [place] 02/2022 WITH LIMITED OLD MEDICAL RECORDS AVAILABLE [...] Visit [facility] P.. [address] [facility] [address] [place] [address] Reuben Holbrook MD [address] [facility] [address] [place] [address] Scheduled Orders Name Type Priority Associated Diagnoses [...] (HCC) documented in this encounter Care Teams Garnetter Relationship Specialty Start Date End Date Ty Barros MD [address] [place] [address] PCP - General Internal Medicine 06/21/23 documented as of this encounter
--- OUTSIDE RECORDS SUMMARY | 2024-04-03 10:15 | XMS_ITS | Clinical Summary ---
Author Organization [facility] Address [address] [address] Phone Care Team Providers Care Dross Puller Name Role Phone Ty Barros MD Primary [...] right eye Active ergocalciferol (Drisdol) 1.25 MG (92775 UT) capsule Take 1 capsule (50,000 Units [...] 66 y/o female recently moved here from [place], former smoker [facility] and was followed for an 8 mm [...] JAY BENITEZ checked. Called to [facility] on [facility] 2. 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 Biomarkers pending. Follow up with Dr. Sawant on August 26 at [facility]. 3. She is being followed by [facility] for kidney disease. 4. Per NCCN guidelines, she will be followed for [address] scan of the chest. Every 6 months X 2 years then annually X 3 years with a visit to the Thoracic Surgery Office. Patient and son wish to have these visits here at [facility]. Her next visit will be in 6 months, January 2023. 5. She is instructed to call with any questions or concerns. Chronic kidney disease, stage 4 (severe) 023 Diabetes mellitus, not otherwise specified 08/02 Hypertension 08/02/2022 Rheumatoid arthritis, not otherwise specified Encounters Date Type Department Care Team Description 03/06/2024 10:20 AM EST Office Visit [facility] [address] [place] [phone] Reuben Holbrook MD Chronic kidney disease, stage 4 (severe) (HCC) (Primary Dx); Diabetes mellitus, not otherwise specified (HCC); Hypertension; Localized edema; Rheumatoid arthritis, not otherwise specified (HCC) 01/23/2024 Orders Only [facility] [address] [phone] Reuben Holbrook MD Chronic kidney disease, stage [...] Office Visit [facility] P. [address] [phone] Reuben oHlbrook MD [address] [address] Health Maintenance Due Date Last [...] [place] Care Teams Dross Puller Relationship Specialty Start Date End Date Ty Barros MD [address] [address] PCP - General Internal Medicine 06/21/23
[2024-04-03 10:23] LABS: Hematocrit 37.5 % (37.0-47.0); Hemoglobin 11.6 g/dl (12.0-16.0); Mean Corpuscular HGB Conc 30.9 g/dl (31.0-35.0); Mean Corpuscular Hemoglobin 28.2 pg (27.0-33.0); Mean Platelet Volume 9.4 fL (9.4-12.3); Platelet Count 233 X10*3/uL (160-400); Red Blood Count 4.12 X10*6/uL (4.20-5.50); Red Cell Distribution Width 14.5 % (11.0-16.0); White Blood Count 6.7 X10*3/uL (4.8-10.8)
[2024-04-03 10:37] LABS: Estimated Average Glucose 114 mg/dL; Hemoglobin A1C 118.0773 umol/L; Hemoglobin A1c % 5.6 % (<6.0); Total Hemoglobin (HGBA1C) 3101.4094 umol/L
[2024-04-03 10:57] LABS: Alanine Aminotransferase 20 U/L (0-31); Albumin Level 3.6 g/dL (3.5-5.0); Alkaline Phosphatase 82 U/L (39-117); Anion Gap 12 (12-20); Aspartate Amino Transferase 22 U/L (5-31); Bilirubin Direct < 0.2 mg/dL (0.0-0.5); Bilirubin Total 0.2 mg/dL (0.0-1.0); Blood Urea Nitrogen 50 mg/dL (9-16); Calcium 8.7 mg/dL (8.4-10.2); Carbon Dioxide 19 mmol/L (22-29); Chloride 108 mmol/L (96-108); Cholesterol 187 mg/dL (<200); Estimated Glomerular Filt Rate 12; Glucose Random 108 mg/dL (60-115); HDL Cholesterol 69 mg/dL (>40); LDL Cholesterol Calculated 92 mg/dL (<100); Potassium 4.6 mmol/L (3.3-5.1); Sodium 134 mmol/L (135-145); Triglycerides 131 mg/dL (<150)
[2024-04-03 11:12] LABS: Appearance Urine Clear; Color Urine Yellow; Glucose Urine UA 500 mg/dL (Negative); Leukocyte Esterase Urine Negative (Negative); Nitrite Urine Negative (Negative); PH 5.5 (5.0-9.0); Specific Gravity - Urine 1.015 (1.005-1.025); UMIC TRIGGER UA YES; Urine Blood Trace (Negative); Urine Ketones Negative (Negative); Urine Protein 300 (3+) mg/dL (Neg-Trace)
[2024-04-03 11:17] LABS: Bacteria Urine None Seen (None Seen); Hyaline Casts Urine 0-2 /LPF (0-2); RBC Urine 0-2 /HPF (0-2); Squamous Epithelial Cell Urine 0-2 /HPF (0-2); WBC Urine 0-5 /HPF (0-5)
[2024-04-03 11:19] LABS: Free T4 (Free Thyroxine) 0.91 ng/dL (0.71-1.85)
== END 2024-04-03 09:50 | disposition home or self-care (01) ==
LOC: HO.LAB 09:49
PROVIDERS: Absent Provider Internal Medicine Endocrinology, Diabetes & Metabolism; PCP Internal Medicine; Visit Provider Internal Medicine
DX: E03.9 Hypothyroidism, unspecified (principal); E11.9 Type 2 diabetes mellitus without complications; F32.9 Major depressive disorder, single episode, unspecified
CPT/HCPCS: 36415; 80048; 80061; 80076; 81001; 83036; 84439; 84443; 85027; 99212

== ENCOUNTER 2024-04-03 10:22 | Outpatient (AMB) | payer MEDICARE, MEDICAID, SELFPAY ==
[2024-04-03 10:31] VITALS: BP 142/60; PULSE 52; BMI 29.8
--- NOTE | 2024-04-03 10:31 | MHC.OFFVIS ---
Vital Signs 04/03/24 10:31 Height 5 ft 3 in Weight 168 lb 6.931 oz BMI 29.8 BP 142/60 H Blood Pressure Location Rt brachial Position Sitting Pulse 52 Pulse Source Pulse Oximeter Intake Visit Reasons: Hyperthyroidism Intake Note: Patient present today for Hyperthyroidism follow up. Technician Required: Yes Technician Language: Dairy Equipment Specialist Services: Technician Present Technician Name: Tito [id number] Information Interpreted: non-clinical & clinical Accompanied by: FRUIT THINNER MACHINE OPERATOR Allergies No Known Allergies Allergy (Verified 04/03/24 10:36) Medication List - Last Reconciled 04/03/24 by Pa Benson MD albuterol sulfate 90 mcg/actuation (Ventolin HFA) 1 inh inhalation QID albuterol sulfate 2.5 mg (3 mL) inhalation Q6H PRN 30 days amlodipine 10 mg (2 x 5 mg) PO DAILY 90 days atorvastatin 40 mg PO DAILY benzonatate 100 mg PO BID PRN bimatoprost 0.01% (Lumigan) 0.01 drps ophthalmic (eye) DAILY brimonidine 0.2% 1 drp ophthalmic (eye) TID brimonidine-timolol 0.2-0.5 % (Combigan) 0.2 drps ophthalmic (eye) ONCE carbamazepine ER 200 mg PO ONCE 90 days empagliflozin (Jardiance) 10 mg PO DAILY 30 days ergocalciferol (vitamin D2) 50,000 units PO QWEEK fluticasone furoate-vilanterol 200-25 mcg/dose (Breo Ellipta) 1 inh inhalation DAILY 30 days labetalol 100 mg PO DAILY levothyroxine 175 mcg PO DAILY linagliptin (Tradjenta) 5 mg PO DAILY 90 days montelukast 10 mg PO DAILY 30 days nebulizers As directed psyllium husk 1 tbsp PO DAILY sennosides (senna) 17.2 mg (2 x 8.6 mg) PO DAILY 30 days sertraline 100 mg PO DAILY sertraline 25 mg PO DAILY trazodone 100 mg PO BEDTIME PRN walker (Ultra-Light Rollator misc) As directed HPI Comments Details: 68 YO F who is seen in consultation at the request of his PCP for Hyothyroidism. First diagnosed with Hypothyroidism >25 yrs Currently using levothyroxined 175 ug QD . Claims compliance Denies - fatigue, -weight gain, +cold intolerance, +dry skin,+ hair loss, -constipation. There is no hx of hyperlipidemia . -Denies obstructive sx of goiter . -Denies consuming any kelp or seaweed. -Denies taking amiodarone. Biotin: No Family hx of thyroid problems in mother, father, sister and son has thyroid cancer? subtype Labs: currently on levothyroxine 175 mcg q.d. [facility] Medical History COPD (chronic obstructive pulmonary disease) ILD (interstitial lung disease) Chest discomfort Cataracts, both eyes Glaucoma Tubular adenoma of colon Esophagitis Personal history of nicotine dependence Gout Right elbow pain Thyroid nodule HTN (hypertension) GI bleed Diverticulitis CKD (chronic kidney disease), stage IV Hypothyroid Emphysema lung Epilepsy Type 2 diabetes mellitus Hypercholesteremia Surgical History History of elbow surgery History of lung surgery History of colonoscopy (~08/11/22) History of esophagogastroduodenoscopy (EGD) History of cholecystectomy History of tubal ligation Family History Sister SLE (systemic lupus erythematosus) Breast cancer Mental health problem Mother Diabetes Acute arthritis Alzheimer disease Age related osteoporosis Father Diabetes HTN (hypertension) Brother Brain tumor Family/Other Breast cancer Lupus Acute arthritis Family/Other HTN (hypertension) Thyroid cancer Other Mental health disorder Social History Household Members: Children Household Members Other:: Living with son in his house Housing: House Alcohol intake: never Patient Tobacco Use Status: Former Tobacco user Years Smoked: (former smoker - onset 16yo - 1ppd x 50yrs, 50pyh - quit 12/2021) e-Cigarette/Vaping Use: Never Used Second Hand Smoke Exposure: Yes service: No Current occupational status: disabled Cognitive needs: Yes (WHEELCHAIR) Hearing needs: No Vision needs: Yes (Glasses) Physical Exam HEENT reveals absence of lid lag , stare or proptosis or eyebrow loss. Thyroid gland measure 15 gms . No nodules or tenderness palpated. There is no cervical adenopathy palpated. Lungs CTA. Heart S1, S2 Reg R/R -M/R/G. Abdominal exam benign. Skin exam reveals absence of dryness or thyroid dermopathy or vitiligo. Nail exam reveals absence of thyroid acropachy or oncholysis. Neurologic exam reveals 2+ reflexes . Muscle Strength is 5/5 proximally. There are no tremors in upper extremities. 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 She appears to be clinically euthyroid Plan is to continue the current therapy. will recheck TSH and free T4. Assuming TSH is normal,At this point, patient returned to the care of her primary care provider and returned back to endocrinology as needed (2) Hypothyroid: Code(s): E03.9 - Hypothyroidism, unspecified Category: Medical Plan: See plan above Orders: Orders Free T4 (Free Thyroxine) Today E03.9 - Hypothyroidism, unspecified Thyroid Stimulating Hormone Today E03.9 - Hypothyroidism, unspecified Coding Level of Care Code Est Pt Level 3 (39843) Diagnoses Hypothyroid E03.9
--- OUTSIDE RECORDS SUMMARY | 2024-04-03 11:02 | XMS_ITS | Clinical Summary ---
Author Organization [facility] Address [address] [address] Phone Care Team Providers Care Cow Tester Name Role Phone Ty Barros MD Primary [...] right eye Active ergocalciferol (Drisdol) 1.25 MG (33201 UT) capsule Take 1 capsule (50,000 Units [...] 66 y/o female recently moved here from [place], former smoker who is [facility] and was followed for an 8 mm [...] JAY BENITEZ checked. Called to [facility] on [facility] 2. 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 Biomarkers pending. Follow up with Dr. Sawant on August 26 at [facility]. 3. She is being followed by [facility] [...] wish to have these visits here at [facility]. Her next visit will be in 6 months, January 2023. 5. She is instructed to call with any questions or concerns. Chronic kidney disease, stage 4 (severe) 023 Diabetes mellitus, not otherwise specified 08/02 Hypertension 08/02/2022 Rheumatoid arthritis, not otherwise specified Encounters Date Type Department Care Team Description 03/06/2024 10:20 AM EST Office Visit [facility] [address] [place] [phone] Reuben Holbrook MD Chronic kidney disease, stage 4 (severe) (HCC) (Primary Dx); Diabetes mellitus, not otherwise specified (HCC); Hypertension; Localized edema; Rheumatoid arthritis, not otherwise specified (HCC) 01/23/2024 Orders Only [facility] [address] [phone] Reuben Holbrook MD Chronic kidney disease, stage [...] Office Visit [facility] P. [address] [phone] Reuben Holbrook MD [address] [address] Health Maintenance Due Date Last [...] [place]IC[place] Care Teams Cow Tester Relationship Specialty Start Date End Date Ty Barros MD [address] [address] PCP - General Internal Medicine 06/21/23
--- OUTSIDE RECORDS SUMMARY | 2024-04-03 11:02 | XMS_ITS | Encounter Summary ---
Author Organization [facility] Address [address] [place] [phone] Phone Care Team Providers Care Shredded Filler Hopper Feeder Name Role Phone Ty Barros MD Primary Care Provider + Encounter Details Date Type Department Care Team ([facility] st Contact Info) Description 03/06/2024 10:20 AM EST Office Visit [facility] [address] [place] [phone] Reuben Holbrook MD [address] [phone] Chronic kidney disease, stage 4 [...] AM EST [facility] Office Visit Patient Name: Alberto Dee, Female [...] drop before bedtime. ergocalciferol (Drisdol) 1.25 MG (80251 UT) capsule Take 1 capsule (50,000 Units [...] and atrophy c/w advanced ckd Labs in [employer] system show stable creatinine 3.0 mg/dl x 8 months - no labs since 10/2023 Assessment & Plan 1. Chronic kidney disease, stage 4 (severe) ([facility]) 2. Diabetes mellitus, not otherwise specified (HCC) [...] DAUGHTER WAS HERE TODAY RECENT IMMIGRANT FROM [place] 02/2022 WITH LIMITED OLD MEDICAL RECORDS AVAILABLE [...] [facility] P.. [address] [facility] [address] [place] [address] Reuben Holbrook MD [address] [facility] [address] [place] [address] Scheduled Orders Name Type Priority Associated Diagnoses [...] (HCC) documented in this encounter Care Teams Shredded Filler Hopper Feeder Relationship Specialty Start Date End Date Ty Barros MD [address] [place] [address] PCP - General Internal Medicine 06/21/23 documented as of this encounter
== END 2024-04-03 10:45 | disposition home or self-care (01) ==
PROVIDERS: PCP Internal Medicine; Visit Provider Internal Medicine Endocrinology, Diabetes & Metabolism
DX: E03.9 Hypothyroidism, unspecified (principal)
CPT/HCPCS: 99213

== ENCOUNTER 2024-05-13 09:52 | Outpatient (AMB) | payer MEDICARE, MEDICAID, SELFPAY ==
[2024-05-13 10:01] VITALS: BP 138/70; PULSE 54; O2SAT 96; BMI 29.5
--- NOTE | 2024-05-13 10:01 | MHC.OFFVIS ---
Vital Signs 05/13/24 10:01 Height 5 ft 3 in Weight 166 lb 7.184 oz BMI 29.5 BP 138/70 Blood Pressure Location Rt brachial Position Sitting Pulse 54 Pulse Source Pulse Oximeter Pulse Oximetry (%) 96 Oxygen Delivery Method Room Air Intake Visit Reasons: Shortness of breath Allergies No Known Allergies Allergy (Verified 04/03/24 10:36) HPI Comments Details: The patient is a 68 year woman with a known history of COPD, MILLICENT on CPAP renal insufficiency with a diagnosis of pulmonary adenocarcinoma status post wedge resection back in 2022. Now she is presenting with dyspnea. The patient states that has been having progressive dyspnea to the point that even minimal activities resulting in shortness of breath. She stays is moderate severity. She had 1 episode also when she was sleeping with CPAP that she woke up with shortness of breath. The patient also has been noticing some chest pressure sensation. She was washing dishes yesterday and she felt pressure sensation. During our brief walking oximetry today she also experienced some chest pressure sensation. Denies any discomfort at rest. Denies having a recent cardiac evaluation or EKG. We did review her imaging studies. She did have a CT scan of the chest done on 02/20/2023 and we did reviewed in compared to her previous CT scan from 2022. It appears that she has increased atelectasis and also areas of interstitial changes suggesting some degree of interstitial lung disease primarily at the bases in the periphery. No significant emphysema. 06/12/2023 the patient is here for pulmonary follow-up visit. The patient overall has been doing about the same. She still complaining of productive cough with mucus production usually whitish in color. Moderate severity. Typically worse in the morning. Her inhalers have been helpful. In addition to that the patient did have pulmonary function studies which I personally reviewed. She does have a restrictive ventilatory defects primarily because of her lung resection. No evidence of any obstruction. The patient does have chronic bronchitis however. She will continue with inhaler I do believe that treating her with azithromycin 3 times a week for 3-4 weeks will be helpful to see if there is improvement in the mucus burden. Otherwise she may be a good candidate for Daliresp. The patient is scheduled to undergo colonoscopy. At this point medically she is doing very well and is able to proceed with a colonoscopy at this time. Patient should be tolerate anesthesia. She also had a CT scan of the chest followed closely by Dr. Camp from thoracic surgery demonstrating no evidence of any recurrence in her pulmonary nodules are stable. 11/13/2023 the patient is here for pulmonary follow-up visit. The patient overall is doing well. She is not using any maintenance inhalers at this time. She is complaining of dyspnea on exertion. Lywt-be-snwdwfhz severity. She also has DuoNeb at home for her nebulizer. She does use it. However, she does have glaucoma. She has stopped all anticholinergics to minimize the risk worsening glaucoma. She understands this. The patient was supposed to be on Breo but she has not been using it. I did speak to her about the importance of using Breo and how to use it effectively so she does not get any adverse effects. She is going to start debris and also to the pharmacy. The patient did have a CT scan back in 03/04/2023 demonstrating some scarring and some atelectasis as well as postoperative changes. Her surgery was back in 2022. The patient does have a scheduled CT scan coming up. Will follow-up with those results. In the meantime we talked about deep breathing exercises and considering online pulmonary rehabilitation at this time. I did give her the information. The patient also also using her CPAP. The CPAP therapy continues to be affecting beneficial. She does follow Neurology for that. Right now the patient is doing well will try to maximize her respiratory therapy and she will follow-up in 6 months. 05/13/2024 the patient is here for pulmonary follow-up visit. The patient overall has been doing well. Recently she had a viral syndrome and had develop respiratory symptoms. She did not have any nebulizer solution. She did have a hard time with a cough but it did improve with time. She is back to her baseline. She does have some mild dyspnea on exertion. She does have a Breo inhaler that she does not use it because she forgets. We talked about the importance of doing so. In addition to that her last CT scan was back in November were mentioned slight progression of the interstitial lung disease primarily at the bases. But, clinically the patient feels well denies any worsening symptoms. I did look at the CAT scan myself and I do not see any significant disease to be worried about. Will have to see her repeat CAT scan does coming up. Otherwise patient is doing well will plan to follow-up in 6 months. If she has any issues prior to that she will call for an earlier assessment. [facility] Medical History COPD (chronic obstructive pulmonary disease) ILD (interstitial lung disease) Chest discomfort Cataracts, both eyes Glaucoma Tubular adenoma of colon Esophagitis Personal history of nicotine dependence Gout Right elbow pain Thyroid nodule HTN (hypertension) GI bleed Diverticulitis CKD (chronic kidney disease), stage IV Hypothyroid Emphysema lung Epilepsy Type 2 diabetes mellitus Hypercholesteremia Surgical History History of elbow surgery History of lung surgery History of colonoscopy (~08/11/22) History of esophagogastroduodenoscopy (EGD) History of cholecystectomy History of tubal ligation Family History Sister SLE (systemic lupus erythematosus) Breast cancer Mental health problem Mother Diabetes Acute arthritis Alzheimer disease Age related osteoporosis Father Diabetes HTN (hypertension) Brother Brain tumor Family/Other Breast cancer Lupus Acute arthritis Family/Other HTN (hypertension) Thyroid cancer Other Mental health disorder Social History Household Members: Children Household Members Other:: Living with son in his house Housing: House Alcohol intake: never Patient Tobacco Use Status: Former Tobacco user Years Smoked: (former smoker - onset 16yo - 1ppd x 50yrs, 50pyh - quit 12/2021) e-Cigarette/Vaping Use: Never Used Second Hand Smoke Exposure: Yes service: No Current occupational status: disabled Cognitive needs: Yes (WHEELCHAIR) Hearing needs: No Vision needs: Yes (Glasses) Review of Systems Const Reports fatigue and Reports weakness Card Denies chest pain, Denies chest pain with activity and Reports dyspnea Resp Reports chest congestion, Reports cough, Reports dyspnea and Reports wheezing GI Reports nausea Musc Reports arthralgias Neuro Reports weakness Psych Reports abnormal sleep pattern Endo Reports fatigue and Reports polydipsia Aller/Immun Reports wheezing Physical Exam Vital Signs: Last Vital Signs Pulse 54 05/13/24 10:01 BP 138/70 05/13/24 10:01 Pulse Ox 96 05/13/24 10:01 Oxygen Delivery Method Room Air 05/13/24 10:01 BMI result Body Mass Index 29.5 Const General: comfortable HEENT Head: Yes normocephalic Neck Neck: Yes supple Chest Chest palpation & inspection: normal inspection of the chest Resp Effort & Inspection: normal respiratory effort Auscultation: diminished lung sounds Cardio Heart sounds: S1 normal heart sound present and S2 normal heart sound present GI Palpation (GI): Soft to palpation Skin General skin exam: no rashes or lesions noted Extrem General: Yes no clubbing, cyanosis or edema Assessment & Plan Assessment & Plan (1) COPD (chronic obstructive pulmonary disease): Code(s): J44.9 - Chronic obstructive pulmonary disease, unspecified Category: Medical Qualifiers: COPD type: emphysema Emphysema type: centrilobular Qualified Code(s): J43.2 - Centrilobular emphysema (2) ILD (interstitial lung disease): Code(s): J84.9 - Interstitial pulmonary disease, unspecified Category: Medical (3) MILLICENT on CPAP: Code(s): G47.33 - Obstructive sleep apnea (adult) (pediatric) Category: Medical (4) Pulmonary nodule: Code(s): R91.1 - Solitary pulmonary nodule Category: Medical (5) Lung cancer: Code(s): C34.90 - Malignant neoplasm of unspecified part of unspecified bronchus or lung Category: Medical Qualifiers: Laterality: left Lung location: upper lobe of lung Qualified Code(s): C34.12 - Malignant neoplasm of upper lobe, left bronchus or lung Plan restart Breo (no LAMA due to glaucoma) ALEXANDRE as needed consider Daliresp Serial CT chest F/U 6-8 months Medications: Changed From albuterol sulfate 90 mcg/actuation (Ventolin HFA) 1 inh inhalation QID 8.5 grams 3RF J43.9 - Emphysema, unspecified To albuterol sulfate 90 mcg/actuation (Ventolin HFA) 1 inh inhalation QID 8.5 grams 11RF 30 days J43.9 - Emphysema, unspecified Refilled fluticasone furoate-vilanterol 200-25 mcg/dose (Breo Ellipta) 1 inh inhalation DAILY 60 ea 11RF 30 days albuterol sulfate 2.5 mg (3 mL) inhalation Q6H PRN 180 mL 11RF shortness of breath or wheezing 30 days Coding Level of Care Code Est Pt Level 4 (16274) Complex EM visit Add On G2211 Diagnoses Centrilobular emphysema J43.2 COPD type: emphysema Emphysema type: centrilobular ILD (interstitial lung disease) J84.9 MILLICENT on CPAP G47.33 Pulmonary nodule R91.1 Malignant neoplasm of upper lobe of left lung C34.12 Laterality: left Lung location: upper lobe of lung Time Spent (min) 17
== END 2024-05-13 10:28 | disposition home or self-care (01) ==
PROVIDERS: PCP Internal Medicine; Visit Provider Hospitalist
DX: J43.2 Centrilobular emphysema (principal); J84.9 Interstitial pulmonary disease, unspecified; G47.33 Obstructive sleep apnea (adult) (pediatric); R91.1 Solitary pulmonary nodule; C34.12 Malignant neoplasm of upper lobe, left bronchus or lung
CPT/HCPCS: 99214; G2211

== ENCOUNTER → 2024-05-13 09:52 | Outpatient (BNVA) | payer MEDICARE, MEDICAID, SELFPAY | PROVIDERS: PCP Internal Medicine; Visit Provider Hospitalist | DX: J43.2 Centrilobular emphysema (principal); J84.9 Interstitial pulmonary disease, unspecified; G47.33 Obstructive sleep apnea (adult) (pediatric); R91.1 Solitary pulmonary nodule; C34.12 Malignant neoplasm of upper lobe, left bronchus or lung; Z99.89 Dependence on other enabling machines and devices | CPT/HCPCS: 99212 ==

== ENCOUNTER 2024-05-15 09:40 | Outpatient (REF) | payer MEDICARE, MEDICAID, SELFPAY ==
[2024-05-15 10:03] LABS: MANUAL DIFF FLAG NO
[2024-05-15 10:07] LABS: Basophils Percent Auto 0.6 % (0-2); Eosinophils Absolute Auto 0.1 X10*3/uL (0.0-0.4); Eosinophils Percent Auto 1.2 % (0-4); Hematocrit 37.7 % (37.0-47.0); Hemoglobin 12.1 g/dl (12.0-16.0); Imm Gran Abs Auto 0.05 X10*3/uL (0.00-0.03); Imm Gran Pct Auto 0.8 % (0.0-0.4); Lymphocytes Absolute Auto 1.1 X10*3/uL (1.2-4.9); Lymphocytes Percent Auto 17.2 % (20-40); Mean Corpuscular HGB Conc 32.1 g/dl (31.0-35.0); Mean Corpuscular Hemoglobin 29.2 pg (27.0-33.0); Mean Corpuscular Volume 90.8 fL (80.0-98.0); Mean Platelet Volume 9.1 fL (9.4-12.3); Monocytes Absolute Auto 0.6 X10*3/uL (0.1-1.2); Monocytes Percent Auto 8.4 % (2-11); Neutrophils Absolute Auto 4.8 x10*3/uL (2.0-8.3); Neutrophils Percent Auto 71.8 % (45-73); Platelet Count 217 X10*3/uL (160-400); Red Blood Count 4.15 X10*6/uL (4.20-5.50); Red Cell Distribution Width 14.6 % (11.0-16.0); White Blood Count 6.6 X10*3/uL (4.8-10.8)
[2024-05-15 10:41] LABS: Parathyroid Hormone Intact 609.3 pg/mL (8.7-77.1)
--- OUTSIDE RECORDS SUMMARY | 2024-05-15 11:00 | XMS_ITS ---
Author Organization [facility] Address [address] [place] [address] Care Team Providers Care Cnc Set Up Operator Name Role Phone Ty Barros Primary Care Provider Lucy Cordoba Unavailable [phone] REASON FOR VISIT A1C Encounters Encounter Location Date Provider Diagnosis [facility] [address] [place] [address] 04/15/2024 Lucy Cordoba Plan Of Treatment Next Appt Details Provider Name:Lucy wilkins, 10/10/2024 11:00:00 AM, [address] [facility], [place], [address], Progress Notes * Juliana BURNSGilbertB: (68 yo F)Acc No.[id number]:04/15/2024 Patient:?Liza BURNS :1955???Age:68 Y???Sex:Female Address:[address] [place] [address], [address] * true * Date:? Generated for Printi ng/Faxing/eTransmitting on:?05/15/2024 11:00 AM EDT
--- OUTSIDE RECORDS SUMMARY | 2024-05-15 11:00 | XMS_ITS | Encounter Summary ---
Author Organization [facility] Address [address] [address] Phone Care Team Providers Care Chief Of Field Operations Name Role Phone Ty Barros MD Primary Care Provider + Encounter Details Date Type Department Care Team (Late st Contact Info) Description 05/15/2024 Orders Only [facility] [address] [place] [address] Reuben Holbrook MD [address] [place] [address] Social History Tobacco Use Types Packs/Day Years Used Date Smoking Tobacco: Never Assessed Comments Unknown Sex and Gender Information Value Date Recorded Sex Assigned at Not on file Legal Sex Female 12:50 PM EDT Gender Identity Not on file Sexual Orientation Not on file documented as of this encounter Plan of Treatment Upcoming Encounters Date Type Department Care Team (Late st Contact Info) Description 06/04/2024 Orders Only [facility] [address] [address] Reuben Holbrook MD [address] [place] [phone] Chronic kidney disease, stage 4 (severe) (HCC); Diabetes mellitus, not otherwise specified (HCC); Hypertension; Localized edema; Rheumatoid arthritis, not otherwise specified (HCC) 07/11/2024 10:20 AM EDT Office Visit [facility] [address] [address] Reuben Holbrook MD [address] [facility] [address] [place] [address] documented as of this encounter Procedures Procedure Name Priority Date/Time Associated Diagnosis Comments PTH, INTACT (HC) Routine 05/15/2024 10:0 2 AM EDT documented in this encounter Results * (ABNORMAL) PTH, Intact (05/15/2024 10:02 AM EDT) Parathyroid Hormone, Intact 609.3(H) 8.7 - 77.1 pg/mL See order comments 05/15/2024 10:0 2 AM EDT 05/15/2024 10:02 AM EDT us Reuben Holbrook MD LAB [id number] SOLICITED RESULTS Final Result [place] See order comments [place] [address] documented in this encounter Visit Diagnoses Not on filedocumented in this encounter Care Teams Chief Of Field Operations Relationship Specialty Start Date End Date Ty Barros MD [address] , [facility] [address] [place] [address] PCP - General Internal Medicine 06/21/23 documented as of this encounter
--- OUTSIDE RECORDS SUMMARY | 2024-05-15 11:00 | XMS_ITS | Encounter Summary ---
Author Organization [facility] Address [address] [address] Phone Care Team Providers Care Integration Lead Name Role Phone Ty Barros MD Primary Care Provider + Encounter Details Date Type Department Care Team (Late st Contact Info) Description 05/14/2024 Documentation Only [facility] [address] [phone] Daly Cartagena [address] [place] [phone] Social History Tobacco Use Types Packs/Day [...] 06/04/2024 Orders Only [facility] [address] [phone] Reuben Holbrook MD [address] [address] Chronic kidney disease, stage 4 (severe) (HCC); Diabetes mellitus, not otherwise specified (HCC); Hypertension; Localized edema; Rheumatoid arthritis, not otherwise specified (HCC) 07/11/2024 10:20 AM EDT Office Visit [facility] [address] [address] Reuben Holbrook MD [address] [facility] [address] [place] [address] documented as of this encounter Procedures Procedure Name Priority Date/Time Associated Diagnosis Comments EXT RESULT ENTRY Routine 05/07/2024 documented in this encounter Results * (ABNORMAL) EXT RESULT ENTRY (05/07/2024) WBC 7.1 3.3 - 10.0 10*3/ML Red Blood Cell Count 4.06 Hemoglobin 11.6(A) 12.0 - 16.0 Hematocrit 37.3 36.0 - 46.0 Platelets 235 150 - 399 10*3/UL Sodium 137 137 - 147 Potassium 4.9 3.4 - 5.5 Carbon Dioxide 22 mmol/L Anion Gap 11 <=30 MMOL/L Glucose 112 60 - 200 BUN 64(A) 4 - 21 mg/dL Creatinine 3.92(A) 0.50 - 1.10 mg/dL Calcium 8.7 8.7 - 10.7 mg/dL eGFR Non-Afr Omani 11 05/07/2024 us Historical Provider LAB BLOOD ORDERABLES Vandana l Result documented in this encounter Visit Diagnoses Not on filedocumented in this encounter Care Teams Integration Lead Relationship Specialty Start Date End Date Ty Barros MD [address] [facility] [address] [place] [address] PCP - General Internal Medicine 06/21/23 documented as of this encounter
--- OUTSIDE RECORDS SUMMARY | 2024-05-15 11:00 | XMS_ITS ---
Author Organization [facility] Address [address] [place] [address] Care Team Providers Care Vp Research Name Role Phone Ty Barros Primary Care Provider [phone] Lucy Cordoba Unavailable [phone] REASON FOR VISIT cx 03/25 appt Encounters Encounter Location Date Provider Diagnosis [address] [address] 03/25/2024 Lucy Cordoba Plan Of Treatment Next Appt Details Provider Name:Lucy wilkins, 10/10/2024 11:00:00 AM, [address] [place] [address], [place], [address], Progress Notes * KATY LizaKelleyB: (68 yo F)Acc No.[id number]:03/25/2024 Patient:?Liza BURNS :1955???Age:68 Y???Sex:Female Address:[address] [place] [address] * true * Date:? Generated for Printi ng/Mariano/eTransmitting on:?05/15/2024 11:00 AM EDT
--- OUTSIDE RECORDS SUMMARY | 2024-05-15 11:01 | XMS_ITS | Patient Health Record ---
[facility] Address [address] [place] [address] Care Team Providers Care Campus Safety Officer Name Role Phone Ty Barros Primary Care Provider Lucy Cordoba Unavailable [phone] Allergies Allergen (clinical drug ingredient) Drug/Non Drug Allergy documented on EMR Reaction Allergy Type Onset Date Status Seasonale Unknown Drug Allergy Active Results Component Value Reference Range Notes HEMOGLOBIN A1C (GLYCOHEMOGLO BIN) Reviewed date:04/16/2024 03:24:30 PM Interpretation: Performing Lab: Notes/Report: HEMOGLOBIN A1C % (HH) 5.6 Reason For Referral No Information Medications Medication SIG (Take, Route, Frequency, Duration) Notes Start Date End Date Status Tradjenta 5 MG 1 tablet Orally Once a day Active Atorvastatin Calcium 40 MG 1 tablet Orally Once a day Active Jardiance 10 MG 1 tablet Orally Once a day Active Eye Drops Active Extra Depth Orthopedic Shoes (1 Pair) with Customized Heat Molded Multidensity Innersoles (3 Pair) as directed Dx: NIDDM/Polyneuropathy (E11.42), Hammertoe Foot Deformity (M20.41,M20.42), Preulcerative Skin Lesion(s) (L85.1 Active carBAMazepine 200 MG 1 tablet Orally Twi ce a day Active Montelukast Sodium 10 MG 1 tablet Orally Once a day Active Diclofenac Active traZODone HCl 150 MG 1 tablet at bedtime Orally Once a day Active Levothyroxine Sodium 175 MCG/ML 1 mL in the morning before breakfast Orally Once a day Active Vitamin D2 Active Sertraline HCl 100 MG 1 tablet Orally Once a day Active Social History Tobacco Use: Social History Observation Description Date Details (start date - stop date) Never Smoker NA - NA Tobacco use other than smoking: Question Answer Notes Are you an other tobacco user? No Tobacco Control (Standard) Question Answer Notes Tobacco use: Nonsmoker Additional Findings: Tobacco non-user Current no nsmoker AUDIT-C (Standard) Question Answer Notes Did you have a drink containing alcohol in the p ast year? No Points 0 Interpretation Negative Problems Problem Type SNOMED Code ICD Code Onset Dates Problem Status W/U Status Risk Notes Problem Acquired hammer toe of right foot (2301415522059712 ) Other hammer toe(s) (acquired), right foot (M20.41) Active confirmed Problem Acquired hammer toe of left foot (9654290190271687 ) Other hammer toe(s) (acquired), left foot (M20.42) Active confirmed Problem Polyneuropathy due to type 2 diabetes mellitus (998039260) Type 2 diabetes mellitus with diabetic polyneuropathy (E11.42) Active confirmed Vital Signs Blood pressure diastolic 61 mm Hg 04/15/2024 Height 5ft 3in in 04/15/2024 Blood pressure systolic 145 mm Hg 04/15/2024 Weight 167 lbs 04/15/2024 BMI 29.58 kg/m2 04/15/2024 Encounters Encounter Location Date Provider Diagnosis [address] [address] 10/30/2023 Lucy Cordoba Other hammer toe(s) (acquired), right foot M20.41 ; Other hammer toe(s) (acquired), left foot M20.42 ; Type 2 diabetes mellitus with diabetic polyneuropathy E11.42 and Tinea unguium B35.[address] [address] 01/08/2024 Lucy Perica Other hammer toe(s) (acquired), right foot M20.41 ; Other hammer toe(s) (acquired), left foot M20.42 and Type 2 diabetes mellitus with diabetic polyneuropathy E11.[address] [address] 04/15/2024 Lucy Perica Other hammer toe(s) (acquired), right foot M20.41 ; Other hammer toe(s) (acquired), left foot M20.42 ; Type 2 diabetes mellitus with diabetic polyneuropathy E11.42 and Tinea unguium B35.1 [facility] [address] [address] 10/30/2023 Lucy Cordoba [facility] [place] [address] [facility] [address] [place] [address] 01/25/2024 Lucy Cordoba [facility] [place] [address] 03/25/2024 Lucy Cordoba [facility] [place] [address] [place] [address] 04/15/2024 Lucy Cordoba Assessments Encounter Date Diagnosis (ICD [...] toe(s) (acquired), left foot (ICD-10 - M20.42) 04/15/2024 Other hammer toe(s) (acquired), right foot (ICD-10 - M20.41) 04/15/2024 Other hammer toe(s) (acquired), left foot (ICD-10 - M20.42) 01/08/2024 Type 2 diabetes mellitus with diabetic polyneuropathy (ICD-10 - E11.42) 10/30/2023 Type 2 diabetes mellitus with diabetic polyneuropathy (ICD-10 - E11.42) 04/15/2024 Type 2 diabetes mellitus with diabetic polyneuropathy (ICD-10 - E11.42) 10/30/2023 Tinea unguium (ICD-10 - B35.1) 04/15/2024 Tinea unguium (ICD-10 - B35.1) Plan Of Treatment Next Appt Details Provider Name:Lucy wilkins, 10/10/2024 11:00:00 AM, [address], [place], [address], Insurance Providers Payer Name Payer Address Payer Phone Subscriber Number Group Number Insured Name Patient Relationship to Insured Coverage Start Date Coverage End Date [employer] [address] [place] [address] [id number] Alberto Stevenson Self - patient is the [...]
--- OUTSIDE RECORDS SUMMARY | 2024-05-15 11:01 | XMS_ITS ---
Author Organization [facility] Address [address] [place] [address] Care Team Providers Care Sports Analyst Name Role Phone Ty Barros Primary Care Provider [phone] Lucy Cordoba Unavailable [phone] Allergies Allergen (clinical drug ingredient) Drug/Non Drug Allergy documented on EMR Reaction Allergy Type Onset Date Status Seasonale Unknown Drug Allergy Active REASON FOR VISIT Toe Irritation, At Risk Footcare Medications Medication SIG (Take, Route, Frequency, Duration) Notes Start Date End Date Status Atorvastatin Calcium 40 MG 1 tablet Orally Once a day Active Eye Drops Active Extra Depth Orthopedic Shoes (1 Pair) with Customized Heat Molded Multidensity Innersoles (3 Pair) as directed Dx: NIDDM/Polyneuropathy (E11.42), Hammertoe Foot Deformity (M20.41,M20.42), Preulcerative Skin Lesion(s) (L85.1 Active carBAMazepine 200 MG 1 tablet Orally Twi ce a day Active Diclofenac Active Tradjenta 5 MG 1 tablet Orally Once a day Active Jardiance 10 MG 1 tablet Orally Once a day Active traZODone HCl 150 MG 1 tablet at bedtime Orally Once a day Active Vitamin D2 Active Sertraline HCl 100 MG 1 tablet Orally Once a day Active Montelukast Sodium 10 MG 1 tablet Orally Once a day Active Levothyroxine Sodium 175 MCG/ML 1 mL in the morning before breakfast Orally Once a day Active Social History [...] ast year? No Points 0 Interpretation Negative Vital Signs Height 5ft 3in in 04/15/2024 Weight 167 lbs 04/15/2024 BMI 29.58 kg/m2 04/15/2024 Blood pressure systolic 145 mm Hg 04/16/19 25 Blood pressure diastolic 61 mm Hg 025 Encounters Encounter Location Date Provider Diagnosis [facility] [address] [address] 04/15/2024 Lucy Beryl Other hammer toe(s) (acquired), right foot M20.41 ; Other hammer toe(s) (acquired), left foot M20.42 ; Type 2 diabetes mellitus with diabetic polyneuropathy E11.42 and Tinea unguium B35.1 Assessments Encounter Date Diagnosis (ICD Code) Assessment Notes Treatment Notes Treatment Clinical Notes Section Notes 04/15/2024 Other hammer toe(s) (acquired), right foot (ICD-10 - M20.41) 04/15/2024 Other hammer toe(s) (acquired), left foot (ICD-10 - M20.42) 04/15/2024 Type 2 diabetes mellitus with diabetic polyneuropathy (ICD-10 - E11.42) 04/15/2024 Tinea unguium (ICD-10 - B35.1) Plan Of Treatment Next Appt Details Follow Up: 3 Months, Reason: Provider Name:Lucy Wilkins Cherelle wilkins, 10/10/2024 11:00:00 AM, [address] [place] [address], [id number], Procedure Notes * Category Sub-Category Detail Notes Debride Nail 6-10 Nail debridement Due to the cl inical pathology outlined in the exam findings, performance of this nail treatment is medically necessary as its management by an unskilled/untrained nonprofessional would put this patients foot and overall health at risk. Therefore, debridement to affected nail(s), as described in exam ( TA, T1, T2, T3, T4, T5, T6, T7, T8, T9, ), was performed exclusively by the physician of record to reduce/remove overall nail length, girth, thickness, subungual debris, and necrotic tissue, by manual and/or electrical means through the use of a nail nipper and/or dremel-type precision lens grinder apprentice, to a more viable healthy nail plate or bed tissue 6-10 nails in total. Silver nitrate was used for any petechial bleeding as necessary. Definitive antifungal treatment options, both pharmaceutical and surgical, have been reviewed and discussed with the patient. The patient solely prefers the use of intermittent/as needed professional debridement services for their nail condition and understands the need for additional periodic treatments to maintain effectiveness in symptomatic relief - 62790 Keratoma Treatment Parring or Cutting o f Benign Hyperkeratotic Lesion(s) (-56) 2-4 Lesions - Due to the at risk nature of the patients medical condition as documented in the exam findings, performance of this keratoderma treatment is medically necessary as its management by an unskilled/untrained nonprofessional would put this patients foot and overall health at risk. Therefore, the benign hyperkeratotic lesions, ( 3 ) in total, locations as stated and described in the exam ( TA, T1, T2), were pared, and/or cut utilizing a sterile 15 blade, tissue nippers, and/or power dremel instrumentation by the physician of record - 88752 Progress Notes * JULITALiza CLAYTONKelleyB: (68 yo F)Acc No.[id number]:04/15/2024 Progress Note Patient:?Liza BURNS Provider:?Lucy Cordoba DPM :1955???Age:68 Y???Sex:Female D ate:04/15/2024 Address:[address] [place], [place] [id number] Pcp:Ty Barros Subjective: * Chief Complaints: * ???Toe IrritationAt Risk Arianna tcare * HPI: ???At Risk footcare:?Pt States Last PCP Visit:?Date?03/28/2024 ???Toe pain:?Location:?B/L feet?.?Duration:?several years.?Aggravated by:?shoes, any pressure.?Treatments:?Rx shoes.? * ROS:?General/Constitutional:?Nausea?admits.?Vomiting?denies.?Hunger Thirst?admits.?Loss appetite?denies.?Chills?denies.?Fatigue?denies.?Fever?denies.?Night Sweats?denies.?Unexplained weight loss?denies.?Unexplained weight gain?denies.?HEENTM:?Dentures?denies.?Dizziness?admits.?Glasses/contacts?admits.?Retinopathy?den ies.?Blurred/double vision?admits.?TMJ?denies.?Discharge/drainage?denies.?Implants?denies.?Sore throat?denies.?Dental implants?denies.?Hard of hearing ?denies.?Difficulty chewing/swallowing/speaking?denies.?Nose bleeds?denies.?Sore mouth?denies.?Respiratory:?On O xygen?denies.?Pneumonia/pleurisy?denies.?Bronchitis?admits.?Emphysema?admits.?Co ughing?denies.?Cough blood?denies.?Shortness of breath?admits.?Wheezing?admits.?Cardiovascular:?Pacemaker?denies.?MVP?denies.?WPW?denies.?CHF?denies.?Heart attack?denies.?Septal defect?denies.?Rapid beat?denies.?Chest pain ?denies.?Atrial Fib.?denies.?Murmur/Palpitations?denies.?Gastrointestinal:?Hemorrhoids?denies.?Stomach/Abdominal pain?denies.?Dark blood stool?denies.?Irritable bowel ?denies.?Constipation?denies.?Diarrhea?denies.?Hematology:?Swelling?denies.?Clots?denies.?Varicose Veins?denies.?Bruising?denies.?Bleeding problem?denies.?Genitourinary:?Blood urine?denies.?Frequent/Painfu/urination/bladder control?admits.?Kidney stones?denies.?Infection (UTI)?denies.?Nephropathy?denies.?sex trans dis (STD)?denies.?Prostate?denies.?Musculoskeletal:?Hammertoes?denies.?Bunions?denies.?Back Pain?admits.?Muscle Cramps/ Resting?denies.?Muscle cramps / walking?admits.?Generalized aches and pains?denies.?Weakness?admits.?Integ.:?Prather?denies.?Scars?denies.?Corns/calluses?admits.?Ingrown nails?admits.?Painful nails?denies.?Open Sores?denies.?Rashes?denies.?Neurologic:?Difficulty sleeping?admits.?Brain disorder?denies.?Numbness?admits.?Balance t rouble?admits.?Confusion?denies.?Fainting/blackouts?denies.?Tingling?denies.?Reed mors?denies.? * Medical History:? * Surgical History:?Katherine painter er removal lung surgery fistula surgery 12/21/23 * Hospitalization/Major Diagno stic Procedure:?Denies Past Hospitalization * Family History:?Mother: shital mckeon, diagnosed with Diabetic - NIDDM, Family history of arthritis.?Father: alive, diagnosed with Diabetic - NIDDM.?Siblings: cancer, kidney/liver disease, poor circulation.? All family has high blood presssre and foot problems. * Social History:?Tobacco Use:?Tobacco use other than smoking?Are you an other tobacco user??No ?Tobacco Control (Standard)?Tobacco use:?Nonsmoker ?Additional Findings: Tobacco non-user?Current nonsmoker ???Drugs/Alcohol:?Drugs?Have you used drugs other than those for medical reasons in the past 12 months??No ???Miscellaneous:?Caffeine: yes, 1 cup. ?Children: yes. ?Exercise: no. ?Marital status: single. ?Occupation: Retired. ???Drug/Alcohol:?AUDIT-C (Standard)?Did you have a drink containing alcohol in the past year??No ?Points?0 ?Interpretation?Negative * Medications:?TakingEye Drops Diclofenac Montelukast Sodium 10 MG Tablet 1 tablet Orally Once a day Levothyroxine Sodium 175 MCG/ML Solution 1 mL in the morning before breakfast Orally Once a day traZODone HCl 150 MG Tablet 1 tablet at bedtime Orally Once a day Sertraline HCl 100 MG Tablet 1 tablet Orally Once a day Vitamin D2 Tradjenta 5 MG Tablet 1 tablet Orally Once a day Jardiance 10 MG Tablet 1 tablet Orally Once a day Atorvastatin Calcium 40 MG Tablet 1 tablet Orally Once a day carBAMazepine 200 MG Tablet 1 tablet Orally Twice a day Extra Depth Orthopedic Shoes (1 Pair) with Customized Heat Molded Multidensity Innersoles (3 Pair) as directed Dx: NIDDM/Polyneuropathy (E11.42), Hammertoe Foot Deformity (M20.41,M20.42), Preulcerative Skin Lesion(s) (L85.1 Medication List reviewed and reconciled with the patientTaking Eye Drops Taking Diclofenac Taking Montelukast Sodium 10 MG Tablet 1 tablet Orally Once a day Taking Levothyroxine Sodium 175 MCG/ML Solution 1 mL in the morning before breakfast Orally Once a day Taking traZODone HCl 150 MG Tablet 1 tablet at bedtime Orally Once a day Taking Sertraline HCl 100 MG Tablet 1 tablet Orally Once a day Taking Vitamin D2 Taking Tradjenta 5 MG Tablet 1 tablet Orally Once a day Taking Jardiance 10 MG Tablet 1 tablet Orally Once a day Taking Atorvastatin Calcium 40 MG Tablet 1 tablet Orally Once a day Taking carBAMazepine 200 MG Tablet 1 tablet Orally Twice a day Taking Extra Depth Orthopedic Shoes (1 Pair) with Customized Heat Molded Multidensity Innersoles (3 Pair) as directed Dx: NIDDM/Polyneuropathy (E11.42), Hammertoe Foot Deformity (M20.41,M20.42), Preulcerative Skin Lesion(s) (L85.1 Medication List reviewed and reconciled with the patient * Allergies:?Seasonaleyes[Scotty rgies Verified] Objective: * Vitals:?Ht: 5ft 3in, Wt:167, BMI:29.58, Shoe size: 8, BP:145/61mm Hg, BS: not taken, Ht-cm: 160.02 cm, Wt-k.75 kg. * Examination: ???Ophthalmology Referral: ?DIABETES EYE EXAM?Procedure Performed:?Yes ?Date of Exam Performed?04/08/2024 ?Diabetic Retinopathy Screening:?Yes ?Findings of Diabetic Eye Exam:?no retinopathy?CQM Exceptions:: ?Hemoglobin A1c not performed?Reason:?No reason specified?Orthopedic: ?MUSCLE STRENGTH:?5/5 all groups in a symmetrical fashion, B/L.?DIGITAL DEFORMITIES:?Digital contracture, PIPJ, 2-5 B/L, incompl-reducible to push-up test, no over, nor underlapping,?there is?evidence of shoe producing skin irritation.?FOOTWEAR:?OT were inspected and noted to be worn, but in good condition giving proper support at the present time.?General Examination: ?GENERAL APPEARANCE:?Reveals a pleasant, alert, well nourished, well- developed, well hydrated individual, who demonstrates proper attention to hygiene/body habitus, and is in no acute distress, Pt serves as own historian for office visit today.?ORIENTED:?person, place, and time.?FOOT EXAM:?Lower Extremity Neurological Exam performed:?Yes ?Visual exam of foot performed:?Yes ?Date?04/15/2024 ?Footwear Evaluation?Footwear Evaluation performed:?Yes?Neurological: ?SENSORY:?Neurological exam demonstrates, reduced light touch sensation, reduced sharp/dull discrimination , reduced vibration sensation, in a stocking fashion, B/L, 5.07 monofilament test performed at plantar aspects of 5 varied sites per foot shows sensation, reduced, B/L.?Nails: ?NAILS are:?,Elongated, overgrown, dystrophic, lytic, greater than 3mm thick, discolored and friable with crumbly malodorous subungual debris, with pain on palpation, TA, T1, T2, T3, T4, T5, T6, T7, T8, T9.?Dermatologic: ?SKIN FINDINGS:?Skin exam reveals Keratotic lesion(s) located at, TA, T1, T2.?Vascular: ?DP PULSES (B):?3/4, B/L.?PT PULSES (B):?3/4, B/L.?CAPILLARY FILL TIME:?immediate, all digits, B/L.?TROPHIC CONDITION-TEXTURE/ELASTICITY/TURGOR/HAIR GROWTH (B):?normal, B/L.?TEMPERTURE GRADIENT (C):?normal, warm to cool, proximal to distal, B/L, B/L.?PIGMENTATION:?normal, B/L.? Assessment: * Assessment: 1.?Other hammer toe(s) (acqu ired), right foot - M20.41 (Primary)???2.?Other hammer toe(s) (acquired), left foot - M20.42???3.?Type 2 diabetes mellitus with diabetic polyneuropathy - E11.42???4.?Tinea unguium - B35.1??? Plan: * Treatment: * Procedures:?Debride Nail 6-10:?Nail debridement?Due to the clinical pathology outlined in the exam findings, performance of this nail treatment is medically necessary as its management by an unskilled/untrained nonprofessional would put this patients foot and overall health at risk. Therefore, debridement to affected nail(s), as described in exam ( TA, T1, T2, T3, T4, T5, T6, T7, T8, T9, ), was performed exclusively by the physician of record to reduce/remove overall nail length, girth, thickness, subungual debris, and necrotic tissue, by manual and/or electrical means through the use of a nail nipper and/or dremel-type precision lens grinder apprentice, to a more viable healthy nail plate or bed tissue 6- 10 nails in total. Silver nitrate was used for any petechial bleeding as necessary. Definitive antifungal treatment options, both pharmaceutical and surgical, have been reviewed and discussed with the patient. The patient solely prefers the use of intermittent/as needed professional debridement services for their nail condition and understands the need for additional periodic treatments to maintain effectiveness in symptomatic relief - 32377.?Keratoma Treatment:?Parring or Cutting of Benign Hyperkeratotic Lesion(s)?(-56) 2-4 Lesions - Due to the at risk nature of the patients medical condition as documented in the exam findings, performance of this keratoderma treatment is medically necessary as its management by an unskilled/untrained nonprofessional would put this patients foot and overall health at risk. Therefore, the benign hyperkeratotic lesions, ( 3 ) in total, locations as stated and described in the exam (??TA,?T1,?T2), were pared, and/or cut utilizing a sterile 15 blade, tissue nippers, and/or power dremel instrumentation by the physician of record - [id number].? * Procedure Codes:?15982 DEBRI DE NAIL, 6 OR MORE, Modifiers: XS 76970 TRIM SKIN LESIONS, 2 TO 4, Modifiers: XS * Preventive Medicine:? ??Counseling:?Discussion:?-13: Office [...] answered to their verbally confirmed satisfaction.?Shoe Gear Counseling:?A thorough inspection of the patients Rxed shoegear and inserts was performed and findings communicated. We reviewed the many important medical advantages for adhering to regularly wearing these shoe and insert accomidative devices daily as well as reviewed the fact that a failure in accepting these recommedations may be deleterious, unable to prevent, and disadvantagely result in, many pedal complications such as skin irritation, skin ulceration, infection, and even loss of toe/foot/leg/or even their life. Time was also spent reviewing the proper footcare techniques including daily skin moisturization, daily foot inspection for any interruption in skin integrity, open lesions, or sign of infection such as redness/malodor/drainage/swelling as well as daily shoe inspection for the presence of internal foreign bodies and shoe as well as insert wear. Patient questions re: shoes, inserts, and self foot inspections were answered to their satisfaction as the patient verbally confirmed a full understanding of the above information.? * Follow Up:?3 Months * Images: * Sign off status: Completed true * Provider:?Lucy Cordoba DPM Date:?04/2024 Generated for Yolanda souza/Mariano/Sloane on:?05/15/2024 11:01 AM EDT History and Physical Notes * HPI (History of Present Illness) Category Sub-Category Detail Notes Category Not es Toe pain Location: B/L feet Duration: several years Aggravated by: shoes, any pressure Treatments: Rx shoes At Risk footcare Pt States Last PCP Visit: Date: 5 Examination Category Sub-Category Detail Notes Category Not es Neurological SENSORY: Neurological exa m demonstrates, reduced light touch sensation, reduced sharp/dull discrimination , reduced vibration sensation, in a stocking fashion, B/L, 5.07 monofilament test performed at plantar aspects of 5 varied sites per foot shows sensation, reduced, B/L Dermatologic SKIN FINDINGS: Skin exam reveal s Keratotic lesion(s) located at, TA, T1, T2 Orthopedic FOOTWEAR EVALUATION: OT were ins pected and noted to be worn, but in good condition giving proper support at the present time DIGITAL DEFORMITIES: Digital contracture , PIPJ, 2-5 [...] Lower Extremity Neurological Exa m performed:: Yes Visual exam of foot performed:: Yes Date: 04/15/2024 ORIENTED: person, place, and t adalberto Footwear Evaluation Footwear Evaluation performe d:: Yes Ophthalmology Referral DIABETES EYE EXAM Procedure Perform ed:: Yes ?Date of Exam Performed: 04/08/2024 Diabetic Retinopathy Screening:: Yes Findings of Diabetic Eye Exam:: no retin opathy Vascular DP PULSES (B): 3/4, B/L PT PULSES (B): 3/4, B/L CAPILLARY FILL TIME: immediate, all digi ts, B/L TEMPERTURE GRADIENT (C): normal, warm to cool, proximal to distal, B/L, B/L TROPHIC CONDITION-TEXTURE/ELASTICITY/TURGOR/HAIR GROWTH (B): normal, B/L PIGMENTATION: normal, B/L Nails NAILS are: ,Elongated, over grown, dystrophic, lytic, greater than 3mm thick, discolored and friable with crumbly malodorous subungual debris, with pain on palpation, TA, T1, T2, T3, T4, T5, T6, T7, T8, T9 CQM Exceptions: Hemoglobin A1c not performed Reason:: No r simone specified
--- OUTSIDE RECORDS SUMMARY | 2024-05-15 11:01 | XMS_ITS | Clinical Summary ---
Author Organization [facility] Address [address] [address] Phone Care Team Providers Care Ct Scan Special Procedures Technologist Name Role Phone Ty Barros MD Primary [...] right eye Active ergocalciferol (Drisdol) 1.25 MG (54002 UT) capsule Take 1 capsule (50,000 Units [...] 66 y/o female recently moved here from [place], former smoker who is [facility] and was followed for an 8 [...] JAY BENITEZ checked. Called to [facility] 2. 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 Biomarkers pending. Follow up with Dr. Sawant on August 26 at [facility]. 3. She is being followed by [facility] for kidney disease. 4. Per NCCN guidelines, she will be followed for [address] scan of the chest. Every 6 months X 2 years then annually X 3 years with a visit to the Thoracic Surgery Office. Patient and son wish to have these visits here at [facility]. Her next visit will be in 6 months, January 2023. 5. She is instructed to call with any questions or concerns. Chronic kidney disease, stage 4 (severe) 023 Diabetes mellitus, not otherwise specified 08/02 Hypertension 08/02/2022 Rheumatoid arthritis, not otherwise specified Encounters Date Type Department Care Team Description 05/15/2024 Orders Only [facility] [address] [phone] Reuben Holbrook MD 05/14/2024 Documentation Only [facility] [address] [address] Daly Cartagena 03/06/2024 10:20 AM EST Office Visit [facility] [address] [address] Reuben Holbrook MD Chronic kidney disease, stage [...] Orders Only [facility] [address] [address] Reuben Holbrook MD [address] [address] Chronic kidney disease, stage 4 (severe) (HCC); Diabetes mellitus, not otherwise specified (HCC); Hypertension; Localized edema; Rheumatoid arthritis, not otherwise specified (HCC) 07/11/2024 10:20 AM EDT Office Visit [facility] [place] [id number] [address] Reuben Holbrook MD [address] [address] Health Maintenance Due Date Last [...] Diabetes: Visual Foot Exam 08/02/2022 Influenza Vaccine (Season Ended) 2024 Hepatitis B Vaccine Aged Out No longe r eligible based on patient's age to complete this topic Procedures Procedure Name Priority Date/Time Associated Diagnosis Comments PTH, INTACT (HC) Routine 05/15/2024 10:0 2 AM EDT EXT RESULT ENTRY Routine 05/07/2024 from Last 3 Months Results * (ABNORMAL) PTH, Intact (05/15/2024 10:02 AM EDT) Parathyroid Hormone, Intact 609.3(H) 8.7 - 77.1 pg/mL See order comments 05/15/2024 10:0 2 AM EDT 05/15/2024 10:02 AM EDT Reuben Holbrook MD LAB [id number] SOLICITED RESULTS Final Result MERLE See order comments [place] [address] * (ABNORMAL) EXT RESULT ENTRY (05/07/2024) WBC [...] 8.7 8.7 - 10.7 mg/dL eGFR Non-Afr Malaysian 11 05/07/2024 Historical Provider LAB BLOOD ORDERABLES Vandana l Result from Last 3 Months Insurance [place]ICAID [place] MEDICARE MEDICARE MEDICAID [place] Care Teams Ct Scan Special Procedures Technologist Relationship Specialty Start Date End Date Ty Barros MD [address] [facility] [address] PCP - General Internal Medicine 06/21/23
[2024-05-15 11:28] LABS: Alanine Aminotransferase 17 U/L (0-31); Albumin Level 3.5 g/dL (3.5-5.0); Alkaline Phosphatase 80 U/L (39-117); Anion Gap 12 (12-20); Aspartate Amino Transferase 22 U/L (5-31); Bilirubin Total 0.2 mg/dL (0.0-1.0); Blood Urea Nitrogen 51 mg/dL (9-16); Calcium 8.6 mg/dL (8.4-10.2); Carbon Dioxide 19 mmol/L (22-29); Chloride 111 mmol/L (96-108); Estimated Glomerular Filt Rate 11; Glucose Random 95 mg/dL (60-115); Potassium 4.8 mmol/L (3.3-5.1); Sodium 137 mmol/L (135-145); Total Protein 6.6 g/dL (6.5-8.0)
[2024-05-15 11:50] LABS: Magnesium 2.3 mg/dL (1.6-2.6); Phosphorus 5.1 mg/dL (2.7-4.5); Uric Acid 6.1 mg/dL (2.4-5.7)
[2024-05-15 12:02] LABS: Creatinine Urine 44.84 mg/dL
[2024-05-15 12:16] LABS: Vitamin D 25-OH Total 25.4 ng/mL (>30)
[2024-05-15 12:53] LABS: Protein/Creatinine Ratio, Ur 9.83 (<0.2); Total Protein Urine Random 441 mg/dL (<12)
== END 2024-05-15 09:41 | disposition home or self-care (01) ==
LOC: HO.LAB 09:40
PROVIDERS: Absent Provider Internal Medicine Medical Oncology; PCP Internal Medicine; Visit Provider Internal Medicine Nephrology
DX: C34.90 Malignant neoplasm of unspecified part of unspecified bronchus or lung (principal); E11.22 Type 2 diabetes mellitus with diabetic chronic kidney disease; I12.9 Hypertensive chronic kidney disease with stage 1 through stage 4 chronic kidney disease, or unspecified chronic kidney disease; N18.4 Chronic kidney disease, stage 4 (severe); R60.0 Localized edema; M06.9 Rheumatoid arthritis, unspecified
CPT/HCPCS: 36415; 80053; 82306; 82570; 83735; 83970; 84100; 84156; 84550; 85025

== ENCOUNTER 2024-05-16 10:08 | Outpatient (REF) | payer MEDICARE, MEDICAID, SELFPAY ==
--- NOTE | ~2024-05-16 | CT_ITS ---
EXAMINATION: CT CHEST WITHOUT IV CONTRAST INDICATION: Follow-up on lung cancer. COMPARISON: Comparison is made with the prior examination dated 11/14/2023. TECHNIQUE: Helical CT scan of the chest was performed without intravenous contrast. Coronal and sagittal reformatted images were generated and reviewed. This CT exam was performed with one or more of the following dose reduction techniques: automated exposure control, adjustment of the mA and/or kV according to patient size, use of iterative reconstruction technique. DLP: 179 mGy-cm CHEST: THYROID: Again seen is a subcentimeter calcified right thyroid nodule. LUNGS: Postsurgical changes are again noted in the upper lobe with a paramediastinal suture line. There is scarring in the medial right lower lobe, the lateral right lower lobe, the medial left lower lobe, and the lingula. There are mild fibrotic changes. No suspicious pulmonary nodules or airspace opacities are identified. MEDIASTINUM: There is no mediastinal lymphadenopathy. ERWIN: Evaluation of the hilar regions is limited by lack of intravenous contrast material. CARDIOVASCULATURE: The heart is normal in size. There is no pericardial effusion. The thoracic aorta is normal in caliber. DEGREE OF CORONARY CALCIFICATION: severe PLEURA: There is no pleural effusion. No pneumothorax. MAIN AIRWAYS: The mainstem bronchi and proximal branches are patent. AXILLA: There is no axillary lymphadenopathy. BONES AND SOFT TISSUES: There is severe degenerative disc disease of the spine. UPPER ABDOMEN: The visualized portions of the liver and spleen have an unremarkable unenhanced appearance. Again seen is a 2.7 x 1.7 cm right adrenal mass measuring 10 HU in density and 2 adjacent left adrenal masses measuring 1.8 cm (-2 HU in density) and a 2.1 cm mass (-3HU in density), consistent with adenomas. CT/CT chest wo IV con IMPRESSION: 1. No evidence of recurrent or metastatic disease. 2. Bilateral adrenal adenomas without change. Electronically signed by: Pa Jarquin MD 05/17/2024 07:15 AM EDT
--- OUTSIDE RECORDS SUMMARY | 2024-05-16 10:59 | XMS_ITS | Patient Health Record ---
[facility] Address [address] [place] [address] Care Team Providers Care Doctor Of Nurse Anesthesia Name Role Phone Ty Barros Primary Care Provider [phone] Lucy Cordoba Unavailable [phone] Allergies Allergen (clinical drug ingredient) Drug/Non Drug [...] Problem Acquired hammer toe of right foot (2736465916093879 ) Other hammer toe(s) (acquired), right foot (M20.41) Active confirmed Problem Acquired hammer toe of left foot (7174180035600709 ) Other hammer toe(s) (acquired), left foot (M20.42) Active confirmed Problem Polyneuropathy due to type 2 diabetes mellitus (300554026) Type 2 diabetes mellitus with diabetic polyneuropathy (E11.42) Active confirmed Vital Signs Blood pressure diastolic 61 mm Hg 04/15/2024 Height 5ft 3in in 04/15/2024 Blood pressure systolic 145 mm Hg 04/15/2024 Weight 167 lbs 04/15/2024 BMI 29.58 kg/m2 04/15/2024 Encounters Encounter Location Date Provider Diagnosis [address] [address] 10/30/2023 uLcy Cordoba Other hammer toe(s) (acquired), right foot M20.41 ; Other hammer toe(s) (acquired), left foot M20.42 ; Type 2 diabetes mellitus with diabetic polyneuropathy E11.42 and Tinea unguium B35.[address] [address] 01/08/2024 Lucy Perica Other hammer toe(s) (acquired), right foot M20.41 ; Other hammer toe(s) (acquired), left foot M20.42 and Type 2 diabetes mellitus with diabetic polyneuropathy E11.[address] [address] 04/15/2024 Lucy Perica Other hammer toe(s) (acquired), right foot M20.41 ; Other hammer toe(s) (acquired), left foot M20.42 ; Type 2 diabetes mellitus with diabetic polyneuropathy E11.42 and Tinea unguium B35.1 [facility] [address] [address] 10/30/2023 Lucy Cordoba [facility] [place] [address] [facility] [address] [place] [address] 01/25/2024 Lucy Cordoba [facility] [place] [address] 03/25/2024 Lucy Cordoba [facility] [address] [place] [address] 04/15/2024 Lucy Cordoba Assessments Encounter Date Diagnosis [...] Provider Name:Lucy wilkins, 10/10/2024 11:00:00 AM, [address], [place], [address], Insurance Providers Payer Name Payer Address Payer Phone Subscriber Number Group Number Insured Name Patient Relationship to Insured Coverage Start Date Coverage End Date [employer] [address] [place] [address] [id number] Alberto Stevenson Self - patient is the [...]
--- OUTSIDE RECORDS SUMMARY | 2024-05-16 10:59 | XMS_ITS | Encounter Summary ---
Author Organization [facility] Address [address] [place] [phone] Phone Care Team Providers Care Water/Wastewater Project Manager Name Role Phone Ty Barros MD Primary Care Provider + Encounter Details Date Type Department Care Team (Latest Contact Info) Description 05/16/2024 9:00 AM EDT Office Visit [facility] [address] [phone] Reuben Holbrook MD [address] [phone] Hypertension (Primary Dx); Chronic kidney disease, stage 4 (severe) (HCC); Diabetes mellitus, not otherwise specified (HCC); Epilepsy, not otherwise specified (HCC); Cyst of kidney; Localized edema; Rheumatoid arthritis, not otherwise specified (HCC); Anemia in chronic kidney disease; Secondary hyperparathyroidism (HCC); Vitamin D deficiency, not otherwise specified; Iron deficiency anemia, not otherwise specified; Stage 5 chronic kidney disease (HCC) Social History Tobacco Use Types Packs/Day Years Used Date Smoking Tobacco: Never Assessed Comments Unknown Sex and Gender Information Value Date Recorded Sex Assigned at Not on file Legal Sex Female 12:50 PM EDT Gender Identity Not on file Sexual Orientation Not on file documented as of this encounter Last Filed Vital Signs Vital Sign Reading Time Taken Comments Blood Pressure 120/65 05/16/2024 9:04 AM EDT Pulse 53 05/16/2024 9:04 AM EDT Temperature - - Respiratory Rate - - Oxygen Saturation 96% 05/16/2024 9:04 AM EDT Inhaled Oxygen Concentration - - Weight 75.3 kg (166 lb) 05/16/2024 9:04 AM EDT Height - - Body Mass Index 29.41 03/06/2024 10:24 AM EST documented in this encounter Progress Notes * Reuben Holbrook MD - 05/16/2024 9:00 AM EDT [facility] Office Visit Patient Name: Alberto Dee, Female Date of : 1955, 68 y.o. Date: 05/16/2024 History of Present Illness Alberto Dee is a 68 y.o. female who is here for follow up of multiple medical problems including advanced ckd stage 5, dm, htn and RA. Interim history since [...] encounter and updated as appropriate: Allergies Meds Past Medical History Past Medical History: Diagnosis [...] drop before bedtime. ergocalciferol (Drisdol) 1.25 MG (44225 UT) capsule Take 1 capsule (50,000 Units [...] List No Known Allergies Physical Exam BP 120/65 Pulse 53 Wt 166 lb (75.3 kg) SpO2 96% BMI 29.41 kg/m?? Last 3 office BP readings: BP Readings from Last 3 Encounters: 05/16/24 120/65 03/06/24 147/60 10/24/23 160/68 General: Well developed well nourished in no acute distress. Poor gait stability Neuro: alert interactive without delirium.no asterixis Eyes: anicteric ENT: moist membranes, no stridor Cardiovascular: regular rate and rhythm, no rub Pulmonary: no distress or tachypnea Abdomen: soft and nondistended Genitourinary: no suprapubic tenderness or bladder distension to palpation Musculoskeletal: No bony tenderness or deviation Dermatologic: No visible rash on exposed skin Hematologic: no petechiae or ecchymoses on exposed skin Extremities: edema is 1+ at ankles anddependent. Has avf with good thrill and bruit left upper arm but small caliber Labs Chemistry Lab Units 05/07/24 0000 09/19/23 1030 06/12/23 1303 CREATININE mg/dL 3.92* 3.34* 3.22* BUN mg/dL 64* 46* 53* POTASSIUM 4.9 4.8 4.4 SODIUM 137 136 135 CO2 mmol/L 22 21* 19* CHLORIDE mmol/L -- 107 110* ALBUMIN g/dL -- 3.9 3.8 3.5* EGFRNAFR 11 -- -- EGFR -- 14 14 WBC AUTO 10*3/ML 7.1 7.2 8.0 HEMATOCRIT 37.3 40.3 38.5 HEMOGLOBIN 11.6* 12.9 12.4 PLATELETS AUTO 10*3/UL 235 267 267 Bone Mineral Lab Units 05/15/24 1002 05/07/24 0000 09/19/23 1030 06/12/23 1303 10/26/22 1010 CALCIUM mg/dL -- 8.7 9.3 9.2 -- PHOSPHORUS mg/dL 5.1* -- 4.6* 4.2 5.3* ALK PHOS U/L -- -- 89 92 -- PTH pg/mL 609.3* -- 496.9* 499.2* 308* VITAMIN D ng/mL 25.4* -- 22.8* -- 33.7 Urine Lab Units 05/15/24 1046 09/19/23 1048 10/26/22 1010 PROT/CREAT RATIO UR 9.83* 10.69* 5.39* Iron Studies Lab Units 09/19/23 1030 FERRITIN ng/mL 41 TIBC mcg/dL 307 IRON SATURATION % 26 No lab exists for component: CYCLOSPORITR 07/2022 renal sonogram shows significant echogenic changes and atrophy c/w advanced ckd Assessment & Plan 1. Hypertension 2. Chronic kidney disease, stage 4 (severe) (HCC) 3. Diabetes mellitus, not otherwise specified (HCC) 4. Epilepsy, not otherwise specified (HCC) 5. Cyst of kidney 6. Localized edema 7. Rheumatoid arthritis, not otherwise specified (HCC) 8. Anemia in chronic kidney disease 9. Secondary hyperparathyroidism (HCC) 10. Vitamin D deficiency, not otherwise specified 11. Iron deficiency anemia, not otherwise specified 12. Stage 5 chronic kidney disease (HCC) IMPRESSION: CKD STAGE 5- DUE TO DM AND HTN - MULTIPLE GFR'S THE LAST YEAR ARE <15 CC/MIN AND SHE HAS HEAVY ESCALATING PROTEINURIA - NONADHERENT AND NO LABS SINCE FALL 2023 - DID CAPTURE LABS 04/2024 WITH GFR 11 CC./MIN AND CREATININE UP TO ALMOST 4 DM WITH COMPLICATIONS NEPHROTIC RANGE PROTEINURIA >10.5 GM/DAY IN 09/2023 - STATISTICALLY DUE TO DM NEPHROPATHY HTN - SEEMS TO BE TARGETED OK AT THIS TIME - ADHERENCE IS A CONCERN RHEUMATOID ARTHRITIS EPILEPSY H/O GI BLEED ANEMIA CKD - NOT ON NATI YET - MILD - HBG 11 SECONDARY HYPERPARATHYROIDISM - VIT D DEFICIENT DUE TO NONADHARENCE. PHOS CREEPING UP TOP 5.1 AND CALCIUM 8.7 DEPENDENT EDEMA- STABLE BILATERAL ADRENAL NODULES LIKELY LIPOMATOUS LUNG CANCER S/P WEDGE RESECTION POOR INSIGHT -NONADHERENCE - NO SHOWS - LACK OF LABS - ETC - SON AND DAUGHTER SEEM TO BE TRYING TO HELP [facility] FROM [place] 02/2022 WITH LIMITED OLD MEDICAL RECORDS AVAILABLE OPTIONS - SHE HAS HAD TRAINING CLASSES AND IN OFFICE EDUCATION AND CHOOSES HEMODIALYSIS AND HAD ACCESS - DR PAUL MENDOZA - AVF CREATED LATE 2023 - SEEMS VIABLE BUT STILL SOMEWHAT SMALL IN CALIBER DISCUSSION: -she has advanced ckd with heavy proteinuria and uncontrolled htn and evolving na retention and is now consistently stage 5 with GFR < 15 cc/min -we spent a long time again today on dialysis and transplant education again -she has opted for hemodialysis and had arm access created -given age and h/o lung cancer, she is a poor transplant candidate -optimize sugar, bp and medication control as you are doing -avoid nephrotoxins -adjust meds for gfr <15 cc/min at best -no uremia or urgent indication for HD today but gfr decling and starting to get metabolic issues with edema, phos, pth 600, etc -Therefore we should initiate [facility] in the next few months -I am sending her dack to DR mendoza for avf evaluation to see if we can use the access -if we are able to try, then I will plan to start her on dialysis nex month after we philipp new labs and hepatitis panel -uremic precautions given -discussed with daughter Orders Placed This Encounter Comprehensive Metabolic Panel Uric Acid Magnesium Phosphorus PTH, Intact Vitamin D 25 Hydroxy CBC and Differential Protein, Total, Random Urine w/Creatinine (Protein/Creat Ratio) Hepatitis B Surface Antigen Hepatitis C antibody Hepatitis B Core Antibody, Total Hepatitis B Surface Antibody Return in about 2 months (around 07/16/2024) for OV with labs 1-2 weeks prior to visit. Reuben Holbrook MD documented in this encounter Plan of Treatment Upcoming Encounters Date Type Department Care Team (Late st Contact Info) Description 06/04/2024 Orders Only [facility] [address] [phone] Reuben Holbrook MD [address] [place] [phone] Chronic kidney disease, stage 4 (severe) (HCC); Diabetes mellitus, not otherwise specified (HCC); Hypertension; Localized edema; Rheumatoid arthritis, not otherwise specified (HCC) 07/16/2024 9:40 AM EDT Office Visit [facility] [address] [phone] Reuben Holbrook MD [address] [place] [phone] Scheduled Orders Name Type Priority Associated Diagnoses Orde r Schedule Comprehensive Metabolic Panel Lab Routine Hypertension Chronic kidney disease, stage 4 (severe) (HCC) Diabetes mellitus, not otherwise specified (HCC) Epilepsy, not otherwise specified (HCC) Cyst of kidney Localized edema Rheumatoid arthritis, not otherwise specified (HCC) Expected: 08/15/2024, Expires: 06/15/2025 Uric Acid Lab Routine Hypertension Chronic kidney disease, stage 4 (severe) (HCC) Diabetes mellitus, not otherwise specified (HCC) Epilepsy, not otherwise specified (HCC) Cyst of kidney Localized edema Rheumatoid arthritis, not otherwise specified (HCC) Expected: 08/15/2024, Expires: 06/15/2025 Magnesium Lab Routine Hypertension Chronic kidney disease, stage 4 (severe) (HCC) Diabetes mellitus, not otherwise specified (HCC) Epilepsy, not otherwise specified (HCC) Cyst of kidney Localized edema Rheumatoid arthritis, not otherwise specified (HCC) Expected: 08/15/2024, Expires: 06/15/2025 Phosphorus Lab Routine Hypertension Chronic kidney disease, stage 4 (severe) (HCC) Diabetes mellitus, not otherwise specified (HCC) Epilepsy, not otherwise specified (HCC) Cyst of kidney Localized edema Rheumatoid arthritis, not otherwise specified (HCC) Expected: 08/15/2024, Expires: 06/15/2025 PTH, Intact Lab Routine Hypertension Chronic kidney disease, stage 4 (severe) (HCC) Diabetes mellitus, not otherwise specified (HCC) Epilepsy, not otherwise specified (HCC) Cyst of kidney Localized edema Rheumatoid arthritis, not otherwise specified (HCC) Expected: 08/15/2024, Expires: 06/15/2025 Vitamin D 25 Hydroxy Lab Routine Hypertension Chronic kidney disease, stage 4 (severe) (HCC) Diabetes mellitus, not otherwise specified (HCC) Epilepsy, not otherwise specified (HCC) Cyst of kidney Localized edema Rheumatoid arthritis, not otherwise specified (HCC) Expected: 08/15/2024, Expires: 06/15/2025 CBC and Differential Lab Routine Hypertension Chronic kidney disease, stage 4 (severe) (HCC) Diabetes mellitus, not otherwise specified (HCC) Epilepsy, not otherwise specified (HCC) Cyst of kidney Localized edema Rheumatoid arthritis, not otherwise specified (HCC) Expected: 08/15/2024, Expires: 06/15/2025 Protein, Total, Random Urine w/Creatinine (Protein/Creat Ratio) Lab Routine Hypertension Chronic kidney disease, stage 4 (severe) (HCC) Diabetes mellitus, not otherwise specified (HCC) Epilepsy, not otherwise specified (HCC) Cyst of kidney Localized edema Rheumatoid arthritis, not otherwise specified (HCC) Expected: 08/15/2024, Expires: 06/15/2025 Hepatitis B Surface Antigen Lab Routine Hypertension Chronic kidney disease, stage 4 (severe) (HCC) Diabetes mellitus, not otherwise specified (HCC) Epilepsy, not otherwise specified (HCC) Cyst of kidney Localized edema Rheumatoid arthritis, not otherwise specified (HCC) Anemia in chronic kidney disease Secondary hyperparathyroidism (HCC) Vitamin D deficiency, not otherwise specified Iron deficiency anemia, not otherwise specified Expected: 07/16/2024, Expires: 06/15/2025 Hepatitis C antibody Lab Routine Hypertension Chronic kidney disease, stage 4 (severe) (HCC) Diabetes mellitus, not otherwise specified (HCC) Epilepsy, not otherwise specified (HCC) Cyst of kidney Localized edema Rheumatoid arthritis, not otherwise specified (HCC) Anemia in chronic kidney disease Secondary hyperparathyroidism (HCC) Vitamin D deficiency, not otherwise specified Iron deficiency anemia, not otherwise specified Expected: 07/16/2024, Expires: 06/15/2025 Hepatitis B Core Antibody, Total Lab Routine Hypertension Chronic kidney disease, stage 4 (severe) (HCC) Diabetes mellitus, not otherwise specified (HCC) Epilepsy, not otherwise specified (HCC) Cyst of kidney Localized edema Rheumatoid arthritis, not otherwise specified (HCC) Anemia in chronic kidney disease Secondary hyperparathyroidism (HCC) Vitamin D deficiency, not otherwise specified Iron deficiency anemia, not otherwise specified Expected: 07/16/2024, Expires: 06/15/2025 Hepatitis B Surface Antibody Lab Routine Hypertension Chronic kidney disease, stage 4 (severe) (HCC) Diabetes mellitus, not otherwise specified (HCC) Epilepsy, not otherwise specified (HCC) Cyst of kidney Localized edema Rheumatoid arthritis, not otherwise specified (HCC) Anemia in chronic kidney disease Secondary hyperparathyroidism (HCC) Vitamin D deficiency, not otherwise specified Iron deficiency anemia, not otherwise specified Expected: 07/16/2024, Expires: 06/15/2025 documented as of this encounter Visit Diagnoses Diagnosis Hypertension- Primary Chronic kidney disease, stage 4 (severe) (HCC) Diabetes mellitus, not otherwise specified (HCC) Epilepsy, not otherwise specified (HCC) Cyst of kidney Localized edema Rheumatoid arthritis, not otherwise specified (HCC) Anemia in chronic kidney disease Secondary hyperparathyroidism (HCC) Vitamin D deficiency, not otherwise specified Iron deficiency anemia, not otherwise specified Stage 5 chronic kidney disease (HCC) Chronic kidney disease, stage 4 (severe) (HCC) Diabetes mellitus, not otherwise specified (HCC) Hypertension Localized edema Rheumatoid arthritis, not otherwise specified (HCC) documented in this encounter Care Teams Water/Wastewater Project Manager Relationship Specialty Start Date End Date Ty Barros MD [address] [place] [address] PCP - General Internal Medicine 06/21/23 documented as of this encounter
--- OUTSIDE RECORDS SUMMARY | 2024-05-16 10:59 | XMS_ITS | Encounter Summary ---
Author Organization [facility] Address [address] [phone] Phone Care Team Providers Care Crusher Machine Operator Name Role Phone Ty Barros MD Primary Care Provider + Encounter Details Date Type Department Care Team (Late st Contact Info) Description 05/14/2024 Documentation Only [facility] [address] [phone] Daly Cartagena [address] [place] [phone] Social History Tobacco Use Types Packs/Day [...] Orders Only [facility] [address] [phone] Reuben Holbrook MD [address] [phone] Chronic kidney disease, stage 4 (severe) (HCC); Diabetes mellitus, not otherwise specified (HCC); Hypertension; Localized edema; Rheumatoid arthritis, not otherwise specified (HCC) 07/16/2024 9:40 AM EDT Office Visit [facility] [address] [place] [phone] Reuben Holbrook MD [address] [facility] [address] [place] [phone] documented as of this encounter [...] 8.7 8.7 - 10.7 mg/dL eGFR Non-Afr Hungarian 11 05/07/2024 us Historical Provider LAB BLOOD ORDERABLES Vandana l Result documented in this encounter Visit Diagnoses Not on filedocumented in this encounter Care Teams Crusher Machine Operator Relationship Specialty Start Date End Date Ty Barros MD [address] [facility] [place] [address] PCP - General Internal Medicine 06/21/23 documented as of this encounter
--- OUTSIDE RECORDS SUMMARY | 2024-05-16 10:59 | XMS_ITS | Encounter Summary ---
Author Organization [facility] Address [address] [phone] Phone Care Team Providers Care Director Information Security Name Role Phone Ty Barros MD Primary Care Provider + Encounter Details Date Type Department Care Team (Late st Contact Info) Description 05/15/2024 Orders Only [facility] [address] [phone] Reuben Holbrook MD [address] [place] [phone] Social History Tobacco Use Types Packs/Day [...] 06/04/2024 Orders Only [facility] [address] [phone] Reuben Holbrook MD [address] [place] [phone] Chronic kidney disease, stage 4 (severe) (HCC); Diabetes mellitus, not otherwise specified (HCC); Hypertension; Localized edema; Rheumatoid arthritis, not otherwise specified (HCC) 07/16/2024 9:40 AM EDT Office Visit [facility] [address] [phone] Reuben Holbrook MD [address] [facility] [address] [place] [phone] documented as of this encounter Procedures Procedure Name Priority Date/Time Associated Diagnosis Comments PTH, INTACT (HC) Routine 05/15/2024 10:0 2 AM EDT documented in this encounter Results * (ABNORMAL) PTH, Intact (05/15/2024 10:02 AM EDT) Parathyroid Hormone, Intact 609.3(H) 8.7 - 77.1 pg/mL See order comments 05/15/2024 10:0 2 AM EDT 05/15/2024 10:02 AM EDT us Reuben Holbrook MD LAB [id number] SOLICITED RESULTS Final Result [facility] See order comments [place] [address] documented in this encounter Visit Diagnoses Not on filedocumented in this encounter Care Teams Director Information Security Relationship Specialty Start Date End Date Ty Barros MD [address] , [facility] [address] [place] [address] PCP - General Internal Medicine 06/21/23 documented as of this encounter
--- OUTSIDE RECORDS SUMMARY | 2024-05-16 10:59 | XMS_ITS | Clinical Summary ---
Author Organization [facility] Address [address] [address] Phone Care Team Providers Care Carbonation Equipment Tender Name Role Phone Ty Barros MD Primary [...] right eye Active ergocalciferol (Drisdol) 1.25 MG (71957 UT) capsule Take 1 capsule (50,000 Units [...] Active Problems Problem Noted Date Diagnosed Date Anemia in chronic kidney disease 05/16/2024 Secondary hyperparathyroidism 05/16/2024 Vitamin D deficiency, not otherwise specified Iron deficiency anemia, not otherwise specified 05/16/2024 Cyst of kidney 10/05/2023 Localized edema 02/19/2023 Epilepsy, not otherwise specified 02/19/2023 History of malignant neoplasm of thoracic cavity structure 08/09/2022 Overview (06/20/2023): Last Assessment & Plan: Ms. Tayo Dee is a 66 y/o female recently moved here from [place], former smoker who is [facility] and was followed for an 8 mm [...] JAY BENITEZ checked. Called to [facility] 2. 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 Biomarkers pending. Follow up with Dr. Sawant on August [address] [facility]. 3. She is being followed by [facility] for kidney disease. 4. Per NCCN guidelines, she will be followed for [address] scan of the chest. Every 6 months X 2 years then annually X 3 years with a visit to the Thoracic Surgery Office. Patient and son wish to have these visits here at [facility]. Her next visit will be in 6 months, January 2023. 5. She is instructed to call with any questions or concerns. Stage 5 chronic kidney disease 08/02/2022 Diabetes mellitus, not otherwise specified 08/02 Hypertension 08/02/2022 Rheumatoid arthritis, not otherwise specified Encounters Date Type Department Care Team Description 05/16/2024 9:00 AM EDT Office Visit [facility] [address] [address] Reuben Holbrook MD Hypertension (Primary Dx); Chronic kidney disease, stage 4 (severe) (HCC); Diabetes mellitus, not otherwise specified (HCC); Epilepsy, not otherwise specified (HCC); Cyst of kidney; Localized edema; Rheumatoid arthritis, not otherwise specified (HCC); Anemia in chronic kidney disease; Secondary hyperparathyroidism (HCC); Vitamin D deficiency, not otherwise specified; Iron deficiency anemia, not otherwise specified; Stage 5 chronic kidney disease (HCC) 05/15/2024 Orders Only [facility] [address] [address] Reuben Holbrook MD 05/14/2024 Documentation Only [facility] [address] [address] Daly Cartagena 03/06/2024 10:20 AM EST Office Visit [facility] [address] [address] Reuben Holbrook MD Chronic kidney disease, stage [...] (166 lb) 05/16/2024 9:04 AM EDT Height 160 cm (5' 3 ) 03/06/2024 10:24 AM EST Body Mass Index 29.41 03/06/2024 10:24 AM EST Plan of Treatment Upcoming Encounters Date Type Department Care Team (Late st Contact Info) Description 06/04/2024 Orders Only [facility] [address] [place] [phone] Reuben Holbrook MD [address] [address] Chronic kidney disease, stage 4 (severe) (HCC); Diabetes mellitus, not otherwise specified (HCC); Hypertension; Localized edema; Rheumatoid arthritis, not otherwise specified (HCC) 07/16/2024 9:40 AM EDT Office Visit [facility] [address] [phone] Reuben Holbrook MD [address] [address] Health Maintenance Due Date Last [...] Procedure Name Priority Date/Time Associated Diagnosis Comments PROTEIN / CREATININE RATIO, URINE Routine 05/15/2024 10:46 AM EDT Chronic kidney disease, stage 4 (severe) (HCC) Diabetes mellitus, not otherwise specified (HCC) Hypertension Localized edema Rheumatoid arthritis, not otherwise specified (HCC) PTH, INTACT (HC) Routine 05/15/2024 10:0 2 AM EDT VITAMIN D 25 HYDROXY Routine 05/15/2024 10:02 AM EDT Chronic kidney disease, stage 4 (severe) (HCC) Diabetes mellitus, not otherwise specified (HCC) Hypertension Localized edema Rheumatoid arthritis, not otherwise specified (HCC) PHOSPHATE ( PHOSPHORUS) Routine 05/15/2024 10:02 AM EDT Chronic kidney disease, stage 4 (severe) (HCC) Diabetes mellitus, not otherwise specified (HCC) Hypertension Localized edema Rheumatoid arthritis, not otherwise specified (HCC) MAGNESIUM Routine 05/15/2024 10:02 AM EDT Chronic kidney disease, stage 4 (severe) (HCC) Diabetes mellitus, not otherwise specified (HCC) Hypertension Localized edema Rheumatoid arthritis, not otherwise specified (HCC) URIC ACID Routine 05/15/2024 10:02 AM EDT Chronic kidney disease, stage 4 (severe) (HCC) Diabetes mellitus, not otherwise specified (HCC) Hypertension Localized edema Rheumatoid arthritis, not otherwise specified (HCC) EXT RESULT ENTRY Routine 05/07/2024 from Last 3 Months Results * (ABNORMAL) Protein, Total, Random Urine w/Creatinine (Protein/Creat Ratio) (05/15/2024 10:46 AM EDT) Creatinine, Urine 44.84 mg/dL See order comments Protein Urine Random 441(H) <12 mg/dL See order comments Comment:Verified by dilution Protein/Creati nine Ratio, Urine 9.83(H) <0.2 See order comments Comment: The spot urine protein:creatinine ratio may increase to 0.3 during normal . Urine (Urine, Clean Catch) 05/15/2024 10:46 AM EDT 05/15/2024 10:46 AM EDT us Reuben Holbrook MD LAB URINE ORDERABLES Final Re sult Performing Organization Address City/[facility]/ZIP Co de Phone Number [place] See order comments [place] [address] * (ABNORMAL) PTH, Intact (05/15/2024 10:02 AM EDT) Parathyroid Hormone, Intact 609.3(H) 8.7 - 77.1 pg/mL See order comments 05/15/2024 10:0 2 AM EDT 05/15/2024 10:02 AM EDT us Reuben Holbrook MD LAB [id number] SOLICITED RESULTS Final Result Performing Organization Address [facility] Co de Phone Number [place] See order comments [place] [address] * (ABNORMAL) Vitamin D 25 Hydroxy (05/15/2024 10:02 AM EDT) Vitamin D, 25-Hydroxy 25.4(L) >30 ng/mL See order comments Comment: Health Based Reference Values* < 20 ??ng/mL ??Deficient 20-30 ng/mL ??Insufficient > 30 ??ng/mL ??Sufficient *Kyle GREER. N Engl J Med. 2007;357:266-280 There is no well-established upper level of normal vitamin D levels. Some laboratories use 50 ng/mL as an upper limit of normal. However, toxicity is patient-dependent and may occur at any level. Careful correlation with the patient's presentation is necessary and, if there is concern for vitamin D toxicity, treatment should be considered irrespective of the serum level. Care must be taken in interpreting Vitamin D results from different laboratories and methodologies. ??Published data demonstrated that results from patients undergoing hemodialysis may show a negative bias when tested with various automated 25-OH vitamin D assays when compared to LC-MS/MS. When testing samples from patients whose predominant form of Vitamin D is Vitamin D2, such as patients receiving Vitamin D2 supplementation, results that are subtherapeutic should be confirmed with another method such as LC-MS/MS. Blood (Blood, Venous) 05/15/2024 10:02 AM EDT 05/15/2024 10:02 AM EDT Result Alvaro Holbrook MD LAB BLOOD ORDERABLES Final Re sult Performing Organization Address [facility] de Phone Number [place] See order comments [place] [address] * (ABNORMAL) Uric Acid (05/15/2024 10:02 AM EDT) Uric Acid 6.1(H) 2.4 - 5.7 mg/dL See order comments Blood (Blood, Venous) 05/15/2024 10:02 AM EDT 05/15/2024 10:02 AM EDT us Reuben Holbrook MD LAB BLOOD ORDERABLES Final Re sult Performing Organization Address [facility] de Phone Number [place] See order comments [place] [address] * (ABNORMAL) Phosphorus (05/15/2024 10:02 AM EDT) Phosphorus, Serum 5.1(H) 2.7 - 4.5 mg/dL See order comments Blood (Blood, Venous) 05/15/2024 10:02 AM EDT 05/15/2024 10:02 AM EDT us Reuben Holbrook MD LAB BLOOD ORDERABLES Final Re sult Performing Organization Address [facility] de Phone Number [place] See order comments [place] [address] * Magnesium (05/15/2024 10:02 AM EDT) Magnesium 2.3 1.6 - 2.6 mg/dL See order comments Blood (Blood, Venous) 05/15/2024 10:02 AM EDT 05/15/2024 10:02 AM EDT Reuben Holbrook MD LAB BLOOD ORDERABLES Final Re sult [place] See order comments [place] [address] * (ABNORMAL) EXT RESULT ENTRY (05/07/2024) WBC [...] 8.7 8.7 - 10.7 mg/dL eGFR Non-Afr Israeli 11 05/07/2024 Mau Provider LAB BLOOD ORDERABLES Vandana l Result from Last 3 Months Insurance MEDICAID [place] MEDICARE MEDICARE MEDICAID [place] Care Teams Carbonation Equipment Tender Relationship Specialty Start Date End Date Ty Barros MD [address] [facility] [place] [address] PCP - General Internal Medicine 06/21/23
--- OUTSIDE RECORDS SUMMARY | 2024-05-16 10:59 | XMS_ITS ---
Author Organization [facility] Address [address] [place] [address] Care Team Providers Care Technical Artist Name Role Phone Ty Barros Primary Care Provider [phone] Lucy Cordoba Unavailable [phone] REASON FOR VISIT A1C Encounters Encounter Location Date Provider [facility] [address] [place] [address] 04/15/2024 Lucy Cordoba Plan Of Treatment Next Appt Details Provider Name:Lucy wilkins, 10/10/2024 11:00:00 AM, [address] [facility], [place], [address], Progress Notes * Juliana BURNSGilbertB: (68 yo F)Acc No.[id number]:04/15/2024 Patient:?Liza BURNS :1955???Age:68 Y???Sex:Female Address:[address] [place] [address], [address] * true * Date:? Generated for Printi ng/Faxing/eTransmitting on:?05/16/2024 10:59 AM EDT
--- OUTSIDE RECORDS SUMMARY | 2024-05-16 10:59 | XMS_ITS ---
Author Organization [facility] Address [address] [place] [address] Care Team Providers Care Client Services Vice President Name Role Phone Ty Barros Primary Care Provider Lucy Cordoba Unavailable [phone] REASON FOR VISIT cx 03/25 appt Encounters Encounter Location Date Provider Diagnosis [address] [address] 03/25/2024 Lucy Cordoba Plan Of Treatment Next Appt Details Provider Name:Lucy wilkins, 10/10/2024 11:00:00 AM, [address] [place] [address], [place], [address], Progress Notes * KATY LizaKelleyB: (68 yo F)Acc No.[id number]:03/25/2024 Patient:?Liza BURNS :1955???Age:68 Y???Sex:Female Address:[address] [place] [address] * true * Date:? Generated for Printi ng/Mariano/eTransmitting on:?05/16/2024 10:59 AM EDT
--- OUTSIDE RECORDS SUMMARY | 2024-05-16 11:00 | XMS_ITS ---
[facility] Address [address] [place] [address] Care Team Providers Care Freight Weigher Name Role Phone Ty Barros Primary Care Provider [phone] Lucy Cordoba Unavailable [phone] Allergies Allergen (clinical drug ingredient) Drug/Non Drug [...] No Points 0 Interpretation Negative Vital Signs Blood pressure systolic 145 mm Hg 04/16/19 25 Blood pressure diastolic 61 mm Hg 025 Height 5ft 3in in 04/15/2024 Weight 167 lbs 04/15/2024 BMI 29.58 kg/m2 04/15/2024 Encounters Encounter Location Date Provider Diagnosis [facility] [address] [address] 04/15/2024 Lucy Beryl Other hammer toe(s) (acquired), [...] Name:Lucy Wilkins Cherelle wilkins, 10/10/2024 11:00:00 AM, [address] [place] [address], [phone], Procedure Notes * Category Sub-Category Detail Notes [...] use of a nail nipper and/or dremel-type internal grinder, to a more viable healthy nail plate [...] to maintain effectiveness in symptomatic relief - 68663 Keratoma Treatment Parring or Cutting o f [...] instrumentation by the physician of record - 95744 Progress Notes * JULITALiza CLAYTONKelleyB: (68 yo F)Acc No.[id number]:04/15/2024 Progress Note Patient:?Liza BURNS Provider:?Lucy Cordoba DPM :1955???Age:68 Y???Sex:Female D ate:04/15/2024 Address:[address] [place], [place] [id number] Pcp:Ty Barros Subjective: * Chief Complaints: * [...] use of a nail nipper and/or dremel-type internal grinder, to a more viable healthy nail plate [...] to maintain effectiveness in symptomatic relief - [address].?Keratoma Treatment:?Parring or Cutting of Benign Hyperkeratotic Lesion(s)?(-56) [...] instrumentation by the physician of record - 75573.? * Procedure Codes:?89148 DEBRI DE NAIL, 6 OR MORE, Modifiers: XS 93968 TRIM SKIN LESIONS, 2 TO 4, Modifiers: [...] Cordoba DPM Date:?04/2024 Generated for Yolanda souza/Mariano/Sloane on:?05/16/2024 10:59 AM EDT History and Physical Notes * [...]
== END 2024-05-16 10:09 | disposition home or self-care (01) ==
LOC: HO.CT 10:08
PROVIDERS: PCP Internal Medicine; Visit Provider Internal Medicine Medical Oncology
DX: C34.90 Malignant neoplasm of unspecified part of unspecified bronchus or lung (principal)
CPT/HCPCS: 71250

== ENCOUNTER → 2024-05-16 10:11 | Outpatient (BNV) | payer MEDICARE, MEDICAID, SELFPAY | PROVIDERS: PCP Internal Medicine; Visit Provider Radiology Diagnostic Radiology | DX: D35.01 Benign neoplasm of right adrenal gland (principal); D35.02 Benign neoplasm of left adrenal gland | CPT/HCPCS: 71250 ==

== ENCOUNTER 2024-05-20 09:05 | Outpatient (AMB) | payer MEDICARE, MEDICAID, SELFPAY ==
--- NOTE | 2024-05-20 09:18 | MHC.OFFVIS ---
Vital Signs 05/20/24 09:20 Height 5 ft 3 in Weight 165 lb 5.547 oz BMI 29.3 BP 140/67 H Blood Pressure Location Lt brachial Position Sitting Pulse 49 L Intake Visit Reasons: 6 month follow up diverticulosis Intake Note: Alberto presents in the office as a 6 month follow up for Diverticulosis. CC: She states that a fistula was placed since her last visit - she is not having any concerns at this [facility]. Process Control Technician Required: Yes Process Control Technician Name: Alissa Allergies No Known Allergies Allergy (Verified 05/20/24 09:23) HPI Comments Details: THis is a 66y.o F who recently moved from [place] who is here for follow up. Patient is here with her son who states that back in Feb she developed sudden onset of bloody stools associated with lightheadedness and dizziness which prompted her visit to the local hospital ([facility]). Records reviewed. Initial Hb was noted to be 5. Underwent 8u PRBC transfusion over the course of [address] abd showed complicated diverticulitis with contained perf of sigmoid colon. Was managed with Abx. Pt also underwent an EGD which showed esophagitis per son's report and was given high dose PPI x 4 weeks. Due to difficulty pursuing follow-up as outpatient with a recruiting team lead, as well as bookbinder chief (patient has CKD progressed during this admission), her son decided to bring her to [facility] for further care. Currently, patient does not have any gastrointestinal complaints to include abdominal pain, nausea, vomiting. No changes in bowel habits. No melena or maroon stools. Most recent hemoglobin is 12.2 from last month. Her last colonoscopy was more than 5 years ago. She does not recall if she had polyps. 08/11/22 - EGD/[facility]: Impression: 1. Normal esophagus 2. Gastritis (biopsy) 3. Duodenitis (biopsy) 4. Duodenal diverticulum 5. Poor prep in cecum 6. Total of 4 polyps removed 7. Internal hemorrhoids 8. Diverticulosis Diagnosis A.? Duodenal bulb, biopsy:? Duodenal mucosa with predominantly preserved villi, Shavon's gland hyperplasia, and focal mild changes suggesting chronic/nonspecific duodenitis. B.? Stomach, random, biopsy:? Gastric antral and body mucosa with mild reactive changes, congestion, and focal minimal chronic inactive inflammation; negative for intestinal metaplasia and dysplasia (see comment).? C.? Colon, transverse, 3 polyps:? Tubular adenomas, three (2 of 3 appear excised); negative for high-grade dysplasia and carcinoma.? D.? Colon, descending, polyp:? Tubular adenoma; negative for high-grade dysplasia and carcinoma.? 08/24/22 Patient here accompanied by her son. Seen with the help of full time staff interpreter. Has no gastrointestinal complaints. Reviewed results of the endoscopy and colonoscopy. Reassured that the esophagitis has healed up. No H pylori and gastric biopsies. All the 4 polyps were tubular adenoma and ideally, patient should have repeat colonoscopy within a year due to poor prep. However, she is currently undergoing workup for lung cancer through Dr. Camp. Son reports that so far, assessment is that this was stage I lung cancer that was completely surgically resected. However, 2nd opinion is being awaited to see if she needs any adjuvant therapy. 04/10/23: Pt here to discuss timing of colo - last colo poor prep in cecum. However, appears continues to have residual pulm symptoms despite wedge resection of lung adenoca back in 2022. Seeing Dr Trimble and awaiting PFTs for dyspnea. Also sees Dr Vasquez for ? adjuvant therapy - however pt declines chemotherapy and molecular testing not available for immunotherapy. Gets regular surveillance scans. In addition, pt also reports chronic constipation. Diet low in fiber. Son occasionally gives miralax to which she responds very well. 12/04/23: Here for routine follow up. Here with ARLINE Ray. Process Control Technician present to help with the encounter. Pt reports no gastrointestinal complaints at this time. Constipation is better controlled with the bowel regimen in fact some times get stools that are too liquidy. No melena or hematochezia. CBC reviewed and counts stable. Resp status has improved. Renal function continues to slowly decline. Tells me an AV fistula has been planned in anticipation of requiring AUTOMOTIVE SHOP FOREMAN in future. 05/20/24: Here for routine follow up. Here with ARLINE Ray. Seen with medical interpreter Wendy. reports no overt pulm issues. No cough shortness of breath. Has CPAP at night but does not require any supplemental oxygen. [facility] Medical History COPD (chronic obstructive pulmonary disease) ILD (interstitial lung disease) Chest discomfort Cataracts, both eyes Glaucoma Tubular adenoma of colon Esophagitis Personal history of nicotine dependence Gout Right elbow pain Thyroid nodule HTN (hypertension) GI bleed Diverticulitis CKD (chronic kidney disease), stage IV Hypothyroid Emphysema lung Epilepsy Type 2 diabetes mellitus Hypercholesteremia Surgical History History of elbow surgery History of lung surgery History of colonoscopy (~08/11/22) History of esophagogastroduodenoscopy (EGD) History of cholecystectomy History of tubal ligation Family History Sister SLE (systemic lupus erythematosus) Breast cancer Mental health problem Mother Diabetes Acute arthritis Alzheimer disease Age related osteoporosis Father Diabetes HTN (hypertension) Brother Brain tumor Family/Other Breast cancer Lupus Acute arthritis Family/Other HTN (hypertension) Thyroid cancer Other Mental health disorder Social History Household Members: Children Household Members Other:: Living with son in his house Housing: House Alcohol intake: never Patient Tobacco Use Status: Former Tobacco user Years Smoked: (former smoker - onset 16yo - 1ppd x 50yrs, 50pyh - quit 12/2021) e-Cigarette/Vaping Use: Never Used Second Hand Smoke Exposure: Yes service: No Current occupational status: disabled Cognitive needs: Yes (WHEELCHAIR) Hearing needs: No Vision needs: Yes (Glasses) Review of Systems Const All systems reviewed & are unremarkable except as noted in HPI and below Physical Exam Vital Signs: Last Vital Signs Pulse 49 L 05/20/24 09:20 BP 140/67 H 05/20/24 09:20 BMI result Body Mass Index 29.3 No apparent distress Nonicteric Abdomen soft, nondistended Alert and oriented x3, normal gait Assessment & Plan Assessment & Plan (1) COPD (chronic obstructive pulmonary disease): Code(s): J44.9 - Chronic obstructive pulmonary disease, unspecified Category: Medical Qualifiers: COPD type: emphysema Emphysema type: centrilobular Qualified Code(s): J43.2 - Centrilobular emphysema (2) ILD (interstitial lung disease): Code(s): J84.9 - Interstitial pulmonary disease, unspecified Category: Medical (3) MILLICENT on CPAP: Code(s): G47.33 - Obstructive sleep apnea (adult) (pediatric) Category: Medical (4) Lung cancer: Code(s): C34.90 - Malignant neoplasm of unspecified part of unspecified bronchus or lung Category: Medical Qualifiers: Laterality: left Lung location: upper lobe of lung Qualified Code(s): C34.12 - Malignant neoplasm of upper lobe, left bronchus or lung (5) Personal history of colonic polyps: Code(s): Z86.010 - Personal history of colon polyps Category: Medical Plan Reviewed with the pt that last colo 2022 was poor prep so due for repeat. Was deferred last year as was going active eval for stage 1b colloid lung ca, and worsening CKD. Now has AVF, but has not needed to start AUTOMOTIVE SHOP FOREMAN just yet. Pulm garcia stable. Not a candidate for adjuvant chemo/immuno but surveillance scans reassuring. Resp status is stable as per most recent eval. Plan: - [facility] to be booked - Given baseline constipation, pt was advised to start bisacodyl 2 tabs BID x 2 days prior to colo and then start miralax/gatorade prep one day before - She is also aware to hold tradjent and jardiance as per protocol and to check with PCP re DM management while meds on hold Follow up after colo Medications: New polyethylene glycol 3350 (Miralax) Mix in 64 oz of gatorade and drink the evening before your colonoscopy 238 grams PO ONCE 238 grams 0RF bisacodyl start 2 days before colonoscopy 10 mg (2 x 5 mg) PO BID 2 days 8 tabs 0RF Coding Level of Care Code Est Pt Level 4 (97807) Diagnoses Centrilobular emphysema J43.2 COPD type: emphysema Emphysema type: centrilobular ILD (interstitial lung disease) J84.9 MILLICENT on CPAP G47.33 Malignant neoplasm of upper lobe of left lung C34.12 Laterality: left Lung location: upper lobe of lung Personal history of colonic polyps Z86.010
[2024-05-20 09:20] VITALS: BP 140/67; PULSE 49; BMI 29.3
--- OUTSIDE RECORDS SUMMARY | 2024-05-20 10:05 | XMS_ITS | Encounter Summary ---
Author Organization [facility] Address [address] [address] Phone Care Team Providers Care Seam Taper Machine Name Role Phone Ty Barros MD Primary Care Provider + Encounter Details Date Type Department Care Team (Late st Contact Info) Description 05/14/2024 Documentation Only [facility] [address] [address] Daly Cartagena [address] [place] [phone] Social History Tobacco Use Types Packs/Day [...] Orders Only [facility] [address] [address] Reuben Holbrook MD [address] [address] Chronic kidney disease, stage 4 (severe) (HCC); Diabetes mellitus, not otherwise specified (HCC); Hypertension; Localized edema; Rheumatoid arthritis, not otherwise specified (HCC) 07/16/2024 9:40 AM EDT Office Visit [facility] [address] [place] [address] Reuben Holbrook MD [address] [facility] [address] [place] [address] documented as of this encounter [...] 8.7 8.7 - 10.7 mg/dL eGFR Non-Afr Luxembourger 11 05/07/2024 us Historical Provider LAB BLOOD ORDERABLES Vandana l Result documented in this encounter Visit Diagnoses Not on filedocumented in this encounter Care Teams Seam Taper Machine Relationship Specialty Start Date End Date Ty Barros MD [address] JACOB KONG [address] [place] [address] PCP - General Internal Medicine 06/21/23 documented as of this encounter
--- OUTSIDE RECORDS SUMMARY | 2024-05-20 10:05 | XMS_ITS | Clinical Summary ---
Author Organization [facility] Address [address] [address] Phone Care Team Providers Care Websphere Commerce Architect Name Role Phone Ty Barros MD Primary [...] right eye Active ergocalciferol (Drisdol) 1.25 MG (04057 UT) capsule Take 1 capsule (50,000 Units [...] 66 y/o female recently moved here from [place], former smoker who is part of the [facility] and was followed for an 8 mm [...] JAY BENITEZ checked. Called to [facility] on [facility] 2. 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 Biomarkers pending. Follow up with Dr. Sawant on August 26 at [facility]. 3. She is being followed by [facility] for kidney disease. 4. Per NCCN guidelines, she will be followed for [address] scan of the chest. Every 6 months X 2 years then annually X 3 years with a visit to the Thoracic Surgery Office. Patient and son wish to have these visits here at [facility]. Her next visit will be in 6 months, January 2023. 5. She is instructed to call with any questions or concerns. Stage 5 chronic kidney disease 08/02/2022 Diabetes mellitus, not otherwise specified 08/02 Hypertension 08/02/2022 Rheumatoid arthritis, not otherwise specified Encounters Date Type Department Care Team Description 05/16/2024 9:00 AM EDT Office Visit [facility] [address] [address] Reuben Holbrook MD Hypertension (Primary Dx); Chronic [...] Only [facility] the [address] [address] Reuben Holbrook MD 05/14/2024 Documentation Only [facility] the [address] [address] Daly Cartagena 03/06/2024 10:20 AM EST Office Visit [facility] [address] [address] Reuben Holbrook MD Chronic kidney disease, stage [...] Orders Only [facility] [address] [place] [phone] Reuben Holbrook MD [address] [address] Chronic kidney disease, stage 4 (severe) (HCC); Diabetes mellitus, not otherwise specified (HCC); Hypertension; Localized edema; Rheumatoid arthritis, not otherwise specified (HCC) 07/16/2024 9:40 AM EDT Office Visit [facility] [address] [phone] Reuben Holbrook MD [address] [address] Health Maintenance Due Date Last [...] ORDERABLES Final Re sult Performing Organization Address City/[facility]/ZIP Co de Phone Number OXNARD See order comments [place] [address] * (ABNORMAL) PTH, Intact (05/15/2024 10:02 AM EDT) Parathyroid Hormone, Intact 609.3(H) 8.7 - 77.1 pg/mL See order comments 05/15/2024 10:0 2 AM EDT 05/15/2024 10:02 AM EDT us Reuben Holbrook MD LAB [id number] SOLICITED RESULTS Final Result Performing Organization Address [facility] Co de Phone Number OXNARD See order comments [place] [address] * (ABNORMAL) Vitamin D 25 Hydroxy (05/15/2024 [...] ORDERABLES Final Re sult Performing Organization Address [facility] de Phone Number OXNARD See order comments [place] [address] * (ABNORMAL) Uric Acid (05/15/2024 10:02 AM EDT) Uric Acid 6.1(H) 2.4 - 5.7 mg/dL See order comments Blood (Blood, Venous) 05/15/2024 10:02 AM EDT 05/15/2024 10:02 AM EDT us Reuben Holbrook MD LAB BLOOD ORDERABLES Final Re sult Performing Organization Address [facility] de Phone Number OXNARD See order comments [place] [address] * (ABNORMAL) Phosphorus (05/15/2024 10:02 AM EDT) Phosphorus, Serum 5.1(H) 2.7 - 4.5 mg/dL See order comments Blood (Blood, Venous) 05/15/2024 10:02 AM EDT 05/15/2024 10:02 AM EDT us Reuben Holbrook MD LAB BLOOD ORDERABLES Final Re sult Performing Organization Address [facility] de Phone Number MERLE See order comments [place] [address] * Magnesium (05/15/2024 10:02 AM EDT) Magnesium 2.3 1.6 - 2.6 mg/dL See order comments Blood (Blood, Venous) 05/15/2024 10:02 AM EDT 05/15/2024 10:02 AM EDT Reuben Holbrook MD LAB BLOOD ORDERABLES Final Re sult MERLE See order comments [place] [address] * (ABNORMAL) EXT RESULT ENTRY (05/07/2024) WBC [...] 8.7 8.7 - 10.7 mg/dL eGFR Non-Afr Austrian 11 05/07/2024 Mau Provider LAB BLOOD ORDERABLES Vandana l Result from Last 3 Months Insurance [place]ICAID [place] MEDICARE MEDICARE MEDICAID [place] Care Teams Websphere Commerce Architect Relationship Specialty Start Date End Date Ty Barros MD [address] [facility] [place] [address] PCP - General Internal Medicine 06/21/23
--- OUTSIDE RECORDS SUMMARY | 2024-05-20 10:05 | XMS_ITS ---
Author Organization [facility] Address [address] [place] [address] Care Team Providers Care Sail Cutter Name Role Phone Ty Barros Primary Care Provider Lucy Cordoba Unavailable [phone] REASON FOR VISIT A1C Encounters Encounter Location Date Provider Diagnosis [facility] [address] [place] [address] 04/15/2024 Lucy Cordoba Plan Of Treatment Next Appt Details Provider Name:Lucy wilkisn, 10/10/2024 11:00:00 AM, [address] [facility], [place], [address], Progress Notes * Juliana BURNSGilbertB: (68 yo F)Acc No.[id number]:04/15/2024 Patient:?Liza BURNS :1955???Age:68 Y???Sex:Female Address:[address] [place] [address], [address] * true * Date:? Generated for Printi ng/Faxing/eTransmitting on:?05/20/2024 10:05 AM EDT
--- OUTSIDE RECORDS SUMMARY | 2024-05-20 10:05 | XMS_ITS ---
Author Organization [facility] Address [address] [place] [address] Care Team Providers Care Swimming Pool Maintenance Name Role Phone Ty Barros Primary Care Provider [phone] Lucy Cordoba Unavailable [phone] REASON FOR VISIT cx 03/25 appt Encounters Encounter Location Date Provider Diagnosis [address] [address] 03/25/2024 Lucy Cordoba Plan Of Treatment Next Appt Details Provider Name:Lucy wilkins, 10/10/2024 11:00:00 AM, [address] [place] [address], [place], [address], Progress Notes * KATY LizaKelleyB: (68 yo F)Acc No.[id number]:03/25/2024 Patient:?Liza BURNS :1955???Age:68 Y???Sex:Female Address:[address] [place] [address] * true * Date:? Generated for Printi ng/Mariano/eTransmitting on:?05/20/2024 10:05 AM EDT
--- OUTSIDE RECORDS SUMMARY | 2024-05-20 10:05 | XMS_ITS | Encounter Summary ---
Author Organization [facility] Address [address] [address] Phone Care Team Providers Care Mat Worker Name Role Phone Ty Barros MD Primary Care Provider + Encounter Details Date Type Department Care Team (Late st Contact Info) Description 05/15/2024 Orders Only [facility] [address] [address] Reuben Holbrook MD [address] [place] [address] Social History Tobacco Use Types Packs/Day [...] 06/04/2024 Orders Only [facility] [address] [address] Reuben Holbrook MD [address] [place] [address] Chronic kidney disease, stage 4 (severe) (HCC); Diabetes mellitus, not otherwise specified (HCC); Hypertension; Localized edema; Rheumatoid arthritis, not otherwise specified (HCC) 07/16/2024 9:40 AM EDT Office Visit [facility] [address] [address] Reuben Holbrook MD 5657 [facility] [address] [place] [address] documented as of this encounter Procedures Procedure Name Priority Date/Time Associated Diagnosis Comments PTH, INTACT (HC) Routine 05/15/2024 10:0 2 AM EDT documented in this encounter Results * (ABNORMAL) PTH, Intact (05/15/2024 10:02 AM EDT) Parathyroid Hormone, Intact 609.3(H) 8.7 - 77.1 pg/mL See order comments 05/15/2024 10:0 2 AM EDT 05/15/2024 10:02 AM EDT us Reuben Holbrook MD LAB [id number] SOLICITED RESULTS Final Result [place] See order comments [place] [address] documented in this encounter Visit Diagnoses Not on filedocumented in this encounter Care Teams Mat Worker Relationship Specialty Start Date End Date Ty Barros MD [address] , [facility] [address] [place] [address] PCP - General Internal Medicine 06/21/23 documented as of this encounter
--- OUTSIDE RECORDS SUMMARY | 2024-05-20 10:05 | XMS_ITS ---
Author Organization [facility] Address [address] [place] [address] Care Team Providers Care Lapel Stitcher Name Role Phone Fiorella Ty Primary Care Provider Lucy Cordoba Unavailable [phone] Allergies Allergen (clinical drug ingredient) Drug/Non Drug [...] 04/15/2024 Encounters Encounter Location Date Provider Diagnosis [facility] [address] [address] 04/15/2024 Lucy Beryl Other hammer toe(s) (acquired), [...] Name:Lucy Wilkins Cherelle wilkins, 10/10/2024 11:00:00 AM, [address] [place] [address], [address], Procedure Notes * Category Sub-Category Detail Notes [...] use of a nail nipper and/or dremel-type shear grinder operator, to a more viable healthy nail plate [...] to maintain effectiveness in symptomatic relief - 32665 Keratoma Treatment Parring or Cutting o f [...] instrumentation by the physician of record - 19585 Progress Notes * JULITALiza CLAYTONKelleyB: (68 yo F)Acc No.[id number]:04/15/2024 Progress Note Patient:?Liza BURNS Provider:?Lucy Cordoba DPM :1955???Age:68 Y???Sex:Female D ate:04/15/2024 Address:[address] [place], [place] [phone] Pcp:Ty Barros Subjective: * Chief Complaints: * [...] use of a nail nipper and/or dremel-type shear grinder operator, to a more viable healthy nail plate [...] to maintain effectiveness in symptomatic relief - 70714.?Keratoma Treatment:?Parring or Cutting of Benign Hyperkeratotic Lesion(s)?(-56) [...] instrumentation by the physician of record - 84471.? * Procedure Codes:?93256 DEBRI DE NAIL, 6 OR MORE, Modifiers: XS 98537 TRIM SKIN LESIONS, 2 TO 4, Modifiers: [...] Provider:?Lucy Cordoba DPM Date:?04/2024 Generated for Yolanda souza/Mariano/Sloaen on:?05/20/2024 10:05 AM EDT History and Physical Notes * [...]
--- OUTSIDE RECORDS SUMMARY | 2024-05-20 10:05 | XMS_ITS | Encounter Summary ---
Author Organization [facility] Address [address] [place] [address] Phone Care Team Providers Care College Admissions Counselor Name Role Phone Ty Barros MD Primary Care Provider + Encounter Details Date Type Department Care Team (Latest Contact Info) Description 05/16/2024 9:00 AM EDT Office Visit [facility] [address] [address] Reuben Holbrook MD [address] [address] Hypertension (Primary Dx); Chronic kidney [...] AM EDT [facility] Office Visit Patient Name: Alberto Dee, Female [...] drop before bedtime. ergocalciferol (Drisdol) 1.25 MG (49835 UT) capsule Take 1 capsule (50,000 Units [...] TO BE TRYING TO HELP MMIGRANT FROM [place] 02/2022 WITH LIMITED OLD MEDICAL RECORDS AVAILABLE [...] pth 600, etc -Therefore we should initiate CHURCH WARDEN in the next few months -I am [...] Orders Only [facility] [address] [phone] Reuben Holbrook MD [address] [place] [address] Chronic kidney disease, stage 4 (severe) (HCC); Diabetes mellitus, not otherwise specified (HCC); Hypertension; Localized edema; Rheumatoid arthritis, not otherwise specified (HCC) 07/16/2024 9:40 AM EDT Office Visit [facility] [address] [phone] Reuben Holbrook MD [address] [place] [address] Scheduled Orders Name Type Priority Associated [...] (HCC) documented in this encounter Care Teams College Admissions Counselor Relationship Specialty Start Date End Date Ty Barros MD [address] [place] [address] PCP - General Internal Medicine 06/21/23 documented as of this encounter
== END 2024-05-20 10:40 | disposition home or self-care (01) ==
LOC: HO.HGI 09:06
PROVIDERS: PCP Internal Medicine; Visit Provider Internal Medicine
DX: J43.2 Centrilobular emphysema (principal); J84.9 Interstitial pulmonary disease, unspecified; G47.33 Obstructive sleep apnea (adult) (pediatric); C34.12 Malignant neoplasm of upper lobe, left bronchus or lung; Z86.0100 Personal history of colon polyps, unspecified
CPT/HCPCS: 99214

== ENCOUNTER → 2024-05-20 09:05 | Outpatient (BNVA) | payer MEDICARE, MEDICAID, SELFPAY | PROVIDERS: PCP Internal Medicine; Visit Provider Internal Medicine | DX: J43.2 Centrilobular emphysema (principal); J84.9 Interstitial pulmonary disease, unspecified; G47.33 Obstructive sleep apnea (adult) (pediatric); C34.12 Malignant neoplasm of upper lobe, left bronchus or lung; Z86.0100 Personal history of colon polyps, unspecified | CPT/HCPCS: 99212 ==

== ENCOUNTER 2024-07-01 09:38 | Outpatient (REF) | payer MEDICARE, MEDICAID, SELFPAY ==
--- OUTSIDE RECORDS SUMMARY | 2024-07-01 09:56 | XMS_ITS | Clinical Summary ---
Author Organization [facility] Address [address] [address] Phone Care Team Providers Care Photographic Engineer Name Role Phone Ty Barros MD Primary [...] drop BID in the right eye Active Lumigan 0.01 % ophthalmic drops Administer [...] at bedtime 90 tablet 3 4 Active ergocalciferol (Drisdol) 1.25 MG (30043 UT) capsule Take 1 capsule (50,000 Units total) by mouth 1 (one) time per week 12 capsule 3 4 06/21/19 25 Active Problems Problem Noted Date Diagnosed Date [...] 66 y/o female recently moved here from [place], former smoker who is part of the [facility] and was followed for [...] JAY BENITEZ checked. Called to [facility] on [facility] 2. 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 Biomarkers pending. Follow up with Dr. Sawant on August 26 at [facility]. 3. She is being followed by [facility] for kidney disease. 4. Per NCCN guidelines, she will be followed for [address] scan of the chest. Every 6 months X 2 years then annually X 3 years with a visit to the Thoracic Surgery Office. Patient and son wish to have these visits here at [facility]. Her next visit will be in 6 months, January 2023. 5. She is instructed to call with any questions or concerns. Stage 5 chronic kidney disease 08/02/2022 Diabetes mellitus, not otherwise specified 08/02 Hypertension 08/02/2022 Rheumatoid arthritis, not otherwise specified Encounters Date Type Department Care Team Description 06/04/2024 Orders Only [facility] [address] [phone] Reuben Holbrook MD Chronic kidney disease, stage 4 (severe) (HCC); Diabetes mellitus, not otherwise specified (HCC); Hypertension; Localized edema; Rheumatoid arthritis, not otherwise specified (HCC) 05/16/2024 9:00 AM EDT Office Visit [facility] the [address] [address] Reuben Holbrook MD Hypertension (Primary Dx); Chronic [...] Orders Only [facility] [address] [address] Reuben Holbrook MD 05/14/2024 Documentation Only [facility] [address] [phone] Daly Cartagena from Last 3 Months Family History Medical [...] Upcoming Encounters Date Type Department Care Team (Latest Contact Info) Description 07/16/2024 Orders Only [facility] [address] [phone] Reuben Holbrook MD [address] [place] [address] Hypertension; Chronic kidney disease, stage 4 (severe) (HCC); Diabetes mellitus, not otherwise specified (HCC); Epilepsy, not otherwise specified (HCC); Cyst of kidney; Localized edema; Rheumatoid arthritis, not otherwise specified (HCC); Anemia in chronic kidney disease; Secondary hyperparathyroidism (HCC); Vitamin D deficiency, not otherwise specified; Iron deficiency anemia, not otherwise specified 07/16/2024 9:40 AM EDT Office Visit [facility] [address] [address] Reuben Holbrook MD [address] [place] [address] Health Maintenance Due Date Last Done Comments Breast Cancer Screening 1955 Pneumococcal Vaccine: 50+ Ye ars (1 of 2 - PCV) 10/03/1974 Colorectal Cancer Screening: Annual FOBT 10/03/2004 Colorectal [...] ORDERABLES Final Re sult Performing Organization Address [facility] Co de Phone Number ST[place] See order comments [place] [address] * (ABNORMAL) PTH, Intact (05/15/2024 10:02 AM EDT) Parathyroid Hormone, Intact 609.3(H) 8.7 - 77.1 pg/mL See order comments 05/15/2024 10:0 2 AM EDT 05/15/2024 10:02 AM EDT us Reuben Holbrook MD LAB [id number] SOLICITED RESULTS Final Result Performing Organization Address [facility] Co de Phone Number ST[place] See order comments [place] [address] * (ABNORMAL) Vitamin D 25 Hydroxy (05/15/2024 [...] AM EDT 05/15/2024 10:02 AM EDT Result Avlaro Holbrook MD LAB BLOOD ORDERABLES Final Re sult Performing Organization Address [facility] de Phone Number ST[place] See order comments [place] [address] * (ABNORMAL) Uric Acid (05/15/2024 10:02 AM EDT) Uric Acid 6.1(H) 2.4 - 5.7 mg/dL See order comments Blood (Blood, Venous) 05/15/2024 10:02 AM EDT 05/15/2024 10:02 AM EDT us Reuben Holbrook MD LAB BLOOD ORDERABLES Final Re sult Performing Organization Address [facility] Co de Phone Number [facility] See order comments [place] [address] * (ABNORMAL) Phosphorus (05/15/2024 10:02 AM EDT) Phosphorus, Serum 5.1(H) 2.7 - 4.5 mg/dL See order comments Blood (Blood, Venous) 05/15/2024 10:02 AM EDT 05/15/2024 10:02 AM EDT Result Alvaro Holbrook MD LAB BLOOD ORDERABLES Final Re sult HOLROBIN See order comments [place] [address] * Magnesium (05/15/2024 10:02 AM EDT) Magnesium 2.3 1.6 - 2.6 mg/dL See order comments Blood (Blood, Venous) 05/15/2024 10:02 AM EDT 05/15/2024 10:02 AM EDT Reuben Holbrook MD LAB BLOOD ORDERABLES Final Re sult MERLE See order comments [place] [address] * (ABNORMAL) EXT RESULT ENTRY (05/07/2024) WBC [...] 8.7 8.7 - 10.7 mg/dL eGFR Non-Afr Haitian 11 05/07/2024 [facility] VINCENT LAB BLOOD ORDERABLES Vandana l Result from Last 3 Months Insurance Medicaid [place] Medicare Medicare Medicaid [place] Care Teams Photographic Engineer Relationship Specialty Start Date End Date Ty Barros MD [facility] [address] [place] [address] [address] PCP - General Internal Medicine 06/21/23
--- OUTSIDE RECORDS SUMMARY | 2024-07-01 09:56 | XMS_ITS ---
Author Organization [facility] Address [address] [place] [address] Care Team Providers Care Trucking Manager Name Role Phone Ty Barros Primary Care Provider [phone] Lucy Cordoba Unavailable [phone] REASON FOR VISIT A1C Encounters Encounter Location Date Provider Diagnosis [facility] [address] [place] [address] 04/15/2024 Lucy Cordoba Plan Of Treatment Next Appt Details Provider Name:Lucy wilkins, 10/10/2024 11:00:00 AM, [address] [facility], [place], [address], Progress Notes * Juliana BURNSGilbertB: (68 yo F)Acc No.[id number]:04/15/2024 Patient:?Liza BURNS :1955???Age:68 Y???Sex:Female Address:[address] [place] [address], [address] * true * Date:? Generated for Printi ng/Faxing/eTransmitting on:?07/01/2024 09:56 AM EDT
--- OUTSIDE RECORDS SUMMARY | 2024-07-01 09:56 | XMS_ITS | Patient Health Record ---
Author Organization [facility] Address [address] [place] [address] Care Team Providers Care Electronic Prepress Technician Name Role Phone Ty Barros Primary Care Provider [phone] Lucy Cordoba Unavailable [phone] Allergies Allergen (clinical drug ingredient) Drug/Non Drug [...] Problem Acquired hammer toe of right foot (4115215419452484 ) Other hammer toe(s) (acquired), right foot (M20.41) Active confirmed Problem Acquired hammer toe of left foot (2498917002769298 ) Other hammer toe(s) (acquired), left foot (M20.42) Active confirmed Problem Polyneuropathy due to type 2 diabetes mellitus (269071675) Type 2 diabetes mellitus with diabetic polyneuropathy (E11.42) Active confirmed Vital Signs Blood pressure diastolic 61 mm Hg 04/15/2024 Height 5ft 3in in 04/15/2024 Blood pressure systolic 145 mm Hg 04/15/2024 Weight 167 lbs 04/15/2024 BMI 29.58 kg/m2 04/15/2024 Encounters Encounter Location Date Provider Diagnosis [facility] [address] [place] [address] 10/30/2023 Lucy Cordoba [facility] [place] [address] [place] [address] 01/25/2024 [facility] Cord[facility] [address] [place] [address] 03/25/2024 Lucy Cordoba [facility] [place] [address] [place] [address] 04/15/2024 [facility] Cord[facility] [address] [place] [address] 10/30/2023 Lucy Cordoba Other hammer toe(s) (acquired), right foot M20.41 ; Other hammer toe(s) (acquired), left foot M20.42 ; Type 2 diabetes mellitus with diabetic polyneuropathy E11.42 and Tinea unguium B35.1 [facility] [address] [place] [address] 01/08/2024 Lucy Cordoba Other hammer toe(s) (acquired), right foot M20.41 ; Other hammer toe(s) (acquired), left foot M20.42 and Type 2 diabetes mellitus with diabetic polyneuropathy E11.[address] [facility] [address] 04/15/2024 Lucy Cordoba Other hammer toe(s) (acquired), right [...] Provider Name:Lucy wilkins, 10/10/2024 11:00:00 AM, [address], [place], [address], Insurance Providers Payer Name Payer Address Payer Phone Subscriber Number Group Number Insured Name Patient Relationship to Insured Coverage Start Date Coverage End Date Medicare [employer] [address] [place] [address] [id number] Alberto Stevenson Self - patient is the [...]
--- OUTSIDE RECORDS SUMMARY | 2024-07-01 09:56 | XMS_ITS | Clinical Summary ---
Author Organization [facility] 299 [facility] ilding Address [address] [place] [address] Phone Care Team Providers Care Garbage Stoker Name Role Phone Ty Barros MD Primary Care Provider [phone]- [phone] Allergies No known active allergies Medications albuterol (PROVENTIL,VENT KATHERINE) 2 mg tablet Take 1 Tablet by [...] follows with Dr. Vasquez and pulmonology at [facility]. Patient's most recent surveillance CT scan done [...] Encounters Date Type Department Care Team Description 05/27/2024 12:18 PM EDT - 05/27/2024 11:59 PM EDT Hospital Encounter [facility] CT Scan [address] [place] [address] History of lung cancer; Multiple pulmonary nodules Discharge Disposition: Home or Self Care from Last 3 Months Surgical History Surgery Date Site/Laterality Comments CHOLECYSTECTOMY N/A PROCEDURE: HISTORICAL CHOLECYSTECTOMY ESOPHAGOGASTRODUODENOSCOPY N/A PROCEDURE: NC ESOPHAGOGASTRODUODENOSCOPY TRANSORAL DIAGNOSTIC TUBAL LIGATION N/A PROCEDURE: HISTORICAL TUBAL LIGATION COLONOSCOPY N/A PROCEDURE: HISTORICAL COLONOSCOPY OTHER SURGICAL HISTORY 07/19/2022 Left PROCEDURE: NC THORACOSCOPY W/THERA WEDGE RESEXN INITIAL UNILAT; COMMENT: CLYDE Medical History Medical History Date Comments CKD (chronic kidney disease) , symptom management only, stage 4 (severe) (CMS/HCC V24, CMS/HCC V28) DX:CKD (chronic kidney disea se), symptom management only, stage 4 (severe) (HCC) Meckel's diverticulum DX:Meckel' s diverticulum Emphysema lung (CMS/HCC V24, CMS/HCC V28) DX:Emphysema lung (HCC) Epilepsy with status epilept icus, not intractable (CMS/HCC V24, CMS/HCC V28) DX:Epilepsy wit h status epilepticus, not intractable (HCC) GI bleed DX:GI bleed Gout DX:Gout HTN (hypertension) DX:HTN (hyper tension) Hypercholesteremia DX:Hyperchole steremia Hypothyroidism DX:Hypothyroidis m Type 2 diabetes mellitus wit hout complications (CMS/HCC V24, CMS/HCC V28) DX:Type 2 ema betes mellitus without complications (HCC) Nontoxic single thyroid nodule D X:Nontoxic single thyroid nodule Rheumatoid arthritis (CMS/HC C V24, CMS/HCC V28) DX:Rheumatoid arthritis (HCC ) History of nicotine dependence D X:History of [...] drink = 0.6 oz pur e alcohol) Comments Unknown Sex and Gender Information Value Date Recorded Sex Assigned at Female 05/21/2024 9:20 AM EDT Legal Sex Female 8:32 PM EST Gender Identity Female 05/21/2024 9:20 AM EDT Sexual Orientation Straight 05/21/2024 9: 20 AM EDT Obstetrics History Last Filed Vital Signs Vital [...] 01/12/2024 2:32 PM EST Plan of Treatment Upcoming Encounters Date Type Department Care Team (Late st Contact Info) Description 07/01/2024 3:15 PM EDT Office Visit Thoracic Surgery - [address] [id number] Gini Viera, RAMON 299 [facility] [address] [place] [address] Health Maintenance Due Date Last Done Comments Breast Cancer Screening 1955 COVID-19 Vaccine (#1) 10/03/1960 Diabetes: Annual Foot Exam 10/03/1965 Diabetes: Annual Retina Eye Exam 10/03/1965 DTaP,Tdap,and Td Vaccines (1 - Tdap) 10/03/1974 Zoster Vaccines (1 of 2) 10/03/2005 RSV Immunization Adult Patients (1 - Risk 60-74 years 1-dose series) 2015 Cholesterol Screening (Lipid Panel) 03/10/2023 Colorectal Cancer Screening: Colonoscopy 03/10/2023 Depression Screening 03/10/2023 Falls Risk Assessment 03/10/2023 Hepatitis C Screening 03/10/2023 Lung Cancer Screening (Low Dose CT) 03/10/2023 Medicare Annual Wellness Visit 03/10/2023 Osteoporosis Screening (Bone Density Screening) 03/10/2023 Social Influencers of Health Screening 03/10/2023 Diabetes: Annual Urine Albumin-Creatinine Ratio (uACR) 01/12/2024 Diabetes: Blood Sugar Contro l Test (HGBA1C) 01/12/2024 Diabetes: Annual GFR (Glomerular Filtration Rate) 09/18/2024 09/19/2023, 06/12/2023 Hypertension/CHF/CAD Annual BMP Blood Test 09/18/2024 09/19/2023, 06/12/2023 Influenza Vaccine (Season Ended) 2024 Pneumococcal Vaccine: 50+ Years Completed 05/02/2022 HIB Vaccines Aged Out [...] patient's age to complete this topic Meningococcal B Vaccine Aged Out No l onger eligible based on patient's age to complete this topic RSV Immunization Patients Under 20 months Aged Out No longer eligible b ased on patient's age to complete this topic Varicella Vaccines Aged Out No longer eligible based on patient's age to complete this topic Procedures Procedure Name Priority Date/Time Associated Diagnosis Comments CT CHEST WO CONTRAST Routine 05/27/2024 12:31 PM EDT History of lung cancer Multiple pulmonary nodules from Last 3 Months Results * CT Chest wo Contrast (05/27/2024 12:31 PM EDT) Anatomical Region Laterality Modality Body Computed Tomogra phy 05/28/2024 4:52 PM EDT Impressions 05/28/2024 5:06 PM EDT Impression: 1. Lobulated pleural-based opacity at the bases and lingula appearing more masslike now, possibly scarring. Short-term follow-up CT recommended in 3 months to reassess this. 2. Stable left upper lobe wedge resection sequela. 3. No developing thoracic [place]aden[place] ([id number]) -------- FINAL REPORT -------- Dictated By: Julieta Moseley Dictated Date: 05/28/2024 16:52 ET Assigned Physician: Julieta Moseley Reviewed and Electronically Signed By: Julieta Moseley Signed Date: 05/28/2024 17:06 ET Workstation ID: [id number] Transcribed By: Self Edit Transcribed Date: 05/28/2024 16:52 ET Narrative 05/28/2024 5:06 PM EDT History: Lung carcinoma, status post left upper lobe wedge resection. Surveillance imaging. Comparison: 12/12/23 Technique: Helical volumetric imaging of the thorax was performed without IV contrast. DLP: 803.03 mGy/cm mangofizz jobs VCT Iterative reconstruction technique Findings: Left upper lobe wedge resection sequela are again noted. The trachea and central bronchial tree remain patent. There is patchy centrilobular emphysema. Coarse curvilinear opacity is present in the posterior juxta mediastinal aspects of the right upper and lower lobes, overlying large spinal osteophytes. This is unchanged and may represent fibrosis. There is mild reticulation within the subpleural lung in both lower lobes, stable, suggesting fibrosis. Lobulated pleural-based opacity at the base of the lingula, visible dating back to at least 03/06/23, appears more masslike now, particularly on the coronal reformatted images, measuring approximately 2.6 x 1.5 cm in axial dimensions (image 149 series 4), 2.5 x 1.4 cm previously. A few sub-5 mm solid, noncalcified pulmonary nodules are without significant change. Homogeneously calcified nodules are consistent with old granulomatous disease. No pleural or pericardial effusions are identified. Moderate multichamber cardiomegaly is again seen, with severe atherosclerotic calcification of the thoracic aorta and coronary arteries. Subcentimeter lymph nodes in the mediastinum are without significant change. No developing thoracic lymphadenopathy is seen. A small portion of the upper abdomen included on the lowest images through the thorax is remarkable for cholecystectomy sequela and bilateral adrenal adenomas which are without significant change. Multiple old, healed left rib fractures are noted. Procedure Note Julieta Moseley MD - 05/28/2024 History: Lung carcinoma, status post left upper lobe wedge resection.Surveillance imaging. Comparison: 12/12/23 Technique: Helical volumetric imaging of the thorax was performed withoutIV contrast. DLP: 803.03 mGy/cm mangofizz jobs VCT Iterative reconstruction technique Findings: Left upper lobe wedge resection sequela are again noted. The trachea andcentral bronchial tree remain patent. There is patchy centrilobularemphysema. Coarse curvilinear opacity is present in the posterior juxta mediastinalaspects of the right upper and lower lobes, overlying large spinalosteophytes. This is unchanged and may represent fibrosis. There is mildreticulation within the subpleural lung in both lower lobes, stable,suggesting fibrosis. Lobulated pleural-based opacity at the base of the lingula, visible datingback to at least 03/06/23, appears more masslike now, particularly on thecoronal reformatted images, measuring approximately 2.6 x 1.5 cm in axialdimensions (image 149 series 4), 2.5 x 1.4 cm previously. A few sub-5 mm solid, noncalcified pulmonary nodules are withoutsignificant change. Homogeneously calcified nodules are consistent withold granulomatous disease. No pleural or pericardial effusions are identified. Moderate multichamber cardiomegaly is again seen, with severeatherosclerotic calcification of the thoracic aorta and coronary arteries.Subcentimeter lymph nodes in the mediastinum are without significantchange. No developing thoracic lymphadenopathy is seen. A small portion of the upper abdomen included on the lowest images throughthe thorax is remarkable for cholecystectomy sequela and bilateral adrenaladenomas which are without significant change. Multiple old, healed left rib fractures are noted. IMPRESSION: Impression: 1. Lobulated pleural-based opacity at the bases and lingula appearing moremasslike now, possibly scarring. Short-term follow-up CT recommended in 3months to reassess this. 2. Stable left upper lobe wedge resection sequela. 3. No developing thoracic lymphadenopathy. Teleariana SILVA ([id number]) -------- FINAL REPORT -------- Dictated By: Julieta Moseley Dictated Date: 05/28/2024 16:52 ET Assigned Physician: Julieta Moseley Reviewed and Electronically Signed By: Julieta Moseley Signed Date: 05/28/2024 17:06 ET Workstation ID: [id number] Transcribed By: Self Edit Transcribed Date: 05/28/2024 16:52 ET Devi SILVA IM CT PROCEDURES Final Resul t from Last 3 Months Insurance MEDICAID - [place] MEDICARE Advance Directives Documents on File Type Date Recorded Patient Development Disability Specialist Expl anation Health Care Decision (hx) 07/26/2022 HE ALTH CARE PROXY Health Care Decision (hx) 07/26/2022 HE ALTH CARE PROXY Health Care Decision (hx) 07/26/2022 HE ALTH CARE PROXY Health Care Decision (hx) 07/26/2022 HE ALTH CARE PROXY Health Care Decision (hx) 07/26/2022 HE ALTH CARE PROXY Health Care Decision (hx) 07/26/2022 HE ALTH CARE PROXY Care Teams Garbage Stoker Relationship Specialty Start Date End Date Ty Barros MD [facility] [address] [place] [address] [address] [place] [address] PCP - General 06/08/23
--- OUTSIDE RECORDS SUMMARY | 2024-07-01 09:56 | XMS_ITS ---
Author Organization [facility] Address [address] [place] [address] Care Team Providers Care Regional Sales Representative Name Role Phone Ty Barros Primary Care Provider Lucy Cordoba Unavailable [phone] REASON FOR VISIT cx 03/25 appt Encounters Encounter Location Date Provider Diagnosis [address] [phone] 03/25/2024 Lucy Cordoba Plan Of Treatment Next Appt Details Provider Name:Lucy wilkins, 10/10/2024 11:00:00 AM, [address] [place] [address], [place], [address], Progress Notes * KATY LizaKelleyB: (68 yo F)Acc No.[id number]:03/25/2024 Patient:?Liza BURNS :1955???Age:68 Y???Sex:Female Address:[address] [place], [place] [id number] * true * Date:? Generated for Printi ng/Faamadorg/eTransmitting on:?07/01/2024 09:56 AM EDT
--- OUTSIDE RECORDS SUMMARY | 2024-07-01 09:57 | XMS_ITS ---
Author [facility] Address [address] [place] [address] Care Team Providers Care Directory Carrier Name Role Phone Fiorella Ty Primary Care Provider [phone] Lucy Cordoba Unavailable [phone] Allergies Allergen (clinical drug ingredient) Drug/Non Drug [...] 025 Encounters Encounter Location Date Provider Diagnosis [facility] [address] [address] 04/15/2024 Lucy Beryl Other hammer toe(s) (acquired), [...] Name:Lucy Wilkins Cherelle wilkins, 10/10/2024 11:00:00 AM, [address] [place] [address], [phone], Procedure Notes * Category Sub-Category Detail Notes [...] use of a nail nipper and/or dremel-type feed grinder, to a more viable healthy nail [...] to maintain effectiveness in symptomatic relief - 04750 Keratoma Treatment Parring or Cutting o f [...] instrumentation by the physician of record - 13619 Progress Notes * JULITALiza CLAYTONKelleyB: (68 yo F)Acc No.[id number]:04/15/2024 Progress Note Patient:?Liza BURNS Provider:?Lucy Cordoba DPM :1955???Age:68 Y???Sex:Female D ate:04/15/2024 Address:[address] [place], [place] [id number] Pcp:Ty Barros Subjective: * Chief Complaints: * [...] use of a nail nipper and/or dremel-type feed grinder, to a more viable healthy nail [...] to maintain effectiveness in symptomatic relief - 91237.?Keratoma Treatment:?Parring or Cutting of Benign Hyperkeratotic Lesion(s)?(-56) [...] instrumentation by the physician of record - 98942.? * Procedure Codes:?55725 DEBRI DE NAIL, 6 OR MORE, Modifiers: XS 16359 TRIM SKIN LESIONS, 2 TO 4, Modifiers: [...] Cordoba DPM Date:?04/2024 Generated for Yolanda souza/Mariano/Sloane on:?07/01/2024 09:56 AM EDT History and Physical Notes * [...]
[2024-07-01 10:12] LABS: MANUAL DIFF FLAG NO
[2024-07-01 10:55] LABS: Basophils Percent Auto 0.6 % (0-2); Eosinophils Absolute Auto 0.1 X10*3/uL (0.0-0.4); Eosinophils Percent Auto 1.4 % (0-4); Hematocrit 37.3 % (37.0-47.0); Hemoglobin 11.8 g/dl (12.0-16.0); Imm Gran Abs Auto 0.06 X10*3/uL (0.00-0.03); Lymphocytes Absolute Auto 1.1 X10*3/uL (1.2-4.9); Lymphocytes Percent Auto 17.7 % (20-40); Mean Corpuscular HGB Conc 31.6 g/dl (31.0-35.0); Mean Corpuscular Hemoglobin 29.8 pg (27.0-33.0); Mean Corpuscular Volume 94.2 fL (80.0-98.0); Mean Platelet Volume 9.5 fL (9.4-12.3); Monocytes Absolute Auto 0.5 X10*3/uL (0.1-1.2); Monocytes Percent Auto 7.7 % (2-11); Neutrophils Absolute Auto 4.5 x10*3/uL (2.0-8.3); Neutrophils Percent Auto 71.6 % (45-73); Platelet Count 214 X10*3/uL (160-400); Red Blood Count 3.96 X10*6/uL (4.20-5.50); Red Cell Distribution Width 13.7 % (11.0-16.0); White Blood Count 6.3 X10*3/uL (4.8-10.8)
[2024-07-01 11:15] LABS: Appearance Urine Clear; Color Urine Yellow; Glucose Urine UA 250 mg/dL (Negative); Leukocyte Esterase Urine Negative (Negative); Nitrite Urine Negative (Negative); PH 6.5 (5.0-9.0); UMIC TRIGGER UA YES; Urine Blood Trace (Negative); Urine Ketones Negative (Negative); Urine Protein 300 (3+) mg/dL (Neg-Trace)
[2024-07-01 11:22] LABS: Bacteria Urine None Seen (None Seen); Hyaline Casts Urine 0-2 /LPF (0-2); RBC Urine 0-2 /HPF (0-2); Squamous Epithelial Cell Urine 0-2 /HPF (0-2); WBC Urine 0-5 /HPF (0-5)
[2024-07-01 11:46] LABS: Parathyroid Hormone Intact 498.3 pg/mL (8.7-77.1)
[2024-07-01 11:46] LABS: Creatinine Urine 29.95 mg/dL
[2024-07-01 11:53] LABS: HBS Num1 0.29 mIU/mL (0-7.99); HBc Num1 0.05 S/CO (0.00-0.79); HBsAGNum1 0.46 S/CO (0.00-0.99); Hepatitis B Core Antibody Nonreactive (Nonreactive); Hepatitis B Surface Antigen Negative (Negative); ~HepC Num1 0.14 S/CO (0.00-0.79); ~Hepatitis B Surface Antibody NONREACTIVE (Nonreactive); ~Hepatitis C Antibody Nonreactive (Nonreactive)
[2024-07-01 11:56] LABS: Alanine Aminotransferase 16 U/L (0-31); Albumin Level 3.2 g/dL (3.5-5.0); Anion Gap 13 (12-20); Aspartate Amino Transferase 21 U/L (5-31); Bilirubin Total 0.2 mg/dL (0.0-1.0); Blood Urea Nitrogen 46 mg/dL (9-16); Calcium 8.7 mg/dL (8.4-10.2); Carbon Dioxide 21 mmol/L (22-29); Chloride 107 mmol/L (96-108); Estimated Glomerular Filt Rate 12; Glucose Random 92 mg/dL (60-115); Magnesium 2.1 mg/dL (1.6-2.6); Phosphorus 5.2 mg/dL (2.7-4.5); Potassium 4.9 mmol/L (3.3-5.1); Sodium 136 mmol/L (135-145); Total Protein 6.2 g/dL (6.5-8.0); Uric Acid 6.2 mg/dL (2.4-5.7)
[2024-07-01 12:17] LABS: Vitamin D 25-OH Total 29.7 ng/mL (>30)
[2024-07-01 12:25] LABS: Alkaline Phosphatase 84 U/L (39-117)
[2024-07-01 12:37] LABS: Protein/Creatinine Ratio, Ur 12.55 (<0.2); Total Protein Urine Random 376 mg/dL (<12)
== END 2024-07-01 09:39 | disposition home or self-care (01) ==
LOC: HO.LAB 09:38
PROVIDERS: Internal Medicine Nephrology; Absent Provider Internal Medicine Medical Oncology; PCP Internal Medicine; Visit Provider Internal Medicine
DX: I12.9 Hypertensive chronic kidney disease with stage 1 through stage 4 chronic kidney disease, or unspecified chronic kidney disease (principal); N28.1 Cyst of kidney, acquired; G40.909 Epilepsy, unspecified, not intractable, without status epilepticus; R60.0 Localized edema; M06.9 Rheumatoid arthritis, unspecified; E21.1 Secondary hyperparathyroidism, not elsewhere classified; D50.9 Iron deficiency anemia, unspecified; E55.9 Vitamin D deficiency, unspecified; D63.1 Anemia in chronic kidney disease; N18.4 Chronic kidney disease, stage 4 (severe)
CPT/HCPCS: 36415; 80053; 81001; 81003; 82306; 82570; 83735; 83970; 84100; 84156; 84550; 85025; 86704; 86706; 86803; 87340

== ENCOUNTER 2024-08-15 11:09 | Outpatient (REF) | payer MEDICARE, MEDICAID, SELFPAY ==
[2024-08-15 11:37] LABS: MANUAL DIFF FLAG NO
--- OUTSIDE RECORDS SUMMARY | 2024-08-15 12:00 | XMS_ITS | Clinical Summary ---
Author Organization [facility] 299 [facility] ilding Address [address] [place] [address] Phone Care Team Providers Care Director Of Volunteer Services Name Role Phone Ty Barros MD Primary Care Provider [phone]- [phone] Allergies No known active allergies Medications albuterol [...] of lung cancer 01/17/2024 Assessment & Plan (07/01/2024 3:41 PM EDT): Ms. 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 The patient declined reoperation for completion lobectomy and also declined adjuvant chemotherapy. She follows with Dr. Vasquez and pulmonology at [facility]. Patient's most recent surveillance CT scan done on May 27, 2024 showing a lobulated pleural-based opacity at the base of the lingula,visible dating back to at least 03/06/23, appears more masslike now, particularly on the coronal reformatted images, measuring approximately 2.6 x 1.5 cm in axial dimensions, 2.5 x 1.4 cm previously. There are a few sub-5mm pulmonary nodules which are stable, as well as stable bilateral adrenal nodules likely representing adenomas. Will obtain a chest CT in 3 months time to re-evaluate the lobulated pleural- based opacity at the base of the lingula, September 2024. Patient will have a follow up in the office after the scan. Patient advised to call the office with any questions or concerns prior to her next appointment. Assessment & Plan (01/17/2024 8:30 PM EST): Ms. 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 The patient declined reoperation for completion lobectomy and also declined adjuvant chemotherapy. She follows with Dr. Vasquez and pulmonology at [facility]. Patient's most recent surveillance CT scan [...] Encounters Date Type Department Care Team Description 07/01/2024 3:15 PM EDT Office Visit Thoracic Surgery - [address] [address] Gini Viera, RAMON History of lung cancer (Primary Dx) 05/27/2024 12:18 PM EDT - 05/27/2024 11:59 PM EDT Hospital Encounter [facility] CT Scan [address] [place] [address] History of lung cancer; Multiple pulmonary nodules Discharge Disposition: Home or Self Care from Last 3 Months Surgical History Surgery Date Site/Laterality Comments CHOLECYSTECTOMY N/A PROCEDURE: HISTORICAL CHOLECYSTECTOMY ESOPHAGOGASTRODUODENOSCOPY N/A PROCEDURE: DC ESOPHAGOGASTRODUODENOSCOPY TRANSORAL DIAGNOSTIC TUBAL LIGATION N/A PROCEDURE: HISTORICAL TUBAL LIGATION COLONOSCOPY N/A PROCEDURE: HISTORICAL COLONOSCOPY OTHER SURGICAL HISTORY 07/19/2022 Left PROCEDURE: DC THORACOSCOPY W/THERA WEDGE RESEXN INITIAL UNILAT; COMMENT: CLYDE Medical History Medical History Date Comments CKD (chronic kidney disease) , symptom management only, stage 4 (severe) (CMS/HCC V24, CMS/HCC V28) DX:CKD (chronic kidney disea se), symptom management only, stage 4 (severe) ([facility]) Meckel's diverticulum DX:Meckel' s diverticulum Emphysema lung (CMS/HCC V24, CMS/HCC V28) DX:Emphysema lung (HCC) Epilepsy with status epilept icus, not intractable (CMS/HCC V24, CMS/HCC V28) DX:Epilepsy wit h status epilepticus, not intractable ([facility]) GI bleed DX:GI bleed Gout DX:Gout HTN (hypertension) DX:HTN (hyper tension) Hypercholesteremia DX:Hyperchole steremia Hypothyroidism DX:Hypothyroidis m Type 2 diabetes mellitus wit hout complications (CMS/HCC V24, CMS/HCC V28) DX:Type 2 ema betes mellitus without complications ([facility]) Nontoxic single thyroid nodule D X:Nontoxic single thyroid nodule Rheumatoid arthritis ([facility]/HC C V24, CMS/HCC V28) DX:Rheumatoid arthritis (HCC [...] Sign Reading Time Taken Comments Blood Pressure 175/79 07/01/2024 3:31 PM EDT Pulse 56 07/01/2024 3:31 PM EDT Temperature 36.6 C (97.9 F) 07/01/2024 3:31 PM EDT Respiratory Rate 14 07/01/2024 3:31 PM EDT Oxygen Saturation 98% 07/01/2024 3:31 PM EDT Inhaled Oxygen Concentration - - Weight 72.1 kg (159 lb) 07/01/2024 3:31 PM EDT Height 162.6 cm (5' 4 ) 07/01/2024 3:31 PM EDT Body Mass Index 27.29 07/01/2024 3:31 PM EDT Plan of Treatment Upcoming Encounters Date Type Department Care Team (Late st Contact Info) Description 10/02/2024 2:45 PM EDT Appointment [facility] CT Scan [address] [place] [phone] 10/10/2024 10:00 AM EDT Office Visit Thoracic Surgery - [place] [address] [facility] [address] [place] [phone] Devi Herrera PA [address] [facility] [address] [place] [address] Health Maintenance Due Date Last Done Comments Breast Cancer Screening 1955 COVID-19 Vaccine (#1) 10/03/1960 Diabetes: Annual Foot Exam 10/03/1965 Diabetes: Annual Retina Eye Exam 10/03/1965 DTaP,Tdap,and Td Vaccines (1 - Tdap) 10/03/1974 Zoster Vaccines (1 of 2) 10/03/1974 RSV Immunization Adult Patients (1 - Risk 60-74 years 1-dose series) 2015 Cholesterol Screening (Lipid Panel) 03/10/2023 Colorectal Cancer Screening: Colonoscopy 03/10/2023 Depression Screening 03/10/2023 Falls Risk Assessment 03/10/2023 Lung Cancer Screening (Low Dose CT) 03/10/2023 Medicare Annual Wellness Visit 03/10/2023 Osteoporosis Screening (Bone Density Screening) 03/10/2023 Social Influencers of Health Screening 03/10/2023 Diabetes: Annual Urine Albumin-Creatinine Ratio (uACR) 01/12/2024 Diabetes: Blood Sugar Control Test (HGBA1C) 01/12/2024 Influenza Vaccine (#1) 2024 Diabetes: Annual GFR (Glomerular Filtration Rate) 07/01/2025 07/01/2024, 07/01/2024, 09/19/2023, Additional history exists Hypertension/CHF/CAD Annual BMP Blood Test 07/01/2025 07/01/2024, 07/01/2024, 09/19/2023, Additional history exists Pneumococcal Vaccine: 50+ Years Completed 05/02/2022 Hepatitis C Screening Completed 07/01/2024, 025 HIB Vaccines Aged Out No longer eligi [...] 20 months Aged Out No longer eligible based on [...] resection sequela. 3. No developing thoracic lymphadenopathy. CIVICO [place] ([id number]) -------- FINAL REPORT -------- Dictated By: Julieta Moseley Dictated Date: 05/28/2024 16:52 ET Assigned Physician: Julieta Moseley Reviewed and Electronically Signed By: Julieta Moseley Signed Date: 05/28/2024 17:06 ET Workstation ID: [id number] Transcribed By: Self Edit Transcribed Date: 05/28/2024 16:52 ET Narrative 05/28/2024 5:06 PM EDT History: Lung carcinoma, status post left upper lobe wedge resection. Surveillance imaging. Comparison: 12/12/23 Technique: Helical volumetric imaging of the thorax was performed without IV contrast. DLP: 803.03 mGy/cm 10SixpeLong Play VCT Iterative reconstruction technique Findings: Left upper [...] was performed withoutIV contrast. DLP: 803.03 mGy/cm Travel BeautyT Iterative reconstruction technique Findings: Left upper lobe [...] resection sequela. 3. No developing thoracic lymphadenopathy. 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
--- OUTSIDE RECORDS SUMMARY | 2024-08-15 12:00 | XMS_ITS | Clinical Summary ---
Author Organization [facility] Address [address] [address] Phone Care Team Providers Care Drafter Marine Name Role Phone Ty Barros MD Primary [...] at bedtime 90 tablet 3 4 Active Additional Information Patient taking differently: 50 mg 2 times daily, Morning, Evening, 1/2 tablet every night at bedtime, Reported on 07/16/2024 Active Problems Problem Noted Date Diagnosed Date [...] 66 y/o female recently moved here from [place], former smoker who is part of the [facility] [employer] and was followed for an 8 mm [...] BENITEZ checked. Called to [facility] 2. 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 Biomarkers pending. Follow up with Dr. Sawant on August 26 at [facility]. 3. She is being followed by [facility] for kidney disease. 4. Per NCCN guidelines, she will be followed for [address] scan of the chest. Every 6 months X 2 years then annually X 3 years with a visit to the Thoracic Surgery Office. Patient and son wish to have these visits here at [facility]. Her next visit will be in 6 months, January 2023. 5. She is instructed to call with any questions or concerns. Stage 5 chronic kidney disease 08/02/2022 Diabetes mellitus, not otherwise specified 08/02 Hypertension 08/02/2022 Rheumatoid arthritis, not otherwise specified Encounters Date Type Department Care Team Description 08/15/2024 Orders Only [facility] [address] [phone] Reuben Holbrook MD Hypertension; Chronic kidney disease, stage 4 (severe) (HCC); Diabetes mellitus, not otherwise specified (HCC); Epilepsy, not otherwise specified (HCC); Cyst of kidney; Localized edema; Rheumatoid arthritis, not otherwise specified (HCC) 07/16/2024 9:40 AM EDT Office Visit [facility] [address] [phone] Reuben Holbrook MD Stage 5 chronic kidney disease (HCC) (Primary Dx); Localized edema; Hypertension; Diabetes mellitus, not otherwise specified (HCC); Cyst of kidney; Anemia in chronic kidney disease; Epilepsy, not otherwise specified (HCC); History of malignant neoplasm of thoracic cavity structure; Rheumatoid arthritis, not otherwise specified (HCC); Secondary hyperparathyroidism (HCC); Vitamin D deficiency, not otherwise specified 07/16/2024 Orders Only [facility] [address] [phone] Reuben Holbrook MD Hypertension; Chronic kidney disease, stage 4 (severe) (HCC); Diabetes mellitus, not otherwise specified (HCC); Epilepsy, not otherwise specified (HCC); Cyst of kidney; Localized edema; Rheumatoid arthritis, not otherwise specified (HCC); Anemia in chronic kidney disease; Secondary hyperparathyroidism (HCC); Vitamin D deficiency, not otherwise specified; Iron deficiency anemia, not otherwise specified 07/01/2024 Orders Only [facility] [address] [phone] Reuben Holbrook MD 06/04/2024 Orders Only [facility] [address] [phone] Reuben Holbrook MD Chronic kidney disease, stage 4 (severe) (HCC); Diabetes mellitus, not otherwise specified (HCC); Hypertension; Localized edema; Rheumatoid arthritis, not otherwise specified (HCC) 05/16/2024 9:00 AM EDT Office Visit [facility] [address] [phone] Reuben Holbrook MD Hypertension (Primary Dx); Chronic kidney disease, stage 4 (severe) (HCC); Diabetes mellitus, not otherwise specified (HCC); Epilepsy, not otherwise specified (HCC); Cyst of kidney; Localized edema; Rheumatoid arthritis, not otherwise specified (HCC); Anemia in chronic kidney disease; Secondary hyperparathyroidism (HCC); Vitamin D deficiency, not otherwise specified; Iron deficiency anemia, not otherwise specified; Stage 5 chronic kidney disease (HCC) from Last 3 Months Family History [...] Sign Reading Time Taken Comments Blood Pressure 160/80 07/16/2024 9:28 AM EDT Pulse 50 07/16/2024 9:28 AM EDT Temperature - - Respiratory Rate - - Oxygen Saturation 96% 05/16/2024 9:04 AM EDT Inhaled Oxygen Concentration - - Weight 74.4 kg (164 lb) 07/16/2024 9:28 AM EDT Height 160 cm (5' 3 ) 03/06/2024 10:24 AM EST Body Mass Index 29.05 03/06/2024 10:24 AM EST Plan of Treatment Upcoming Encounters Date Type Department Care Team (Late st Contact Info) Description 10/16/2024 9:00 AM EDT Office Visit [facility] [address] [phone] Reuben Holbrook MD [address] [phone] Health Maintenance Due Date Last [...] Comments PROTEIN / CREATININE RATIO, URINE Routine 07/01/2024 10:50 AM EDT VITAMIN D 25 HYDROXY Routine 07/01/2024 10:10 AM EDT MAGNESIUM Routine 07/01/2024 10:10 AM EDT PHOSPHATE ( PHOSPHORUS) Routine 07/01/2024 10:10 AM EDT URIC ACID Routine 07/01/2024 10:10 AM EDT PTH, INTACT (HC) Routine 07/01/2024 10:10 AM EDT HEPATITIS B SURFACE ANTIBODY QUANT Routine 07/01/2024 10:10 AM EDT Hypertension Chronic kidney disease, stage 4 (severe) (HCC) Diabetes mellitus, not otherwise specified (HCC) Epilepsy, not otherwise specified (HCC) Cyst of kidney Localized edema Rheumatoid arthritis, not otherwise specified (HCC) Anemia in chronic kidney disease Secondary hyperparathyroidism (HCC) Vitamin D deficiency, not otherwise specified Iron deficiency anemia, not otherwise specified HEPATITIS B CORE AB TOTAL Routine 07/01/2024 10:10 AM EDT Hypertension Chronic kidney disease, stage 4 (severe) (HCC) Diabetes mellitus, not otherwise specified (HCC) Epilepsy, not otherwise specified (HCC) Cyst of kidney Localized edema Rheumatoid arthritis, not otherwise specified (HCC) Anemia in chronic kidney disease Secondary hyperparathyroidism (HCC) Vitamin D deficiency, not otherwise specified Iron deficiency anemia, not otherwise specified HEPATITIS C ANTIBODY Routine 07/01/2024 10:10 AM EDT Hypertension Chronic kidney disease, stage 4 (severe) (HCC) Diabetes mellitus, not otherwise specified (HCC) Epilepsy, not otherwise specified (HCC) Cyst of kidney Localized edema Rheumatoid arthritis, not otherwise specified (HCC) Anemia in chronic kidney disease Secondary hyperparathyroidism (HCC) Vitamin D deficiency, not otherwise specified Iron deficiency anemia, not otherwise specified HEPATITIS B SURFACE ANTIGEN Routine 07/01/2024 10:10 AM EDT Hypertension Chronic kidney disease, stage 4 (severe) (HCC) Diabetes mellitus, not otherwise specified (HCC) Epilepsy, not otherwise specified (HCC) Cyst of kidney Localized edema Rheumatoid arthritis, not otherwise specified (HCC) Anemia in chronic kidney disease Secondary hyperparathyroidism (HCC) Vitamin D deficiency, not otherwise specified Iron deficiency anemia, not otherwise specified CBC AND DIFFERENTIAL Routine 07/01/2024 10:10 AM EDT Chronic kidney disease, stage 4 (severe) (HCC) Diabetes mellitus, not otherwise specified (HCC) Hypertension Localized edema Rheumatoid arthritis, not otherwise specified (HCC) COMPREHENSIVE METABOLIC PANEL Routine 07/01/2024 10:10 AM EDT Chronic kidney disease, stage 4 (severe) (HCC) Diabetes mellitus, not otherwise specified (HCC) Hypertension Localized edema Rheumatoid arthritis, not otherwise specified (HCC) from Last 3 Months Results * (ABNORMAL) Protein, Total, Random Urine w/Creatinine (Protein/Creat Ratio) (07/01/2024 10:50 AM EDT) Pathologist [facility] Creatinine, Urine 29.95 mg/dL See order comments Protein Urine Random 376(H) <12 mg/dL See order comments Protein/Creati nine Ratio, Urine 12.55(H) <0.2 See order comments Comment: The spot urine protein:creatinine ratio may increase to 0.3 during normal . 07/01/2024 10:5 0 AM EDT 07/01/2024 10:50 AM EDT us Reuben Holbrook MD LAB URINE ORDERABLES Final Re sult Performing Organization Address [facility] de Phone Number [employer] See order comments [place] [address] * (ABNORMAL) PTH, Intact (07/01/2024 10:10 AM EDT) Pathologist [facility] Parathyroid Hormone, Intact 498.3(H) 8.7 - 77.1 pg/mL See order comments 07/01/2024 10:1 0 AM EDT 07/01/2024 10:10 AM EDT us Reuben Holbrook MD LAB [id number] SOLICITED RESULTS Final Result Performing Organization Address [facility] de Phone Number [employer] See order comments [place] [address] * Hepatitis C antibody (07/01/2024 10:10 AM EDT) Pathologist [facility] Hepatitis C Antibody Nonreactive Nonreactive See order comments Comment: Antibodies to HCV not detected; does not exclude early acute HCV infection. Blood specimen (specimen) Venous blood / Unknown 07/01/2024 10:10 AM EDT 07/01/2024 10:10 AM EDT Result Alvaro Holbrook MD LAB BLOOD ORDERABLES Final Re sult Performing Organization Address [facility] de Phone Number [employer] See order comments [place] [address] * Hepatitis B Core Antibody, Total (07/01/2024 10:10 AM EDT) Hep B Core Total Ab Nonreactive Nonreactive See order comments Blood specimen (specimen) Venous blood / Unknown 07/01/2024 10:10 AM EDT 07/01/2024 10:10 AM EDT us Reuben Holbrook MD LAB BLOOD ORDERABLES Final Re sult Performing Organization Address [facility] de Phone Number [place] See order comments [place] [address] * (ABNORMAL) Vitamin D 25 Hydroxy (07/01/2024 10:10 AM EDT) Pathologist [facility] Vitamin D, 25-Hydroxy 29.7(L) >30 ng/mL See order comments Comment: Health Based Reference Values* < 20 ng/mL Deficient 20-30 ng/mL Insufficient > 30 ng/mL Sufficient *Kyle GREER. N Engl J Med. 2007;357:266-280 [...] D results from different laboratories and methodologies. Published data demonstrated that results from patients undergoing hemodialysis may show a negative bias when tested with various automated 25-OH vitamin D assays when compared to LC-MS/MS. When testing samples from patients whose predominant form of Vitamin D is Vitamin D2, such as patients receiving Vitamin D2 supplementation, results that are subtherapeutic should be confirmed with another method such as LC-MS/MS. 07/01/2024 10:1 0 AM EDT 07/01/2024 10:10 AM EDT us Reuben Holbrook MD LAB BLOOD ORDERABLES Final Re sult Performing Organization Address [facility] Co de Phone Number [place] See order comments [place] [address] * Hepatitis B Surface Antibody (07/01/2024 10:10 AM EDT) Hep B Surface Antibody NONREACTIVE Nonreactive See order comments Comment:Nonreactive: < 8.00 mIU/mL Blood specimen (specimen) Venous blood / Unknown 07/01/2024 10:10 AM EDT 07/01/2024 10:10 AM EDT us Reuben Holbrook MD LAB BLOOD ORDERABLES Final Re sult Performing Organization Address [facility] de Phone Number [employer] See order comments [place] [address] * Hepatitis B Surface Antigen (07/01/2024 10:10 AM EDT) Pathologist [facility] Hep B Surface Antigen Negative Negative See order comments Blood specimen (specimen) Venous blood / Unknown 07/01/2024 10:10 AM EDT 07/01/2024 10:10 AM EDT us Reuben Holbrook MD LAB BLOOD ORDERABLES Final Re sult Performing Organization Address [facility] de Phone Number [employer] See order comments [place] [address] * (ABNORMAL) CBC and Differential (07/01/2024 10:10 AM EDT) Pathologist [facility] WBC 6.3 4.8 - 10.8 X10*3/uL See order comments RBC 3.96(L) 4.20 - 5.50 X10*6/uL See order comments Hgb 11.8(L) 12.0 - 16.0 g/dl See order comments Hematocrit 37.3 37.0 - 47.0 % See order comments MCV 94.2 80.0 - 98.0 fL See order comments MCH 29.8 27.0 - 33.0 pg See order comments MCHC 31.6 31.0 - 35.0 g/dl See order comments RDW 13.7 11.0 - 16.0 % See order comments Platelets 214 160 - 400 X10*3/uL See order comments MPV 9.5 9.4 - 12.3 fL See order comments Neutrophils % Auto 71.6 45 - 73 % See order comments Immature Granulocytes 1.0(H) 0.0 - 0.4 % See order comments Lymphocytes Relative 17.7(L) 20 - 40 % See order comments Monocytes 7.7 2 - 11 % See order comments Eosinophils Relative 1.4 0 - 4 % See order comments Basophils Relative 0.6 0 - 2 % See order comments nRBC Count 0.0 0.0 - 0.2 /100WBC See order comments Neutrophils Absolute 4.5 2.0 - 8.3 x10*3/uL See order comments Immature Grans (Absolute) 0.06(H) 0.00 - 0.03 X10*3/uL See order comments Lymphocytes Absolute 1.1(L) 1.2 - 4.9 X10*3/uL See order comments Monocytes Absolute 0.5 0.1 - 1.2 X10*3/uL See order comments Eosinophils Absolute 0.1 0.0 - 0.4 X10*3/uL See order comments Basophils Absolute 0.0 0.0 - 0.2 X10*3/uL See order comments NRBC Absolute 0.000 0.0 - 0.012 X10*3/uL See order comments Blood specimen (specimen) Venous blood / Unknown 07/01/2024 10:10 AM EDT 07/01/2024 10:10 AM EDT us Reuben Holbrook MD LAB BLOOD ORDERABLES Final Re sult Performing Organization Address [facility] de Phone Number [employer] See order comments [place] [address] * (ABNORMAL) Uric Acid (07/01/2024 10:10 AM EDT) Uric Acid 6.2(H) 2.4 - 5.7 mg/dL See order comments 07/01/2024 10:1 0 AM EDT 07/01/2024 10:10 AM EDT us Reuben Holbrook MD LAB BLOOD ORDERABLES Final Re sult Performing Organization Address [facility] de Phone Number [facility] See order comments [place] [address] * (ABNORMAL) Phosphorus (07/01/2024 10:10 AM EDT) Phosphorus, Serum 5.2(H) 2.7 - 4.5 mg/dL See order comments 07/01/2024 10:1 0 AM EDT 07/01/2024 10:10 AM EDT us Reuben Holbrook MD LAB BLOOD ORDERABLES Final Re sult Performing Organization Address [facility] Co de Phone Number [employer] See order comments [place] [address] * Magnesium (07/01/2024 10:10 AM EDT) Magnesium 2.1 1.6 - 2.6 mg/dL See order comments 07/01/2024 10:1 0 AM EDT 07/01/2024 10:10 AM EDT us Reuben Holbrook MD LAB BLOOD ORDERABLES Final Re sult Performing Organization Address [facility] Phone Number [employer] See order comments [place] [address] * (ABNORMAL) Comprehensive Metabolic Panel (07/01/2024 10:10 AM EDT) Sodium 136 135 - 145 mmol/L See order comments Potassium 4.9 3.3 - 5.1 mmol/L See order comments Chloride 107 96 - 108 mmol/L See order comments Bicarbonate (CO2) 21(L) 22 - 29 mmol/L See order comments Anion Gap 13 12 - 20 See order comments BUN 46(H) 9 - 16 mg/dL See order comments Creatinine Serum 3.72(H) 0.5 - 1.4 mg/dL See order comments eGFR (Calc) 12 See orde r comments Comment: Chronic Kidney Disease: Estimated GFR < 60 mL/min/1.73m2 Severe Kidney Disease: Estimated GFR < 15 mL/min/1.73m2 Glucose 92 60 - 115 mg/dL See order comments Calcium 8.7 8.4 - 10.2 mg/dL See order comments Total Bilirubin 0.2 0.0 - 1.0 mg/dL See order comments AST (SGOT) 21 5 - 31 U/L See orde r comments ALT (SGPT) 16 0 - 31 U/L See orde r comments Total Protein 6.2(L) 6.5 - 8.0 g/dL See order comments Albumin 3.2(L) 3.5 - 5.0 g/dL See order comments Alkaline phosphatase 84 39 - 117 U/L See order comments Blood specimen (specimen) Venous blood / Unknown 07/01/2024 10:10 AM EDT 07/01/2024 10:10 AM EDT us Reuben Holbrook MD LAB BLOOD ORDERABLES Final Re sult [place] See order comments [place] [address] from Last 3 Months Insurance Medicaid [place] Medicare Medicare [place] Care Teams Drafter Marine Relationship Specialty Start Date End Date Ty Barros MD [facility] [address] [place] [address] [address] PCP - General Internal Medicine 06/21/23
[2024-08-15 12:28] LABS: Hematocrit 37.0 % (37.0-47.0); Hemoglobin 12.0 g/dl (12.0-16.0); Imm Gran Abs Auto 0.07 X10*3/uL (0.00-0.03); Imm Gran Pct Auto 1.0 % (0.0-0.4); Lymphocytes Absolute Auto 1.3 X10*3/uL (1.2-4.9); Mean Corpuscular HGB Conc 32.4 g/dl (31.0-35.0); Mean Corpuscular Hemoglobin 30.1 pg (27.0-33.0); Mean Corpuscular Volume 92.7 fL (80.0-98.0); NRBC Abs Auto 0.000 X10*3/uL (0.0-0.012); NRBC Pct Auto 0.0 /100WBC (0.0-0.2); Platelet Count 221 X10*3/uL (160-400); Red Blood Count 3.99 X10*6/uL (4.20-5.50); White Blood Count 6.7 X10*3/uL (4.8-10.8)
[2024-08-15 13:03] LABS: Parathyroid Hormone Intact 544.9 pg/mL (8.7-77.1)
[2024-08-15 13:15] LABS: Alanine Aminotransferase 17 U/L (0-31); Albumin Level 3.5 g/dL (3.5-5.0); Alkaline Phosphatase 77 U/L (39-117); Anion Gap 11 (12-20); Aspartate Amino Transferase 21 U/L (5-31); Blood Urea Nitrogen 48 mg/dL (9-16); Calcium 8.5 mg/dL (8.4-10.2); Carbon Dioxide 21 mmol/L (22-29); Chloride 108 mmol/L (96-108); Estimated Glomerular Filt Rate 12; Magnesium 2.1 mg/dL (1.6-2.6); Potassium 4.3 mmol/L (3.3-5.1); Sodium 136 mmol/L (135-145); Total Protein 6.3 g/dL (6.5-8.0); Uric Acid 6.2 mg/dL (2.4-5.7)
[2024-08-15 17:14] LABS: Protein/Creatinine Ratio, Ur 11.63 (<0.2); Total Protein Urine Random 550 mg/dL (<12)
== END 2024-08-15 11:10 | disposition home or self-care (01) ==
LOC: HO.LAB 11:09
PROVIDERS: PCP Internal Medicine; Visit Provider Internal Medicine Nephrology
DX: E11.22 Type 2 diabetes mellitus with diabetic chronic kidney disease (principal); N18.4 Chronic kidney disease, stage 4 (severe); M06.9 Rheumatoid arthritis, unspecified
CPT/HCPCS: 36415; 80053; 82306; 82570; 83735; 83970; 84100; 84156; 84550; 85025

== ENCOUNTER 2024-09-13 08:55 | Outpatient (REF) | payer MEDICARE, MEDICAID, SELFPAY ==
--- OUTSIDE RECORDS SUMMARY | 2024-03-25 07:15 | XMS_ITS ---
Author [facility] [place] [place] Address [address] [place] [address] Care Team Providers Care Rug Repairer Name Role Phone Ty Barros Primary Care Provider Lucy Cordoba Unavailable [phone] REASON FOR VISIT Toe Irritation, At Risk [...] Active Encounters Encounter Location Date [facility] [address] [address] 03/25/2024 Lucy Cordoba Other hammer toe(s) (acquired), [...] Provider Name:Lucy wilkins, 10/10/2024 11:00:00 AM, [address] [facility], [place], [address], Procedure Notes * Category Sub-Category Detail Notes Nail Reduction Nail Reduction Trimming of dyst rophic nails performed to reduce/remove overall nail length and girth, by manual and electrical means with use of a nail nipper and/or dremel, to more viable healthy nail plate or bed tissue, any number - G0127 Progress Notes * Link BURNSB: (68 yo F)Acc No.[id number]:03/25/2024 Progress Note Patient: Liza VILLANUEVAjustice Provider: Nicolas Cordoba DPM :1955 A ge:68 Y S ex:Female Date:03/25/2024 Address:[address] [place] [address] Pcp:Ty Barros Subjective: * Chief Complaints: * [...] 03/25/2024 Generated for Yolanda souza/Mariano/Sloane on: 0 09/13/2024 09:10 AM EDT History and Physical Notes * [...]
--- OUTSIDE RECORDS SUMMARY | 2024-09-13 09:10 | XMS_ITS | Clinical Summary ---
Author Organization [facility] Address [address] [phone] Phone Care Team Providers Care Lye Machine Operator Name Role Phone Ty Barros [...] former smoker who is part of the [facility] and was followed for an 8 mm [...] JAY BENITEZ checked. Called to [facility] 2. 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 Biomarkers pending. Follow up with Dr. Sawant on August 26 at [facility]. 3. She is being followed by [facility] for kidney disease. 4. Per NCCN guidelines, she will be followed for [address] scan of the chest. Every 6 months X 2 years then annually X 3 years with a visit to the Thoracic Surgery Office. Patient and son wish to have these visits here at [facility]. Her next visit will be in 6 months, January 2023. 5. She is instructed to call with any questions or concerns. Stage 5 chronic kidney disease 08/02/2022 Diabetes mellitus, not otherwise specified 08/02 Hypertension 08/02/2022 Rheumatoid arthritis, not otherwise specified Encounters Date Type Department Care Team Description 08/19/2024 Office Communication [facility] [address] [phone] Reuben Holbrook MD 08/15/2024 Orders Only [facility] [address] [phone] Reuben Holbrook MD Hypertension; Chronic kidney disease, stage 4 (severe) (HCC); Diabetes mellitus, not otherwise specified (HCC); Epilepsy, not otherwise specified (HCC); Cyst of kidney; Localized edema; Rheumatoid arthritis, not otherwise specified (HCC) 07/16/2024 9:40 AM EDT Office Visit [facility] [address] [phone] Reuben Holbrook MD Stage 5 chronic kidney [...] Orders Only [facility] [address] [phone] Reuben Holbrook MD Hypertension; Chronic kidney disease, stage 4 (severe) (HCC); Diabetes mellitus, not otherwise specified (HCC); Epilepsy, not otherwise specified (HCC); Cyst of kidney; Localized edema; Rheumatoid arthritis, not otherwise specified (HCC); Anemia in chronic kidney disease; Secondary hyperparathyroidism (HCC); Vitamin D deficiency, not otherwise specified; Iron deficiency anemia, not otherwise specified 07/01/2024 Orders Only [facility] [address] [phone] Reuben Holbrook MD from Last 3 Months Family History Medical [...] Office Visit [facility] [place] [id number] [phone] Reuben Holbrook MD [address] [phone] Health Maintenance Due Date Last Done Comments [...] Visual Foot Exam 08/02/2022 Influenza Vaccine (#1) 2024 Hepatitis B Vaccine Aged Out No longe r eligible based on patient's age to complete this topic Procedures Procedure Name Priority Date/Time Associated Diagnosis Comments PROTEIN / CREATININE RATIO, URINE Routine 08/15/2024 12:29 PM EDT Hypertension Chronic kidney disease, stage 4 (severe) (HCC) Diabetes mellitus, not otherwise specified (HCC) Epilepsy, not otherwise specified (HCC) Cyst of kidney Localized edema Rheumatoid arthritis, not otherwise specified (HCC) PTH, INTACT (HC) Routine 08/15/2024 11:36 AM EDT CBC AND DIFFERENTIAL Routine 08/15/2024 11:36 AM EDT Hypertension Chronic kidney disease, stage 4 (severe) (HCC) Diabetes mellitus, not otherwise specified (HCC) Epilepsy, not otherwise specified (HCC) Cyst of kidney Localized edema Rheumatoid arthritis, not otherwise specified (HCC) VITAMIN D 25 HYDROXY Routine 08/15/2024 11:36 AM EDT Hypertension Chronic kidney disease, stage 4 (severe) (HCC) Diabetes mellitus, not otherwise specified (HCC) Epilepsy, not otherwise specified (HCC) Cyst of kidney Localized edema Rheumatoid arthritis, not otherwise specified (HCC) PHOSPHATE ( PHOSPHORUS) Routine 08/15/2024 11:36 AM EDT Hypertension Chronic kidney disease, stage 4 (severe) (HCC) Diabetes mellitus, not otherwise specified (HCC) Epilepsy, not otherwise specified (HCC) Cyst of kidney Localized edema Rheumatoid arthritis, not otherwise specified (HCC) MAGNESIUM Routine 08/15/2024 11:36 AM EDT Hypertension Chronic kidney disease, stage 4 (severe) (HCC) Diabetes mellitus, not otherwise specified (HCC) Epilepsy, not otherwise specified (HCC) Cyst of kidney Localized edema Rheumatoid arthritis, not otherwise specified (HCC) URIC ACID Routine 08/15/2024 11:36 AM EDT Hypertension Chronic kidney disease, stage 4 (severe) (HCC) Diabetes mellitus, not otherwise specified (HCC) Epilepsy, not otherwise specified (HCC) Cyst of kidney Localized edema Rheumatoid arthritis, not otherwise specified (HCC) COMPREHENSIVE METABOLIC PANEL Routine 08/15/2024 11:36 AM EDT Hypertension Chronic kidney disease, stage 4 (severe) (HCC) Diabetes mellitus, not otherwise specified (HCC) Epilepsy, not otherwise specified (HCC) Cyst of kidney Localized edema Rheumatoid arthritis, not otherwise specified (HCC) PROTEIN / CREATININE RATIO, URINE Routine 07/01/2024 [...] Protein, Total, Random Urine w/Creatinine (Protein/Creat Ratio) (08/15/2024 12:29 PM EDT) Only the most recent of2 resultswithin the time period is included. Creatinine, Urine 47.31 mg/dL See order comments Protein Urine Random 550(H) <12 mg/dL See order comments Protein/Creati nine Ratio, Urine 11.63(H) <0.2 See order comments Comment: The spot urine protein:creatinine ratio may increase to 0.3 during normal . Urine specimen (specimen) Urine specimen obtained by clean catch procedure / Unknown 08/15/2024 12:29 PM EDT 08/15/2024 12:29 PM EDT us Reuben Dicampli MD LAB URINE ORDERABLES Final Re sult [place] See order comments [place] [address] * (ABNORMAL) PTH, Intact (08/15/2024 11:36 AM EDT) Only the most recent of2 resultswithin the time period is included. Parathyroid Hormone, Intact 544.9(H) 8.7 - 77.1 pg/mL See order comments 08/15/2024 11:3 6 AM EDT 08/15/2024 11:36 AM EDT us Reuben Holbrook MD LAB [id number] SOLICITED RESULTS Final Result Performing Organization Address [facility] Co de Phone Number [place] See order comments [place] [address] * (ABNORMAL) Vitamin D 25 Hydroxy (08/15/2024 11:36 AM EDT) Only the most recent of2 resultswithin the time period is included. Vitamin D, 25-Hydroxy 28.8(L) >30 ng/mL See order comments Comment: Health [...] with another method such as LC-MS/MS. Blood specimen (specimen) Venous blood / Unknown 08/15/2024 11:36 AM EDT 08/15/2024 11:36 AM EDT us Reuben Holbrook MD LAB BLOOD ORDERABLES Final Re sult [place] See order comments [place] [address] * (ABNORMAL) CBC and Differential (08/15/2024 11:36 AM EDT) Only the most recent of2 resultswithin the time period is included. WBC 6.7 4.8 - 10.8 X10*3/uL See order comments RBC 3.99(L) 4.20 - 5.50 X10*6/uL See order comments Hgb 12.0 12.0 - 16.0 g/dl See order comments Hematocrit 37.0 37.0 - 47.0 % See order comments MCV 92.7 80.0 - 98.0 fL See order comments MCH 30.1 27.0 - 33.0 pg See order comments MCHC 32.4 31.0 - 35.0 g/dl See order comments RDW 13.3 11.0 - 16.0 % See order comments Platelets 221 160 - 400 X10*3/uL See order comments MPV 9.7 9.4 - 12.3 fL See order comments Neutrophils % Auto 68.3 45 - 73 % See order comments Immature Granulocytes 1.0(H) 0.0 - 0.4 % See order comments Lymphocytes Relative 19.0(L) 20 - 40 % See order comments Monocytes 8.4 2 - 11 % See order comments Eosinophils Relative 2.7 0 - 4 % See order comments Basophils Relative 0.6 0 - 2 % See order comments nRBC Count 0.0 0.0 - 0.2 /100WBC See order comments Neutrophils Absolute 4.6 2.0 - 8.3 x10*3/uL See order comments Immature Grans (Absolute) 0.07(H) 0.00 - 0.03 X10*3/uL See order comments Lymphocytes Absolute 1.3 1.2 - 4.9 X10*3/uL See order comments Monocytes Absolute 0.6 0.1 - 1.2 X10*3/uL See order comments Eosinophils Absolute 0.2 0.0 - 0.4 X10*3/uL See order comments Basophils Absolute 0.0 0.0 - 0.2 X10*3/uL See order comments NRBC Absolute 0.000 0.0 - 0.012 X10*3/uL See order comments Blood specimen (specimen) Venous blood / Unknown 08/15/2024 11:36 AM EDT 08/15/2024 11:36 AM EDT us Reuben Holbrook MD LAB BLOOD ORDERABLES Final Re sult Performing Organization Address [facility] Phone Number [place] See order comments [place] [address] * (ABNORMAL) Uric Acid (08/15/2024 11:36 AM EDT) Only the most recent of2 resultswithin the time period is included. Uric Acid 6.2(H) 2.4 - 5.7 mg/dL See order comments Blood specimen (specimen) Venous blood / Unknown 08/15/2024 11:36 AM EDT 08/15/2024 11:36 AM EDT us Reuben Holbrook MD LAB BLOOD ORDERABLES Final Re sult Performing Organization Address [facility] Phone Number [place] See order comments [place] [address] * (ABNORMAL) Phosphorus (08/15/2024 11:36 AM EDT) Only the most recent of2 resultswithin the time period is included. Phosphorus, Serum 4.8(H) 2.7 - 4.5 mg/dL See order comments Blood specimen (specimen) Venous blood / Unknown 08/15/2024 11:36 AM EDT 08/15/2024 11:36 AM EDT Result Alvaro Holbrook MD LAB BLOOD ORDERABLES Final Re sult Performing Organization Address [facility] Phone Number [place] See order comments [place] [address] * Magnesium (08/15/2024 11:36 AM EDT) Only the most recent of2 resultswithin the time period is included. Magnesium 2.1 1.6 - 2.6 mg/dL See order comments Blood specimen (specimen) Venous blood / Unknown 08/15/2024 11:36 AM EDT 08/15/2024 11:36 AM EDT us Reuben Holbrook MD LAB BLOOD ORDERABLES Final Re sult [place] See order comments [place] [address] * (ABNORMAL) Comprehensive Metabolic Panel (08/15/2024 11:36 AM EDT) Only the most recent of2 resultswithin the time period is included. Sodium 136 135 - 145 mmol/L See order comments Potassium 4.3 3.3 - 5.1 mmol/L See order comments Chloride 108 96 - 108 mmol/L See order comments Bicarbonate (CO2) 21(L) 22 - 29 mmol/L See order comments Anion Gap 11(L) 12 - 20 See order comments BUN 48(H) 9 - 16 mg/dL See order comments Creatinine Serum 3.81(H) 0.5 - 1.4 mg/dL See order comments eGFR (Calc) 12 See orde r comments Comment: Chronic Kidney Disease: Estimated GFR < 60 mL/min/1.73m2 Severe Kidney Disease: Estimated GFR < 15 mL/min/1.73m2 Glucose 81 60 - 115 mg/dL See order comments Calcium 8.5 8.4 - 10.2 mg/dL See order comments Total Bilirubin 0.2 0.0 - 1.0 mg/dL See order comments AST (SGOT) 21 5 - 31 U/L See orde r comments ALT (SGPT) 17 0 - 31 U/L See orde r comments Total Protein 6.3(L) 6.5 - 8.0 g/dL See order comments Albumin 3.5 3.5 - 5.0 g/dL See order comments Alkaline phosphatase 77 39 - 117 U/L See order comments Blood specimen (specimen) Venous blood / Unknown 08/15/2024 11:36 AM EDT 08/15/2024 11:36 AM EDT Result Alvaro Holbrook MD LAB BLOOD ORDERABLES Final Re sult Performing Organization Address [facility] de Phone Number [place] See order comments [place] [address] * Hepatitis C antibody (07/01/2024 10:10 AM EDT) Hepatitis C Antibody Nonreactive Nonreactive See order comments Comment: Antibodies to HCV not detected; does not exclude early acute HCV infection. Blood specimen (specimen) Venous blood / Unknown 07/01/2024 10:10 AM EDT 07/01/2024 10:10 AM EDT Result Alvaro Holbrook MD LAB BLOOD ORDERABLES Final Re sult Performing Organization Address [facility] de Phone Number [place] See order comments [place] [address] * Hepatitis B Core Antibody, Total (07/01/2024 10:10 AM EDT) Hep B Core Total Ab Nonreactive Nonreactive See order comments Blood specimen (specimen) Venous blood / Unknown 07/01/2024 10:10 AM EDT 07/01/2024 10:10 AM EDT Result Alvaro Holbrook MD LAB BLOOD ORDERABLES Final Re sult Performing Organization Address [facility] de Phone Number [facility] See order comments [place] [address] * Hepatitis B Surface Antibody (07/01/2024 10:10 AM EDT) Hep B Surface Antibody NONREACTIVE Nonreactive See order comments Comment:Nonreactive: < 8.00 mIU/mL Blood specimen (specimen) Venous blood / Unknown 07/01/2024 10:10 AM EDT 07/01/2024 10:10 AM EDT Result Alvaro Holbrook MD LAB BLOOD ORDERABLES Final Re sult [place] See order comments [place] [address] * Hepatitis B Surface Antigen (07/01/2024 10:10 AM EDT) Hep B Surface Antigen Negative Negative See order comments Blood specimen (specimen) Venous blood / Unknown 07/01/2024 10:10 AM EDT 07/01/2024 10:10 AM EDT Reuben Holbrook MD LAB BLOOD ORDERABLES Final Re sult [place] See order comments [place] [address] from Last 3 Months Insurance Medicaid [place] Medicare Medicare Medicaid [place] Care Teams Lye Machine Operator Relationship Specialty Start Date End Date Ty Barros MD [address] [address] PCP - General Internal Medicine 06/21/23
--- OUTSIDE RECORDS SUMMARY | 2024-09-13 09:10 | XMS_ITS | Clinical Summary ---
Author Organization [facility] [address] [facility] [address] Address [address] [place] [address] Phone Care Team Providers Care Sack Sewer Name Role Phone Ty Barros MD Primary Care Provider [phone] Allergies No known active allergies Medications albuterol [...] follows with Dr. Vasquez and pulmonology at [facility]. Patient's most recent surveillance CT scan [...] follows with Dr. Vasquez and pulmonology at [facility]. Patient's most recent surveillance CT scan [...] PM EDT Office Visit Thoracic Surgery - [address] [phone] Gini Viera, RAMON History of lung cancer (Primary Dx) from Last 3 Months Surgical History Surgery Date Site/Laterality Comments CHOLECYSTECTOMY N/A PROCEDURE: HISTORICAL CHOLECYSTECTOMY ESOPHAGOGASTRODUODENOSCOPY N/A PROCEDURE: [place] ESOPHAGOGASTRODUODENOSCOPY TRANSORAL DIAGNOSTIC TUBAL LIGATION N/A PROCEDURE: HISTORICAL TUBAL LIGATION COLONOSCOPY N/A PROCEDURE: HISTORICAL COLONOSCOPY OTHER SURGICAL HISTORY 07/19/2022 Left PROCEDURE: [place] THORACOSCOPY W/THERA WEDGE RESEXN INITIAL UNILAT; COMMENT: CLYDE Medical History Medical History Date Comments CKD (chronic kidney disease) , symptom management only, stage 4 (severe) ([facility] V24, [facility] V28) DX:CKD (chronic kidney disea se), symptom management only, stage 4 (severe) ([facility]) Meckel's diverticulum DX:Meckel' s diverticulum Emphysema lung ([facility]/HCC V24, [facility] V28) DX:Emphysema lung ([facility]) Epilepsy with status epilept icus, not intractable ([facility]/HCC V24, [facility] V28) DX:Epilepsy wit h status epilepticus, not intractable ([facility]) GI bleed DX:GI bleed Gout DX:Gout HTN (hypertension) DX:HTN (hyper tension) Hypercholesteremia DX:Hyperchole steremia Hypothyroidism DX:Hypothyroidis m Type 2 diabetes mellitus wit hout complications ([facility]/HCC V24, [facility] V28) DX:Type 2 ema betes mellitus without complications ([facility]) Nontoxic single thyroid nodule D X:Nontoxic single thyroid nodule Rheumatoid arthritis ([facility]/ C V24, [facility]/HCC V28) DX:Rheumatoid arthritis (HCC ) History of [...] Upcoming Encounters Date Type Department Care Team ([facility] Contact Info) Description 10/02/2024 2:45 PM EDT Appointment [facility] CT Scan [address] [place] [phone] 10/10/2024 10:00 AM EDT Office Visit Thoracic Surgery - [place] [address] [facility] [address] [place] [phone] Devi Herrera PA [address] [facility] [address] [place] [address] Health Maintenance Due Date Last Done Comments Breast Cancer Screening 1955 COVID-19 Vaccine (#1) 10/03/1960 Diabetes: Annual Foot Exam 10/03/1965 Diabetes: Annual Retina Eye Exam 10/03/1965 DTaP,Tdap,and Td Vaccines (1 - Tdap) 10/03/1974 Zoster Vaccines (1 of 2) 10/03/1974 RSV Immunization Adult Patients (1 - Risk 60-74 years 1-dose series) 2015 Cholesterol Screening (Lipid Panel) 03/10/2023 Colorectal Cancer Screening: Colonoscopy 03/10/2023 Falls Risk Assessment 03/10/2023 Lung Cancer Screening (Low Dose CT) 03/10/2023 Medicare Annual Wellness Visit 03/10/2023 Osteoporosis Screening (Bone Density Screening) 03/10/2023 Social Influencers of Health Screening 03/10/2023 Diabetes: Annual Urine Albumin-Creatinine Ratio (uACR) 01/12/2024 Diabetes: Blood Sugar Control Test (HGBA1C) 01/12/2024 Depression Screening 02/14/2024 Influenza Vaccine (#1) 2024 Diabetes: Annual GFR [...] age to complete this topic Insurance [place] - [place] Advance Directives Documents on File Type Date Recorded Patient Package Winder Expl anation Health Care Decision (hx) 07/26/2022 HE ALTH CARE PROXY Health Care Decision (hx) 07/26/2022 HE ALTH CARE PROXY Health Care Decision (hx) 07/26/2022 HE ALTH CARE PROXY Health Care Decision (hx) 07/26/2022 HE ALTH CARE PROXY Health Care Decision (hx) 07/26/2022 HE ALTH CARE PROXY Health Care Decision (hx) 07/26/2022 HE ALTH CARE PROXY Care Teams Sack Sewer Relationship Specialty Start Date End Date Ty Barros MD [facility] [address] [place] [address] [address] [facility] [address] PCP - General 06/08/23
== END 2024-09-13 08:56 | disposition home or self-care (01) ==
LOC: HO.MAMMO 08:55
PROVIDERS: PCP Internal Medicine; Visit Provider Internal Medicine
DX: Z12.31 Encounter for screening mammogram for malignant neoplasm of breast (principal)
CPT/HCPCS: 77063; 77067

== ENCOUNTER → 2024-09-13 09:00 | Outpatient (BNV) | payer MEDICARE, MEDICAID, SELFPAY | PROVIDERS: PCP Internal Medicine; Visit Provider Internal Medicine | DX: Z12.31 Encounter for screening mammogram for malignant neoplasm of breast (principal) | CPT/HCPCS: 77063; 77067 ==

== ENCOUNTER 2024-10-03 10:58 | Outpatient (AMB) | payer MEDICARE, MEDICAID, SELFPAY ==
--- OUTSIDE RECORDS SUMMARY | 2024-03-25 07:15 | XMS_ITS ---
Author Organization [facility] Beatrice [place] Address [address] [place] [address] Care Team Providers Care Identification And Records Commander Name Role Phone Ty Barros Primary Care Provider [phone] Lucy Cordoba Unavailable [phone] REASON FOR VISIT Toe Irritation, At Risk [...] Encounters Encounter Location Date [facility] [address] [address] 03/25/2024 Lucy Cordoba Other hammer toe(s) (acquired), [...] Provider Name:Lucy wilkins, 10/10/2024 11:00:00 AM, [address] [facility], [place], [address], Procedure Notes * Category Sub-Category Detail Notes Nail Reduction Nail Reduction Trimming of dyst rophic nails performed to reduce/remove overall nail length and girth, by manual and electrical means with use of a nail nipper and/or dremel, to more viable healthy nail plate or bed tissue, any number - G0127 Progress Notes * Link BURNSB: (69 yo F)Acc No.[id number]:03/25/2024 Progress Note Patient: Liza VILLANUEVAjustice Provider: Nicolas Cordoba DPM :1955 A ge:68 Y S ex:Female Date:03/25/2024 Address:[address] [place] [address] Pcp:Ty Barros Subjective: * Chief Complaints: * [...] 0 03/25/2024 Generated for Yolanda souza/Mariano/Sloane on: 0 10/03/2024 01:26 AM EDT History and Physical Notes * HPI [...]
--- NOTE | 2024-10-03 10:59 | A.OFFPC_ITS ---
Vital Signs 10/03/24 11:01 Height 5 ft 3 in Weight 164 lb 14.492 oz BMI 29.2 BP 140/50 H Blood Pressure Location Lt brachial Position Sitting Respiration 18 Pulse 53 Pulse Source Pulse Oximeter Temp 97 F Pulse Oximetry (%) 99 Oxygen Delivery Method Room Air Intake Visit Reasons: PRE UP SURGERY Intake Note: Patient is here for a Pre-op for Cataract surgery [facility] on 10/22 left eye 11/01. 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 Required: No Accompanied by: Son Allergies No Known Allergies Allergy (Verified 10/03/24 14:23) Medication List - Last Reconciled 10/03/24 by Ty Barros MD albuterol sulfate 90 mcg/actuation (Ventolin HFA) 1 inh inhalation QID 30 days albuterol sulfate 2.5 mg (3 mL) inhalation Q6H PRN 30 days amlodipine 10 mg (2 x 5 mg) PO DAILY 90 days atorvastatin 40 mg PO DAILY benzonatate 100 mg PO BID PRN bimatoprost 0.01% (Lumigan) 0.01 drps ophthalmic (eye) DAILY bisacodyl 10 mg (2 x 5 mg) PO BID 2 days brimonidine 0.2% 1 drp ophthalmic (eye) TID brimonidine-timolol 0.2-0.5 % (Combigan) 0.2 drps ophthalmic (eye) ONCE carbamazepine ER 200 mg PO ONCE 90 days dorzolamide-timolol 22.3-6.8 mg/mL 22.3 drps ophthalmic (eye) DAILY empagliflozin (Jardiance) 10 mg PO DAILY 30 days ergocalciferol (vitamin D2) 50,000 units PO QWEEK fluticasone furoate-vilanterol 200-25 mcg/dose (Breo Ellipta) 1 inh inhalation DAILY 30 days ketorolac 0.5% 0.5 drps ophthalmic (eye) DAILY labetalol 100 mg PO DAILY levothyroxine 175 mcg PO DAILY linagliptin (Tradjenta) 5 mg PO DAILY 90 days montelukast 10 mg PO DAILY 30 days nebulizer accessories As directed nebulizers As directed nebulizers (Compact Compressor Nebulizer) As directed netarsudil 0.02% (Rhopressa) 0.02 drps ophthalmic (eye) DAILY ondansetron 8 mg PO Q8H psyllium husk 1 tbsp PO DAILY sennosides (senna) 17.2 mg (2 x 8.6 mg) PO DAILY 30 days sertraline 50 mg PO QAM sertraline 100 mg PO DAILY trazodone 100 mg PO BEDTIME PRN trazodone 150 mg PO BEDTIME walker (Ultra-Light Rollator misc) As directed Tobacco use date assessed: 10/03/24 Fall risk assessment: No Falls in past year Last assessed Fall Risk: 10/03/24 Dental Screening Dental Screen Date: 10/03/24 Did you have a dental visit in the last 12 months?: No Did you have a dental problem in the last 6 months where you did not have access to dental care?: No Was dental information given to patient?: Patient has dentist HPI PRE UP SURGERY HPI Details 69-year-old female presents to the offic e for a preoperative clearance. Patient is scheduled for bilateral cataract extraction in successive weeks. The procedure will be done under monitored anesthesia care. Patient has end-stage renal disease with impending start of dialysis. She has been postponing the start date for a variety of reasons. She has an AV shunt in the upper extremity. Patient also has follow-up with her oncologist, Dr. Vasquez for adenocarcinoma of the lung. Currently there is no chemotherapy or any other procedure being planned. [facility] Medical History COPD (chronic obstructive pulmonary disease) ILD (interstitial lung disease) Chest discomfort Cataracts, both eyes Glaucoma Tubular adenoma of colon Esophagitis Personal history of nicotine dependence Gout Right elbow pain Thyroid nodule HTN (hypertension) GI bleed Diverticulitis CKD (chronic kidney disease), stage IV Hypothyroid Emphysema lung Epilepsy Type 2 diabetes mellitus Hypercholesteremia Surgical History History of elbow surgery History of lung surgery History of colonoscopy (~08/11/22) History of esophagogastroduodenoscopy (EGD) History of cholecystectomy History of tubal ligation Family History Sister SLE (systemic lupus erythematosus) Breast cancer Mental health problem Mother Diabetes Acute arthritis Alzheimer disease Age related osteoporosis Father Diabetes HTN (hypertension) Brother Brain tumor Family/Other Breast cancer Lupus Acute arthritis Family/Other HTN (hypertension) Thyroid cancer Other Mental health disorder Social History Household Members: Children Household Members Other:: Living with son in his house Housing: House Alcohol intake: never Patient Tobacco Use Status: Former Tobacco user Years Smoked: (former smoker - onset 16yo - 1ppd x 50yrs, 50pyh - quit 12/2021) e-Cigarette/Vaping Use: Never Used Second Hand Smoke Exposure: Yes service: No Current occupational status: disabled Cognitive needs: Yes (WHEELCHAIR) Hearing needs: No Vision needs: Yes (Glasses) Questionnaire PHQ-9 Over the last 2 weeks, how often have you been bothered by any of the following problems? 1. Little interest or pleasure in doing things: several days 2. Feeling down, depressed, or hopeless: several days 3. Trouble falling or staying asleep, or sleeping too much: not at all 4. Feeling tired or having little energy: several days 5. Poor appetite or overeating: several days 6. Feeling bad about yourself - or that you are a failure or have let yourself or your family down: several days 7. Trouble concentrating on things, such as reading the newspaper or watching television: not at all 8. Moving or speaking so slowly that other people could have noticed. Or the opposite - being so fidgety or restless that you have been moving around a lot more than usual: not at all 9. Thoughts that you would be better off or of hurting yourself in some way: not at all Total score: 5 Depression Screening Interpretation: Positive Depression Screening Follow-up: Existing condition and In treatment Depression Screening Done: Yes Source: Developed by Drs. Pa Lopez, Nettie Melendez, Leroy Echols and colleagues, with an educational shana from [employer]. Thrive Questionnaire Date Thrive assessed: 10/03/24 I am a: Patient What is your living situation today?: I have a steady place to live Within the past 12 months, did the food you bought not last and you didn't have the money to get more?: Never true Within the past 12 months, did you worry whether your food would run out before you got money to buy more?: Never true Do you have trouble paying for medicines?: No Do you have trouble getting transportation to medical appointments?: No Do you have trouble paying your heating and electricity bill?: No Do you have trouble taking care of your child, family member or friend?: No Do you have trouble with day-to-day activities such as bathing, preparing meals, shopping, managing finances, etc.?: No Are you currently unemployed and looking for a job?: No Are you interested in more education?: No Please select the resources that you would like help with: None Currently or been in a relationship where the following occur: No concerns reported THRIVE Score: 0 AUDIT C Alcohol Use Questionnaire (AUDIT-C) 1. How often do you have a drink containing alcohol?: Never Total Score: 0 SHAUNA-7 AMB Questionnaire SHAUNA-7 Date SHAUNA - 7 assessed: 10/03/24 Feeling nervous, anxious, or on edge: 0 = Not at all Not being able to stop or control worryin = Not at all Worrying too much about different things: 0 = Not at all Trouble relaxin = Not at all Being so restless that it is hard to sit still: 0 = Not at all Becoming easily annoyed or irritable: 0 = Not at all Feeling afraid as if something awful might happen: 0 = Not at all Total SHAUNA-7 score (0-4 normal; 5-9 mild; 10-14 moderate; 15-21 severe): 0 Source: Developed by Drs. Pa Lopez, Nettie Melendez, Leroy Echols and colleagues, with an educational shana from [employer]. Physical exam (Primary Care) Vital Signs: Last Vital Signs Temp 97 F 10/03/24 11:01 Pulse 53 10/03/24 11:01 Resp 18 10/03/24 11:01 BP 140/50 H 10/03/24 11:01 Pulse Ox 99 10/03/24 11:01 Oxygen Delivery Method Room Air 10/03/24 11:01 BMI result Body Mass Index 29.2 Tobacco/Smoking Status: Tobacco use Status Tobacco use date assessed 10/03/24 10/03/24 11:01 Patient Tobacco Use Status Former Tobacco user 10/03/24 11:01 e-Cigarette/Vaping Use Never Used 10/03/24 11:01 PHQ-9: PHQ-9 Score PHQ-9: Total score 5 10/03/24 11:22 Depression Screening Interpretation: Positive Depression Screening Follow-up: Existing condition and In treatment Thrive Assessment: Date of Thrive Assessment Date Thrive assessed 10/03/24 10/03/24 11:01 Currently or been in a relationship where the following occur: No concerns reported Const General: cooperative and healthy appearing Nutritional Appearance: well nourished Orientation/consciousness: patient oriented x3 Limitations: no limitations HENMT Head: Yes normal to inspection Eyes General: appearance normal, both eyes and all related structures Neck Neck: Yes normal visual inspection Chest Chest palpation & inspection: normal palpation of entire chest wall Resp Effort & Inspection: normal respiratory effort Neuro General: patient oriented x3 Results AMB Hemoglobin A1c AMB Hemoglobin A1c 5.2 % Last Edit by Renee De La Torre CMA on 10/03/24 11:17 Results Reviewed Results Reviewed: Laboratory Last Values Hgb A1c (Clinic) 5.2 % (4.0-6.0) 10/03/24 11:16 Coding Level of Care Code Est Pt Level 4 (25165) Complex EM visit Add On G2211 Diagnoses Preoperative clearance Z01.818 Assessment & Plan Assessment & Plan (1) Preoperative clearance: Code(s): Z01.818 - Encounter for other preprocedural examination Plan: Patient is cleared for surgery. Postop care as per the commercial credit lead. Orders: Orders ECG 12 lead EKG Today I10 - Essential (primary) hypertension AMB Hemoglobin A1c Today Z13.9 - Encounter for screening, unspecified
[2024-10-03 11:01] VITALS: BP 140/50; PULSE 53; RESP 18; TEMP 36.1; O2SAT 99; BMI 29.2
--- OUTSIDE RECORDS SUMMARY | 2024-10-03 12:32 | XMS_ITS | Clinical Summary ---
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 Vasquez and pulmonology at [facility]. Patient's most recent surveillance CT scan [...] follows with Dr. Vasquez and pulmonology at [facility]. Patient's most recent surveillance CT scan [...] Encounters Date Type Department Care Team Description 10/02/2024 2:38 PM EDT - 10/02/2024 11:59 PM EDT Hospital Encounter [facility] CT Scan [address] [place] [address] History of lung cancer Discharge Disposition: Home or Self Care from [...] , symptom management only, stage 4 (severe) ([facility] V24, [facility] V28) DX:CKD (chronic kidney disea se), symptom management only, stage 4 (severe) ([facility]) Meckel's diverticulum DX:Meckel' s diverticulum Emphysema lung ([facility] V24, [facility] V28) DX:Emphysema lung ([facility]) Epilepsy with status epilept icus, not intractable ([facility] V24, [facility] V28) DX:Epilepsy wit h status epilepticus, not intractable ([facility]) GI bleed DX:GI bleed Gout DX:Gout HTN (hypertension) DX:HTN (hyper tension) Hypercholesteremia DX:Hyperchole steremia Hypothyroidism DX:Hypothyroidis m Type 2 diabetes mellitus wit hout complications ([facility] V24, [facility] V28) DX:Type 2 ema betes mellitus without complications ([facility]) Nontoxic single thyroid nodule D X:Nontoxic single thyroid nodule Rheumatoid arthritis ([facility] V24, [facility] V28) DX:Rheumatoid arthritis ([facility] ) History of nicotine dependence D X:History [...] Upcoming Encounters Date Type Department Care Team ([facility] st Contact Info) Description 10/10/2024 10:00 AM EDT Office Visit Thoracic Surgery - [place] [address] [place] [phone] Devi Herrera PA [address] [facility], [address] [place] [id number] Health Maintenance Due Date Last Done Comments [...] 2024 Diabetes: Annual GFR (Glomerular Filtration Rate) 08/15/2025 08/15/2024, 08/15/2024, 07/01/2024, Additional history exists Hypertension/CHF/CAD Annual BMP Blood Test 08/15/2025 08/15/2024, 08/15/2024, 07/01/2024, Additional history exists Pneumococcal Vaccine: 50+ Years [...] to complete this topic Insurance [place]ICA[place] - [place] MEDICARE Advance Directives Documents on File Type Date Recorded 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
--- OUTSIDE RECORDS SUMMARY | 2024-10-03 12:32 | XMS_ITS | Clinical Summary ---
Author Organization [facility] Address [address] [address] Phone Care Team Providers Care Isotope Hydrologist Name Role Phone Ty Barros MD Primary [...] 66 y/o female recently moved here from [place], former smoker who is part of the [facility] and was followed for an [...] BENITEZ checked. Called to [facility] on [facility] 2. 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 Biomarkers pending. Follow up with Dr. Sawant on August 26 at [facility]. 3. She is being followed by [facility] for kidney disease. 4. Per NCCN guidelines, she will be followed for [address] scan of the chest. Every 6 months X 2 years then annually X 3 years with a visit to the Thoracic Surgery Office. Patient and son wish to have these visits here at [facility]. Her next visit will be in 6 months, January 2023. 5. She is instructed to call with any questions or concerns. Stage 5 chronic kidney disease 08/02/2022 Diabetes mellitus, not otherwise specified 08/02 Hypertension 08/02/2022 Rheumatoid arthritis, not otherwise specified Encounters Date Type Department Care Team Description 09/16/2024 Office Communication [facility] [address] [address] Saturnino Tatianamartha 08/19/2024 Office Communication [facility] [address] [phone] Reuben Holbrook MD 08/15/2024 Orders Only [facility] [address] [address] Reuben Holbrook MD Hypertension; Chronic kidney disease, stage 4 (severe) (HCC); Diabetes mellitus, not otherwise specified (HCC); Epilepsy, not otherwise specified (HCC); Cyst of kidney; Localized edema; Rheumatoid arthritis, not otherwise specified (HCC) 07/16/2024 9:40 AM EDT Office Visit [facility] [address] [address] Reuben Holbrook MD Stage 5 chronic kidney [...] Orders Only [facility] [address] [place] [phone] Reuben Holbrook MD Hypertension; Chronic kidney disease, stage 4 (severe) (HCC); Diabetes mellitus, not otherwise specified (HCC); Epilepsy, not otherwise specified (HCC); Cyst of kidney; Localized edema; Rheumatoid arthritis, not otherwise specified (HCC); Anemia in chronic kidney disease; Secondary hyperparathyroidism (HCC); Vitamin D deficiency, not otherwise specified; Iron deficiency anemia, not otherwise specified from Last 3 Months Family History Medical [...] Department Care Team (Latest Contact Info) Description 10/16/2024 Orders Only [facility] [address] [phone] Reuben Holbrook MD [address] [phone] Stage 5 chronic kidney disease (HCC); Localized edema; Hypertension; Diabetes mellitus, not otherwise specified (HCC); Cyst of kidney; Anemia in chronic kidney disease; Epilepsy, not otherwise specified (HCC); History of malignant neoplasm of thoracic cavity structure; Rheumatoid arthritis, not otherwise specified (HCC); Secondary hyperparathyroidism (HCC); Vitamin D deficiency, not otherwise specified 10/16/2024 9:00 AM EDT Office Visit [facility] [address] [address] Reuben Holbrook MD [address] [address] Health Maintenance Due Date Last [...] specified (HCC) PTH, INTACT (HC) Routine 08/15/2024 11:3 6 AM EDT CBC AND DIFFERENTIAL Routine 08/15/2024 [...] w/Creatinine (Protein/Creat Ratio) (08/15/2024 12:29 PM EDT) Creatinine, Urine 47.31 mg/dL See order comments Protein Urine Random 550(H) <12 mg/dL See order comments Protein/Creati nine Ratio, Urine 11.63(H) <0.2 See order comments Comment: The spot urine protein:creatinine ratio may increase to 0.3 during normal . Urine specimen (specimen) Urine specimen obtained by clean catch procedure / Unknown 08/15/2024 12:29 PM EDT 08/15/2024 12:29 PM EDT us Reuben Holbrook MD LAB URINE ORDERABLES Final Re sult [place] See order comments [place] [address] * (ABNORMAL) PTH, Intact (08/15/2024 11:36 AM EDT) Parathyroid Hormone, Intact 544.9(H) 8.7 - 77.1 pg/mL See order comments 08/15/2024 11:3 6 AM EDT 08/15/2024 11:36 AM EDT Reuben Holbrook MD LAB [id number] SOLICITED RESULTS Final Result [place] See order comments [place] [address] * (ABNORMAL) Vitamin D 25 Hydroxy (08/15/2024 11:36 AM EDT) Vitamin D, 25-Hydroxy 28.8(L) >30 ng/mL See [...] order comments [place] [address] * (ABNORMAL) CBC and Differential (08/15/2024 11:36 AM EDT) WBC 6.7 4.8 - 10.8 X10*3/uL See [...] ORDERABLES Final Re sult Performing Organization Address [facility] de Phone Number [place] See order comments [place] [address] * (ABNORMAL) Uric Acid (08/15/2024 11:36 AM EDT) Uric Acid 6.2(H) 2.4 - 5.7 mg/dL See order comments Blood specimen (specimen) Venous blood / Unknown 08/15/2024 11:36 AM EDT 08/15/2024 11:36 AM EDT us Reuben Holbrook MD LAB BLOOD ORDERABLES Final Re sult Performing Organization Address [facility] Phone Number [place] See order comments [place] [address] * (ABNORMAL) Phosphorus (08/15/2024 11:36 AM EDT) Phosphorus, Serum 4.8(H) 2.7 - 4.5 mg/dL See order comments Blood specimen (specimen) Venous blood / Unknown 08/15/2024 11:36 AM EDT 08/15/2024 11:36 AM EDT us Reuben Holbrook MD LAB BLOOD ORDERABLES Final Re sult Performing Organization Address [facility] Phone Number [place] See order comments [place] [address] * Magnesium (08/15/2024 11:36 AM EDT) Magnesium 2.1 1.6 - 2.6 mg/dL See order comments Blood specimen (specimen) Venous blood / Unknown 08/15/2024 11:36 AM EDT 08/15/2024 11:36 AM EDT us Reuben Holbrook MD LAB BLOOD ORDERABLES Final Re sult [place] See order comments [place] [address] * (ABNORMAL) Comprehensive Metabolic Panel (08/15/2024 11:36 AM EDT) Sodium 136 135 - 145 [...] order comments [place] [address] from Last 3 Months Insurance Medicaid [place] Medicare Medicare Medicaid [place] Care Teams Isotope Hydrologist Relationship Specialty Start Date End Date Ty Barros MD [address] [place] [address] PCP - General Internal Medicine 06/21/23
== END 2024-10-03 11:58 | disposition home or self-care (01) ==
LOC: HO.HMCH 10:58
PROVIDERS: PCP Internal Medicine; Visit Provider Internal Medicine
DX: Z01.818 Encounter for other preprocedural examination (principal); Z13.9 Encounter for screening, unspecified

== ENCOUNTER → 2024-10-03 10:58 | Outpatient (REF) | payer MEDICARE, MEDICAID, SELFPAY ==
--- NOTE | 2024-10-03 11:48 | ECG_ITS ---
Test Reason : htn Blood Pressure : */* mmHG Vent. Rate : 55 BPM Atrial Rate : 55 BPM P-R Int : 164 ms QRS Dur : 92 ms QT Int : 438 ms P-R-T Axes : 59 62 -16 degrees QTcB Int : 419 ms Sinus bradycardia Septal infarct , age undetermined T wave abnormality, consider lateral ischemia Abnormal ECG When compared with ECG of 28-Mar-2023 13:54, No significant change was found Referred By: Ty Barros Electronically Signed By: ELIZABETH BARBER MD
== END ==
LOC: HO.CARD 10:58
PROVIDERS: PCP Internal Medicine; Visit Provider Internal Medicine
DX: Z01.818 Encounter for other preprocedural examination (principal); I10 Essential (primary) hypertension; Z79.890 Hormone replacement therapy; Z79.899 Other long term (current) drug therapy
CPT/HCPCS: 83036; 93005; 99212

== ENCOUNTER → 2024-10-03 11:48 | Outpatient (BNV) | payer MEDICARE, MEDICAID, SELFPAY | PROVIDERS: PCP Internal Medicine; Visit Provider Internal Medicine Cardiovascular Disease | DX: R00.1 Bradycardia, unspecified (principal) | CPT/HCPCS: 93010 ==

== ENCOUNTER 2024-10-08 11:29 | Outpatient (REF) | payer MEDICARE, MEDICAID, SELFPAY ==
--- OUTSIDE RECORDS SUMMARY | 2024-03-25 07:15 | XMS_ITS ---
[facility] [place] Address [address] [place] [address] Care Team Providers Care Fire And Explosion Investigator Name Role Phone Ty Barros Primary Care Provider [phone] Lucy Cordoba Unavailable [phone] REASON FOR VISIT Toe Irritation, At Risk [...] Active Encounters Encounter Location Date [facility] [address] [address] 03/25/2024 Lucy Cordoba Other hammer toe(s) (acquired), [...] Appt Details Follow Up: 2 Months, Reason: Provider Name:Lucy wilkins, 10/10/2024 11:00:00 AM, [address] [facility], [place], [address], Procedure Notes * Category Sub-Category Detail Notes Nail Reduction Nail Reduction Trimming of dyst rophic nails performed to reduce/remove overall nail length and girth, by manual and electrical means with use of a nail nipper and/or dremel, to more viable healthy nail plate or bed tissue, any number - G0127 Progress Notes * Link BURNSB: (69 yo F)Acc No.[id number]:03/25/2024 Progress Note Patient: Liza VILLANUEVAjustice Provider: Nicolas Cordoba DPM :1955 A ge:68 Y S ex:Female Date:03/25/2024 Address:[address] [place] [address] Pcp:Ty Barros Subjective: * Chief Complaints: * [...] were answered to their verbally confirmed satisfaction. Kristin mary Gear Counseling: Kristin MARY Rx - The patient was counseled in [...] DPM Date: 0 03/25/2024 Generated for Yolanda souza/Mariano/Sloaen on: 0 10/08/2024 12:28 PM EDT History and Physical Notes * HPI (History [...]
--- OUTSIDE RECORDS SUMMARY | 2024-10-02 14:38 | XMS_ITS | Encounter Summary ---
Author Organization [employer] Address [address] [place] [address] Care Team Providers Care Traffic Personnel Supervisor Name Role Phone Ty Barros MD Primary Care Provider [phone]- [phone] Reason for Referral * Imaging (Routine) - Closed Specialty Diagnoses / Procedures Referred By Dayana schroeder Referred To Contact Radiology Diagnoses History of lung cancer Procedures CT Chest wo Contrast Gini Viera NP [address] [address] Phone: tel: fax: [facility] Referral ID Status Reason Start Date Expiration Date Visits Re quested Visits Authorized [id number] Closed 07/01/2024 07/01/2025 1 1 Reason for Visit * Imaging (Routine) - Closed Specialty Diagnoses / Procedures Referred By Dayana schroeder Referred To Contact Radiology Diagnoses History of lung cancer Procedures CT Chest wo Contrast Gini Viera NP [address] [address] Phone: tel: fax: [facility] Referral ID Status Reason Start Date Expiration Date Visits Re quested Visits Authorized [id number] Closed 07/01/2024 07/01/2025 1 1 Encounter Details Date Type Department Care Team (Latest Contact Info) Description 10/02/2024 2:38 PM EDT - 10/02/2024 11:59 PM EDT Hospital Encounter [facility] CT Scan [address] [place] [id number] History of lung cancer Discharge Disposition: Home or Self Care Social History Tobacco Use Types Packs/Day Years Used Date Smoking Tobacco: Former Cigarettes Q uit: 12/14/2021 Smokeless Tobacco: Never Alcohol Use Standard Drinks/Week Comments Never 0 (1 standard drink = 0.6 oz pur e alcohol) Comments Unknown Sex and Gender Information Value Date Recorded Sex Assigned at Female 05/21/2024 9:20 AM EDT Legal Sex Female 8:32 PM EST Gender Identity Female 05/21/2024 9:20 AM EDT Sexual Orientation Straight 05/21/2024 9: 20 AM EDT documented as of this encounter Medications at Time of Discharge albuterol (PROVENTIL,VENTOL IN) 2 mg tablet Take 1 Tablet by mouth 3 times daily. albuterol sulfate (VENTOLIN HFA INHL) Inhale 1 Inhaler into the lungs 4 times daily. amLODIPine (NORVASC) 5 mg tablet Take 1 Tablet by mouth daily. atorvastatin (LIPITOR) 40 mg tablet Take 1 Tablet by mouth daily. bimatoprost (LUMIGAN) 0.01 % ophthalmic drops apply to the eye. brimonidine (ALPHAGAN) 0.2 % ophthalmic solution 1 Drop 3 times daily. carBAMazepine (TEGretol) 200 mg tablet Take 1 Tablet by mouth 2 times daily. cyclobenzaprine (FLEXERIL) 10 mg tablet Take 1 Tablet by mouth 3 times daily as needed. empagliflozin (Jardiance) 10 mg tablet Take 10 mg by mouth daily. levothyroxine (SYNTHROID, LEVOTHROID) 150 mcg tablet Take 1 Tablet by mouth daily. 5 days a week. Monday - Monday levothyroxine (SYNTHROID, LEVOTHROID) 175 mcg tablet Take 1 Tablet by mouth daily. On weekends. linaGLIPtin 5 mg tablet Take 5 mg by mouth daily. montelukast (SINGULAIR) 10 mg tablet Take 1 Tablet by mouth at bedtime. documented as of this encounter Discharge Disposition Disposition Code Departure Means Destination Home or Self Care documented in this encounter Plan of Treatment Upcoming Encounters Date Type Department Care Team ([facility] st Contact Info) Description 10/10/2024 10:00 AM EDT Office Visit Thoracic Surgery - [place] [address] [facility] [address] [place] [address] Devi Herrera PA [address] [place] [address], [address] [place] [address] documented as of this encounter Procedures Procedure Name Priority Date/Time Associated Diagnosis Comments CT CHEST WO CONTRAST Routine 10/02/2024 2:55 PM EDT History of lung cancer documented in this encounter Results * CT Chest wo Contrast (10/02/2024 2:55 PM EDT) Anatomical Region Laterality Modality Body Computed Tomogra phy 10/08/2024 10:2 2 AM EDT Impressions 10/08/2024 10:43 AM EDT Impression: 1. Growing, now 9 mm solid left lower lobe nodule with indistinct margins, suspicious for malignancy. 2. No significant change in lobulated juxtapleural opacity in the inferior lingula, possibly scarring. 3. No developing thoracic lymphadenopathy. 4. Stable left upper lobe wedge resection sequela. Teleariana SILVA ([id number]) -------- FINAL REPORT -------- Dictated By: Julieta Moseley Dictated Date: 10/08/2024 10:22 ET Assigned Physician: Julieta Moseley Reviewed and Electronically Signed By: Julieta Moseley Signed Date: 10/08/2024 10:43 ET Workstation ID: [id number] Transcribed By: Self Edit Transcribed Date: 10/08/2024 10:22 ET Narrative 10/08/2024 10:43 AM EDT History: Stage IB adenocarcinoma left upper lobe, status post left upper lobe wedge resection in July,. Patient declined completion lobectomy and adjuvant chemotherapy. Surveillance imaging. Comparison: 05/27/24, 03/06/23, 05/27/22 Technique: Helical volumetric imaging of the thorax was performed without IV contrast. DLP: 584.48 mGy/cm Spinal Simplicity VCT Iterative reconstruction technique Findings: The trachea and central bronchial tree remain patent. Left upper lobe wedge resection sequela are again noted. Centrilobular emphysema is present. Coarse curvilinear and groundglass opacity is again seen in the posteromedial right upper and lower lobes, overlying large spinal osteophytes, unchanged, most likely scarring. A 9 mm (mean diameter solid, noncalcified nodule is seen in the left lower lobe (image 142 series 4), increased from 4 mm on the previous study the lesion has indistinct margins. There is persistent lobulated juxtapleural opacity in the inferior lingula, without significant change from the most recent study. A 3 mm solid, noncalcified nodule is unchanged in the left upper lobe (image 60 series 4). There are scattered homogeneously calcified nodules consistent with old granulomatous disease. No pleural or pericardial effusions are seen. Mild multichamber cardiomegaly is again noted. There is severe, three-vessel coronary artery calcification. Subcentimeter mediastinal lymph nodes are without significant change. No developing thoracic lymphadenopathy is seen. A small portion of the upper abdomen included on the lowest images through the thorax is remarkable for stable bilateral adrenal nodules, compatible with adenomas. Cholecystectomy clips are seen. Multiple old, healed left rib fractures are seen. Thoracic disc degenerative changes are noted. Procedure Note Julieta Moseley MD - 10/08/2024 History: Stage IB adenocarcinoma left upper lobe, status post left upperlobe wedge resection in July,. Patient declined completion lobectomyand adjuvant chemotherapy. Surveillance imaging. Comparison: 05/27/24, 03/06/23, 05/27/22 Technique: Helical volumetric imaging of the thorax was performed withoutIV contrast. DLP: 584.48 mGy/cm [employer] VCT Iterative reconstruction technique Findings: The trachea and central bronchial tree remain patent. Left upper lobewedge resection sequela are again noted. Centrilobular emphysema ispresent. Coarse curvilinear and groundglass opacity is again seen in theposteromedial right upper and lower lobes, overlying large spinalosteophytes, unchanged, most likely scarring. A 9 mm (mean diameter solid, noncalcified nodule is seen in the left lowerlobe (image 142 series 4), increased from 4 mm on the previous study thelesion has indistinct margins. There is persistent lobulated juxtapleural opacity in the inferiorlingula, without significant change from the most recent study. A 3 mmsolid, noncalcified nodule is unchanged in the left upper lobe (image 60series 4). There are scattered homogeneously calcified nodules consistentwith old granulomatous disease. No pleural or pericardial effusions are seen. Mild multichamber cardiomegaly is again noted. There is severe,three-vessel coronary artery calcification. Subcentimeter mediastinallymph nodes are without significant change. No developing thoraciclymphadenopathy is seen. A small portion of the upper abdomen included on the lowest images throughthe thorax is remarkable for stable bilateral adrenal nodules, compatiblewith adenomas. Cholecystectomy clips are seen. Multiple old, healed left rib fractures are seen. Thoracic discdegenerative changes are noted. IMPRESSION: Impression: 1. Growing, now 9 mm solid left lower lobe nodule with indistinct margins,suspicious for malignancy. 2. No significant change in lobulated juxtapleural opacity in the inferiorlingula, possibly scarring. 3. No developing thoracic lymphadenopathy. 4. Stable left upper lobe wedge resection sequela. 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
[2024-10-08 11:54] LABS: MANUAL DIFF FLAG NO
--- OUTSIDE RECORDS SUMMARY | 2024-10-08 12:29 | XMS_ITS | Clinical Summary ---
Author Organization [facility] [address] [facility] [place] Address [address] [place] [address] Phone Care Team Providers Care Quality Assurance Monitor Final Name Role Phone Ty Barros MD Primary Care Provider [phone] Allergies No known active allergies Medications albuterol [...] follows with Dr. Vasquez and pulmonology at [facility]. Patient's most recent surveillance CT [...] follows with Dr. Vasquez and pulmonology at [facility]. Patient's most recent surveillance CT [...] - 10/02/2024 11:59 PM EDT Hospital Encounter [facility] Scan [address] [place] [address] History of lung cancer Discharge Disposition: Home or Self Care from Last 3 Months Surgical History Surgery Date Site/Laterality Comments CHOLECYSTECTOMY N/A PROCEDURE: HISTORICAL CHOLECYSTECTOMY ESOPHAGOGASTRODUODENOSCOPY N/A PROCEDURE: GA ESOPHAGOGASTRODUODENOSCOPY TRANSORAL DIAGNOSTIC TUBAL LIGATION N/A PROCEDURE: HISTORICAL TUBAL LIGATION COLONOSCOPY N/A PROCEDURE: HISTORICAL COLONOSCOPY OTHER SURGICAL HISTORY 07/19/2022 Left PROCEDURE: GA THORACOSCOPY W/THERA WEDGE RESEXN INITIAL UNILAT; COMMENT: CLYDE Medical History Medical History Date Comments CKD (chronic kidney disease) , symptom management only, stage 4 (severe) ([facility] V24, [facility] V28) DX:CKD (chronic kidney disea se), symptom management only, stage 4 (severe) ([facility]) Meckel's diverticulum DX:Meckel' s diverticulum Emphysema lung ([facility] V24, [facility] V28) DX:Emphysema lung ([facility]) Epilepsy with status epilept icus, not intractable ([facility] V24, [facility] V28) DX:Epilepsy wit h status epilepticus, not intractable ([facility]) GI bleed DX:GI bleed Gout DX:Gout HTN (hypertension) DX:HTN (hyper tension) Hypercholesteremia DX:Hyperchole steremia Hypothyroidism DX:Hypothyroidis m Type 2 diabetes mellitus wit hout complications ([facility] V24, [facility] V28) DX:Type 2 ema betes mellitus without complications ([facility]) Nontoxic single thyroid nodule D X:Nontoxic single thyroid nodule Rheumatoid arthritis ([facility]/ C V24, [facility] V28) DX:Rheumatoid arthritis ([facility] ) History of nicotine dependence D X:History [...] Upcoming Encounters Date Type Department Care Team ([facility] st Contact Info) Description 10/10/2024 10:00 AM EDT Office Visit Thoracic Surgery - [place] 299 [facility] [address] [place] [id number] Devi Herrera PA [address] [facility], [address] [place] [address] Health Maintenance Due Date Last Done Comments [...] 2:55 PM EDT History of lung cancer from Last 3 Months Results * CT Chest wo Contrast (10/02/2024 [...] Stable left upper lobe wedge resection sequela. Jess SILVA ([id number]) -------- FINAL REPORT -------- Dictated By: Julieta Moseley Dictated Date: 10/08/2024 10:22 ET Assigned Physician: Julieta Moseley Reviewed and Electronically Signed By: Julieta Moseley Signed Date: 10/08/2024 10:43 ET Workstation ID: [id number] Transcribed By: Self Edit Transcribed Date: 10/08/2024 10:22 ET Narrative 10/08/2024 10:43 AM EDT History: Stage IB adenocarcinoma left upper lobe, status post left upper lobe wedge resection in July,. Patient declined completion lobectomy and adjuvant chemotherapy. Surveillance imaging. Comparison: 05/27/24, 03/06/23, 05/27/22 Technique: Helical volumetric imaging of the thorax was performed without IV contrast. DLP: 584.48 mGy/cm Preventice VCT Iterative reconstruction technique Findings: The trachea [...] was performed withoutIV contrast. DLP: 584.48 mGy/cm Preventice VCT Iterative reconstruction technique Findings: The trachea [...] upper lobe wedge resection sequela. Teleariana SILVA ([id number]) -------- FINAL REPORT -------- Dictated By: Julieta Moseley Dictated Date: 10/08/2024 10:22 ET Assigned Physician: Julieta Moseley Reviewed and Electronically Signed By: Julieta Moseley Signed Date: 10/08/2024 10:43 ET Workstation ID: [id number] Transcribed By: Self Edit Transcribed Date: 10/08/2024 10:22 ET Gini Viera FABRICATION SUPERVISOR IMG CT PROCEDURES Final Res ult from Last 3 Months Insurance MEDICA[place] - [place] MEDICARE Advance Directives Documents on File Type Date Recorded Patient Wheel Grinder Expl anation Health Care Decision (hx) 07/26/2022 HE ALTH CARE PROXY Health Care Decision (hx) 07/26/2022 HE ALTH CARE PROXY Health Care Decision (hx) 07/26/2022 HE ALTH CARE PROXY Health Care Decision (hx) 07/26/2022 HE ALTH CARE PROXY Health Care Decision (hx) 07/26/2022 HE ALTH CARE PROXY Health Care Decision (hx) 07/26/2022 HE ALTH CARE PROXY Care Teams Quality Assurance Monitor Final Relationship Specialty Start Date End Date Ty Barros MD [facility] [address] [place] [address] [address] [place] [address] PCP - General 06/08/23
--- OUTSIDE RECORDS SUMMARY | 2024-10-08 12:29 | XMS_ITS | Patient Health Record ---
[facility] Address [address] [place] [address] Care Team Providers Care Management Consulting Name Role Phone Ty Barros Primary Care Provider Lucy Cordoba Unavailable [phone] Allergies Allergen (clinical drug ingredient) Drug/Non Drug [...] Problem Acquired hammer toe of right foot (994961997042 9105) Other hammer toe(s) (acquired), right foot (M20.41) Active confirmed Problem Acquired hammer toe of left foot (586632106421 9103) Other hammer toe(s) (acquired), left foot (M20.42) Active confirmed Problem Type 2 diabetes mellitus with diabetic polyneuropathy (E11.42) Active confirmed Vital Signs Blood pressure diastolic 61 mm Hg 04/15/2024 Height 5ft 3in in 04/15/2024 Blood pressure systolic 145 mm Hg 04/15/2024 Weight 167 lbs 04/15/2024 BMI 29.58 kg/m2 04/15/2024 Encounters Encounter Location Date Provider Diagnosis [address] [address] 10/30/2023 Lucy Cordoba Other hammer toe(s) (acquired), right foot M20.41 ; Other hammer toe(s) (acquired), left foot M20.42 ; Type 2 diabetes mellitus with diabetic polyneuropathy E11.42 and Tinea unguium B35.[address] [address] 01/08/2024 Lucy Perica Other hammer toe(s) (acquired), right foot M20.41 ; Other hammer toe(s) (acquired), left foot M20.42 and Type 2 diabetes mellitus with diabetic polyneuropathy E11.[address] [address] 04/15/2024 Lucy Perica Other hammer toe(s) (acquired), right foot M20.41 ; Other hammer toe(s) (acquired), left foot M20.42 ; Type 2 diabetes mellitus with diabetic polyneuropathy E11.42 and Tinea unguium B35.[address] [facility] [address] 10/30/2023 Lucy Cordoba [facility] [address] [facility] [address] [place] [address] 01/25/2024 [facility] [address] [place] [address] 03/25/2024 [facility] [address] [place] [address] 04/15/2024 Lucy Cordoba Assessments Encounter Date Diagnosis [...] Provider Name:Lucy wilkins, 10/10/2024 11:00:00 AM, [address] [place], [address], Insurance Providers Payer Name Payer Address Payer Phone Subscriber Number Group Number Insured Name Patient Relationship to Insured Coverage Start Date Coverage End Date Medicare National [employer] [address] [place] [address] [id number] Alberto Stevenson Self - patient is the [...]
--- OUTSIDE RECORDS SUMMARY | 2024-10-08 12:29 | XMS_ITS | Clinical Summary ---
Author Organization [facility] Address [address] [address] Phone Care Team Providers Care Corporate Planner Name Role Phone Ty Barros MD Primary [...] 66 y/o female recently moved here from [place], former smoker who is [facility] and was followed for an 8 [...] JAY BENITEZ checked. Called to Wilfrid on [facility] 2. 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 Biomarkers pending. Follow up with Dr. Sawant on August 26 at [facility]. 3. She is being followed by [facility] for kidney disease. 4. Per NCCN guidelines, she will be followed for [address] scan of the chest. Every 6 months X 2 years then annually X 3 years with a visit to the Thoracic Surgery Office. Patient and son wish to have these visits here at [facility]. Her next visit will be in 6 months, January 2023. 5. She is instructed to call with any questions or concerns. Stage 5 chronic kidney disease 08/02/2022 Diabetes mellitus, not otherwise specified 08/02 Hypertension 08/02/2022 Rheumatoid arthritis, not otherwise specified Encounters Date Type Department Care Team Description 09/16/2024 Office Communication [facility] [address] [address] Saturnino Tatianamartha 08/19/2024 Office Communication [facility] [address] [phone] Reuben Holbrook MD 08/15/2024 Orders Only [facility] [address] [address] Reuben Holbrook MD Hypertension; Chronic kidney disease, stage 4 (severe) (HCC); Diabetes mellitus, not otherwise specified (HCC); Epilepsy, not otherwise specified (HCC); Cyst of kidney; Localized edema; Rheumatoid arthritis, not otherwise specified (HCC) 07/16/2024 9:40 AM EDT Office Visit [facility] [address] [address] Reuben Holbrook MD Stage 5 chronic kidney [...] Orders Only [facility] [address] [place] [phone] Reuben Holbrook MD Hypertension; Chronic kidney disease, [...] Only [facility] [address] [phone] Reuben Holbrook MD [address] [phone] Stage 5 chronic kidney disease (HCC); Localized edema; Hypertension; Diabetes mellitus, not otherwise specified (HCC); Cyst of kidney; Anemia in chronic kidney disease; Epilepsy, not otherwise specified (HCC); History of malignant neoplasm of thoracic cavity structure; Rheumatoid arthritis, not otherwise specified (HCC); Secondary hyperparathyroidism (HCC); Vitamin D deficiency, not otherwise specified 10/16/2024 9:00 AM EDT Office Visit [facility] [address] [address] Reuben Holbrook MD [address] [address] Health Maintenance Due Date Last [...] order comments [place] [address] * (ABNORMAL) PTH, Intact (08/15/2024 11:36 AM EDT) Parathyroid Hormone, Intact 544.9(H) 8.7 - 77.1 pg/mL See order comments 08/15/2024 11:3 6 AM EDT 08/15/2024 11:36 AM EDT Reuben Holbrook MD LAB [id number] SOLICITED RESULTS Final Result [place] See order comments [place] [address] * (ABNORMAL) Vitamin D 25 Hydroxy (08/15/2024 [...] order comments [place] [address] * (ABNORMAL) CBC and Differential (08/15/2024 11:36 [...] ORDERABLES Final Re sult Performing Organization Address [facility] de Phone Number [place] See order comments [place] [address] * (ABNORMAL) Uric Acid (08/15/2024 11:36 AM EDT) Uric Acid 6.2(H) 2.4 - 5.7 mg/dL See order comments Blood specimen (specimen) Venous blood / Unknown 08/15/2024 11:36 AM EDT 08/15/2024 11:36 AM EDT us Reuben Holbrook MD LAB BLOOD ORDERABLES Final Re sult Performing Organization Address [facility] Phone Number [place] See order comments [place] [address] * (ABNORMAL) Phosphorus (08/15/2024 11:36 AM EDT) Phosphorus, Serum 4.8(H) 2.7 - 4.5 mg/dL See order comments Blood specimen (specimen) Venous blood / Unknown 08/15/2024 11:36 AM EDT 08/15/2024 11:36 AM EDT us Reuben Holbrook MD LAB BLOOD ORDERABLES Final Re sult Performing Organization Address [facility] Phone Number [place] See order comments [place] [address] * Magnesium (08/15/2024 11:36 AM EDT) Magnesium 2.1 1.6 - 2.6 mg/dL See order comments Blood specimen (specimen) Venous blood / Unknown 08/15/2024 11:36 AM EDT 08/15/2024 11:36 AM EDT us Reuben Holbrook MD LAB BLOOD ORDERABLES Final Re sult [place] See order comments [place] [address] * (ABNORMAL) Comprehensive Metabolic Panel (08/15/2024 11:36 [...] order comments [place] [address] from Last 3 Months Insurance Medicaid [place] Medicare Medicare Medicaid [place] Care Teams Corporate Planner Relationship Specialty Start Date End Date Ty Barros MD [address] [place] [address] PCP - General Internal Medicine 06/21/23
[2024-10-08 12:43] LABS: Hematocrit 36.6 % (37.0-47.0); Hemoglobin 11.6 g/dl (12.0-16.0); Imm Gran Abs Auto 0.05 X10*3/uL (0.00-0.03); Imm Gran Pct Auto 0.8 % (0.0-0.4); Lymphocytes Absolute Auto 1.1 X10*3/uL (1.2-4.9); Mean Corpuscular HGB Conc 31.7 g/dl (31.0-35.0); Mean Corpuscular Hemoglobin 30.3 pg (27.0-33.0); Mean Corpuscular Volume 95.6 fL (80.0-98.0); NRBC Abs Auto 0.000 X10*3/uL (0.0-0.012); NRBC Pct Auto 0.0 /100WBC (0.0-0.2); Platelet Count 227 X10*3/uL (160-400); Red Blood Count 3.83 X10*6/uL (4.20-5.50); White Blood Count 6.2 X10*3/uL (4.8-10.8)
[2024-10-08 13:16] LABS: Parathyroid Hormone Intact 548.3 pg/mL (8.7-77.1)
[2024-10-08 13:27] LABS: HBS Num1 0.21 mIU/mL (0-7.99); HBc Num1 0.04 S/CO (0.00-0.79); HBsAGNum1 0.43 S/CO (0.00-0.99); Hepatitis B Surface Antigen Negative (Negative); ~HepC Num1 0.21 S/CO (0.00-0.79); ~Hepatitis B Surface Antibody NONREACTIVE (Nonreactive); ~Hepatitis C Antibody Nonreactive (Nonreactive)
[2024-10-08 13:32] LABS: Alanine Aminotransferase 18 U/L (0-31); Albumin Level 3.7 g/dL (3.5-5.0); Alkaline Phosphatase 80 U/L (39-117); Anion Gap 11 (12-20); Aspartate Amino Transferase 23 U/L (5-31); Blood Urea Nitrogen 52 mg/dL (9-16); Calcium 8.7 mg/dL (8.4-10.2); Carbon Dioxide 21 mmol/L (22-29); Chloride 112 mmol/L (96-108); Estimated Glomerular Filt Rate 11; Magnesium 2.1 mg/dL (1.6-2.6); Potassium 4.4 mmol/L (3.3-5.1); Sodium 140 mmol/L (135-145); Total Protein 6.5 g/dL (6.5-8.0); Uric Acid 6.8 mg/dL (2.4-5.7)
[2024-10-08 15:28] LABS: Protein/Creatinine Ratio, Ur 11.95 (<0.2); Total Protein Urine Random 617 mg/dL (<12)
== END 2024-10-08 11:30 | disposition home or self-care (01) ==
LOC: HO.LAB 11:29
PROVIDERS: PCP Internal Medicine; Visit Provider Internal Medicine Nephrology
DX: I12.0 Hypertensive chronic kidney disease with stage 5 chronic kidney disease or end stage renal disease (principal); N18.5 Chronic kidney disease, stage 5; E11.9 Type 2 diabetes mellitus without complications; N28.1 Cyst of kidney, acquired; D63.1 Anemia in chronic kidney disease; G40.909 Epilepsy, unspecified, not intractable, without status epilepticus; Z85.29 Personal history of malignant neoplasm of other respiratory and intrathoracic organs; E21.1 Secondary hyperparathyroidism, not elsewhere classified; E55.9 Vitamin D deficiency, unspecified
CPT/HCPCS: 36415; 80053; 82306; 82570; 83735; 83970; 84100; 84156; 84550; 85025; 86704; 86706; 86803; 87340

== ENCOUNTER 2024-10-31 14:50 | Outpatient (AMB) | payer MEDICARE, MEDICAID, SELFPAY ==
--- NOTE | 2024-10-31 14:59 | A.OFFVIS_ITS ---
Vital Signs 10/31/24 15:02 Height 5 ft 3 in Weight 157 lb 2 oz BMI 27.8 BP 122/58 L Blood Pressure Location Rt brachial Position Sitting Pulse 53 Pulse Source Pulse Oximeter Pulse Oximetry (%) 95 Oxygen Delivery Method Room Air Intake Visit Reasons: Follow up Intake Note: Follow up MILLICENT on CPAP and Epilepsy Buffing Machine Operator Semiautomatic Required: Yes Buffing Machine Operator Semiautomatic Services: Buffing Machine Operator Semiautomatic Offered & Declined Buffing Machine Operator Semiautomatic Name: [employer] - son to interpret Accompanied by: Son Allergies No Known Allergies Allergy (Verified 10/31/24 15:00) Medication List - Last Reconciled 10/31/24 by Valeri Tapia MD albuterol sulfate 90 mcg/actuation (Ventolin HFA) 1 inh inhalation QID 30 days albuterol sulfate 2.5 mg (3 mL) inhalation Q6H PRN 30 days amlodipine 10 mg (2 x 5 mg) PO DAILY 90 days atorvastatin 40 mg PO DAILY bimatoprost 0.01% (Lumigan) 0.01 drps ophthalmic (eye) DAILY brimonidine 0.2% 1 drp ophthalmic (eye) TID carbamazepine ER 200 mg PO ONCE 90 days dorzolamide-timolol 22.3-6.8 mg/mL 22.3 drps ophthalmic (eye) DAILY empagliflozin (Jardiance) 10 mg PO DAILY 30 days fluticasone furoate-vilanterol 200-25 mcg/dose (Breo Ellipta) 1 inh inhalation DAILY 30 days ketorolac 0.5% 0.5 drps ophthalmic (eye) DAILY labetalol 100 mg PO DAILY levothyroxine 175 mcg PO DAILY linagliptin (Tradjenta) 5 mg PO DAILY 90 days montelukast 10 mg PO DAILY 30 days nebulizer accessories As directed nebulizers As directed nebulizers (Compact Compressor Nebulizer) As directed netarsudil 0.02% (Rhopressa) 0.02 drps ophthalmic (eye) DAILY ondansetron 8 mg PO Q8H sertraline 50 mg PO QAM sertraline 100 mg PO DAILY trazodone 100 mg PO BEDTIME PRN walker (Ultra-Light Rollator misc) As directed HPI Comments Details: 69 y/o female patient presents for follow up of epilepsy and MILLICENT. Pt's seizure well managed with carbamazepine 200 mg ER daily, and had seizure free for more than 15 years now. Pt underwent split night sleep study. in 2022 The baseline portion of the sleep study was significant for severe degree of sleep apnea with increased severity in REM. AHI was 49/hr, REM AHI was 60/hr. She trialed on CPAP [id number], and her breathing and oxygenation stabilized on CPAP at [id number]. she says her mask did not fit well The CPAP compliance and therapy response - 06/17/24-09/14/24 72% usage Usgae hrs 5 hrs AHI 5 PFSH Medical History COPD (chronic obstructive pulmonary disease) ILD (interstitial lung disease) Chest discomfort Cataracts, both eyes Glaucoma Tubular adenoma of colon Esophagitis Personal history of nicotine dependence Gout Right elbow pain Thyroid nodule HTN (hypertension) GI bleed Diverticulitis CKD (chronic kidney disease), stage IV Hypothyroid Emphysema lung Epilepsy Type 2 diabetes mellitus Hypercholesteremia Surgical History History of elbow surgery History of lung surgery History of colonoscopy (~08/11/22) History of esophagogastroduodenoscopy (EGD) History of cholecystectomy History of tubal ligation Family History Sister SLE (systemic lupus erythematosus) Breast cancer Mental health problem Mother Diabetes Acute arthritis Alzheimer disease Age related osteoporosis Father Diabetes HTN (hypertension) Brother Brain tumor Family/Other Breast cancer Lupus Acute arthritis Family/Other HTN (hypertension) Thyroid cancer Other Mental health disorder Social History Household Members: Children Household Members Other:: Living with son in his house Housing: House Alcohol intake: never Patient Tobacco Use Status: Former Tobacco user Years Smoked: (former smoker - onset 16yo - 1ppd x 50yrs, 50pyh - quit 12/2021) e-Cigarette/Vaping Use: Never Used Second Hand Smoke Exposure: Yes service: No Current occupational status: disabled Cognitive needs: Yes (WHEELCHAIR) Hearing needs: No Vision needs: Yes (Glasses) Review of Systems ENT Reports Normal hearing present Neuro Reports Normal hearing present Physical Exam Vital Signs: BMI result Body Mass Index 27.8 Const General: cooperative and tired appearing Nutritional Appearance: obese Orientation/consciousness: patient oriented x3 Limitations: language barrier (Mohawk speaking only.) and wheelchair Resp Effort & Inspection: normal respiratory effort and able to speak in complete sentences Neuro General: patient oriented x3 and moves all extremities Cranial nerves: Yes Normal facial strength present, Yes Midline tongue present, Yes Symmetric palate elevation present, Yes Normal hearing present, Yes Ability to bilaterally rotate head present and Yes Ability to bilaterally elevate shoulders present Cognition (Neuro): normal cognition Motor exam (neuro): 5/5 motor strength present throughout, Pronator motor function not present and no tremor noted Assessment & Plan Assessment & Plan (1) MILLICENT on CPAP: Code(s): G47.33 - Obstructive sleep apnea (adult) (pediatric) Category: Medical (2) Epilepsy: Comment: since age 36 Code(s): G40.909 - Epilepsy, unspecified, not intractable, without status epilepticus Category: Medical Qualifiers: Epilepsy type: unspecified Intractability: not intractable Status epilepticus: without status epilepticus Qualified Code(s): G40.909 - Epilepsy, unspecified, not intractable, without status epilepticus Plan Continue to use CPAP at [id number].Increase humidification level to hep with dry throat.- [facility]- pres faxed Stressed compliance, use CPAP nightly and more than 4 hrs. Continue to take carbamanzepine 200 mg ER daily. Home sleep tets for reevaluation Orders: Orders RT home sleep study Today G47.10 - Hypersomnia, unspecified Coding Level of Care Code Est Pt Level 4 (12235) Complex EM visit Add On G2211 Diagnoses MILLICENT on CPAP G47.33 Nonintractable epilepsy without status epilepticus, unspecified epilepsy type G40.909 Epilepsy type: unspecified Intractability: not intractable Status epilepticus: without status epilepticus
[2024-10-31 15:02] VITALS: BP 122/58; PULSE 53; O2SAT 95; BMI 27.8
--- OUTSIDE RECORDS SUMMARY | 2024-10-31 16:32 | XMS_ITS | Clinical Summary ---
Author Organization [facility] 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 Called to [facility]. 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 Biomarkers pending. Follow up with Dr. Sawant on August 26 at [facility]. 3. She is being followed by [facility] for kidney disease. 4. Per NCCN guidelines, she will be followed for [address] scan of the chest. Every 6 months X 2 years then annually X 3 years with a visit to the Thoracic Surgery Office. Patient and son wish to have these visits here at [facility]. Her next visit will be in 6 months, January 2023. 5. She is instructed to call with any questions or concerns. Stage 5 chronic kidney disease 08/02/2022 Diabetes mellitus, not otherwise specified 08/02 Hypertension 08/02/2022 Rheumatoid arthritis, not otherwise specified Encounters Date Type Department Care Team Description 10/21/2024 Office Communication [facility] [address] [phone] Ashley Matamorosfranky 10/16/2024 9:00 AM EDT Office Visit [facility] [address] [phone] Reuben Holbrook MD Stage 5 chronic kidney disease (HCC) (Primary Dx); Secondary hyperparathyroidism (HCC); Vitamin D deficiency, not otherwise specified; Rheumatoid arthritis, not otherwise specified (HCC); Localized edema; Hypertension; History of malignant neoplasm of thoracic cavity structure; Epilepsy, not otherwise specified (HCC); Diabetes mellitus, not otherwise specified (HCC); Anemia in chronic kidney disease 10/16/2024 Orders Only [facility] [address] [phone] Reuben Holbrook MD Stage 5 chronic kidney disease (HCC); Localized edema; Hypertension; Diabetes mellitus, not otherwise specified (HCC); Cyst of kidney; Anemia in chronic kidney disease; Epilepsy, not otherwise specified (HCC); History of malignant neoplasm of thoracic cavity structure; Rheumatoid arthritis, not otherwise specified (HCC); Secondary hyperparathyroidism (HCC); Vitamin D deficiency, not otherwise specified 10/09/2024 Office Communication [facility] [address] [phone] Reuben Holbrook MD 10/08/2024 Office Communication [facility] [address] [phone] Reuben Holbrook MD 10/08/2024 Office Communication [facility] [address] [phone] Amador Matamoros 10/08/2024 Orders Only [facility] [address] [phone] Reuben Holbrook MD 09/16/2024 Office Communication [facility] [address] [phone] Amador Matamoros 08/19/2024 Office Communication [facility] [address] [phone] Reuben Holbrook MD 08/15/2024 Orders Only [facility] [address] [phone] Reuben Holbrook MD Hypertension; Chronic kidney disease, [...] Sign Reading Time Taken Comments Blood Pressure 158/70 10/16/2024 9:03 AM EDT Pulse 51 10/16/2024 9:03 AM EDT Temperature - - Respiratory Rate - - Oxygen Saturation 98% 10/16/2024 9:03 AM EDT Inhaled Oxygen Concentration - - Weight 72.1 kg (159 lb) 10/16/2024 9:03 AM EDT Height 160 cm (5' 3 ) 03/06/2024 10:24 AM EST Body Mass Index 28.17 03/06/2024 10:24 AM EST Plan of Treatment Health Maintenance Due Date Last Done Comments Breast Cancer Screening 1955 Pneumococcal Vaccine: 50+ Ye ars (1 of 2 - PCV) 10/03/1974 Colorectal Cancer Screening: Annual FOBT 10/03/2004 Colorectal Cancer Screening: Colonoscopy 10/03/2004 Colorectal Cancer Screening: Sigmoidoscopy 10/03/2004 Diabetes: Ophthalmology Exam 08/02/2022 Diabetes: Pedal Pulse Checked 08/02/2022 Diabetes: Sensory Foot Exam 08/02/2022 Diabetes: Visual Foot Exam 08/02/2022 Influenza Vaccine (#1) 2024 Diabetes: Hemoglobin A1C 01/21/2025 10/22/2024 Hepatitis B Vaccine Aged Out No longe r eligible based on patient's age to complete this topic Procedures Procedure Name Priority Date/Time Associated Diagnosis Comments LIH () Routine 10/29/2024 3:00 AM EDT KT/V NATURAL LOG, URR () Routine 10/29/2024 3:00 AM EDT ALUMINUM LEVEL Routine 10/22/2024 3:00 AM EDT HEPATITIS B CORE AB TOTAL Routine 10/22/2024 3:00 AM EDT HEPATITIS C ABS W/REFLEX RNA DETECTR Routine 10/22/2024 3:00 AM EDT CONFIRMATION TEST HCV Routine 10/22/2024 3:00 AM EDT HEMOGLOBIN A1C Routine 10/22/2024 3:00 AM EDT HEPATITIS B SURFACE ANTIGEN W/REFL CONFIRM Routine 10/22/2024 3:00 AM EDT TRANSFERRIN SATURATION Routine 10/22/2024 3:00 AM EDT PROTEIN, TOTAL, SERUM Routine 10/22/2024 3:00 AM EDT LIPID PANEL Routine 10/22/2024 3:00 AM EDT ELECTROLYTE PANEL Routine 10/22/2024 3:0 0 AM EDT URIC ACID Routine 10/22/2024 3:00 AM EDT LACTATE DEHYDROGENASE Routine 10/22/2024 3:00 AM EDT LIH (HC) Routine 10/22/2024 3:00 AM EDT GLUCOSE, RANDOM Routine 10/22/2024 3:00 AM EDT MAGNESIUM Routine 10/22/2024 3:00 AM EDT CREATININE, SERUM Routine 10/22/2024 3:0 0 AM EDT ALT Routine 10/22/2024 3:00 AM EDT BILIRUBIN, TOTAL Routine 10/22/2024 3:00 AM EDT BUN/CREATININE RATIO Routine 10/22/2024 3:00 AM EDT CALCIUM PHOSPHORUS PRODUCT, ADJUSTED (HC) Routine 10/22/2024 3:00 AM EDT AST Routine 10/22/2024 3:00 AM EDT ALKALINE PHOSPHATASE Routine 10/22/2024 3:00 AM EDT VITAMIN D 25 HYDROXY Routine 10/22/2024 3:00 AM EDT FERRITIN Routine 10/22/2024 3:00 AM EDT HEPATITIS B SURFACE ANTIBODY QUANT Routine 10/22/2024 3:00 AM EDT CBC AND DIFFERENTIAL Routine 10/22/2024 3:00 AM EDT KT/V NATURAL LOG, URR (HC) Routine 10/22/2024 3:00 AM EDT PTH, INTACT Routine 10/22/2024 3:00 AM EDT Stage 5 chronic kidney disease (HCC) Localized edema Hypertension Diabetes mellitus, not otherwise specified (HCC) Cyst of kidney Anemia in chronic kidney disease Epilepsy, 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 Rheumatoid arthritis, not otherwise specified (HCC) Secondary hyperparathyroidism (HCC) Vitamin D deficiency, not otherwise specified PROTEIN / CREATININE RATIO, URINE Routine 10/08/2024 12:41 PM EDT Stage 5 chronic kidney disease (HCC) Localized edema Hypertension Diabetes mellitus, not otherwise specified (HCC) Cyst of kidney Anemia in chronic kidney disease Epilepsy, 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 Rheumatoid arthritis, not otherwise specified (HCC) Secondary hyperparathyroidism (HCC) Vitamin D deficiency, not otherwise specified PTH, INTACT (HC) Routine 10/08/2024 11:54 AM EDT HEPATITIS B SURFACE ANTIBODY QUANT Routine 10/08/2024 11:54 AM EDT Stage 5 chronic kidney disease (HCC) Localized edema Hypertension Diabetes mellitus, not otherwise specified (HCC) Cyst of kidney Anemia in chronic kidney disease Epilepsy, 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 Rheumatoid arthritis, not otherwise specified (HCC) Secondary hyperparathyroidism (HCC) Vitamin D deficiency, not otherwise specified HEPATITIS B CORE AB TOTAL Routine 10/08/2024 11:54 AM EDT Stage 5 chronic kidney disease (HCC) Localized edema Hypertension Diabetes mellitus, not otherwise specified (HCC) Cyst of kidney Anemia in chronic kidney disease Epilepsy, 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 Rheumatoid arthritis, not otherwise specified (HCC) Secondary hyperparathyroidism (HCC) Vitamin D deficiency, not otherwise specified HEPATITIS C ANTIBODY Routine 10/08/2024 11:54 AM EDT Stage 5 chronic kidney disease (HCC) Localized edema Hypertension Diabetes mellitus, not otherwise specified (HCC) Cyst of kidney Anemia in chronic kidney disease Epilepsy, 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 Rheumatoid arthritis, not otherwise specified (HCC) Secondary hyperparathyroidism (HCC) Vitamin D deficiency, not otherwise specified HEPATITIS B SURFACE ANTIGEN Routine 10/08/2024 11:54 AM EDT Stage 5 chronic kidney disease (HCC) Localized edema Hypertension Diabetes mellitus, not otherwise specified (HCC) Cyst of kidney Anemia in chronic kidney disease Epilepsy, 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 Rheumatoid arthritis, not otherwise specified (HCC) Secondary hyperparathyroidism (HCC) Vitamin D deficiency, not otherwise specified CBC AND DIFFERENTIAL Routine 10/08/2024 11:54 AM EDT Stage 5 chronic kidney disease (HCC) Localized edema Hypertension Diabetes mellitus, not otherwise specified (HCC) Cyst of kidney Anemia in chronic kidney disease Epilepsy, 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 Rheumatoid arthritis, not otherwise specified (HCC) Secondary hyperparathyroidism (HCC) Vitamin D deficiency, not otherwise specified VITAMIN D 25 HYDROXY Routine 10/08/2024 11:54 AM EDT Stage 5 chronic kidney disease (HCC) Localized edema Hypertension Diabetes mellitus, not otherwise specified (HCC) Cyst of kidney Anemia in chronic kidney disease Epilepsy, 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 Rheumatoid arthritis, not otherwise specified (HCC) Secondary hyperparathyroidism (HCC) Vitamin D deficiency, not otherwise specified PHOSPHATE ( PHOSPHORUS) Routine 10/08/2024 11:54 AM EDT Stage 5 chronic kidney disease (HCC) Localized edema Hypertension Diabetes mellitus, not otherwise specified (HCC) Cyst of kidney Anemia in chronic kidney disease Epilepsy, 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 Rheumatoid arthritis, not otherwise specified (HCC) Secondary hyperparathyroidism (HCC) Vitamin D deficiency, not otherwise specified MAGNESIUM Routine 10/08/2024 11:54 AM EDT Stage 5 chronic kidney disease (HCC) Localized edema Hypertension Diabetes mellitus, not otherwise specified (HCC) Cyst of kidney Anemia in chronic kidney disease Epilepsy, 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 Rheumatoid arthritis, not otherwise specified (HCC) Secondary hyperparathyroidism (HCC) Vitamin D deficiency, not otherwise specified URIC ACID Routine 10/08/2024 11:54 AM EDT Stage 5 chronic kidney disease (HCC) Localized edema Hypertension Diabetes mellitus, not otherwise specified (HCC) Cyst of kidney Anemia in chronic kidney disease Epilepsy, 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 Rheumatoid arthritis, not otherwise specified (HCC) Secondary hyperparathyroidism (HCC) Vitamin D deficiency, not otherwise specified COMPREHENSIVE METABOLIC PANEL Routine 10/08/2024 11:54 AM EDT Stage 5 chronic kidney disease (HCC) Localized edema Hypertension Diabetes mellitus, not otherwise specified (HCC) Cyst of kidney Anemia in chronic kidney disease Epilepsy, 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 Rheumatoid arthritis, not otherwise specified (HCC) Secondary hyperparathyroidism (HCC) Vitamin D deficiency, not otherwise specified PROTEIN / CREATININE RATIO, URINE Routine 08/15/2024 [...] (HCC) from Last 3 Months Results * [facility] (10/29/2024 3:00 AM EDT) Only the most recent of2 resultswithin the time period is included. Lipemia Normal Normal [facility] Icterus Normal Normal [facility] Hemolysis Normal Normal [facility] 10/29/2024 3:00 AM EDT 10/30/2024 2:00 PM EDT us Doug Henao MD LAB HISTORICA [id number] RESULTS Final Result [facility] [address] [place] [address] * (ABNORMAL) Kt/V Natural Log, URR (10/29/2024 3:00 AM EDT) Only the most recent of2 resultswithin the time period is included. Treatment Time 180 min [facility] Pre-Weight, lb 72.3 kg [facility] Post-Weight, lb 71.2 kg [facility] Ultrafiltration Rate 5 <=13 mL/kg/hr [facility] Comment: Recommend achieving Ultrafiltration Rate (UFR) <=10 mL/kg/hr References: Maren KRUEGER et al. Kidney Int. 2010; 79(2):250-257 BUN Post Dialysis 14 7 - 25 mg/dL [facility] BUN 48(H) 7 - 25 mg/dL [facility] UREA REDUCTION RATIO (%) 71 >=65 % [facility] Kt/V Natural Log 1.36 >=1.2 [facility] 10/29/2024 3:00 AM EDT 10/30/2024 1:34 PM EDT Doug Henao MD LAB HISTORICA [id number] RESULTS Final Result Performing Organization Address City/[facility]/ZIP Co de Phone Number [facility] [address] [place] [address] * Confirmation Test HCV (10/22/2024 3:00 AM EDT) Hep C Ab Confirmation Not needed [facility] 10/22/2024 3:00 AM EDT 10/23/2024 2:31 PM EDT Doug Henao MD LAB BLOOD ORDERABLES Final Result Performing Organization Address [facility] de Phone Number [facility] [address] [place] [address] * (ABNORMAL) Calcium Phosphorus Product, Adjusted (10/22/2024 3:00 AM EDT) Albumin 3.8 3.6 - 5.4 g/dL [facility] Calcium 8.2(L) 8.6 - 10.3 mg/dL [facility] Phosphorus, Serum 5.3(H) 2.5 - 5.0 mg/dL [facility] Ca*PO4 43.5 <55.0 mg2/dL2 [facility] Calcium, Adjusted Total 8.4(L) 8.6 - 10.3 mg/dL [facility] CA*PO4 CORRCTD 44.5 <55.0 mg2/dL2 [facility] 10/22/2024 3:00 AM EDT 10/23/2024 2:22 PM EDT us Doug Henao MD LAB HISTORICA [id number] RESULTS Final Result Performing Organization Address [facility] de Phone Number [facility] [address] [place] [address] * HEPATITIS C ABS W/REFLEX RNA DETECTR (10/22/2024 3:00 AM EDT) Hep C Virus Ab Non-Reacti ve Non-Reacti ve [facility] 10/22/2024 3:00 AM EDT 10/23/2024 2:22 PM EDT us Doug Henao MD LAB HISTORICA [id number] RESULTS Final Result Performing Organization Address [facility] de Phone Number [facility] [address] [place] [address] * Hepatitis B Surface Ag w/Reflex Confirmation (10/22/2024 3:00 AM EDT) Hep B Surface Antigen Negative Negative [facility] 10/22/2024 3:00 AM EDT 10/23/2024 2:22 PM EDT us Doug Henao MD LAB BLOOD ORDERABLES Final Result Performing Organization Address [facility] de Phone Number [facility] [address] [place] [address] * BUN/CREATININE RATIO (10/22/2024 3:00 AM EDT) BUN/Creatinine Ratio 13.1 <=23.0 [facility] 10/22/2024 3:00 AM EDT 10/23/2024 2:22 PM EDT us Doug Henao MD LAB HISTORICA [id number] RESULTS Final Result Performing Organization Address [facility] de Phone Number [facility] [address] [place] [address] * (ABNORMAL) TSAT (10/22/2024 3:00 AM EDT) Iron 75 50 - 170 ug/dL [facility] Transferrin 202(L) 250 - 380 mg/dL [facility] TIBC 283 211 - 406 ug/dL [facility] Iron Saturation (TSat) 27 22 - 52 % [facility] 10/22/2024 3:00 AM EDT 10/23/2024 2:22 PM EDT Doug Henao MD LAB BLOOD ORDERABLES Final Result Performing Organization Address [facility] Co de Phone Number [facility] [address] [place] [address] * Hepatitis B Core Antibody, Total (10/22/2024 3:00 AM EDT) Only the most recent of2 resultswithin the time period is included. HBc Total Ab, S Negative Negative [facility] 10/22/2024 3:00 AM EDT 10/23/2024 2:22 PM EDT us Doug Henao MD LAB BLOOD ORDERABLES Final Result Performing Organization Address [facility] de Phone Number [facility] [address] [place] [address] * Aluminum level (10/22/2024 3:00 AM EDT) Pathologist [facility] Aluminum 2 1 - 20 ug/L [facility] Comment: This test was developed and its performance characteristics determined by [facility] in a manner consistent with CLIA requirements. This test has not been cleared or approved by the U.S. Food and Drug Administration. 10/22/2024 3:00 AM EDT 10/23/2024 2:44 PM EDT us Doug Henao MD LAB BLOOD ORDERABLES Final Result Performing Organization Address [facility] Co de Phone Number [facility] [address] [place] [address] * Vitamin D 25 Hydroxy (10/22/2024 3:00 AM EDT) Only the most recent of3 resultswithin the time period is included. [facility] Vitamin D, 25-Hydroxy 48 30 - 100 ng/mL [facility] Comment: Status Adult Pediatric Deficient: <20 <15 Insufficient: 20-29 15-19 Sufficient: 30-100 20-100 10/22/2024 3:00 AM EDT 10/23/2024 2:22 PM EDT Doug Henao MD LAB BLOOD ORDERABLES Final Result Performing Organization Address City/[facility]/ZIP Co de Phone Number [facility] [address] [place] [address] * (ABNORMAL) Hepatitis B Surface Antibody (10/22/2024 3:00 AM EDT) Only the most recent of2 resultswithin the time period is included. [facility] Hep B Surface Antibody <4(A) mIU/mL [facility] Comment: Interpretation: <10: No Immunity >=10: Probable Immunity 10/22/2024 3:00 AM EDT 10/23/2024 2:22 PM EDT Doug Henao MD LAB BLOOD ORDERABLES Final Result Performing Organization Address [facility] Co de Phone Number [facility] [address] [place] [address] * (ABNORMAL) CBC and Differential (10/22/2024 3:00 AM EDT) Only the most recent of3 resultswithin the time period is included. [facility] DIFFERENTIAL MANUAL, 2 Not Indicated [facility] White Blood Cells 7.0 4.0 - 10.0 K/uL [facility] RBC 3.79(L) 3.93 - 5.22 M/uL [facility] Hgb 11.4 11.2 - 15.7 g/dL [facility] Hemoglobin x 3 34.2 33.6 - 47.1 g/dL [facility] Hematocrit 36.8 34.1 - 44.9 % [facility] MCV 97.1(H) 79.4 - 94.8 fL [facility] MCH 30.1 25.6 - 32.2 pg [facility] MCHC 31.0(L) 32.2 - 35.5 g/dL [facility] RDW 13.5 11.7 - 14.4 % [facility] Platelets 204 182 - 369 K/uL [facility] MPV 10.7 9.2 - 12.8 fL [facility] Neutrophils Relative 65.1 34.0 - 71.1 % [facility] Lymphocytes Relative 21.3 19.3 - 51.7 % [facility] Monocytes 9.2 4.7 - 12.5 % [facility] Eosinophils Relative 2.7 0.7 - 5.8 % [facility] Basophils Relative 1.0 0.1 - 1.2 % [facility] Immature Granulocytes 0.7 0.0 - 1.0 % [facility] 10/22/2024 3:00 AM EDT 10/23/2024 2:31 PM EDT Doug Henao MD LAB BLOOD ORDERABLES Final Result [facility] [address] [place] [address] * (ABNORMAL) Uric Acid (10/22/2024 3:00 AM EDT) Only the most recent of3 resultswithin the time period is included. Uric Acid 7.0(H) 2.3 - 6.6 mg/dL [facility] 10/22/2024 3:00 AM EDT 10/23/2024 2:22 PM EDT Doug Henao MD LAB BLOOD ORDERABLES Final Result [facility] [address] [place] [address] * ALT (10/22/2024 3:00 AM EDT) ALT (SGPT) 18 10 - 49 U/L [facility] 10/22/2024 3:00 AM EDT 10/23/2024 2:22 PM EDT us Doug Henao MD LAB BLOOD ORDERABLES Final Result Performing Organization Address City/[facility]/ZIP Co de Phone Number [facility] [address] [place] [address] * AST (10/22/2024 3:00 AM EDT) AST (SGOT) 20 <34 U/L [facility] 10/22/2024 3:00 AM EDT 10/23/2024 2:22 PM EDT us Doug Henao MD LAB BLOOD ORDERABLES Final Result Performing Organization Address [facility] de Phone Number [facility] [address] [place] [address] * (ABNORMAL) Protein, total (10/22/2024 3:00 AM EDT) Total Protein 6.1(L) 6.4 - 8.9 g/dL [facility] 10/22/2024 3:00 AM EDT 10/23/2024 2:22 PM EDT us Doug Henao MD LAB BLOOD ORDERABLES Final Result Performing Organization Address [facility] Co de Phone Number [facility] [address] [place] [address] * Alkaline phosphatase (10/22/2024 3:00 AM EDT) Alkaline Phosphatase 80 46 - 116 U/L [facility] 10/22/2024 3:00 AM EDT 10/23/2024 2:22 PM EDT us Doug Henao MD LAB BLOOD ORDERABLES Final Result Performing Organization Address City/[facility] Co de Phone Number [facility] [address] [place] [address] * PTH, Intact (10/22/2024 3:00 AM EDT) PTH, Intact 572 160 - 721 pg/mL [facility] Comment: Suggested (KDIGO) ESRD maintenance range is two to nine times the upper normal limit (80.1 pg/mL) for the laboratory. Blood Venous blood / Unknown 10/22/2024 3:00 AM EDT 10/23/2024 2:22 PM EDT us Reuben Holbrook MD LAB BLOOD ORDERABLES Final Re sult Performing Organization Address City/[facility] Co de Phone Number [facility] [address] [place] [address] * Magnesium (10/22/2024 3:00 AM EDT) Only the most recent of3 resultswithin the time period is included. Pathologist [facility] Magnesium 2.2 1.9 - 2.7 mg/dL [facility] 10/22/2024 3:00 AM EDT 10/23/2024 2:22 PM EDT Doug Henao MD LAB BLOOD ORDERABLES Final Result Performing Organization Address [facility] de Phone Number [facility] [address] [place] [address] * (ABNORMAL) Lactate dehydrogenase (10/22/2024 3:00 AM EDT) Pathologist [facility] LDH 250(H) 120 - 246 U/L [facility] 10/22/2024 3:00 AM EDT 10/23/2024 2:22 PM EDT Doug Henao MD LAB BLOOD ORDERABLES Final Result Performing Organization Address [facility] Co de Phone Number [facility] [address] [place] [address] * Hemoglobin A1c (10/22/2024 3:00 AM EDT) Pathologist [facility] Hemoglobin A1C 5.2 <5.7 % [facility] Comment: Methodology: Enzymatic Normal: <5.7% Prediabetes: 5.7-6.4% Diabetes: >6.4% Diabetic Glucose Control Evaluation: Therapeutic action suggested at >8.0% ADA recommends a glycemic goal of <7.0% 10/22/2024 3:00 AM EDT 10/23/2024 2:31 PM EDT us Doug Henao MD LAB BLOOD ORDERABLES Final Result Performing Organization Address City/[facility] Co de Phone Number [facility] [address] [place] [address] * Glucose, random (10/22/2024 3:00 AM EDT) Glucose 88 70 - 99 mg/dL [facility] Comment: ADA guidelines outline the following fasting glucose ranges: Normal: <100 Prediabetes: 100-125 Diabetes: >125 10/22/2024 3:00 AM EDT 10/23/2024 2:22 PM EDT Doug Henao MD LAB BLOOD ORDERABLES Final Result Performing Organization Address [facility] Co de Phone Number [facility] [address] [place] [address] * Ferritin (10/22/2024 3:00 AM EDT) Ferritin 42 10 - 291 ng/mL [facility] 10/22/2024 3:00 AM EDT 10/23/2024 2:22 PM EDT Doug Henao MD LAB BLOOD ORDERABLES Final Result Performing Organization Address [facility] Co de Phone Number [facility] [address] [place] [address] * (ABNORMAL) Creatinine, serum (10/22/2024 3:00 AM EDT) Creatinine 3.83(H) 0.55 - 1.02 mg/dL [facility] 10/22/2024 3:00 AM EDT 10/23/2024 2:22 PM EDT us Doug Henao MD LAB BLOOD ORDERABLES Final Result Performing Organization Address City/[facility] Co de Phone Number [facility] [address] [place] [address] * (ABNORMAL) Bilirubin, total (10/22/2024 3:00 AM EDT) Total Bilirubin 0.2(L) 0.3 - 1.2 mg/dL [facility] 10/22/2024 3:00 AM EDT 10/23/2024 2:22 PM EDT us Doug Henao MD LAB BLOOD ORDERABLES Final Result Performing Organization Address [facility] Co de Phone Number [facility] [address] [place] [address] * (ABNORMAL) Lipid panel (10/22/2024 3:00 AM EDT) Cholesterol 218(H) mg/dL [facility] Comment: Optimal: <200 Borderline: 200-239 High Risk: >239 Triglycerides 152(H) mg/dL [facility] Comment: Optimal: <150 Borderline: 150-200 High Risk: >200 HDL 88 mg/dL [facility] Comment: Optimal: >59 Borderline: 40-59 High Risk: <40 LDL-Calc 100(H) mg/dL [facility] Comment: Optimal: <100 Borderline: 100-159 High Risk: >159 VLDL Cholesterol Luigi 30(H) mg/dL [facility] Comment: Optimal: <30 Borderline: 30-40 High Risk: >40 Chol/HDL Ratio 2.5 [facility] Comment: Optimal: <3.3 High Risk: >6.2 10/22/2024 3:00 AM EDT 10/23/2024 2:22 PM EDT us Doug Henao MD LAB BLOOD ORDERABLES Final Result Performing Organization Address City/[facility] Co de Phone Number [facility] [address] [place] [address] * (ABNORMAL) Electrolyte panel (10/22/2024 3:00 AM EDT) Sodium 134(L) 136 - 145 mEq/L [facility] Potassium 4.8 3.4 - 5.0 mEq/L [facility] Chloride 107 98 - 107 mEq/L [facility] Bicarbonate (CO2) 17(L) 21 - 31 mEq/L [facility] Anion Gap 10 3 - 14 mEq/L [facility] 10/22/2024 3:00 AM EDT 10/23/2024 2:22 PM EDT us Doug Henao MD LAB BLOOD ORDERABLES Final Result Performing Organization Address [facility] Co de Phone Number [facility] [address] [place] [address] * (ABNORMAL) Protein, Total, Random Urine w/Creatinine (Protein/Creat Ratio) (10/08/2024 12:41 PM EDT) Only the most recent of2 resultswithin the time period is included. Creatinine, Urine 51.62 mg/dL See order comments Protein Urine Random 617(H) <12 mg/dL See order comments Protein/Creati nine Ratio, Urine 11.95(H) <0.2 See order comments Comment: The spot urine protein:creatinine ratio may increase to 0.3 during normal . Urine Urine specimen obtained by clean catch procedure / Unknown 10/08/2024 12:41 PM EDT 10/08/2024 12:41 PM EDT us Reuben Holbrook MD LAB URINE ORDERABLES Final Re sult Performing Organization Address City/[facility]/ZIP Co de Phone Number [place] See order comments [place] [address] * (ABNORMAL) PTH, Intact (10/08/2024 11:54 AM EDT) Only the most recent of2 resultswithin the time period is included. Parathyroid Hormone, Intact 548.3(H) 8.7 - 77.1 pg/mL See order comments 10/08/2024 11:5 4 AM EDT 10/08/2024 11:54 AM EDT us Reuben Holbrook MD LAB [id number] SOLICITED RESULTS Final Result Performing Organization Address [facility] de Phone Number [place] See order comments [place] [address] * Hepatitis C antibody (10/08/2024 11:54 AM EDT) Pathologist [facility] Hepatitis C Antibody Nonreactive Nonreactive See order comments Comment: Antibodies to HCV not detected; does not exclude early acute HCV infection. Blood Venous blood / Unknown 10/08/2024 11:54 AM EDT 10/08/2024 11:54 AM EDT us Reuben Holbrook MD LAB BLOOD ORDERABLES Final Re sult Performing Organization Address [facility] de Phone Number [place] See order comments [place] [address] * Hepatitis B Surface Antigen (10/08/2024 11:54 AM EDT) Pathologist [facility] Hep B Surface Antigen Negative Negative See order comments Blood Venous blood / Unknown 10/08/2024 11:54 AM EDT 10/08/2024 11:54 AM EDT us Reuben Holbrook MD LAB BLOOD ORDERABLES Final Re sult Performing Organization Address [facility] de Phone Number [place] See order comments [place] [address] * (ABNORMAL) Phosphorus (10/08/2024 11:54 AM EDT) Only the most recent of2 resultswithin the time period is included. Pathologist [facility] Phosphorus, Serum 5.3(H) 2.7 - 4.5 mg/dL See order comments Blood Venous blood / Unknown 10/08/2024 11:54 AM EDT 10/08/2024 11:54 AM EDT us Reuben Holbrook MD LAB BLOOD ORDERABLES Final Re sult [place] See order comments [place] [address] * (ABNORMAL) Comprehensive Metabolic Panel (10/08/2024 11:54 AM EDT) Only the most recent of2 resultswithin the time period is included. Sodium 140 135 - 145 mmol/L See order comments Potassium 4.4 3.3 - 5.1 mmol/L See order comments Chloride 112(H) 96 - 108 mmol/L See order comments Bicarbonate (CO2) 21(L) 22 - 29 mmol/L See order comments Anion Gap 11(L) 12 - 20 See order comments BUN 52(H) 9 - 16 mg/dL See order comments Creatinine Serum 4.14(HH) 0.5 - 1.4 mg/dL See order comments Comment: Critical value for test(s): CREATININE Results called to and read back by: KEMAR DAMON Person calling: FLACAEdmond Date: 10/08/24 Time: 1331 eGFR (Calc) 11 See orde r comments Comment: Chronic Kidney Disease: Estimated GFR < 60 mL/min/1.73m2 Severe Kidney Disease: Estimated GFR < 15 mL/min/1.73m2 Glucose 94 60 - 115 mg/dL See order comments Calcium 8.7 8.4 - 10.2 mg/dL See order comments Total Bilirubin 0.2 0.0 - 1.0 mg/dL See order comments AST (SGOT) 23 5 - 31 U/L See orde r comments ALT (SGPT) 18 0 - 31 U/L See orde r comments Total Protein 6.5 6.5 - 8.0 g/dL See order comments Albumin 3.7 3.5 - 5.0 g/dL See order comments Alkaline phosphatase 80 39 - 117 U/L See order comments Blood Venous blood / Unknown 10/08/2024 11:54 AM EDT 10/08/2024 11:54 AM EDT Reuben Holbrook MD LAB BLOOD ORDERABLES Final Re sult [place] See order comments [place] [address] from Last 3 Months Insurance Medicaid [place] Medicare Medicare Medicaid [place] Care Teams Tow 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
--- OUTSIDE RECORDS SUMMARY | 2024-10-31 16:32 | XMS_ITS | Clinical Summary ---
Author Organization [facility] [address] [facility] Address [address] [place] [address] Phone Care Team Providers Care Transplant Case Manager Name Role Phone Ty Barros MD Primary Care Provider [phone]- [phone] Allergies No known active allergies Medications albuterol (PROVENTIL,KAVITA TOLIN) 2 mg tablet Take 1 Tablet by [...] Tablet by mouth 2 times daily. Active cyclobenzaprin e (FLEXERIL) 10 mg tablet Take 1 Tablet by mouth 3 times daily as needed. Active empagliflozin (Jardiance) 10 mg tablet Take 10 mg by mouth daily. Active levothyroxine (SYNTHROID, LEVOTHROID) 175 mcg tablet Take 1 Tablet by mouth daily. On weekends. Active linaGLIPtin 5 mg tablet Take 5 mg by mouth daily. Active montelukast (SINGULAIR) 10 mg tablet Take 1 Tablet by mouth at bedtime. Active traZODone (DESYREL) 100 mg tablet Take 1 tablet (100 mg total) by mouth at bedtime. Active sertraline (ZOLOFT) 100 mg tablet Take by mouth 1 (one) time each day. Active levothyroxine (SYNTHROID, LEVOTHROID) 150 mcg tablet Take 1 Tablet by mouth daily. 5 days a week. Monday - Monday10/11/19 25 Discontinued Active Problems Problem Noted Date Diagnosed Date History of lung cancer 01/17/2024 Assessment & Plan (10/10/2024 10:54 AM EDT): Ms. 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 She was offered reresection for complete lobectomy after her diagnosis, but patient declined and no adjuvant treatment was recommended by oncology. The patient's most recent surveillance chest CT scan done September 2024 shows that the opacity in the lingula appears stable, but there is a growing left lower lobe pulmonary nodules now measuring 9 mm (previously 4 mm). I discussed this growing left lower lobe pulmonary nodule at length with the patient and her soon-to-be son-in-law. I have a moderate degree of suspicion for malignancy, but also explained to the patient that this could be inflammatory or of other benign etiology. I discussed with the patient at length the options going forward which includes imaging surveillance of this nodule which would include a chest CT in 3 months, versus biopsy. Options for biopsy include navigational bronchoscopy with interventional pulmonology versus left lower lobe wedge resection with possible lobectomy versus segmentectomy should this be positive for cancer. I did explain, however, that given the location of the nodule itself this would likely be a large wedge resection requiring a large amount of lung to be removed simply for diagnosis. I answered many questions for the patient and her son-in-law at time of this visit. They would like to go home and speak with her son and will call next week with their decision. Assessment & Plan (07/01/2024 3:41 PM EDT): Ms. 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 The patient declined reoperation for completion lobectomy and also declined adjuvant chemotherapy. She follows with Dr. Vasquez and pulmonology at [facility]. Patient's most recent surveillance CT scan done [...] follows with Dr. Vasquez and pulmonology at [facility]. Patient's most recent surveillance CT scan done [...] Encounters Date Type Department Care Team Description 10/10/2024 10:00 AM EDT Office Visit Thoracic Surgery - [place] [address] [facility] [address] [place] [id number] Devi Herrera PA History of lung cancer (Primary Dx); Multiple pulmonary nodules 10/02/2024 2:38 PM EDT - 10/02/2024 11:59 PM EDT Hospital Encounter [facility] CT Scan [address] [place] [id number] History of lung cancer Discharge Disposition: Home or Self Care from Last 3 Months Surgical History Surgery Date Site/Laterality Comments CHOLECYSTECTOMY N/A PROCEDURE: HISTORICAL CHOLECYSTECTOMY ESOPHAGOGASTRODUODENOSCOPY N/A PROCEDURE: [place] ESOPHAGOGASTRODUODENOSCOPY TRANSORAL DIAGNOSTIC TUBAL LIGATION N/A PROCEDURE: HISTORICAL TUBAL LIGATION COLONOSCOPY N/A PROCEDURE: HISTORICAL COLONOSCOPY OTHER SURGICAL HISTORY 07/19/2022 Left PROCEDURE: [place] THORACOSCOPY W/THERA WEDGE RESEXN INITIAL UNILAT; COMMENT: CLYDE Medical History Medical History Date Comments CKD (chronic kidney disease) , symptom management only, stage 4 (severe) ([facility] V24, [facility] V28) DX:CKD (chronic kidney disea se), symptom management only, stage 4 (severe) ([facility]) Meckel's diverticulum DX:Meckel' s diverticulum Emphysema lung ([facility] V24, [facility] V28) DX:Emphysema lung ([facility]) Epilepsy with status epilept icus, not intractable ([facility] V24, [facility] V28) DX:Epilepsy wit h status epilepticus, not intractable ([facility]) GI bleed DX:GI bleed Gout DX:Gout HTN (hypertension) DX:HTN (hyper tension) Hypercholesteremia DX:Hyperchole steremia Hypothyroidism DX:Hypothyroidis m Type 2 diabetes mellitus wit hout complications ([facility] V24, [facility] V28) DX:Type 2 ema betes mellitus without complications ([facility]) Nontoxic single thyroid nodule D X:Nontoxic single thyroid nodule Rheumatoid arthritis ([facility]/ C V24, [facility] V28) DX:Rheumatoid arthritis ([facility] ) History of nicotine dependence D [...] EDT Height 162.6 cm (5' 4 ) 10/10/2024 10:03 AM EDT Body Mass Index 27.29 07/01/2024 3:31 PM EDT Plan of Treatment Health Maintenance Due Date [...] 2024 Diabetes: Annual GFR (Glomerular Filtration Rate) 10/08/2025 10/08/2024, 10/08/2024, 08/15/2024, Additional history exists Hypertension/CHF/CAD Annual BMP Blood Test 10/08/2025 10/08/2024, 10/08/2024, 08/15/2024, Additional history exists Pneumococcal Vaccine: 50+ Years Completed 05/02/2022 Hepatitis C Screening Completed 10/08/2024 , 10/08/2024, 07/01/2024, Additional history exists HIB Vaccines Aged Out No longer eligi [...] upper lobe wedge resection sequela. Jess SILVA ([id number]) -------- FINAL REPORT -------- Dictated By: Julieta Moseley Dictated Date: 10/08/2024 10:22 ET Assigned Physician: Julieta Moseley Reviewed and Electronically Signed By: Julieta Moseley Signed Date: 10/08/2024 10:43 ET Workstation ID: [id number] Transcribed By: Self Edit Transcribed Date: 10/08/2024 10:22 ET Narrative 10/08/2024 10:43 AM EDT History: Stage IB adenocarcinoma left upper lobe, status post left upper lobe wedge resection in July,. Patient declined completion lobectomy and adjuvant chemotherapy. Surveillance imaging. Comparison: 05/27/24, 03/06/23, 05/27/22 Technique: Helical volumetric imaging of the thorax was performed without IV contrast. DLP: 584.48 mGy/cm LaserlikeT Iterative reconstruction technique Findings: The trachea and [...] was performed withoutIV contrast. DLP: 584.48 mGy/cm XipLink VCT Iterative reconstruction technique Findings: The trachea [...] upper lobe wedge resection sequela. Jess SILVA ([id number]) -------- FINAL REPORT -------- Dictated By: Julieta Moseley Dictated Date: 10/08/2024 10:22 ET Assigned Physician: Julieta Moseley Reviewed and Electronically Signed By: Julieta Moseley Signed Date: 10/08/2024 10:43 ET Workstation ID: [id number] Transcribed By: Self Edit Transcribed Date: 10/08/2024 10:22 ET us Gini Viera NP IMG CT PROCEDURES Final Res ult from Last 3 Months Insurance MEDICAID - [place] MEDICARE Advance Directives Documents on File Type Date Recorded Patient Anesthesia Attending Expl anation Health Care Decision (hx) 07/26/2022 HE ALTH CARE PROXY Health Care Decision (hx) 07/26/2022 HE ALTH CARE PROXY Health Care Decision (hx) 07/26/2022 HE ALTH CARE PROXY Health Care Decision (hx) 07/26/2022 HE ALTH CARE PROXY Health Care Decision (hx) 07/26/2022 HE ALTH CARE PROXY Health Care Decision (hx) 07/26/2022 HE ALTH CARE PROXY Care Teams Transplant Case Manager Relationship Specialty Start Date End Date Ty Barros MD [facility] [address] [place] [address] [address] [place] [address] PCP - General 06/08/23
== END 2024-10-31 15:47 | disposition home or self-care (01) ==
LOC: HO.HSMS 14:51
PROVIDERS: PCP Internal Medicine; Visit Provider Psychiatry & Neurology Neurology
DX: G47.33 Obstructive sleep apnea (adult) (pediatric) (principal); G40.909 Epilepsy, unspecified, not intractable, without status epilepticus
CPT/HCPCS: 99214; G2211

== ENCOUNTER → 2024-10-31 14:50 | Outpatient (BNVA) | payer MEDICARE, MEDICAID, SELFPAY | PROVIDERS: PCP Internal Medicine; Visit Provider Psychiatry & Neurology Neurology | DX: G47.33 Obstructive sleep apnea (adult) (pediatric) (principal); G40.909 Epilepsy, unspecified, not intractable, without status epilepticus; Z99.89 Dependence on other enabling machines and devices | CPT/HCPCS: 99212 ==

== ENCOUNTER → 2025-01-02 19:31 | Outpatient (REF) | payer MEDICARE, MEDICAID, SELFPAY ==
--- OUTSIDE RECORDS SUMMARY | 2023-10-30 05:00 | XMS_ITS ---
Author Organization [facility] Address [address] [place] [address] Care Team Providers Care Financial Aid Coordinator Name Role Phone Ty Barros Primary Care Provider [phone] Lucy Cordoba Unavailable [phone] Encounters Encounter Location Date Provider Diagnosis [address] [address] 10/30/2023 Lucy Cordoba Plan Of Treatment No Information Progress Notes * CLAUDIAJulianaaDOB: (69 yo F)Acc No.[id number]:10/30/2023 Progress Notes Patient: Flynn WOLFEFORRESTJulianafranky Provider: Nicolas Cordoba DPM :1955 A ge:68 Y S ex:Female Date:10/30/2023 Address:[address] [place], [place] [id number] Pcp:Ty Barros Subjective: * Chief Complaints: * * Medical History: Objective: * Vitals: Assessment: Plan: * Treatment: * Images: * The named appointment provid er may or may not be the originator of this progress note, and it is not deemed complete until electronically signed by the appointment provider. Sign off status: Pending * Provider: Nicolas Cordoba DPM Date: 0 10/30/2023 Generated for Yolanda souza/Mariano/eTransmitting on: 03/04/2024 09:09 PM EST
--- OUTSIDE RECORDS SUMMARY | 2024-03-25 06:15 | XMS_ITS ---
[facility] Beatrice w[facility] [place] Address [address] [place] [address] Care Team Providers Care Electrical Panel Builder Name Role Phone Fiorella Ty Primary Care Provider [phone] Lucy Cordoba Unavailable [phone] REASON FOR VISIT Toe Irritation, At Risk [...] Active Encounters Encounter [facility] Date [facility] [address] [address] 03/25/2024 Lucy Cordoba Other hammer toe(s) (acquired), [...] Notes * Juliana BURNSGilbertB: (69 yo F)Acc No.[id number]:03/25/2024 Progress Note Patient: Alberto VILLANUEVA Provider: Nicolas Cordoba DPM :1955 A ge:68 Y S ex:Female Date:03/25/2024 Address:[address] [place] [address] Pcp:Ty Barros Subjective: * Chief Complaints: * [...] 03/25/2024 Generated for Yolanda souza/Mariano/Sloane on: 1 03/04/2024 09:09 PM EST History and Physical Notes * [...]
--- OUTSIDE RECORDS SUMMARY | 2025-01-02 21:10 | XMS_ITS | Encounter Summary ---
Author Organization [facility] Address [address] [place] [phone] Phone Care Team Providers Care Digital Designer Name Role Phone Ty Barros MD Primary Care Provider + Encounter Details Date Type Department Care Team (Late st Contact Info) Description 11/12/2024 TCM in Dialysis Clinic [facility]. [address] [phone] Dillon Henao MD [address] [phone] Social History Tobacco Use Types Packs/Day Years Used Date Smoking Tobacco: Never Assessed Comments Unknown Sex and Gender Information Value Date Recorded Sex Assigned at Not on file Legal Sex Female 12:50 PM EDT Gender Identity Not on file Sexual Orientation Not on file documented as of this encounter Progress Notes * Dillon Henao MD - 11/12/2024 12:00 AM EDT Patient: Alberto Dee : 1955 Note Type: Dialysis TCM Service Date: 11/12/2024 The patient was seen for a [id number]-hw-bwwc visit as part of Transitional Care Management services. Attending Programming Specialist: DILLON HENAO MD Dialysis Location: [facility] Schedule: Shift: 2 INTERACTIVE CONTACT Contact with the patient or caregiver was made or attempted within 2 business days of discharge - details in the medical record. HOSPITALIZATION SUMMARY Patient transitioned from: Hospital Patient transitioned to: Home Admit Date: 11/04/2024 Discharge Date: 11/07/2024 Discharged info reviewed: Followed-up on or reviewed need for pending tests/treatments as noted HOME MEDICATIONS Discharge med list reviewed - changes reconciled and discussed with patient. PHYSICAL EXAM Exam performed. Vital Signs Reviewed. CV - Blood pressure noted. No edema. EXT - No ulcers. VISIT DIAGNOSES CPT Code 36698 - High complexity, seen 8-14 days post discharge or moderate complexity, seen [id number] days of discharge. N18.6 End stage renal disease Signed by: DILLON HENAO MD on 11/12/2024 at 01:47:59 PM Transcribed by: DILLON HENAO MD on 11/12/2024 at 01:47:59 PM documented in this encounter Plan of Treatment Not on file documented as of this encounter Visit Diagnoses Not on filedocumented in this encounter Care Teams Digital Designer Relationship Specialty Start Date End Date Ty aBrros MD [address] [address] PCP - General Internal Medicine 06/21/23 documented as of this encounter
--- OUTSIDE RECORDS SUMMARY | 2025-01-02 21:10 | XMS_ITS | Clinical Summary ---
Author Organization [facility] Address [address] [address] Phone Care Team Providers Care Machine Engineer Name Role Phone Ty Barros MD [...] 66 y/o female recently moved here from [place], former smoker who is part of the [facility] and was followed for an 8 [...] JAY BENITEZ checked. Called to [facility] 2. 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 Biomarkers pending. Follow up with Dr. Sawant on August 26 at [facility]. 3. She is being followed by [facility] for kidney disease. 4. Per NCCN guidelines, she will be followed for [address] scan of the chest. Every 6 months X 2 years then annually X 3 years with a visit to the Thoracic Surgery Office. Patient and son wish to have these visits here at . Her next visit will be in 6 months, January 2023. 5. She is instructed to call with any questions or concerns. Stage 5 chronic kidney disease 08/02/2022 Diabetes mellitus, not otherwise specified 08/02 Hypertension 08/02/2022 Rheumatoid arthritis, not otherwise specified Encounters Date Type Department Care Team Description 12/28/2024 Treatment [facility] [address] [phone] Doug Henao MD End stage renal disease; Dependence on renal dialysis 12/17/2024 Treatment [facility] [address] [phone] Doug Henao MD End stage renal disease; Dependence on renal dialysis 12/10/2024 Treatment [facility] [address] [phone] Doug Henao MD End stage renal disease; Dependence on renal dialysis 12/03/2024 Treatment [facility] [address] [phone] Doug Henao MD End stage renal disease; Dependence on renal dialysis 11/30/2024 Treatment [facility] [address] [phone] Doug Henao MD End stage renal disease; Dependence on renal dialysis 11/21/2024 Treatment [facility] [address] [phone] Doug Henao MD End stage renal disease; Dependence on renal dialysis 11/12/2024 [facility] in Dialysis Clinic [facility] [address] [phone] Doug Henao MD 11/12/2024 Treatment [facility] [address] [phone] Doug Henao MD End stage renal disease; Dependence on renal dialysis 11/09/2024 Treatment [facility] [address] [phone] Doug Henao MD End stage renal disease; Dependence on renal dialysis 10/16/2024 9:00 AM EDT Office Visit [facility] [address] [phone] Reuben Holbrook MD Stage 5 chronic kidney disease (HCC) (Primary Dx); Secondary hyperparathyroidism (HCC); Vitamin D deficiency, not otherwise specified; Rheumatoid arthritis, not otherwise specified (HCC); Localized edema; Hypertension; History of malignant neoplasm of thoracic cavity structure; Epilepsy, not otherwise specified (HCC); Diabetes mellitus, not otherwise specified (HCC); Anemia in chronic kidney disease 10/16/2024 Orders Only [facility] [address] [phone] Reuben Holbrook MD Stage 5 chronic kidney disease (HCC); Localized edema; Hypertension; Diabetes mellitus, not otherwise specified (HCC); Cyst of kidney; Anemia in chronic kidney disease; Epilepsy, not otherwise specified (HCC); History of malignant neoplasm of thoracic cavity structure; Rheumatoid arthritis, not otherwise specified (HCC); Secondary hyperparathyroidism (HCC); Vitamin D deficiency, not otherwise specified 10/08/2024 Orders Only [facility] [address] [phone] Reuben Holbrook MD from Last 3 Months [...] ars (1 of 2 - PCV) 10/03/1974 Hepatitis B Vaccine (1 of 5 - Risk Dialysis 4-dose series) 1975 Colorectal Cancer Screening: Annual FOBT 10/03/2004 Colorectal Cancer Screening: Colonoscopy 10/03/2004 Colorectal Cancer Screening: Sigmoidoscopy 10/03/2004 Diabetes: Ophthalmology Exam 08/02/2022 Diabetes: Pedal Pulse Checked 08/02/2022 Diabetes: Sensory Foot Exam 08/02/2022 Diabetes: Visual Foot Exam 08/02/2022 Influenza Vaccine (#1) 2024 Diabetes: Hemoglobin A1C 02/14/2025 11/14/2024, 09/0 10/2024 Procedures Procedure Name Priority Date/Time Associated Diagnosis Comments HEPATITIS B SURFACE ANTIGEN W/REFL CONFIRM Routine 12/19/2024 3:00 AM EST TRANSFERRIN SATURATION Routine 12/19/2024 3:00 AM EST PROTEIN, TOTAL, SERUM Routine 12/19/2024 3:00 AM EST ELECTROLYTE PANEL Routine 12/19/2024 3:0 0 AM EST LIH (HC) Routine 12/19/2024 3:00 AM EST MAGNESIUM Routine 12/19/2024 3:00 AM EST LACTATE DEHYDROGENASE Routine 12/19/2024 3:00 AM EST CREATININE, SERUM Routine 12/19/2024 3:0 0 AM EST GLUCOSE, RANDOM Routine 12/19/2024 3:00 AM EST BUN/CREATININE RATIO Routine 12/19/2024 3:00 AM EST BILIRUBIN, TOTAL Routine 12/19/2024 3:00 AM EST ALT Routine 12/19/2024 3:00 AM EST AST Routine 12/19/2024 3:00 AM EST ALKALINE PHOSPHATASE Routine 12/19/2024 3:00 AM EST CALCIUM PHOSPHORUS PRODUCT, ADJUSTED (HC) Routine 12/19/2024 3:00 AM EST PTH, INTACT Routine 12/19/2024 3:00 AM EST FERRITIN Routine 12/19/2024 3:00 AM EST CBC AND DIFFERENTIAL Routine 12/19/2024 3:00 AM EST KT/V NATURAL LOG, URR (HC) Routine 12/19/2024 3:00 AM EST HEMOGLOBIN Routine 11/28/2024 3:00 AM EDT HEMOGLOBIN A1C Routine 11/14/2024 3:00 AM EDT HEPATITIS B SURFACE ANTIGEN W/REFL CONFIRM Routine 11/14/2024 3:00 AM EDT PROTEIN, TOTAL, SERUM Routine 11/14/2024 3:00 AM EDT TRANSFERRIN SATURATION Routine 11/14/2024 3:00 AM EDT MAGNESIUM Routine 11/14/2024 3:00 AM EDT ELECTROLYTE PANEL Routine 11/14/2024 3:0 0 AM EDT LIPID PANEL Routine 11/14/2024 3:00 AM EDT LIH (HC) Routine 11/14/2024 3:00 AM EDT GLUCOSE, RANDOM Routine 11/14/2024 3:00 AM EDT LACTATE DEHYDROGENASE Routine 11/14/2024 3:00 AM EDT CREATININE, SERUM Routine 11/14/2024 3:0 0 AM EDT BILIRUBIN, TOTAL Routine 11/14/2024 3:00 AM EDT BUN/CREATININE RATIO Routine 11/14/2024 3:00 AM EDT AST Routine 11/14/2024 3:00 AM EDT ALT Routine 11/14/2024 3:00 AM EDT ALKALINE PHOSPHATASE Routine 11/14/2024 3:00 AM EDT CALCIUM PHOSPHORUS PRODUCT, ADJUSTED (HC) Routine 11/14/2024 3:00 AM EDT PTH, INTACT Routine 11/14/2024 3:00 AM EDT FERRITIN Routine 11/14/2024 3:00 AM EDT KT/V NATURAL LOG, URR (HC) Routine 11/14/2024 3:00 AM EDT CBC AND DIFFERENTIAL Routine 11/14/2024 3:00 AM EDT HEMOGLOBIN Routine 11/09/2024 3:00 AM EDT LIH (HC) Routine 10/31/2024 3:00 AM EDT KT/V NATURAL LOG, URR (HC) Routine 10/31/2024 3:00 AM EDT LIH (HC) Routine 10/29/2024 3:00 AM EDT KT/V NATURAL LOG, URR (HC) Routine 10/29/2024 3:00 AM EDT ALUMINUM LEVEL [...] (HCC) Vitamin D deficiency, not otherwise specified from Last 3 Months Results * LIH (12/19/2024 3:00 AM EST) Only the most recent of5 resultswithin the time period is included. Lipemia Normal Normal [facility] Icterus Normal Normal [facility] Hemolysis Normal Normal [facility] 12/19/2024 3:00 AM EST 12/20/2024 3:27 PM EST us Doug Henao MD LAB HISTORICA [id number] RESULTS Final Result [facility] [address] [place] [address] * (ABNORMAL) Kt/V Natural Log, URR (12/19/2024 3:00 AM EST) Only the most recent of5 resultswithin the time period is included. Treatment Time 177 min [facility] Pre-Weight, lb 73.0 kg [facility] Post-Weight, lb 70.7 kg [facility] Ultrafiltration Rate 11 <=13 mL/kg/hr [facility] Comment: Recommend achieving Ultrafiltration Rate (UFR) <=10 mL/kg/hr References: Maren KRUEGER et al. Kidney Int. 2010; 79(2):250-257 BUN 51(H) 7 - 25 mg/dL [facility] BUN Post Dialysis 15 7 - 25 mg/dL [facility] UREA REDUCTION RATIO (%) 71 >=65 % [facility] Kt/V Natural Log 1.40 >=1.2 [facility] 12/19/2024 3:00 AM EST 12/20/2024 3:23 PM EST us Doug Henao MD LAB HISTORICA [id number] RESULTS Final Result Performing Organization Address City/[facility]/ZIP Co de Phone Number [facility] [address] [place] [address] * (ABNORMAL) Calcium Phosphorus Product, Adjusted (12/19/2024 3:00 AM EST) Only the most recent of3 resultswithin the time period is included. Albumin 4.4 3.6 - 5.4 g/dL [facility] Calcium 9.2 8.6 - 10.3 mg/dL [facility] Phosphorus, Serum 5.3(H) 2.5 - 5.0 mg/dL [facility] Ca*PO4 48.8 <55.0 mg2/dL2 [facility] Calcium, Adjusted Total 9.2 8.6 - 10.3 mg/dL [facility] CA*PO4 CORRCTD 48.8 <55.0 mg2/dL2 [facility] 12/19/2024 3:00 AM EST 12/20/2024 3:27 PM EST us Doug Henao MD LAB HISTORICA [id number] RESULTS Final Result Performing Organization Address [facility] de Phone Number [facility] [address] [place] [address] * Hepatitis B Surface Ag w/Reflex Confirmation (12/19/2024 3:00 AM EST) Only the most recent of3 resultswithin the time period is included. Pathologist [facility] Hep B Surface Antigen Negative Negative [facility] 12/19/2024 3:00 AM EST 12/20/2024 3:27 PM EST Doug Henao MD LAB BLOOD ORDERABLES Final Result Performing Organization Address City/[facility] Co de Phone Number [facility] [address] [place] [address] * BUN/CREATININE RATIO (12/19/2024 3:00 AM EST) Only the most recent of3 resultswithin the time period is included. Pathologist [facility] BUN/Creatinine Ratio 10.1 <=23.0 [facility] 12/19/2024 3:00 AM EST 12/20/2024 3:27 PM EST us Doug Henao MD LAB HISTORICA [id number] RESULTS Final Result Performing Organization Address City/[facility] Co de Phone Number [facility] [address] [place] [address] * (ABNORMAL) TSAT (12/19/2024 3:00 AM EST) Only the most recent of3 resultswithin the time period is included. [facility] Iron 90 50 - 170 ug/dL [facility] Transferrin 220(L) 250 - 380 mg/dL [facility] TIBC 308 211 - 406 ug/dL [facility] Iron Saturation (TSat) 29 22 - 52 % [facility] 12/19/2024 3:00 AM EST 12/20/2024 3:27 PM EST Doug Henao MD LAB BLOOD ORDERABLES Final Result Performing Organization Address [facility] de Phone Number [facility] [address] [place] [address] * (ABNORMAL) CBC and Differential (12/19/2024 3:00 AM EST) Only the most recent of4 resultswithin the time period is included. [facility] DIFFERENTIAL MANUAL, 2 Not Indicated [facility] White Blood Cells 11.3(H) 4.0 - 10.0 K/uL [facility] RBC 3.33(L) 3.93 - 5.22 M/uL [facility] Hgb 10.5(L) 11.2 - 15.7 g/dL [facility] Hemoglobin x 3 31.5(L) 33.6 - 47.1 g/dL [facility] Hematocrit 33.3(L) 34.1 - 44.9 % [facility] MCV 100.0(H) 79.4 - 94.8 fL [facility] MCH 31.5 25.6 - 32.2 pg [facility] MCHC 31.5(L) 32.2 - 35.5 g/dL [facility] RDW 13.0 11.7 - 14.4 % [facility] Platelets 242 182 - 369 K/uL [facility] MPV 9.9 9.2 - 12.8 fL [facility] Neutrophils Relative 86.9(H) 34.0 - 71.1 % [facility] Lymphocytes Relative 7.5(L) 19.3 - 51.7 % [facility] Monocytes 3.6(L) 4.7 - 12.5 % [facility] Eosinophils Relative 0.7 0.7 - 5.8 % [facility] Basophils Relative 0.3 0.1 - 1.2 % [facility] Immature Granulocytes 1.0 0.0 - 1.0 % [facility] 12/19/2024 3:00 AM EST 12/20/2024 3:46 PM EST us Doug Henao MD LAB BLOOD ORDERABLES Final Result Performing Organization Address [facility]/ZIP Co de Phone Number [facility] [address] [place] [address] * ALT (12/19/2024 3:00 AM EST) Only the most recent of3 resultswithin the time period is included. ALT (SGPT) 16 10 - 49 U/L [facility] 12/19/2024 3:00 AM EST 12/20/2024 3:27 PM EST Doug Henao MD LAB BLOOD ORDERABLES Final Result Performing Organization Address [facility] Co de Phone Number [facility] [address] [place] [address] * AST (12/19/2024 3:00 AM EST) Only the most recent of3 resultswithin the time period is included. AST (SGOT) 17 <34 U/L [facility] 12/19/2024 3:00 AM EST 12/20/2024 3:27 PM EST us Doug Henao MD LAB BLOOD ORDERABLES Final Result Performing Organization Address [facility] de Phone Number [facility] [address] [place] [address] * Protein, total (12/19/2024 3:00 AM EST) Only the most recent of3 resultswithin the time period is included. Total Protein 7.5 6.4 - 8.9 g/dL [facility] 12/19/2024 3:00 AM EST 12/20/2024 3:27 PM EST us Doug Henao MD LAB BLOOD ORDERABLES Final Result Performing Organization Address [facility] Phone Number [facility] [address] [place] [address] * (ABNORMAL) Alkaline phosphatase (12/19/2024 3:00 AM EST) Only the most recent of3 resultswithin the time period is included. Alkaline Phosphatase 144(H) 46 - 116 U/L [facility] 12/19/2024 3:00 AM EST 12/20/2024 3:27 PM EST us Doug Henao MD LAB BLOOD ORDERABLES Final Result Performing Organization Address [facility] Phone Number [facility] [address] [place] [address] * PTH, Intact (12/19/2024 3:00 AM EST) Only the most recent of3 resultswithin the time period is included. PTH, Intact 295 160 - 721 pg/mL [facility] Comment: Suggested (KDIGO) ESRD maintenance range is two to nine times the upper normal limit (80.1 pg/mL) for the laboratory. 12/19/2024 3:00 AM EST 12/20/2024 3:27 PM EST us Doug Henao MD LAB BLOOD ORDERABLES Final Result Performing Organization Address [facility] de Phone Number [facility] [address] [place] [address] * Magnesium (12/19/2024 3:00 AM EST) Only the most recent of4 resultswithin the time period is included. Magnesium 2.6 1.9 - 2.7 mg/dL [facility] 12/19/2024 3:00 AM EST 12/20/2024 3:27 PM EST Doug Henao MD LAB BLOOD ORDERABLES Final Result Performing Organization Address [facility] Co de Phone Number [facility] [address] [place] [address] * (ABNORMAL) Lactate dehydrogenase (12/19/2024 3:00 AM EST) Only the most recent of3 resultswithin the time period is included. LDH 387(H) 120 - 246 U/L [facility] 12/19/2024 3:00 AM EST 12/20/2024 3:27 PM EST Doug Henao MD LAB BLOOD ORDERABLES Final Result Performing Organization Address [facility] de Phone Number [facility] [address] [place] [address] * (ABNORMAL) Glucose, random (12/19/2024 3:00 AM EST) Only the most recent of3 resultswithin the time period is included. Glucose 130(H) 70 - 99 mg/dL [facility] Comment: ADA guidelines outline the following fasting glucose ranges: Normal: <100 Prediabetes: 100-125 Diabetes: >125 12/19/2024 3:00 AM EST 12/20/2024 3:27 PM EST us Doug Henao MD LAB BLOOD ORDERABLES Final Result Performing Organization Address [facility] Co de Phone Number [facility] [address] [place] [address] * (ABNORMAL) Ferritin (12/19/2024 3:00 AM EST) Only the most recent of3 resultswithin the time period is included. Ferritin 355(H) 10 - 291 ng/mL [facility] 12/19/2024 3:00 AM EST 12/20/2024 3:27 PM EST Doug Henao MD LAB BLOOD ORDERABLES Final Result Performing Organization Address City/[facility] Co de Phone Number [facility] [address] [place] [address] * (ABNORMAL) Creatinine, serum (12/19/2024 3:00 AM EST) Only the most recent of3 resultswithin the time period is included. Creatinine 5.07(H) 0.55 - 1.02 mg/dL [facility] 12/19/2024 3:00 AM EST 12/20/2024 3:27 PM EST Doug Henao MD LAB BLOOD ORDERABLES Final Result Performing Organization Address [facility] Co de Phone Number [facility] [address] [place] [address] * (ABNORMAL) Bilirubin, total (12/19/2024 3:00 AM EST) Only the most recent of3 resultswithin the time period is included. Total Bilirubin <0.2(L) 0.3 - 1.2 mg/dL [facility] 12/19/2024 3:00 AM EST 12/20/2024 3:27 PM EST Doug Henao MD LAB BLOOD ORDERABLES Final Result Performing Organization Address City/[facility] Co de Phone Number [facility] [address] [place] [address] * Electrolyte panel (12/19/2024 3:00 AM EST) Only the most recent of3 resultswithin the time period is included. Sodium 136 136 - 145 mEq/L [facility] Potassium 4.6 3.4 - 5.0 mEq/L [facility] Chloride 101 98 - 107 mEq/L [facility] Bicarbonate (CO2) 21 21 - 31 mEq/L [facility] Anion Gap 14 3 - 14 mEq/L [facility] 12/19/2024 3:00 AM EST 12/20/2024 3:27 PM EST us Doug Henao MD LAB BLOOD ORDERABLES Final Result Performing Organization Address [facility] Co de Phone Number [facility] [address] [place] [address] * (ABNORMAL) Hemoglobin (11/28/2024 3:00 AM EDT) Only the most recent of2 resultswithin the time period is included. Hgb 10.1(L) 11.2 - 15.7 g/dL [facility] Hemoglobin x 3 30.3(L) 33.6 - 47.1 g/dL [facility] 11/28/2024 3:00 AM EDT 11/29/2024 1:11 PM EDT us Doug Henao MD LAB BLOOD ORDERABLES Final Result Performing Organization Address [facility] de Phone Number [facility] [address] [place] [address] * Hemoglobin A1c (11/14/2024 3:00 AM EDT) Only the most recent of2 resultswithin the time period is included. Hemoglobin A1C 5.1 <5.7 % [facility] Comment: Methodology: Enzymatic Normal: <5.7% Prediabetes: 5.7-6.4% Diabetes: >6.4% Diabetic Glucose Control Evaluation: Therapeutic action suggested at >8.0% ADA recommends a glycemic goal of <7.0% 11/14/2024 3:00 AM EDT 11/15/2024 12:15 PM EDT us Doug Henao MD LAB BLOOD ORDERABLES Final Result Performing Organization Address City/[facility] Co de Phone Number [facility] [address] [place] [address] * Lipid panel (11/14/2024 3:00 AM EDT) Only the most recent of2 resultswithin the time period is included. Cholesterol 169 mg/dL [facility] Comment: Optimal: <200 Borderline: 200-239 High Risk: >239 Triglycerides 122 mg/dL [facility] Comment: Optimal: <150 Borderline: 150-200 High Risk: >200 HDL 78 mg/dL [facility] Comment: Optimal: >59 Borderline: 40-59 High Risk: <40 LDL-Calc 67 mg/dL [facility] Comment: Optimal: <100 Borderline: 100-159 High Risk: >159 VLDL Cholesterol Luigi 24 mg/dL [facility] Comment: Optimal: <30 Borderline: 30-40 High Risk: >40 Chol/HDL Ratio 2.2 [facility] Comment: Optimal: <3.3 High Risk: >6.2 11/14/2024 3:00 AM EDT 11/15/2024 12:23 PM EDT us Doug Henao MD LAB BLOOD ORDERABLES Final Result Performing Organization Address [facility] Co de Phone Number [facility] [address] [place] [address] * Confirmation Test HCV (10/22/2024 3:00 AM EDT) Pathologist [facility] Hep C Ab Confirmation Not needed [facility] 10/22/2024 3:00 AM EDT 10/23/2024 2:31 PM EDT Doug Henao MD LAB BLOOD ORDERABLES Final Result Performing Organization Address City/[facility] Co de Phone Number [facility] [address] [place] [address] * HEPATITIS C ABS W/REFLEX RNA DETECTR (10/22/2024 3:00 AM EDT) Pathologist [facility] Hep C Virus Ab Non-Reacti ve Non-Reacti ve [facility] 10/22/2024 3:00 AM EDT 10/23/2024 2:22 PM EDT us Doug Henao MD LAB HISTORICA [id number] RESULTS Final Result Performing Organization Address [facility] Co de Phone Number [facility] [address] [place] [address] * Hepatitis B Core Antibody, Total (10/22/2024 3:00 AM EDT) Only the most recent of2 resultswithin the time period is included. HBc Total Ab, S Negative Negative [facility] 10/22/2024 3:00 AM EDT 10/23/2024 2:22 PM EDT Doug Henao MD LAB BLOOD ORDERABLES Final Result Performing Organization Address [facility] de Phone Number [facility] [address] [place] [address] * Aluminum level (10/22/2024 3:00 AM EDT) Pathologist [facility] Aluminum 2 1 - 20 ug/L [facility] Comment: This test was developed and its performance characteristics determined by [employer] [facility] in a manner consistent with CLIA requirements. This test has not been cleared or approved by the U.S. Food and Drug Administration. 10/22/2024 3:00 AM EDT 10/23/2024 2:44 PM EDT Doug Henao MD LAB BLOOD ORDERABLES Final Result Performing Organization Address [facility] de Phone Number [facility] [address] [place] [address] * Vitamin D 25 Hydroxy (10/22/2024 3:00 AM EDT) Only the most recent of2 resultswithin the time period is included. Vitamin D, 25-Hydroxy 48 30 - 100 ng/mL [facility] Comment: Status Adult Pediatric Deficient: <20 <15 Insufficient: 20-29 15-19 Sufficient: 30-100 20-100 10/22/2024 3:00 AM EDT 10/23/2024 2:22 PM EDT Doug Henao MD LAB BLOOD ORDERABLES Final Result Performing Organization Address City/[facility] Co de Phone Number [facility] [address] [place] [address] * (ABNORMAL) Hepatitis B Surface Antibody (10/22/2024 3:00 AM EDT) Only the most recent of2 resultswithin the time period is included. Hep B Surface Antibody <4(A) mIU/mL [facility] Comment: Interpretation: <10: No Immunity >=10: Probable Immunity 10/22/2024 3:00 AM EDT 10/23/2024 2:22 PM EDT Doug Henao MD LAB BLOOD ORDERABLES Final Result Performing Organization Address [facility] de Phone Number [facility] [address] [place] [address] * (ABNORMAL) Uric Acid (10/22/2024 3:00 AM EDT) Only the most recent of2 resultswithin the time period is included. Uric Acid 7.0(H) 2.3 - 6.6 mg/dL [facility] 10/22/2024 3:00 AM EDT 10/23/2024 2:22 PM EDT Doug Henao MD LAB BLOOD ORDERABLES Final Result Performing Organization Address [facility] de Phone Number [facility] [address] [place] [address] * (ABNORMAL) Protein, Total, Random Urine w/Creatinine (Protein/Creat Ratio) (10/08/2024 12:41 PM EDT) Creatinine, Urine 51.62 mg/dL See order comments [...] ORDERABLES Final Re sult Performing Organization Address [facility] Phone Number [place] See order comments [place] [address] * (ABNORMAL) PTH, Intact (10/08/2024 11:54 AM EDT) [facility] Parathyroid Hormone, Intact 548.3(H) 8.7 - 77.1 pg/mL See order comments 10/08/2024 11:5 4 AM EDT 10/08/2024 11:54 AM EDT us Reuben Holbrook MD LAB BLOOD ORDERABLES Final Re sult Performing Organization Address [facility] Phone Number [place] See order comments [place] [address] * Hepatitis C antibody (10/08/2024 11:54 AM EDT) [facility] Hepatitis C Antibody Nonreactive Nonreactive See order comments Comment: Antibodies to HCV not detected; does not exclude early acute HCV infection. Blood Venous blood / Unknown 10/08/2024 11:54 AM EDT 10/08/2024 11:54 AM EDT us Reuben Holbrook MD LAB BLOOD ORDERABLES Final Re sult Performing Organization Address [facility] Phone Number [place] See order comments [place] [address] * Hepatitis B Surface Antigen (10/08/2024 11:54 AM EDT) Hep B Surface Antigen Negative Negative See order comments Blood Venous blood / Unknown 10/08/2024 11:54 AM EDT 10/08/2024 11:54 AM EDT us Reuben Holbrook MD LAB BLOOD ORDERABLES Final Re sult Performing Organization Address [facility] Co de Phone Number [place] See order comments [place] [address] * (ABNORMAL) Phosphorus (10/08/2024 11:54 AM EDT) Phosphorus, Serum 5.3(H) 2.7 - 4.5 mg/dL See order comments Blood Venous blood / Unknown 10/08/2024 11:54 AM EDT 10/08/2024 11:54 AM EDT us Reuben Holbrook MD LAB BLOOD ORDERABLES Final Re sult Performing Organization Address [facility] de Phone Number KINSTON See order comments [place] [address] * (ABNORMAL) Comprehensive Metabolic Panel (10/08/2024 11:54 AM EDT) Sodium 140 135 - 145 mmol/L See [...] read back by: KEMAR DAMON Person calling: ESTELLE Date: 10/08/24 Time: 1331 eGFR (Calc) 11 [...] order comments [place] [address] from Last 3 Months [place] [id number] Medicare [place] Care Teams Machine Engineer Relationship Specialty Start Date End Date Ty Barros MD [address] [address] PCP - General Internal Medicine 06/21/23
--- OUTSIDE RECORDS SUMMARY | 2025-01-02 21:10 | XMS_ITS | Encounter Summary ---
Author Organization [facility] Address [address] [place] [phone] Phone Care Team Providers Care Gas Regulator Repairer Name Role Phone Ty Barros MD Primary Care Provider + Encounter Details Date Type Department Care Team ([facility] st Contact Info) Description 12/28/2024 Treatment [facility]. [address] [place] [phone] Dillon Henao MD [address] [phone] End stage renal disease; Dependence on renal dialysis Social History Tobacco Use Types Packs/Day Years Used Date Smoking Tobacco: Never Assessed Comments Unknown Sex and Gender Information Value Date Recorded Sex Assigned at Not on file Legal Sex Female 12:50 PM EDT Gender Identity Not on file Sexual Orientation Not on file documented as of this encounter Miscellaneous Notes * Dialysis Note - Dillon Henao MD - 12/28/2024 12:00 AM EST Patient: Alberto Dee : 1955 Note Type: Dialysis Rounds-Comp Service Date: 12/28/2024 This patient was personally seen [id number] for a complete visit as part of routine monthly dialysis care for end stage renal disease. Attending Block Sawyer: DILLON HENAO MD Dialysis Location: [facility] Schedule: Shift: 2 OVERVIEW Patient is stable. HOME MEDICATIONS Medications reviewed. BP AND FLUID ASSESSMENT Acceptable blood pressure. Fluid status acceptable. ADEQUACY ASSESSMENT Kt/V, Natural Log 1.40 (12/19/24) 1.65 (11/14/24) 1.43 (10/31/24) UREA REDUCTION RATIO (%) 71 (12/19/24) 76 (11/14/24) 72 (10/31/24) BUN 51 (12/19/24) 51 (11/14/24) 50 (10/31/24) BUN Post Dialysis 15 (12/19/24) 12 (11/14/24) 14 (10/31/24) Creatinine 5.07 (12/19/24) 4.84 (11/14/24) 3.83 (10/22/24) Bicarbonate (CO2) 21 (12/19/24) 23 (11/14/24) 17 (10/22/24) Sodium 136 (12/19/24) 137 (11/14/24) 134 (10/22/24) Target met. Prescription compliance acceptable. ACCESS ASSESSMENT Vascular access examined. ANEMIA ASSESSMENT Hgb 10.5 (12/19/24) 10.1 (11/28/24) 9.6 (11/14/24) Hemoglobin 11.6 (05/07/24) Iron Saturation (TSat) 29 (12/19/24) 23 (11/14/24) 27 (10/22/24) Ferritin 355 (12/19/24) 264 (11/14/24) 42 (10/22/24) Iron 90 (12/19/24) 71 (11/14/24) 75 (10/22/24) TIBC 308 (12/19/24) 304 (11/14/24) 283 (10/22/24) MCV 100.0 (12/19/24) 101.6 (11/14/24) 97.1 (10/22/24) Platelets 242 (12/19/24) 190 (11/14/24) 204 (10/22/24) Anemia targets met. Hemoglobin at target. BMM ASSESSMENT Calcium, Adjusted Total 9.2 12/19/24 8.5 11/14/24 8.4 10/22/24 Calcium 9.2 12/19/24 8.5 11/14/24 8.2 10/22/24 Phosphorus, Serum 5.3 12/19/24 5.7 11/14/24 5.3 10/22/24 Ca*PO4 48.8 12/19/24 48.4 11/14/24 43.5 10/22/24 PTH, Intact 295 12/19/24 654 11/14/24 572 10/22/24 Parathyroid Hormone, Intact 548.3 10/08/24 544.9 08/15/24 498.3 07/01/24 Vitamin D, 25-Hydroxy 48 10/22/24 31.8 10/08/24 28.8 08/15/24 Magnesium 2.6 12/19/24 2.2 11/14/24 2.2 10/22/24 Alkaline Phosphatase 144 12/19/24 94 11/14/24 80 10/22/24 Aluminum 2 10/22/24 PTH within target. Phosphorus controlled. NUTRITION ASSESSMENT Albumin 4.4 12/19/24 4.0 11/14/24 3.8 10/22/24 Potassium 4.6 12/19/24 4.5 11/14/24 4.8 10/22/24 Glucose 130 12/19/24 108 11/14/24 88 10/22/24 Hemoglobin A1C 5.1 11/14/24 5.2 10/22/24 Albumin at goal. PHYSICAL EXAM Exam performed. Vital Signs Reviewed. CV - Blood pressure noted. No edema. EXT - No ulcers. ADDITIONAL LABS White Blood Cells 11.3 (12/19/24) 7.9 (11/14/24) 7.0 (10/22/24) WBC 6.2 (10/08/24) 6.7 (08/15/24) 6.3 (07/01/24) WBC 7.1 (05/07/24) Cholesterol 169 (11/14/24) 218 (10/22/24) HDL 78 (11/14/24) 88 (10/22/24) LDL-Calc 67 (11/14/24) 100 (10/22/24) Triglycerides 122 (11/14/24) 152 (10/22/24) Hep B Surface Antibody ?4 (10/22/24) NONREACTIVE (10/08/24) NONREACTIVE (07/01/24) Uric Acid 7.0 (10/22/24) 6.8 (10/08/24) 6.2 (08/15/24) Chol/HDL Ratio 2.2 (11/14/24) 2.5 (10/22/24) ALT (SGPT) 16 (12/19/24) 12 (11/14/24) 18 (10/22/24) AST (SGOT) 17 (12/19/24) 21 (11/14/24) 20 (10/22/24) Signed by: DILLON HENAO MD on 12/28/2024 at 12:04:20 PM Transcribed by: DILLON HENAO MD on 12/28/2024 at 12:04:20 PM documented in this encounter Plan of Treatment Not on file documented as of this encounter Visit Diagnoses Diagnosis End stage renal disease Dependence on renal dialysis documented in this encounter Care Teams Gas Regulator Repairer Relationship Specialty Start Date End Date Ty Barros MD [facility] [address] [place] [address] [address] PCP - General Internal Medicine 06/21/23 documented as of this encounter
--- OUTSIDE RECORDS SUMMARY | 2025-01-02 21:10 | XMS_ITS | Clinical Summary ---
Author Organization [facility] [address] [facility] Address [address] [place] [address] Phone Care Team Providers Care Harness Brusher Name Role Phone Ty Barros MD Primary Care Provider [phone] Allergies No known active allergies Medications albuterol (PROVENTIL,VENTOL IN) 2 mg tablet Take [...] Active levothyroxine (SYNTHROID, LEVOTHROID) 175 mcg tablet 1 (one) time each day before breakfast. Active linaGLIPtin 5 mg tablet Take 5 mg by mouth daily. Active montelukast (SINGULAIR) 10 mg tablet Take 1 Tablet by mouth at bedtime. Active traZODone (DESYREL) 100 mg tablet Take 1 tablet (100 mg total) by mouth at bedtime. Active sertraline (ZOLOFT) 100 mg tablet Take by mouth 1 (one) time each day. Active labetaloL (NORMODYNE) 100 mg tablet Take 0.5 tablets (50 mg total) by mouth at bedtime. Active azithromycin (ZITHROMAX) 250 mg tabletIndications :COPD exacerbation (CMS/HCC V24, CMS/HCC V28) Take 2 tablets (500 mg total) by mouth 1 (one) time each day for 1 day, THEN 1 tablet (250 mg total) 1 (one) time each day for 4 days. 6 each 5 12/23/19 25 predniSONE (DELTASONE) 20 mg tabletIndications :COPD exacerbation (CMS/HCC V24, CMS/HCC V28) Take 2 tablets (40 mg total) by mouth 1 (one) time each day for 5 days. 10 each 5 12/23/19 25 Active Problems Problem Noted Date Diagnosed [...] follows with Dr. Vasquez and pulmonology at [facility]. Patient's most recent surveillance CT scan [...] follows with Dr. Vasquez and pulmonology at [facility]. Patient's most recent surveillance CT scan [...] Encounters Date Type Department Care Team Description 12/17/2024 3:00 PM EST Office Visit Pulmonology - [place] [address] [phone] Nadege Guallpa MD History of lung cancer (Primary Dx); Lung nodule; SOB (shortness of breath); COPD exacerbation (CMS/HCC V24, CMS/HCC V28) 12/11/2024 8:15 AM EDT - 12/11/2024 10:00 AM EDT Surgery [facility] OR [address] [place] [phone] Nadege Guallpa MD FLEXIBLE BRONCHOSCOPY [31107 (CPT )] 12/11/2024 7:56 AM EDT Anesthesia Event [facility] OR [address] [place] [phone] Nadeen Bueno MD Hellman, Brooke, SRNA 12/11/2024 6:25 AM EDT - 12/11/2024 1:06 PM EDT Hospital Encounter [facility] OR [address] [place] [phone] Nadege Guallpa MD Pain; Lung nodule Discharge Disposition: Home or Self Care 12/03/2024 3:00 PM EDT Consult Pulmonology - [address] [phone] Nadege Guallpa MD Lung nodule (Primary Dx); History of lung cancer; SOB (shortness of breath) 11/29/2024 Telephone Pulmonology - [address] [phone] Madisyn De Los Santos [place] 10/10/2024 10:00 AM EDT Office Visit Thoracic Surgery - [address] [phone] Devi Herrera PA History of lung cancer (Primary Dx); Multiple pulmonary nodules 10/02/2024 2:38 PM EDT - 10/02/2024 11:59 PM EDT Hospital Encounter [facility] CT Scan [address] [place] [phone] History of lung cancer Discharge Disposition: Home or Self Care from Last 3 Months Surgical History Surgery Date Site/Laterality Comments CHOLECYSTECTOMY N/A PROCEDURE: HISTORICAL CHOLECYSTECTOMY ESOPHAGOGASTRODUODENOSCOPY N/A PROCEDURE: [place] ESOPHAGOGASTRODUODENOSCOPY TRANSORAL DIAGNOSTIC TUBAL LIGATION N/A PROCEDURE: HISTORICAL TUBAL LIGATION COLONOSCOPY N/A PROCEDURE: HISTORICAL COLONOSCOPY OTHER SURGICAL HISTORY 07/19/2022 Left PROCEDURE: [place] THORACOSCOPY W/THERA WEDGE RESEXN INITIAL UNILAT; COMMENT: CLYDE ELBOW SURGERY Right in [place] AV FISTULA PLACEMENT Left LUNG BIOPSY CATARACT EXTRACTION Medical History Medical History Date Comments CKD (chronic kidney disease) , symptom management only, stage 4 (severe) ([facility] V24, [facility] V28) DX:CKD (chronic kidney disea se), symptom management only, stage 4 (severe) ([facility]) Meckel's diverticulum DX:Meckel' s diverticulum Emphysema lung ([facility] V24, [facility] V28) DX:Emphysema lung ([facility]) Epilepsy with status epilept icus, not intractable ([facility] V24, [facility] V28) DX:Epilepsy wit h status epilepticus, not intractable ([facility]), 12/06- years since most recent seizure per son GI bleed DX:GI bleed Gout DX:Gout HTN (hypertension) DX:HTN (hyper tension) Hypercholesteremia DX:Hyperchole steremia Hypothyroidism DX:Hypothyroidis m Type 2 diabetes mellitus wit hout complications ([facility] V24, [facility] V28) DX:Type 2 ema betes mellitus without complications ([facility]) Nontoxic single thyroid nodule D X:Nontoxic single thyroid nodule Rheumatoid arthritis ([facility] V24, [facility] V28) DX:Rheumatoid arthritis ([facility] ) History of nicotine dependence D X:History of nicotine dependence Right elbow pain DX:Right elbow pain History of lung cancer DX:Histor y of lung cancer Glaucoma Visual impairment Blind in left eye Dialysis patient ([facility] V24) T , , Monday, [facility] Sleep apnea Denies using cpa p presently 12/06/24 per son Family History Medical History Relation Name Comments Other: Other Brother Diabetes Father Diabetes Mother Breast cancer Sister Mental illness Sister Other: Other Sister Relation Name Status Comments Brother Father Other Mother Sister Social History Tobacco Use Types Packs/Day Years Used Date Smoking Tobacco: Former Cigarettes 1 Q uit: 12/14/2021 Smokeless Tobacco: Never Tobacco Cessation:Counseling Given: Not Answered Alcohol Use Standard Drinks/Week Comments Yes 0 (1 standard drink = 0.6 oz pur e alcohol) rare Comments No Sex and Gender Information Value Date Recorded Sex Assigned at Female 05/21/2024 9:20 AM EDT Legal Sex Female 8:32 PM EST Gender Identity Female 05/21/2024 9:20 AM EDT Sexual Orientation Straight 05/21/2024 9: 20 AM EDT Obstetrics History Last Filed Vital Signs Vital Sign Reading Time Taken Comments Blood Pressure 141/51 12/17/2024 2:53 PM EST Pulse 67 12/17/2024 2:53 PM EST Temperature 36.3 C (97.3 F) 12/11/2024 9:34 AM EDT Respiratory Rate 13 12/11/2024 12:15 PM EDT Oxygen Saturation 94% 12/17/2024 2:53 PM EST Inhaled Oxygen Concentration - - Weight 72.1 kg (159 lb) 12/17/2024 2:53 PM EST Height 160 cm (5' 3 ) 12/17/2024 2:53 PM EST Body Mass Index 28.17 12/17/2024 2:53 PM EST Plan of Treatment Upcoming Encounters Date Type Department Care Team (Late st Contact Info) Description 01/16/2025 2:30 PM EST Appointment [facility] CT Scan [address] [place] [phone] Health Maintenance Due Date Last Done Comments Breast Cancer Screening 1955 Colorectal Cancer Screening: Colonoscopy 1955 COVID-19 Vaccine (#1) 10/03/1960 Diabetes: Annual Foot Exam 10/03/1965 Diabetes: Annual Retina Eye Exam 10/03/1965 DTaP,Tdap,and Td Vaccines (1 - Tdap) 10/03/1974 Zoster Vaccines (1 of 2) 10/03/1974 RSV Immunization Adult Patients (1 - Risk 50-74 years 1-dose series) 10/03/2005 Medicare Annual Wellness Visit 03/10/2023 Osteoporosis Screening (Bone Density Screening) 03/10/2023 Social Influencers of Health Screening 03/10/2023 Diabetes: Annual Urine Albumin-Creatinine Ratio (uACR) 01/12/2024 Depression Screening 02/14/2024 Influenza Vaccine (#1) 2024 Diabetes: Blood Sugar Control Test (HGBA1C) 05/15/2025 11/14/2024, 11/14/2024, 10/22/2024, Additional history exists Diabetes: Annual GFR (Glomerular Filtration Rate) 12/06/2025 12/06/2024, 10/08/2024, 10/08/2024, Additional history exists Hypertension/CHF/CAD Annual BMP Blood Test 12/06/2025 12/06/2024, 10/08/2024, 10/08/2024, Additional history exists Falls Risk Assessment 12/11/2025 12/11/2024 Cholesterol Screening (Lipid Panel) 11/14/2029 11/14/2024, 10/22/2024 Pneumococcal Vaccine: 50+ Years Completed 05/02/2022 Hepatitis [...] on patient's age to complete this topic Goals Goal Patient Goal Type Associated Problems Recent Progress Patient-Stated? Author Autogenerat ed Goal Care Plan Autogenerated Problem No Chris Peraza MA Procedures Procedure Name Priority Date/Time Associated Diagnosis Comments XR CHEST 1 VIEW STAT 12/11/2024 9:37 AM EDT POCT GLUCOSE BLOOD Routine 12/11/2024 9: 37 AM EDT OXYGEN THERAPY, ADULT Routine 12/11/2024 9:29 AM EDT XR FLUORO UP TO 1 HOUR (STATISTICS)(NO REPORT) Routine 12/11/2024 8:58 AM EDT Pain [place] BRONCHOSCOPY RIGID/FLEXIBLE W/EBUS >=3 MEDIASTINAL/HILAR LYMPH NODES 12/11/2024 7:58 AM EDT Lung nodule [place]V BRONCHOSCOPY RIGID/FLEXIBLE W/TRANSBRONCHIAL LUNG BIOPSY(S) SINGLE LOBE 12/11/2024 7:58 AM EDT Lung nodule [place]V BRONCHOSCOPY RIGID/FLEXIBLE COMPUTER ASSISTED IMAGE GUIDED NAVIGATION 12/11/2024 7:58 AM EDT Lung nodule [place] BRONCHOSCOPY INCL FLUORO GUIDANCE W BRONCHIAL/ENDOBRONCHIA L BX SGL/MULT 12/11/2024 7:58 AM EDT Lung nodule CULTURE RESPIRATORY WITH GRAM STAIN Routine 12/11/2024 7:45 AM EDT Lung nodule CULTURE AFB AND SMEAR Routine 12/11/2024 7:45 AM EDT Lung nodule CULTURE FUNGUS, MISCELLANEOUS SOURCE Routine 12/11/2024 7:45 AM EDT Lung nodule NON-GYNECOLOGIC CYTOLOGY Routine 12/11/2024 7:44 AM EDT Lung nodule POCT VENOUS NA, K, HH Routine 12/11/2024 7:37 AM EDT POCT GLUCOSE BLOOD Routine 12/11/2024 7: 32 AM EDT ECG 12-LEAD Routine 12/06/2024 9:44 AM EDT Lung nodule CBC WITH AUTO DIFFERENTIAL Routine 12/06/2024 9:34 AM EDT Lung nodule CBC AND DIFFERENTIAL Routine 12/06/2024 9:34 AM EDT Lung nodule BASIC METABOLIC PANEL Routine 12/06/2024 9:34 AM EDT Lung nodule PROTHROMBIN TIME WITH INR Routine 12/06/2024 9:34 AM EDT Lung nodule SOB (shortness of breath) CT CHEST WO CONTRAST Routine 10/02/2024 2:55 PM EDT History of lung cancer from Last 3 Months Results * XR Chest 1 View (12/11/2024 9:37 AM EDT) Anatomical Region Laterality Modality Body Radiographic Richa ging 12/11/2024 9:49 AM EDT Impressions 12/11/2024 9:50 AM EDT No pneumothorax. -------- FINAL REPORT -------- Dictated By: Tony Sol Dictated Date: 12/11/2024 09:49 ET Assigned Physician: Tony Sol Reviewed and Electronically Signed By: Tony Sol Signed Date: 12/11/2024 09:50 ET Workstation ID: [id number] Transcribed By: Self Edit Transcribed Date: 12/11/2024 09:49 ET Narrative 12/11/2024 9:50 AM EDT EXAM: XR CHEST 1 VIEW HISTORY: postoperative care, post bronchoscopic biopsy COMPARISON:None FINDINGS: The trachea is midline. The cardiac silhouette is enlarged with calcifications of the aortic arch. No airspace consolidations, pleural effusions or pneumothorax. Degenerative changes of the spine, AC joint. Procedure Note Tony Sol MD - 12/11/2024 EXAM: XR CHEST 1 VIEW HISTORY: postoperative care, post bronchoscopic biopsy COMPARISON:None FINDINGS: The trachea is midline. The cardiac silhouette is enlarged withcalcifications of the aortic arch. No airspace consolidations, pleuraleffusions or pneumothorax. Degenerative changes of the spine, AC joint. IMPRESSION: No pneumothorax. -------- FINAL REPORT -------- Dictated By: Tony Sol Dictated Date: 12/11/2024 09:49 ET Assigned Physician: Tony Sol Reviewed and Electronically Signed By: Tony Sol Signed Date: 12/11/2024 09:50 ET Workstation ID: [id number] Transcribed By: Self Edit Transcribed Date: 12/11/2024 09:49 ET Nadege Guallpa MD IMG XR PROCEDURES Final Re sult * POCT Glucose, blood (12/11/2024 9:37 AM EDT) Only the most recent of2 resultswithin the time period is included. Glucose POCT 89 70 - 199 mg/dL 12/11/2024 9:37 AM EDT [facility] Comment: Fasting Reference Range: 70-99 mg/dL Non-Fasting Reference Range: 70-199 mg/dL Blood Capillary blood specimen / Unknown 12/11/2024 9:37 AM EDT 12/11/2024 9:38 AM EDT Nadege Guallpa MD LAB POINT OF CARE TEST DOCKED DEVICE UNSOLICITED RESULTS Final Result Performing Organization Address City/[facility]/ZIP Co de Phone Number [facility] [address] [place] [address], [place] [phone] * XR Fluoro Up To 1 Hour (Statistics)(No Report) (12/11/2024 8:58 AM EDT) Narrative RIS PACS/VR - 12/11/2024 8:59 AM EDT This order has been auto-finalized and does not contain a result. Nadege Guallpa MD IMG FLUOROSCOPY PROCEDURES Final Result RIS PACS/VR * Culture respiratory with gram stain (12/11/2024 7:45 AM EDT) Culture, Respiratory No potential pathogens in significant amounts including MRSA/Staph Aureus or Pseudomonas 12/14/2024 9:46 AM EDT [facility] Gram Stain Result Moderate WBCs present 12/14/2024 9:46 AM EDT [facility] Gram Stain Result No organisms seen 12/14/2024 9:46 AM EDT [facility] Wash Structure of lower lobe of left lung / Unknown 12/11/2024 7:45 AM EDT 12/11/2024 9:26 AM EDT Comment:NO CONCERN FOR TB Nadege Guallpa MD LAB MICROBIOLOGY - GENERAL ORDERABLES Final Result [facility] [address] [place] [address], [place] [phone] * (ABNORMAL) Culture fungus, miscellaneous source (12/11/2024 7:45 AM EDT) Culture, Fungus Penicillium species(A) 12/20/2024 11:50 AM EST [facility] Comment: Edited result: Previously reported as Mold on 12/19/2024 at 0803 EST. Wash Structure of lower lobe of left lung / Unknown 12/11/2024 7:45 AM EDT 12/11/2024 9:26 AM EDT Comment:NO CONCERN FOR TB aNdege Guallpa MD LAB MICROBIOLOGY - GENERAL ORDERABLES Final Result [facility] [address] [place] [address], [place] [phone] * Non-gynecologic cytology (12/11/2024 7:44 AM EDT) Final Diagnosis A. Lung, Left Lower Lobe, Washing (ThinPRep and Cell Block): Benign. Rare benign bronchial cells present. B. Lymph Node, LEVEL 7, Fine Needle Aspirate (ThinPrep and Cell Block): egative for malignancy. Lymphocytes present, consistent with lymph node sampling. C. Lymph Node, 11L, Fine Needle Aspirate (Thin Prep and Cell Block): Negative for malignancy. Lymphocytes present, consistent with lymph node sampling. 12/12/2024 10:23 AM EDT [facility] at 1023 EDT Specimen A Adequacy Satisfactory for evaluation 12/12/2024 10:23 AM EDT [facility] Specimen B Adequacy Satisfactory for evaluation 12/12/2024 10:23 AM EDT [facility] Specimen C Adequacy Satisfactory for evaluation 12/12/2024 10:23 AM EDT [facility] Clinical Information IN CYTO 12/12/2024 10:23 AM EDT [facility] Gross Description A. Lung, Left Lower Lobe, WASH LEFT LOWER LOBE: Received: 35 cc clear CytoLyt for ThinPrep and Cell Block. B. Lymph Node, LEVEL 7: Received: 35 cc red CytoLyt with light flecks for ThinPrep and Cell Block. C. Lymph Node, 11L: Received: 35 cc red CytoLyt with light and dark flecks and tissue fragments for ThinPrep and Cell Block. 12/12/2024 10:23 AM EDT [facility] Disclaimer The technical components [place] [address] CLIA # [id number] 12/12/2024 10:23 AM EDT [facility] Wash Structure of lower lobe of left lung / Unknown 12/11/2024 7:44 AM EDT 12/11/2024 11:37 AM EDT Comment:IN CYTO Specimen obtained by fine needle aspiration procedure (specimen) Lymph node specimen / Unknown 12/11/2024 9:05 AM EDT 12/11/2024 11:37 AM EDT Comment:IN CYTO Specimen obtained by fine needle aspiration procedure (specimen) Lymph node specimen / Unknown 12/11/2024 9:05 AM EDT 12/11/2024 11:37 AM EDT Comment:IN CYTO us Nadege Guallpa MD LAB CYTOLOGY ORDERABLES Fi nal Result [facility] [address] [place] [address], [place] [phone] * (ABNORMAL) POCT VENOUS NA, K, HH (12/11/2024 7:37 AM EDT) Pathologist [facility] Sodium Venous POCT 138 135 - 145 mmol/L 12/11/2024 7:42 AM EDT [facility] Potassium Venous POCT 4.0 3.5 - 5.1 mmol/L 12/11/2024 7:42 AM EDT [facility] Hemoglobin Venous POCT 10.9(L) 12.5 - 16.0 g/dL 12/11/2024 7:42 AM EDT [facility] Hematocrit Venous POCT 32(L) 37 - 47 % 12/11/2024 7:42 AM EDT [facility] Blood Venous blood specimen / Unknown 12/11/2024 7:37 AM EDT 12/11/2024 7:43 AM EDT Nadege Guallpa MD LAB POINT OF CARE TEST DOCKED DEVICE UNSOLICITED RESULTS Final Result [facility] [address] [place] [address], * ECG 12 lead (12/06/2024 9:44 AM EDT) [facility] Ventricular Rate ECG 59 BPM GEMUSE Atrial Rate 59 BPM GEMUSE P-R Interval 152 ms GEMUSE QRS Duration 84 ms GEMUSE Q-T Interval 448 ms GEMUSE QTc 443 ms GEMUSE P Wave [place] 41 degrees GEMUSE R [place] 54 degrees GEMUSE T [place] -99 degrees GEMUSE ECG Interpretation Sinus bradycardia Septal infarct , age undetermined ST and T wave abnormality, consider inferolateral ischemia Abnormal ECG When compared with ECG of 27-JUL-2022 08:27, Septal infarct is now Present Inverted T waves have replaced nonspecific T wave abnormality in Inferior leads Inverted T waves have replaced nonspecific T wave abnormality in Lateral leads Confirmed by Dandre TOMPKINS JAMES ([id number]) on 12/06/2024 6:32:23 PM GEMUSE 12/06/2024 9:44 AM EDT 12/06/2024 6:32 PM EDT us Nadege Guallpa MD ECG ORDERABLES Final Resu lt GEMUSE * (ABNORMAL) CBC auto differential (12/06/2024 9:34 AM EDT) WBC 8.3 4.8 - 10.8 K/mcL LAB HEMETOLOGY METHOD 12/06/2024 10:33 AM EDT [facility] RBC 3.60(L) 3.80 - 4.80 M/[facility] LAB HEMETOLOGY METHOD 12/06/2024 10:33 AM [facility] Hemoglobin 11.2(L) 11.5 - 16.0 g/dL LAB HEMETOLOGY METHOD 12/06/2024 10:33 AM [facility] Hematocrit 35.2 35.0 - 47.0 % LAB HEMETOLOGY METHOD 12/06/2024 10:33 AM [facility] MCV 98.9(H) 79.0 - 98.0 FL LAB HEMETOLOGY METHOD 12/06/2024 10:33 AM [facility] MCH 31.5 27.0 - 32.0 pcg LAB HEMETOLOGY METHOD 12/06/2024 10:33 AM [facility] MCHC 31.8(L) 32.0 - 37.0 g/dL LAB HEMETOLOGY METHOD 12/06/2024 10:33 AM [facility] RDW 13.7 11.0 - 15.0 % LAB HEMETOLOGY METHOD 12/06/2024 10:33 AM [facility] Platelets 208 130 - 400 K/mcL LAB HEMETOLOGY METHOD 12/06/2024 10:33 AM [facility] MPV 9.5 7.0 - 11.0 FL LAB HEMETOLOGY METHOD 12/06/2024 10:33 AM [facility] NRBC 0.0 <1.0 % LAB HEMETOLOGY METHOD 12/06/2024 10:33 AM [facility] NRBC Absolute 0.00 <0.10 K/mcL LAB HEMETOLOGY METHOD 12/06/2024 10:33 AM [facility] Neutrophils Relative 72.3 % LAB HEMETOLOGY METHOD 12/06/2024 10:33 AM [facility] Lymphocytes Relative 14.8 % LAB HEMETOLOGY METHOD 12/06/2024 10:33 AM [facility] Monocytes Relative 8.7 % LAB HEMETOLOGY METHOD 12/06/2024 10:33 AM [facility] Eosinophils Relative 2.4 % LAB HEMETOLOGY METHOD 12/06/2024 10:33 AM [facility] Basophils Relative 0.6 % LAB HEMETOLOGY METHOD 12/06/2024 10:33 AM [facility] Immature Granulocytes Relative 1.2 % LAB HEMETOLOGY METHOD 12/06/2024 10:33 AM [facility] Neutrophils Absolute 5.97 1.50 - 7.00 K/mcL LAB HEMETOLOGY METHOD 12/06/2024 10:33 AM [facility] Lymphocytes Absolute 1.22 1.00 - 5.00 K/mcL LAB HEMETOLOGY METHOD 12/06/2024 10:33 AM [facility] Monocytes Absolute 0.72 0.20 - 1.00 K/mcL LAB HEMETOLOGY METHOD 12/06/2024 10:33 AM [facility] Eosinophils Absolute 0.20 0.00 - 0.50 K/mcL LAB HEMETOLOGY METHOD 12/06/2024 10:33 AM EDT [facility] Basophils Absolute 0.05 0.00 - 0.20 K/[facility] HEMETOLOGY METHOD 12/06/2024 10:33 AM EDT [facility] Immature Granulocytes Absolute 0.10(H) 0.00 - 0.03 K/[facility] HEMETOLOGY METHOD 12/06/2024 10:33 AM EDT [facility] Blood Venous blood specimen / Unknown Venipuncture / Unknown 12/06/2024 9:34 AM EDT 12/06/2024 10:27 AM EDT Nadege Guallpa MD LAB BLOOD ORDERABLES Final Result Performing Organization Address City/[facility]/ZIP Co de Phone Number [facility] [address] [place] [address], [place] [phone] * Prothrombin time with INR (12/06/2024 9:34 AM EDT) Protime 11.1 10.6 - 13.9 sec LAB COAGULATION METHOD 12/06/2024 10:40 AM EDT [facility] INR 0.9 LAB COAGULATION METHOD 12/06/2024 10:40 AM EDT [facility] Blood Venous blood specimen / Unknown Venipuncture / Unknown 12/06/2024 9:34 AM EDT 12/06/2024 10:27 AM EDT Nadege Guallpa MD LAB BLOOD ORDERABLES Final Result [facility] [address] [place] [address], [place] [phone] * (ABNORMAL) Basic metabolic panel (12/06/2024 9:34 AM EDT) Sodium 135 133 - 145 mmol/L LAB CHEMISTRY METHOD 12/06/2024 11:21 AM [facility] Potassium 4.1 3.5 - 5.5 mmol/L LAB CHEMISTRY METHOD 12/06/2024 11:21 AM [facility] Chloride 96 96 - 110 mmol/L LAB CHEMISTRY METHOD 12/06/2024 11:21 AM [facility] CO2 31 21 - 32 mmol/L LAB CHEMISTRY METHOD 12/06/2024 11:21 AM [facility] Anion Gap 8 3 - 11 LAB CHEMISTRY METHOD 12/06/2024 11:21 AM [facility] Glucose 79 70 - 100 mg/dL LAB CHEMISTRY METHOD 12/06/2024 11:21 AM [facility] BUN 41(H) 5 - 25 mg/dL LAB CHEMISTRY METHOD 12/06/2024 11:21 AM [facility] Creatinine 4.51(H) 0.50 - 1.10 mg/dL LAB CHEMISTRY METHOD 12/06/2024 11:21 AM [facility] Comment:Results verified by repeat testing eGFR 10(L) >=60 mL/min/1. 73m2 LAB CHEMISTRY METHOD 12/06/2024 11:21 AM [facility] Comment:Calculation based on the Chronic Kidney Disease Epidemiology Collaboration (CKD-EPI) equation refit without adjustment for race. BUN/Creatinine Ratio 9.1 LAB CHEMISTRY METHOD 12/06/2024 11:21 AM [facility] Calcium 8.8 8.5 - 10.5 mg/dL LAB CHEMISTRY METHOD 12/06/2024 11:21 AM [facility] Blood Venous blood specimen / Unknown Venipuncture / Unknown 12/06/2024 9:34 AM EDT 12/06/2024 10:58 AM EDT us Nadege Guallpa MD LAB BLOOD ORDERABLES Final Result [facility] [address] [place] [address], * CT Chest wo Contrast (10/02/2024 2:55 [...] upper lobe wedge resection sequela. Telerad SHIRA ([id number]) -------- FINAL REPORT -------- Dictated By: Julieta Moseley Dictated Date: 10/08/2024 10:22 ET Assigned Physician: Julieta Moseley Reviewed and Electronically Signed By: Julieta Moseley Signed Date: 10/08/2024 10:43 ET Workstation ID: [id number] Transcribed By: Self Edit Transcribed Date: 10/08/2024 10:22 ET Narrative 10/08/2024 10:43 AM EDT History: Stage IB adenocarcinoma left upper lobe, status post left upper lobe wedge resection in July,. Patient declined completion lobectomy and adjuvant chemotherapy. Surveillance imaging. Comparison: 05/27/24, 03/06/23, 05/27/22 Technique: Helical volumetric imaging of the thorax was performed without IV contrast. DLP: 584.48 mGy/cm Dymant VCT Iterative reconstruction technique Findings: The trachea [...] was performed withoutIV contrast. DLP: 584.48 mGy/cm Dymant VCT Iterative reconstruction technique Findings: The trachea [...] left upper lobe wedge resection sequela. Telerad PA ([id number]) -------- FINAL REPORT -------- Dictated By: Julieta Moseley Dictated Date: 10/08/2024 10:22 ET Assigned Physician: Julieta Moseley Reviewed and Electronically Signed By: Julieta Moseley Signed Date: 10/08/2024 10:43 ET Workstation ID: [id number] Transcribed By: Self Edit Transcribed Date: 10/08/2024 10:22 ET Gini Viera NP IMG CT PROCEDURES Final Res ult from Last 3 Months Additional Health Concerns Active Problems Noted Date Diagnosed Date Autogenerated Problem 12/12/2024 Infection Onset Date Last Indicated Tuberculosis Rule-Out 12/11/2024 12/11/2024 Insurance MEDICAID - [place] MEDICARE Advance Directives Documents on File Type Date Recorded Patient Skinning Machine Feeder Expl anation Health Care Decision (hx) 07/26/2022 HE ALTH CARE PROXY Health Care Decision (hx) 07/26/2022 HE ALTH CARE PROXY Health Care Decision (hx) 07/26/2022 HE ALTH CARE PROXY Health Care Decision (hx) 07/26/2022 HE ALTH CARE PROXY Health Care Decision (hx) 07/26/2022 HE ALTH CARE PROXY Health Care Decision (hx) 07/26/2022 HE ALTH CARE PROXY * Full Code - Default (Latest Code Status on File) Date Activated Date Inactivated Comments 12/11/2024 6:46 AM 12/11/2024 3:11 PM This is or saud is used when code status has not been discussed with the patient, or code status is otherwise unknown/unconfirmed To update the patient's code status, place a code status order. Do not modify or discontinue any currently active code status orders. Care Teams Harness Brusher Relationship Specialty Start Date End Date Ty Barros MD [facility] [address] [place] [address] [address] [place] [address] PCP - General 06/08/23
--- OUTSIDE RECORDS SUMMARY | 2025-01-02 21:10 | XMS_ITS | Patient Health Record ---
[facility] Abril wandy OrtegaVillanova Address [address] [place] [address] Care Team Providers Care Angledozer Operator Name Role Phone Ty Barros Primary Care Provider [phone] Lucy Cordoba Unavailable [phone] Allergies Allergen (clinical drug ingredient) Drug/Non Drug Allergy documented on EMR Reaction Allergy Type Onset Date Status Seasonale Unknown Drug Allergy Active Results Component Value Reference Range Notes HEMOGLOBIN A1C (GLYCOHEMOGLO BIN) Reviewed date:04/16/2024 03:24:30 PM Interpretation: Performing Lab: Notes/Report: HEMOGLOBIN A1C % (HH) 5.6 Reason For Referral No Information Medications Medication SIG (Take, Route, Frequency, Duration) Notes Start Date End Date Status carBAMazepine 200 MG 1 tablet Orally Twi ce a day Active Jardiance 10 MG 1 [...] before breakfast Orally Once a day Active Eye Drops Active Extra Depth Orthopedic Shoes (1 Pair) with Customized Heat Molded Multidensity Innersoles (3 Pair) as directed Dx: NIDDM/Polyneuropathy (E11.42), Hammertoe Foot Deformity (M20.41,M20.42), Preulcerative Skin Lesion(s) (L85.1 Active Diclofenac Active Immunizations Vaccine Route Administration Date Status Comme nts Influenza Unknown 12/12/2023 Administered Social History Tobacco Use: Social History Observation [...] Problem Acquired hammer toe of right foot (1908211068086134 ) Other hammer toe(s) (acquired), right foot (M20.41) Active confirmed Problem Acquired hammer toe of left foot (2955939629895734 ) Other hammer toe(s) (acquired), left foot (M20.42) Active confirmed Problem Polyneuropathy due to type 2 diabetes mellitus (299215164) Type 2 diabetes mellitus with diabetic polyneuropathy (E11.42) Active confirmed Vital Signs Blood pressure diastolic 70 mm Hg 10/10/2024 Height 5ft 3in in 10/10/2024 Blood pressure systolic 145 mm Hg 10/10/2024 Weight 167 lbs 10/10/2024 BMI 29.58 kg/m2 10/10/2024 Encounters Encounter Location Date Provider Diagnosis [address] [address] 01/08/2024 Lucy Cordoba Other hammer toe(s) (acquired), right foot M20.41 ; Other hammer toe(s) (acquired), left foot M20.42 and Type 2 diabetes mellitus with diabetic polyneuropathy E11.[address] [address] 04/15/2024 Lucy Cordoba Other hammer toe(s) (acquired), right foot M20.41 ; Other hammer toe(s) (acquired), left foot M20.42 ; Type 2 diabetes mellitus with diabetic polyneuropathy E11.42 and Tinea unguium B35.[address] [address] 10/10/2024 Lucy Cordoba Type 2 diabetes mellitus with diabetic polyneuropathy E11.42 and Tinea unguium B35.1 [facility] [place] [address] 01/25/2024 Lucy Cordoba [facility] [address] [address] 03/25/2024 Lucy Cordoba [facility] [place] [address] [place] [address] 04/15/2024 Lucy Cordoba Assessments Encounter Date Diagnosis (ICD Code) Assessment Notes Treatment Notes Treatment Clinical Notes Section Notes 01/08/2024 Other hammer toe(s) (acquired), right foot (ICD-10 - M20.41) Patient Educated with: DIABETIC FOOT CARE INSTRUCTIONS. pdf (DIABETIC FOOT CARE INSTRUCTIONS. pdf) 01/08/2024 Other hammer toe(s) (acquired), left foot (ICD-10 - M20.42) 04/15/2024 Other hammer toe(s) (acquired), right foot (ICD-10 - M20.41) 04/15/2024 Other hammer toe(s) (acquired), left foot (ICD-10 - M20.42) 10/10/2024 Tinea unguium (ICD-10 - B35.1) 10/10/2024 Type 2 diabetes mellitus with diabetic polyneuropathy (ICD-10 - E11.42) 04/15/2024 Type 2 diabetes mellitus with diabetic polyneuropathy (ICD-10 - E11.42) 01/08/2024 Type 2 diabetes mellitus with diabetic polyneuropathy (ICD-10 - E11.42) 04/15/2024 Tinea unguium (ICD-10 - B35.1) Plan Of Treatment No Information Insurance Providers Payer Name Payer Address Payer Phone Subscriber Number Group Number Insured Name Patient Relationship to Insured Coverage Start Date Coverage End Date [employer] [address] [place] [address] [phone] [id number] Alberto Stevenson Self - patient is the insured B [address] [place] [address] Alberto Stevenson Self - patient is the [...]
--- OUTSIDE RECORDS SUMMARY | 2025-01-02 21:10 | XMS_ITS ---
[facility] Name [facility] Results Test Name/Text Value Interpretation Date Range Source Glucose Bld-mCnc 89.0 mg/dL 12/11/2024 70 - 199 C [facility] Clinical info IN [place] 12/12/2024 [facility] Sodium BldV-sCnc 138.0 mmol/L 12/11/2024 135 - 145 [facility] Hgb BldV-mCnc 10.9 g/dL Below low normal 12/11/2024 12.5 - 1 6 [facility] Hct VFr BldV Calc 32.0 % Below low normal 12/11/2024 37 - 47 [facility] Potassium BldV-sCnc 4.0 mmol/L 12/11/2024 3.5 - 5. 1 [facility] Glucose Bld-mCnc 94.0 mg/dL 12/11/2024 70 - 199 C [facility] History of Medication Use Medication Directions Dispensed Refills Start Date End Date Stat ipratropium-albutero L (DUONEB) 0.5-2.5 mg/3 mL nebulizer solution 3 mL 3 mL, nebulization, Once as needed, wheezing, Starting on Mon12/11/24 at 0929, For 1 dose, Recovery (only) 12/11/2024 completed acetaminophen (TYLENOL) tablet 650 mg 650 mg, oral, Once as needed, mild pain, pain (1-3), Starting on Mon12/11/24 at 0929, For 1 dose, Recovery (only), pain (1-3) 12/11/2024 active dexAMETHasone (DECADRON) injection 4 mg 4 mg, intravenous, Once as needed, nausea and vomitting, Starting on Mon12/11/24 at 0929, For 1 dose, Recovery (only), Administer 2nd unless given in OR 12/11/2024 active diphenhydrAMINE (BENADRYL) injection 12.5 mg 12.5 mg, intravenous, Once as needed, itching, nausea, vomiting, Starting on Mon12/11/24 at 0929, For 1 dose, Recovery (only) 12/11/2024 active HYDROmorphone (DILAUDID) injection 0.2 mg 0.2 mg, intravenous, Every 15 min PRN, moderate pain, Starting on Mon12/11/24 at 0929, For 4 doses, Recovery (only), For pain (4-6). DO NOT EXCEED 2MG 12/11/2024 active HYDROmorphone (DILAUDID) injection 0.5 mg 0.5 mg, intravenous, Every 15 min PRN, severe pain, Starting on Mon12/11/24 at 0929, For 4 doses, Recovery (only), For pain (7-10). 12/11/2024 active meperidine (PF) (DEMEROL) 25 mg/mL injection 12.5 mg 12.5 mg, intravenous, Every 30 min PRN, shivering, Starting on Mon12/11/24 at 0929, For 2 doses, Recovery (only), Infuse over 5 minutes. 12/11/2024 active ondansetron (PF) (ZOFRAN) injection 4 mg 4 mg, intravenous, Once as needed, nausea, vomiting, Starting on Mon12/11/24 at 0929, For 1 dose, Recovery (only), Infuse over 2 minutes. Administer 1st unless given in OR then give dexamethasone 12/11/2024 active oxyCODONE (ROXICODONE) immediate release tablet 5 mg 5 mg, oral, Every 4 hours PRN, moderate pain, severe pain, for pain 4-6, Starting on Mon12/11/24 at 0929, For 2 doses, Recovery (only) 12/11/2024 active sodium chloride 0.9 % flush 10 mL [Order 1 Start] Name: Insert peripheral IV Signed Summary: STAT, Once, On Mon12/11/24 at 0647, For 1 occurrence, Preprocedure [Order 1 End] [Order 2 Start] Name: Maintain IV access Signed Summary: Until discontinued, Starting on Mon12/11/24 at 0647, Until Specified, Preprocedure [Order 2 End] [Ord 12/11/2024 active albuterol (PROVENTIL,VENTOLIN) 2 mg tablet Take 1 Tablet by mouth 3 times daily. active albuterol sulfate (VENTOLIN HFA INHL) Inhale 1 Inhaler into the lungs 4 times daily. active amLODIPine (NORVASC) 5 mg tablet Take 1 Tablet by mouth daily. active atorvastatin (LIPITOR) 40 mg tablet Take 1 Tablet by mouth daily. active bimatoprost (LUMIGAN) 0.01 % ophthalmic drops apply to the eye. a ctive brimonidine (ALPHAGAN) 0.2 % ophthalmic solution 1 Drop 3 times daily. active carBAMazepine (TEGretol) 200 mg tablet Take 1 Tablet by mouth 2 times daily. active cyclobenzaprine (FLEXERIL) 10 mg tablet Take 1 Tablet by mouth 3 times daily as needed. active empagliflozin (Jardiance) 10 mg tablet Take 10 mg by mouth daily. active labetaloL (NORMODYNE) 100 mg tablet Take 0.5 tablets (50 mg total) by mouth at bedtime. active levothyroxine (SYNTHROID, LEVOTHROID) 175 mcg tablet 1 (one) time each day before breakfast. active linaGLIPtin 5 mg tablet Take 5 mg by mouth daily. active montelukast (SINGULAIR) 10 mg tablet Take 1 Tablet by mouth at bedtime. active sertraline (ZOLOFT) 100 mg tablet Take by mouth 1 (one) time each day. active traZODone (DESYREL) 100 mg tablet Take 1 tablet (100 mg total) by mouth at bedtime. active Problems Problem Status Onset Date Problem Type Date of Resolution Source History of lung cancer active 2024-01-17 ProblemAct [facility] Multiple pulmonary nodules active 2024-01-17 ProblemAct [facility] Pain active EncounterDiagnosisAct [facility] Lung nodule active EncounterDiagnosisAct [facility] Encounters Encounter Type Encounter Reason Primary Diagnosis Location Date Ambulatory Pain, unspecified Pain, unspecified [facility] 12/11/2024 Care Team Organization Name Specialty Phone Email Start Date End Da te [facility] 12/11/2024 [facility] Primary Care 12/11/2024
== END ==
LOC: HO.SL 19:31
PROVIDERS: PCP Internal Medicine; Visit Provider Psychiatry & Neurology Neurology
DX: G47.33 Obstructive sleep apnea (adult) (pediatric) (principal)
CPT/HCPCS: 95811

== ENCOUNTER → 2025-01-02 20:55 | Outpatient (BNV) | payer MEDICARE, MEDICAID, SELFPAY | PROVIDERS: PCP Internal Medicine; Visit Provider Psychiatry & Neurology Neurology | DX: G47.33 Obstructive sleep apnea (adult) (pediatric) (principal) | CPT/HCPCS: 95811 ==

== ENCOUNTER 2025-01-03 12:45 | Outpatient (REF) | payer MEDICARE, MEDICAID, SELFPAY ==
--- OUTSIDE RECORDS SUMMARY | 2023-10-30 05:00 | XMS_ITS ---
Author Organization [facility] Address [address] [place] [address] Care Team Providers Care Vice President Of Instruction Name Role Phone Ty Barros Primary Care Provider Lucy Cordoba Unavailable [phone] Encounters Encounter Location Date Provider Diagnosis [address] [address] 10/30/2023 Lucy Cordoba Plan Of Treatment No Information Progress Notes * CLAUDIAJulianaaDOB: (69 yo F)Acc No.[id number]:10/30/2023 Progress Notes Patient: Flynn DOSHIDAYJulianafranky Provider: Nicolas Cordoba DPM :1955 A ge:68 Y S ex:Female Date:10/30/2023 Address:[address] [place], [place] [id number] Pcp:Ty Barros Subjective: * Chief Complaints: * [...] 0 10/30/2023 Generated for Yolanda souza/Mariano/eTransmitting on: 03/05/2024 01:08 PM EST
--- OUTSIDE RECORDS SUMMARY | 2024-03-25 06:15 | XMS_ITS ---
Author Organization [facility] [place]rice [place] Address [address] [place] [address] Care Team Providers Care Professor Of French Name Role Phone Fiorella Ty Primary Care Provider Lucy Cordoba Unavailable [phone] REASON FOR VISIT Toe Irritation, At Risk Footcare Medications Medication SIG (Take, Route, Frequency, Duration) Notes Start Date End Date Status traZODone HCl 150 MG 1 tablet at bedtime Orally Once a day Active Sertraline HCl 100 MG 1 tablet Orally Once a day Active Montelukast Sodium 10 MG 1 tablet Orally Once a day Active Levothyroxine Sodium 175 MCG/ML 1 mL in the morning before breakfast Orally Once a day Active Extra Depth Orthopedic Shoes (1 Pair) with Customized Heat Molded Multidensity Innersoles (3 Pair) as directed Dx: NIDDM/Polyneuropathy (E11.42), Hammertoe Foot Deformity (M20.41,M20.42), Preulcerative Skin Lesion(s) (L85.1 Active Diclofenac Active Jardiance 10 MG 1 tablet Orally Once a day Active Atorvastatin Calcium 40 MG 1 tablet Orally Once a day Active Tradjenta 5 MG 1 tablet Orally Once a day Active carBAMazepine 200 MG 1 tablet Orally Twi ce a day Active Vitamin D2 Active Encounters Encounter Location Date [facility] [address] [address] 03/25/2024 Lucy Cordoba Other hammer toe(s) (acquired), right foot M20.41 ; Other hammer toe(s) (acquired), left foot M20.42 and Type 2 diabetes mellitus with diabetic polyneuropathy E11.42 Assessments Encounter Date Diagnosis (ICD Code) Assessment Notes Treatment Notes Treatment Clinical Notes Section Notes 03/25/2024 Other hammer toe(s) (acquired), right foot (ICD-10 - M20.41) Patient Educated with: DIABETIC FOOT CARE INSTRUCTIONS. pdf (DIABETIC FOOT CARE INSTRUCTIONS. pdf) 03/25/2024 Other hammer toe(s) (acquired), left foot (ICD-10 - M20.42) 03/25/2024 Type 2 diabetes mellitus with diabetic polyneuropathy (ICD-10 - E11.42) Plan Of Treatment Medication Medication Name Sig Start Date Stop Date Notes Extra Depth Orthopedic Shoes (1 Pair) with Customized Heat Molded Multidensity Innersoles (3 Pair) as directed Dx: NIDDM/Polyneuropathy (E11.42), Hammertoe Foot Deformity (M20.41,M20.42), Preulcerative Skin Lesion(s) (L85.1 Treatment Notes Assessment Notes Other hammer toe(s) (acquired), right fo ot Patient Educated with: DIABETIC FOOT CARE INSTRUCTIONS.pdf (DIABETIC FOOT CARE INSTRUCTIONS.pdf) Next Appt Details Follow Up: 2 Months, Reason: Procedure Notes * Category Sub-Category Detail Notes Nail Reduction Nail Reduction Trimming of dyst rophic nails performed to reduce/remove overall nail length and girth, by manual and electrical means with use of a nail nipper and/or dremel, to more viable healthy nail plate or bed tissue, any number - G0127 Progress Notes * Juliana BURNSGilbertB: (69 yo F)Acc No.[id number]:03/25/2024 Progress Note Patient: Alberto VILLANUEVA Provider: Nicolas Cordoba DPM :1955 A ge:68 Y S ex:Female Date:03/25/2024 Address:[address] [place] [address] Pcp:Ty Barros Subjective: * Chief Complaints: * 1 . Toe Irritation. 2. At Risk Footcare. * HPI: A t Risk footcare: Pt States Last PCP Visit: D ate 1 02/25/2023 T oe pain: Location: B /L feet . Duration: s everal years. Course: w orse. Aggravated by: s hoes, any pressure. Treatments: c hange in shoes. * Medical History: * Medications: T aking Extra Depth Orthopedic Shoes (1 Pair) with Customized Heat Molded Multidensity Innersoles (3 Pair) as directed Dx: NIDDM/Polyneuropathy (E11.42), Hammertoe Foot Deformity (M20.41,M20.42), Preulcerative Skin Lesion(s) (L85.1 , Taking Diclofenac , Taking Montelukast Sodium 10 MG Tablet 1 tablet Orally Once a day , Taking Levothyroxine Sodium 175 MCG/ML Solution 1 mL in the morning before breakfast Orally Once a day , Taking traZODone HCl 150 MG Tablet 1 tablet at bedtime Orally Once a day , Taking Sertraline HCl 100 MG Tablet 1 tablet Orally Once a day , Taking Vitamin D2 , Taking Tradjenta 5 MG Tablet 1 tablet Orally Once a day , Taking Jardiance 10 MG Tablet 1 tablet Orally Once a day , Taking Atorvastatin Calcium 40 MG Tablet 1 tablet Orally Once a day , Taking carBAMazepine 200 MG Tablet 1 tablet Orally Twice a day Objective: * Vitals: * Examination: O phthalmology Referral: DIABETES EYE EXAM D iabetic Retinopathy Screening: Y es O rthopedic: MUSCLE STRENGTH: 5 /5 all groups in a symmetrical fashion, B/L. DIGITAL DEFORMITIES: D igital contracture, PIPJ, 2-5 B/L, incompl-reducible to push-up test, no over, nor underlapping, t here is e vidence of shoe producing skin irritation. FOOTWEAR EVALUATION: w orn, non-supportive, shoe gear properties exacerbate patient's foot/toe deformity , fair condition. G eneral Examination: GENERAL APPEARANCE: R eveals a pleasant, alert, well nourished, well-developed, well hydrated individual, who demonstrates proper attention to hygiene/body habitus, and is in no acute distress, Pt serves as own historian for office visit today. ORIENTED: p erson, place, and time. FOOT EXAM: L ower Extremity Neurological Exam performed:?Yes Footwear Evaluation F ootwear Evaluation performed: Y es N eurological: SENSORY: N eurological exam demonstrates, reduced light touch sensation, reduced sharp/dull discrimination , reduced vibration sensation, in a stocking fashion, B/L, 5.07 monofilament test performed at plantar aspects of 5 varied sites per foot shows sensation, reduced, B/L. N ails: NAILS are: 1 -5 B/L, nails are elongated, overgrown, dystrophic. D ermatologic: SKIN FINDINGS: , Skin exam reveals normal color, texture, elasticity, and turgor. There are no masses, nor excrescences. The interspaces are clear, B/L. ? V ascular: DP PULSES (B): 3 /4, B/L. PT PULSES (B): 3 /4, B/L. CAPILLARY FILL TIME: i mmediate, all digits, B/L. TROPHIC CONDITION-TEXTURE/ELASTICITY/TURGOR/HAIR GROWTH (B):?normal, B/L. TEMPERTURE GRADIENT (C): n ormal, warm to cool, proximal to distal, B/L, B/L. PIGMENTATION: n ormal, B/L. Assessment: * Assessment: 1. O ther hammer toe(s) (acquired), right foot - M20.41 (Primary) S pecify :Chronic problem, Worse (4),Rx Management (4) 2 . O ther hammer toe(s) (acquired), left foot - M20.42 S pecify :Chronic problem, Worse (4),Rx Management (4) 3 . T ype 2 diabetes mellitus with diabetic polyneuropathy - E11.42 Plan: * Treatment: * Procedures: N ail Reduction: Nail Reduction T rimming of dystrophic nails performed to reduce/remove overall nail length and girth, by manual and electrical means with use of a nail nipper and/or dremel, to more viable healthy nail plate or bed tissue, any number - G0127. ? * Procedure Codes: G 0127 TRIMMING DYSTROPHIC NAILS ANY #, Modifiers: XS * Preventive Medicine: Counseling: D iscussion: - 13: Office or other outpatient visit for the evaluation and management of an established patient, which required a medically appropriate history and/or examination and LOW level of DECISION MAKING for: 1 STABLE ACUTE UNCOMPLICATED PROBLEM, 2 OR MORE MINOR PROBLEMS, OR 1 STABLE CHRONIC PROBLEM, THAT POSE(S) A LOW RISK FOR MORBIDITY/MORTALITY. The visit on the day of the encounter encompassed interpreting the data and educating the patient as to the nature of their condition, treatment options available according to their individual PMH, meds, allergies, and overall health/living conditions, as well as any potential risks or complications that may occur from a failure to adhere to, and participate in, the recommended course of therapy. The discussion included a complete verbal, and/or written explanation of the examination results, any x-rays taken, the proposed diagnosis, and outline of the treatment plan. A schedule for future care needs was also explained. The patient verbalized an understanding of the instructions at this time and agreed to be an active participant in their treatment. If the patient should think of any questions or concerns after the visit, I have encouraged the patient to call the office. D igital Surgery: D igital surgery was discussed with the patient, We elected to try conservative treatment at the present time, due to the patients medical history and increased asssociated post-operative risks. D igital Treatment: H T- I explained to the patient the possible etiologies of Hammertoes, including genetics/foot type/shoegear/activity level/exercise routine and the risks/benefits of all the different treatment options for their pain including: No treatment at all, Rest, Ice, New/supportive/wider/deeper Shoegear, Digital Padding/Strapping/Taping/Bracing/Gel protective sleeves, Foot/Ankle AFO Bracing, Stretching exercises, Deep Tissue Massage, Arch support/shoe inserts with splay metatarsal padding, and Custom orthoses. I insisted that any digital devices be removed daily and not worn overnight for safety. The patient is to carefully examine the toes daily for any skin irritation while using any splinting or padding device. The advantages and disadvantages of each option were discussed and the patients questions re: shoegear, padding, custom vs prefabricated inserts, activity level, and consistency in home treatment regimens for optimal success were answered to their verbally confirmed satisfaction. S rajive Gear Counseling: S USMAN Rx - The patient was counseled in great detail on their muscoloskeletal foot and toe deformities which coincided with the dermatological presentations visualized on exam. We discussed how their deformities put the integrity of their feet at risk for potential pedal complications which makes the accomidative diabetic shoes and cutomizable inserts medically necessary. We discussed the different shoe and insert treatment types and options, as well as the important advantages for adhering to regularly wearing these accomidative devices daily. The patient was made aware of the fact that a failure to abide by these recommedations may be deleterious to their foot health as they are able to prevent many pedal complications such as skin irritation, skin ulceration, infection, and even loss of toe/foot/leg/or life. Time was also spent with the patient dispensing and discussing proper diabetic footcare techniques including daily skin moisturization, daily foot inspection for any interruption in skin integrity including open lesions, or sign of infection such as redness/malodor/drainage/swelling. Also discussed and recommended were procedures regarding daily shoe inspection for the presence of internal foreign bodies as well as any visualized irregular shoe or insert wear. Patient questions re: shoes, inserts, and self foot inspections were answered to their satisfaction as the patient verbally confirmed a full understanding of the above information. A Rx for Extra Depth Orthopedic Shoes with 3 pair of custom heat-molded inserts was dispensed. Screening/Special Tests: F all Risk Assessment: P erformed Screening: N o falls in the past year F ALLS: Screening for Future Fall Risk Have you had two or more falls in the past year? N o Have you had any falls with injury in the past year? N o * Follow Up: 2 Months * Images: * The named appointment provid er may or may not be the originator of this progress note, and it is not deemed complete until electronically signed by the appointment provider. Sign off status: Pending * Provider: Nicolas Cordoba DPM Date: 0 03/25/2024 Generated for Yolanda souza/Mariano/Sloane on: 1 03/05/2024 01:07 PM EST History and Physical Notes * HPI (History of Present Illness) Category Sub-Category Detail Notes Category Not es Toe pain Location: B/L feet Duration: several years Course: worse Aggravated by: shoes, any pressure Treatments: change in shoes At Risk footcare Pt States Last PCP Visit: Date: 4 Examination Category Sub-Category Detail Notes Category Not es Neurological SENSORY: Neurological exa m demonstrates, reduced light touch sensation, reduced sharp/dull discrimination , reduced vibration sensation, in a stocking fashion, B/L, 5.07 monofilament test performed at plantar aspects of 5 varied sites per foot shows sensation, reduced, B/L Dermatologic SKIN FINDINGS: , Skin exam reve als normal color, texture, elasticity, and turgor. There are no masses, nor excrescences. The interspaces are clear, B/L Orthopedic FOOTWEAR EVALUATION: worn, non-s upportive, shoe gear properties exacerbate patient's foot/toe deformity , fair condition DIGITAL DEFORMITIES: Digital contracture , PIPJ, 2-5 B/L, incompl-reducible to push-up test, no over, nor underlapping, there is evidence of shoe producing skin irritation MUSCLE STRENGTH: 5/5 all groups in a symmetrical fashion, B/L General Examination GENERAL APPEARANCE: Reveals a pleasant, alert, well nourished, well-developed, well hydrated individual, who demonstrates proper attention to hygiene/body habitus, and is in no acute distress, Pt serves as own historian for office visit today FOOT EXAM: Lower Extremity Neurological Exa m performed:: Yes ORIENTED: person, place, and t adalberto Footwear Evaluation Footwear Evaluation performe d:: Yes Ophthalmology Referral DIABETES EYE EXAM Diabetic Retinopa thy Screening:: Yes Vascular DP PULSES (B): 3/4, B/L PT PULSES (B): 3/4, B/L CAPILLARY FILL TIME: immediate, all digi ts, B/L TEMPERTURE GRADIENT (C): normal, warm to cool, proximal to distal, B/L, B/L TROPHIC CONDITION-TEXTURE/ELASTICITY/TURGOR/HAIR GROWTH (B): normal, B/L PIGMENTATION: normal, B/L Nails NAILS are: 1-5 B/L, nails are elongated , overgrown, dystrophic
--- NOTE | ~2025-01-03 | CT_ITS ---
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 COMPARISON: Comparison is made with the prior examination dated 05/16/2024. TECHNIQUE: Helical CT scan of the chest was performed without intravenous contrast. Coronal and sagittal reformatted images were generated and reviewed. This CT exam was performed with one or more of the following dose reduction techniques: automated exposure control, adjustment of the mA and/or kV according to patient size, use of iterative reconstruction technique. DLP: 199 mGy-cm CHEST: THYROID: The thyroid is unremarkable. LUNGS: Again seen is a suture line in the left upper lobe. There are multifocal areas of scarring in the lingula and bilateral lower lobes. There is a new 6 mm nodule with adjacent airspace opacity in the right lower lobe (series 12, image 75). MEDIASTINUM: There is no mediastinal lymphadenopathy. ERWIN: Evaluation of the hilar regions is limited by lack of intravenous contrast material. CARDIOVASCULATURE: The heart is normal in size. There is no pericardial effusion. The thoracic aorta is normal in caliber. DEGREE OF CORONARY CALCIFICATION: severe PLEURA: There is no pleural effusion. No pneumothorax. MAIN AIRWAYS: The mainstem bronchi and proximal branches are patent. AXILLA: There is no axillary lymphadenopathy. BONES AND SOFT TISSUES: Unremarkable UPPER ABDOMEN: The visualized portions of the liver and spleen have an unremarkable unenhanced appearance. Again seen are bilateral adrenal adenomas. CT/CT chest wo IV con IMPRESSION: New 6 mm nodule with adjacent airspace opacity in the right lower lobe. Short-term follow-up chest CT in 6 weeks versus PET/CT scan is recommended. Electronically signed by: Pa Jarquin MD 01/06/2025 08:24 AM [facility]
[2025-01-03 13:03] LABS: MANUAL DIFF FLAG NO
--- OUTSIDE RECORDS SUMMARY | 2025-01-03 13:08 | XMS_ITS | Clinical Summary ---
Author Organization [facility] [address] [facility] Address [address] [place] [address] Phone Care Team Providers Care Dumper Bailer Operator Name Role Phone Ty Barros MD Primary Care Provider [phone] Allergies No known active allergies Medications albuterol [...] with Dr. Vasquez and pulmonology at [facility]. Patient's most recent surveillance CT scan [...] with Dr. Vasquez and pulmonology at [facility]. Patient's most recent surveillance CT scan [...] 3:00 PM EST Office Visit Pulmonology - [address] [phone] Nadege Guallpa MD History of lung cancer (Primary Dx); Lung nodule; SOB (shortness of breath); COPD exacerbation (CMS/HCC V24, CMS/HCC V28) 12/11/2024 8:15 AM EDT - 12/11/2024 10:00 AM EDT Surgery [facility] OR [address] [place] [phone] Nadege Guallpa MD FLEXIBLE BRONCHOSCOPY [92557 (CPT )] 12/11/2024 7:56 AM EDT Anesthesia Event [facility] OR [address] [place] [phone] Nadeen Bueno MD Hellman, Brooke, SRNA 12/11/2024 6:25 AM EDT - 12/11/2024 1:06 PM EDT Hospital Encounter [facility] OR [address] [place] [phone] Nadege Guallpa MD Pain; Lung nodule Discharge Disposition: Home or Self Care 12/03/2024 3:00 PM EDT Consult Pulmonology - [address] [phone] Nadege Guallpa MD Lung nodule (Primary Dx); History of lung cancer; SOB (shortness of breath) 11/29/2024 Telephone Pulmonology - [address] [address] Madisyn De Los Santos [place] 10/10/2024 10:00 AM EDT Office Visit Thoracic Surgery - [address] [address] Devi Herrera PA History of lung cancer (Primary Dx); Multiple pulmonary nodules from Last 3 Months Surgical History Surgery Date Site/Laterality Comments CHOLECYSTECTOMY N/A PROCEDURE: HISTORICAL CHOLECYSTECTOMY ESOPHAGOGASTRODUODENOSCOPY N/A PROCEDURE: OR ESOPHAGOGASTRODUODENOSCOPY TRANSORAL DIAGNOSTIC TUBAL LIGATION N/A PROCEDURE: HISTORICAL TUBAL LIGATION COLONOSCOPY N/A PROCEDURE: HISTORICAL COLONOSCOPY OTHER SURGICAL HISTORY 07/19/2022 Left PROCEDURE: OR THORACOSCOPY W/THERA WEDGE RESEXN INITIAL UNILAT; COMMENT: CLYDE ELBOW SURGERY Right in [place] AV FISTULA PLACEMENT Left LUNG BIOPSY CATARACT EXTRACTION Medical History Medical History Date Comments CKD (chronic kidney disease) , symptom management only, stage 4 (severe) ([facility] V24, [facility] V28) DX:CKD (chronic kidney disea se), symptom management only, stage 4 (severe) ([facility]) Meckel's diverticulum DX:Meckel' s diverticulum Emphysema lung ([facility] V24, [facility] V28) DX:Emphysema lung ([facility]) Epilepsy with status epilept icus, not intractable ([facility] V24, [facility] V28) DX:Epilepsy wit h status epilepticus, not intractable ([facility]), 12/06- years since most recent seizure per son GI bleed DX:GI bleed Gout DX:Gout HTN (hypertension) DX:HTN (hyper tension) Hypercholesteremia DX:Hyperchole steremia Hypothyroidism DX:Hypothyroidis m Type 2 diabetes mellitus wit hout complications ([facility] V24, [facility] V28) DX:Type 2 ema betes mellitus without complications ([facility]) Nontoxic single thyroid nodule D X:Nontoxic single thyroid nodule Rheumatoid arthritis ([facility]/ C V24, [facility] V28) DX:Rheumatoid arthritis ([facility] ) History of nicotine dependence D X:History of nicotine dependence Right elbow pain DX:Right elbow pain History of lung cancer DX:Histor y of lung cancer Glaucoma Visual impairment Blind in left eye [place] [place] T , , Monday, [facility] Sleep apnea Denies using cpa [...] Info) Description 01/16/2025 2:30 PM EST Appointment [facility] CT Scan [address] [place] [address] Health Maintenance Due Date Last [...] REPORT) Routine 12/11/2024 8:58 AM EDT Pain OR BRONCHOSCOPY RIGID/FLEXIBLE W/EBUS >=3 MEDIASTINAL/HILAR LYMPH NODES 12/11/2024 7:58 AM EDT Lung nodule OR BRONCHOSCOPY RIGID/FLEXIBLE W/TRANSBRONCHIAL LUNG BIOPSY(S) SINGLE LOBE 12/11/2024 7:58 AM EDT Lung nodule OR BRONCHOSCOPY RIGID/FLEXIBLE COMPUTER ASSISTED IMAGE GUIDED NAVIGATION 12/11/2024 7:58 AM EDT Lung nodule OR BRONCHOSCOPY INCL FLUORO GUIDANCE W BRONCHIAL/ENDOBRONCHIA L [...] EDT Lung nodule SOB (shortness of breath) from Last 3 Months Results * XR [...] Signed Date: 12/11/2024 09:50 ET Workstation ID: [id number] Transcribed By: Self Edit Transcribed Date: 12/11/2024 [...] Signed Date: 12/11/2024 09:50 ET Workstation ID: [id number] Transcribed By: Self Edit Transcribed Date: 12/11/2024 09:49 ET us Nadege Guallpa MD IMG XR PROCEDURES Final Re sult * POCT Glucose, blood (12/11/2024 9:37 AM EDT) Only the most recent of2 resultswithin the time period is included. Glucose POCT 89 70 - 199 mg/dL 12/11/2024 9:37 AM EDT [facility] Comment: Fasting Reference Range: 70-99 mg/dL Non-Fasting Reference Range: 70-199 mg/dL Blood Capillary blood specimen / Unknown 12/11/2024 9:37 AM EDT 12/11/2024 9:38 AM EDT Nadege Guallpa MD LAB POINT OF CARE TEST DOCKED DEVICE UNSOLICITED RESULTS Final Result Performing Organization Address City/[facility] Co de Phone Number [facility] [address] [place] [address], [place] [phone] * XR Fluoro Up To 1 Hour (Statistics)(No Report) (12/11/2024 8:58 AM EDT) Narrative RIS PACS/VR - 12/11/2024 8:59 AM EDT This order has been auto-finalized and does not contain a result. us Nadege Guallpa MD IMG FLUOROSCOPY PROCEDURES Final Result Performing Organization Address [facility] Co de Phone Number RIS PACS/VR * Culture respiratory with gram stain (12/11/2024 7:45 AM EDT) Culture, Respiratory No potential pathogens in significant amounts including MRSA/Staph Aureus or Pseudomonas 12/14/2024 9:46 AM EDT [facility] Gram Stain Result Moderate WBCs present 12/14/2024 9:46 AM EDT [facility] Gram Stain Result No organisms seen 12/14/2024 9:46 AM EDT [facility] Wash Structure of lower lobe of left lung / Unknown 12/11/2024 7:45 AM EDT 12/11/2024 9:26 AM EDT Comment:NO CONCERN FOR TB Nadege Guallpa MD LAB MICROBIOLOGY - GENERAL ORDERABLES Final Result [facility] [address] [place] [address], [place] [phone] * (ABNORMAL) Culture fungus, miscellaneous source (12/11/2024 7:45 AM EDT) Culture, Fungus Penicillium species(A) 12/20/2024 11:50 AM EST [facility] Comment: Edited result: Previously reported as Mold on 12/19/2024 at 0803 EST. Wash Structure of lower lobe of left lung / Unknown 12/11/2024 7:45 AM EDT 12/11/2024 9:26 AM EDT Comment:NO CONCERN FOR TB Nadege Guallpa MD LAB MICROBIOLOGY - GENERAL ORDERABLES Final Result [facility] [address] [place] [address], [place] [phone] * Non-gynecologic cytology (12/11/2024 7:44 AM EDT) [...] lymph node sampling. 12/12/2024 10:23 AM EDT [facility] at 1023 EDT Specimen A Adequacy Satisfactory for evaluation 12/12/2024 10:23 AM EDT [facility] Specimen B Adequacy Satisfactory for evaluation 12/12/2024 10:23 AM EDT [facility] Specimen C Adequacy Satisfactory for evaluation 12/12/2024 10:23 AM EDT [facility] Clinical Information IN CYTO 12/12/2024 10:23 AM EDT [facility] Gross Description A. Lung, Left Lower [...] and Cell Block. 12/12/2024 10:23 AM EDT [facility] Disclaimer The technical components of [place] [address] CLIA # [id number] 12/12/2024 10:23 AM EDT [facility] Wash Structure of lower lobe of [...] EDT 12/11/2024 11:37 AM EDT Comment:IN CYTO Nadege Guallpa MD LAB CYTOLOGY ORDERABLES Fi nal Result [facility] [address] [place] [address], * (ABNORMAL) POCT VENOUS NA, K, HH (12/11/2024 7:37 AM EDT) Sodium Venous POCT 138 135 - 145 mmol/L 12/11/2024 7:42 AM EDT [facility] Potassium Venous POCT 4.0 3.5 - 5.1 mmol/L 12/11/2024 7:42 AM EDT [facility] Hemoglobin Venous POCT 10.9(L) 12.5 - 16.0 g/dL 12/11/2024 7:42 AM EDT [facility] Hematocrit Venous POCT 32(L) 37 - 47 % 12/11/2024 7:42 AM EDT [facility] Blood Venous blood specimen / Unknown 12/11/2024 7:37 AM EDT 12/11/2024 7:43 AM EDT us Nadege Guallpa MD LAB POINT OF CARE TEST DOCKED DEVICE UNSOLICITED RESULTS Final Result Performing Organization Address City/[facility]/ZIP Co de Phone Number [facility] [address] [place] [address], [place] [phone] * ECG 12 lead (12/06/2024 9:44 AM EDT) Ventricular Rate ECG 59 BPM GEMUSE Atrial Rate 59 BPM GEMUSE P-R Interval 152 ms GEMUSE QRS Duration 84 ms GEMUSE Q-T Interval 448 ms GEMUSE QTc 443 ms GEMUSE P Wave [place] 41 degrees GEMUSE R [place] 54 degrees GEMUSE T [place] -99 degrees GEMUSE ECG Interpretation Sinus bradycardia [...] CBC auto differential (12/06/2024 9:34 AM EDT) [facility] WBC 8.3 4.8 - 10.8 K/mcL LAB HEMETOLOGY METHOD 12/06/2024 10:33 AM [facility] RBC 3.60(L) 3.80 - 4.80 M/mcL LAB HEMETOLOGY METHOD 12/06/2024 10:33 AM [facility] Hemoglobin 11.2(L) 11.5 - 16.0 g/dL LAB HEMETOLOGY METHOD 12/06/2024 10:33 AM [facility] Hematocrit 35.2 35.0 - 47.0 % LAB HEMETOLOGY METHOD 12/06/2024 10:33 AM [facility] MCV 98.9(H) 79.0 - 98.0 FL LAB HEMETOLOGY METHOD 12/06/2024 10:33 AM [facility] MCH 31.5 27.0 - 32.0 pcg LAB HEMETOLOGY METHOD 12/06/2024 10:33 AM [facility] MCHC 31.8(L) 32.0 - 37.0 g/dL LAB HEMETOLOGY METHOD 12/06/2024 10:33 AM [facility] RDW 13.7 11.0 - 15.0 % LAB HEMETOLOGY METHOD 12/06/2024 10:33 AM [facility] Platelets 208 130 - 400 K/mcL LAB HEMETOLOGY METHOD 12/06/2024 10:33 AM [facility] MPV 9.5 7.0 - 11.0 FL LAB HEMETOLOGY METHOD 12/06/2024 10:33 AM [facility] NRBC 0.0 <1.0 % LAB HEMETOLOGY METHOD 12/06/2024 10:33 AM [facility] NRBC Absolute 0.00 <0.10 K/mcL LAB HEMETOLOGY METHOD 12/06/2024 10:33 AM [facility] Neutrophils Relative 72.3 % LAB HEMETOLOGY METHOD 12/06/2024 10:33 AM [facility] Lymphocytes Relative 14.8 % LAB HEMETOLOGY METHOD 12/06/2024 10:33 AM [facility] Monocytes Relative 8.7 % LAB HEMETOLOGY METHOD 12/06/2024 10:33 AM [facility] Eosinophils Relative 2.4 % LAB HEMETOLOGY METHOD 12/06/2024 10:33 AM [facility] Basophils Relative 0.6 % LAB HEMETOLOGY METHOD 12/06/2024 10:33 AM [facility] Immature Granulocytes Relative 1.2 % LAB HEMETOLOGY METHOD 12/06/2024 10:33 AM [facility] Neutrophils Absolute 5.97 1.50 - 7.00 K/mcL LAB HEMETOLOGY METHOD 12/06/2024 10:33 AM [facility] Lymphocytes Absolute 1.22 1.00 - 5.00 K/mcL LAB HEMETOLOGY METHOD 12/06/2024 10:33 AM [facility] Monocytes Absolute 0.72 0.20 - 1.00 K/mcL LAB HEMETOLOGY METHOD 12/06/2024 10:33 AM [facility] Eosinophils Absolute 0.20 0.00 - 0.50 K/mcL LAB HEMETOLOGY METHOD 12/06/2024 10:33 AM [facility] Basophils Absolute 0.05 0.00 - 0.20 K/mcL LAB HEMETOLOGY METHOD 12/06/2024 10:33 AM [facility] Immature Granulocytes Absolute 0.10(H) 0.00 - 0.03 K/mcL LAB HEMETOLOGY METHOD 12/06/2024 10:33 AM EDT [facility] Blood Venous blood specimen / Unknown Venipuncture / Unknown 12/06/2024 9:34 AM EDT 12/06/2024 10:27 AM EDT Nadege Guallpa MD LAB BLOOD ORDERABLES Final Result Performing Organization Address City/[facility]/ZIP Co de Phone Number [facility] [address] [place] [address], [place] [phone] * Prothrombin time with INR (12/06/2024 9:34 AM EDT) [facility] Protime 11.1 10.6 - 13.9 sec LAB COAGULATION METHOD 12/06/2024 10:40 AM EDT [facility] INR 0.9 LAB COAGULATION METHOD 12/06/2024 10:40 AM EDT [facility] Blood Venous blood specimen / Unknown Venipuncture / Unknown 12/06/2024 9:34 AM EDT 12/06/2024 10:27 AM EDT Nadege Guallpa MD LAB BLOOD ORDERABLES Final Result Performing Organization Address City/[facility]/ZIP Co de Phone Number [facility] [address] [place] [address], [place] [phone] * (ABNORMAL) Basic metabolic panel (12/06/2024 9:34 AM EDT) Pathologist [facility] Sodium 135 133 - 145 mmol/L LAB CHEMISTRY METHOD 12/06/2024 11:21 AM EDT [facility] Potassium 4.1 3.5 - 5.5 mmol/L LAB CHEMISTRY METHOD 12/06/2024 11:21 AM EDT [facility] Chloride 96 96 - 110 mmol/L LAB CHEMISTRY METHOD 12/06/2024 11:21 AM EDT [facility] CO2 31 21 - 32 mmol/L LAB CHEMISTRY METHOD 12/06/2024 11:21 AM [facility] Anion Gap 8 3 - 11 LAB CHEMISTRY METHOD 12/06/2024 11:21 AM [facility] Glucose 79 70 - 100 mg/dL LAB CHEMISTRY METHOD 12/06/2024 11:21 AM [facility] BUN 41(H) 5 - 25 mg/dL LAB CHEMISTRY METHOD 12/06/2024 11:21 AM [facility] Creatinine 4.51(H) 0.50 - 1.10 mg/dL LAB CHEMISTRY METHOD 12/06/2024 11:21 AM [facility] Comment:Results verified by repeat testing eGFR 10(L) >=60 mL/min/1. 73m2 LAB CHEMISTRY METHOD 12/06/2024 11:21 AM [facility] Comment:Calculation based on the Chronic Kidney Disease Epidemiology Collaboration (CKD-EPI) equation refit without adjustment for race. BUN/Creatinine Ratio 9.1 LAB CHEMISTRY METHOD 12/06/2024 11:21 AM [facility] Calcium 8.8 8.5 - 10.5 mg/dL LAB CHEMISTRY METHOD 12/06/2024 11:21 AM [facility] Blood Venous blood specimen / Unknown Venipuncture / Unknown 12/06/2024 9:34 AM EDT 12/06/2024 10:58 AM EDT us Nadege Guallpa MD LAB BLOOD ORDERABLES Final Result [facility] [address] [place] [address], from Last 3 Months Additional Health Concerns Active Problems Noted Date Diagnosed Date Autogenerated Problem 12/12/2024 Infection Onset Date Last Indicated Tuberculosis Rule-Out 12/11/2024 12/11/2024 Insurance MEDICA[place] - [place] MEDICARE Advance Directives Documents on File Type Date Recorded 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 Care Teams Dumper Bailer Operator Relationship Specialty Start Date End Date Ty Barros MD [facility] [address] [place] [address] [address] [place] [address] PCP - General 06/08/23
--- OUTSIDE RECORDS SUMMARY | 2025-01-03 13:08 | XMS_ITS | Encounter Summary ---
Author Organization [facility] Address [address] [place] [phone] Phone Care Team Providers Care Rubber Goods Finisher Name Role Phone Ty Barros MD Primary Care Provider + Encounter Details Date Type Department Care Team ([facility] st Contact Info) Description 12/28/2024 Treatment [facility]. [address] [place] [phone] Dillon Henao MD [address] [address] End stage renal disease; Dependence [...] Date: 12/28/2024 This patient was personally seen [id number] for a complete visit as part of routine monthly dialysis care for end stage renal disease. Attending Corrections Corporal: DILLON HENAO MD Dialysis Location: [facility] Schedule: Shift: 2 OVERVIEW Patient is [...] dialysis documented in this encounter Care Teams Rubber Goods Finisher Relationship Specialty Start Date End Date Ty Barros MD [facility] [address] [place] [address] [address] PCP - General Internal Medicine 06/21/23 documented as of this encounter
--- OUTSIDE RECORDS SUMMARY | 2025-01-03 13:08 | XMS_ITS | Patient Health Record ---
Author Organization [facility] Abril wandy OrtegaMcneil Address [address] [place] [address] Care Team Providers Care Residential Electrician Name Role Phone Ty Barros Primary Care Provider Lucy Cordoba Unavailable [phone] Allergies Allergen (clinical drug ingredient) Drug/Non Drug [...] Problem Acquired hammer toe of right foot (5829735234544043 ) Other hammer toe(s) (acquired), right foot (M20.41) Active confirmed Problem Acquired hammer toe of left foot ([id number] ) Other hammer toe(s) (acquired), left foot (M20.42) Active confirmed Problem Polyneuropathy due to type 2 diabetes mellitus (463157361) Type 2 diabetes mellitus with diabetic polyneuropathy (E11.42) Active confirmed Vital Signs Blood pressure diastolic 70 mm Hg 10/10/2024 Height 5ft 3in in 10/10/2024 Blood pressure systolic 145 mm Hg 10/10/2024 Weight 167 lbs 10/10/2024 BMI 29.58 kg/m2 10/10/2024 Encounters Encounter Location Date Provider Diagnosis [address] [address] 01/08/2024 Lucy Cordoba Other hammer toe(s) (acquired), right foot M20.41 ; Other hammer toe(s) (acquired), left foot M20.42 and Type 2 diabetes mellitus with diabetic polyneuropathy E11.[address] [address] 04/15/2024 Lucy Cordoba Other hammer toe(s) (acquired), right foot M20.41 ; Other hammer toe(s) (acquired), left foot M20.42 ; Type 2 diabetes mellitus with diabetic polyneuropathy E11.42 and Tinea unguium B35.[address] [address] 10/10/2024 Lucy Cordoba Type 2 diabetes mellitus with diabetic polyneuropathy E11.42 and Tinea unguium B35.[address] [facility] [place] [address] 01/25/2024 Lucy Cordoba [facility] [address] [address] 03/25/2024 Lucy Cordoba [facility] [place] [address] [place] [address] 04/15/2024 Lucy Cordoba Assessments Encounter Date Diagnosis [...] Medicare [employer] [address] [place] [address] [id number] Alberto Stevenson Self - patient is the insured B [address] [place] [address] Alberto Stevenson Self - patient is the [...]
--- OUTSIDE RECORDS SUMMARY | 2025-01-03 13:08 | XMS_ITS | Encounter Summary ---
Author Organization [facility] Address [address] [place] [phone] Phone Care Team Providers Care Rn Mds Name Role Phone Ty Barros MD Primary Care Provider + Encounter Details Date Type Department Care Team (Late st Contact Info) Description 11/12/2024 TCM in Dialysis Clinic [facility]. [address] [address] Dillon Henao MD [address] [address] Social History Tobacco Use Types [...] 11/12/2024 The patient was seen for a [id number] visit as part of Transitional Care Management services. Attending Architectural Project Captain: DILLON HENAO MD Dialysis Location: [facility] Schedule: Shift: 2 INTERACTIVE CONTACT Contact [...] - No ulcers. VISIT DIAGNOSES CPT Code 10763 - High complexity, seen 8-14 days post discharge or moderate complexity, seen tmpuri60 days of discharge. N18.6 End stage renal disease Signed by: DILLON HENAO MD on 11/12/2024 at 01:47:59 PM Transcribed by: DILLON HENAO MD on 11/12/2024 at 01:47:59 PM documented in this encounter Plan of Treatment Not on file documented as of this encounter Visit Diagnoses Not on filedocumented in this encounter Care Teams Rn Mds Relationship Specialty Start Date End Date Ty Barros MD [address] [address] PCP - General Internal Medicine 06/21/23 documented as of this encounter
--- OUTSIDE RECORDS SUMMARY | 2025-01-03 13:09 | XMS_ITS | Clinical Summary ---
Author Organization [facility] Address [address] [address] Phone Care Team Providers Care Sailboat Captain Name Role Phone Ty Barros MD [...] 66 y/o female recently moved here from [place], former smoker who is part of the [facility] and was followed for an 8 [...] Dr. Sawant on August 26 at [facility]. 3. She is being followed by [facility] for kidney disease. 4. Per NCCN guidelines, she will be followed for [address] scan of the chest. Every 6 months X 2 years then annually X 3 years with a visit to the Thoracic Surgery Office. Patient and son wish to have these visits here at [facility]. Her next visit will be in 6 months, January 2023. 5. She is instructed to call with any questions or concerns. Stage 5 chronic kidney disease 08/02/2022 Diabetes mellitus, not otherwise specified 08/02 Hypertension 08/02/2022 Rheumatoid arthritis, not otherwise specified Encounters Date Type Department Care Team Description 12/28/2024 Treatment [facility] [address] [phone] Doug Henao MD End stage renal disease; Dependence on renal dialysis 12/17/2024 Treatment [facility] [address] [phone] Doug Henao MD End stage renal disease; Dependence on renal dialysis 12/10/2024 Treatment [facility] [address] [phone] Doug Henao MD End stage renal disease; Dependence on renal dialysis 12/03/2024 Treatment [facility] [address] [phone] Doug Henao MD End stage renal disease; Dependence on renal dialysis 11/30/2024 Treatment [facility] [address] [phone] Doug Henao MD End stage renal disease; Dependence on renal dialysis 11/21/2024 Treatment [facility] [address] [phone] Doug Henao MD End stage renal disease; Dependence on renal dialysis 11/12/2024 [facility] in Dialysis Clinic [facility] [address] [phone] Doug Henao MD 11/12/2024 Treatment [facility] [address] [phone] Doug Henao MD End stage renal disease; Dependence on renal dialysis 11/09/2024 Treatment [facility] [address] [phone] Doug Henao MD End stage renal disease; Dependence on renal dialysis 10/16/2024 9:00 AM EDT Office Visit [facility] [address] [phone] Reuben Holbrook MD Stage 5 chronic kidney disease (HCC) (Primary Dx); Secondary hyperparathyroidism (HCC); Vitamin D deficiency, not otherwise specified; Rheumatoid arthritis, not otherwise specified (HCC); Localized edema; Hypertension; History of malignant neoplasm of thoracic cavity structure; Epilepsy, not otherwise specified (HCC); Diabetes mellitus, not otherwise specified (HCC); Anemia in chronic kidney disease 10/16/2024 Orders Only [facility] [address] [phone] Reuben Holbrook MD Stage 5 chronic kidney disease (HCC); Localized edema; Hypertension; Diabetes mellitus, not otherwise specified (HCC); Cyst of kidney; Anemia in chronic kidney disease; Epilepsy, not otherwise specified (HCC); History of malignant neoplasm of thoracic cavity structure; Rheumatoid arthritis, not otherwise specified (HCC); Secondary hyperparathyroidism (HCC); Vitamin D deficiency, not otherwise specified 10/08/2024 Orders Only [facility] [address] [phone] Reuben Holbrook MD from Last 3 Months [...] EST us Doug Henao MD LAB HISTORICA [id number] RESULTS Final Result [facility] [address] [place] [address] * (ABNORMAL) Kt/V Natural Log, URR (12/19/2024 [...] EST us Doug Henao MD LAB HISTORICA [id number] RESULTS Final Result Performing Organization Address City/[facility]/ZIP Co de Phone Number [facility] [address] [place] [address] * (ABNORMAL) Calcium Phosphorus Product, Adjusted (12/19/2024 [...] EST us Doug Henao MD LAB HISTORICA [id number] RESULTS Final Result Performing Organization Address [facility] de Phone Number [facility] [address] [place] [address] * Hepatitis B Surface Ag w/Reflex Confirmation (12/19/2024 3:00 AM EST) Only the most recent of3 resultswithin the time period is included. Pathologist [facility] Hep B Surface Antigen Negative Negative [facility] 12/19/2024 3:00 AM EST 12/20/2024 3:27 PM EST Doug Henao MD LAB BLOOD ORDERABLES Final Result Performing Organization Address City/[facility] Co de Phone Number [facility] [address] [place] [address] * BUN/CREATININE RATIO (12/19/2024 3:00 AM EST) Only the most recent of3 resultswithin the time period is included. Pathologist [facility] BUN/Creatinine Ratio 10.1 <=23.0 [facility] 12/19/2024 3:00 AM EST 12/20/2024 3:27 PM EST us Doug Henao MD LAB HISTORICA [id number] RESULTS Final Result Performing Organization Address City/[facility] Co de Phone Number [facility] [address] [place] [address] * (ABNORMAL) TSAT (12/19/2024 3:00 AM EST) Only the most recent of3 resultswithin the time period is included. [facility] Iron 90 50 - 170 ug/dL [facility] Transferrin 220(L) 250 - 380 mg/dL [facility] TIBC 308 211 - 406 ug/dL [facility] Iron Saturation (TSat) 29 22 - 52 % [facility] 12/19/2024 3:00 AM EST 12/20/2024 3:27 PM EST Doug Henao MD LAB BLOOD ORDERABLES Final Result Performing Organization Address [facility] de Phone Number [facility] [address] [place] [address] * (ABNORMAL) CBC and Differential (12/19/2024 3:00 AM EST) Only the most recent of4 resultswithin the time period is included. [facility] DIFFERENTIAL MANUAL, 2 Not Indicated [facility] [...] BLOOD ORDERABLES Final Result Performing Organization Address [facility]/ZIP Co de Phone Number [facility] [address] [place] [address] * ALT (12/19/2024 3:00 AM EST) Only the most recent of3 resultswithin the time period is included. ALT (SGPT) 16 10 - 49 U/L [facility] 12/19/2024 3:00 AM EST 12/20/2024 3:27 PM EST Doug Henao MD LAB BLOOD ORDERABLES Final Result Performing Organization Address [facility] Co de Phone Number [facility] [address] [place] [address] * AST (12/19/2024 3:00 AM EST) Only the most recent of3 resultswithin the time period is included. AST (SGOT) 17 <34 U/L [facility] 12/19/2024 3:00 AM EST 12/20/2024 3:27 PM EST us Doug Henao MD LAB BLOOD ORDERABLES Final Result Performing Organization Address [facility] de Phone Number [facility] [address] [place] [address] * Protein, total (12/19/2024 3:00 AM EST) Only the most recent of3 resultswithin the time period is included. Total Protein 7.5 6.4 - 8.9 g/dL [facility] 12/19/2024 3:00 AM EST 12/20/2024 3:27 PM EST us Doug Henao MD LAB BLOOD ORDERABLES Final Result Performing Organization Address [facility] Phone Number [facility] [address] [place] [address] * (ABNORMAL) Alkaline phosphatase (12/19/2024 3:00 AM EST) Only the most recent of3 resultswithin the time period is included. Alkaline Phosphatase 144(H) 46 - 116 U/L [facility] 12/19/2024 3:00 AM EST 12/20/2024 3:27 PM EST us Doug Henao MD LAB BLOOD ORDERABLES Final Result Performing Organization Address [facility] Phone Number [facility] [address] [place] [address] * PTH, Intact (12/19/2024 3:00 AM EST) [...] BLOOD ORDERABLES Final Result Performing Organization Address [facility] de Phone Number [facility] [address] [place] [address] * Magnesium (12/19/2024 3:00 AM EST) Only the most recent of4 resultswithin the time period is included. Magnesium 2.6 1.9 - 2.7 mg/dL [facility] 12/19/2024 3:00 AM EST 12/20/2024 3:27 PM EST Doug Henao MD LAB BLOOD ORDERABLES Final Result Performing Organization Address [facility] Co de Phone Number [facility] [address] [place] [address] * (ABNORMAL) Lactate dehydrogenase (12/19/2024 3:00 AM EST) Only the most recent of3 resultswithin the time period is included. LDH 387(H) 120 - 246 U/L [facility] 12/19/2024 3:00 AM EST 12/20/2024 3:27 PM EST Doug Henao MD LAB BLOOD ORDERABLES Final Result Performing Organization Address [facility] de Phone Number [facility] [address] [place] [address] * (ABNORMAL) Glucose, random (12/19/2024 3:00 AM EST) Only the most recent of3 resultswithin the time period is included. Glucose 130(H) 70 - 99 mg/dL [facility] Comment: ADA guidelines outline the following fasting glucose ranges: Normal: <100 Prediabetes: 100-125 Diabetes: >125 12/19/2024 3:00 AM EST 12/20/2024 3:27 PM EST us Doug Henao MD LAB BLOOD ORDERABLES Final Result Performing Organization Address [facility] Co de Phone Number [facility] [address] [place] [address] * (ABNORMAL) Ferritin (12/19/2024 3:00 AM EST) Only the most recent of3 resultswithin the time period is included. Ferritin 355(H) 10 - 291 ng/mL [facility] 12/19/2024 3:00 AM EST 12/20/2024 3:27 PM EST Doug Henao MD LAB BLOOD ORDERABLES Final Result Performing Organization Address City/[facility] Co de Phone Number [facility] [address] [place] [address] * (ABNORMAL) Creatinine, serum (12/19/2024 3:00 AM EST) Only the most recent of3 resultswithin the time period is included. Creatinine 5.07(H) 0.55 - 1.02 mg/dL [facility] 12/19/2024 3:00 AM EST 12/20/2024 3:27 PM EST Doug Henao MD LAB BLOOD ORDERABLES Final Result Performing Organization Address [facility] Co de Phone Number [facility] [address] [place] [address] * (ABNORMAL) Bilirubin, total (12/19/2024 3:00 AM EST) Only the most recent of3 resultswithin the time period is included. Total Bilirubin <0.2(L) 0.3 - 1.2 mg/dL [facility] 12/19/2024 3:00 AM EST 12/20/2024 3:27 PM EST Doug Henao MD LAB BLOOD ORDERABLES Final Result Performing Organization Address City/[facility] Co de Phone Number [facility] [address] [place] [address] * Electrolyte panel (12/19/2024 3:00 AM EST) [...] BLOOD ORDERABLES Final Result Performing Organization Address [facility] Co de Phone Number [facility] [address] [place] [address] * (ABNORMAL) Hemoglobin (11/28/2024 3:00 AM EDT) Only the most recent of2 resultswithin the time period is included. Hgb 10.1(L) 11.2 - 15.7 g/dL [facility] Hemoglobin x 3 30.3(L) 33.6 - 47.1 g/dL [facility] 11/28/2024 3:00 AM EDT 11/29/2024 1:11 PM EDT us Doug Henao MD LAB BLOOD ORDERABLES Final Result Performing Organization Address [facility] de Phone Number [facility] [address] [place] [address] * Hemoglobin A1c (11/14/2024 3:00 AM EDT) [...] BLOOD ORDERABLES Final Result Performing Organization Address City/[facility] Co de Phone Number [facility] [address] [place] [address] * Lipid panel (11/14/2024 3:00 AM EDT) [...] BLOOD ORDERABLES Final Result Performing Organization Address [facility] Co de Phone Number [facility] [address] [place] [address] * Confirmation Test HCV (10/22/2024 3:00 AM EDT) Pathologist [facility] Hep C Ab Confirmation Not needed [facility] 10/22/2024 3:00 AM EDT 10/23/2024 2:31 PM EDT Doug Henao MD LAB BLOOD ORDERABLES Final Result Performing Organization Address City/[facility] Co de Phone Number [facility] [address] [place] [address] * HEPATITIS C ABS W/REFLEX RNA DETECTR (10/22/2024 3:00 AM EDT) Pathologist [facility] Hep C Virus Ab Non-Reacti ve Non-Reacti ve [facility] 10/22/2024 3:00 AM EDT 10/23/2024 2:22 PM EDT us Doug Henao MD LAB HISTORICA [id number] RESULTS Final Result Performing Organization Address [facility] Co de Phone Number [facility] [address] [place] [address] * Hepatitis B Core Antibody, Total (10/22/2024 3:00 AM EDT) Only the most recent of2 resultswithin the time period is included. HBc Total Ab, S Negative Negative [facility] 10/22/2024 3:00 AM EDT 10/23/2024 2:22 PM EDT Doug Henao MD LAB BLOOD ORDERABLES Final Result Performing Organization Address [facility] de Phone Number [facility] [address] [place] [address] * Aluminum level (10/22/2024 3:00 AM EDT) Pathologist [facility] Aluminum 2 1 - 20 ug/L [facility] Comment: This test was developed and its performance characteristics determined by [facility] in a manner consistent with CLIA requirements. This test has not been cleared or approved by the U.S. Food and Drug Administration. 10/22/2024 3:00 AM EDT 10/23/2024 2:44 PM EDT Doug Henao MD LAB BLOOD ORDERABLES Final Result Performing Organization Address [facility] de Phone Number [facility] [address] [place] [address] * Vitamin D 25 Hydroxy (10/22/2024 3:00 AM EDT) Only the most recent of2 resultswithin the time period is included. Vitamin D, 25-Hydroxy 48 30 - 100 ng/mL [facility] Comment: Status Adult Pediatric Deficient: <20 <15 Insufficient: 20-29 15-19 Sufficient: 30-100 20-100 10/22/2024 3:00 AM EDT 10/23/2024 2:22 PM EDT Doug Henao MD LAB BLOOD ORDERABLES Final Result Performing Organization Address City/[facility] Co de Phone Number [facility] [address] [place] [address] * (ABNORMAL) Hepatitis B Surface Antibody (10/22/2024 3:00 AM EDT) Only the most recent of2 resultswithin the time period is included. Hep B Surface Antibody <4(A) mIU/mL [facility] Comment: Interpretation: <10: No Immunity >=10: Probable Immunity 10/22/2024 3:00 AM EDT 10/23/2024 2:22 PM EDT Doug Henao MD LAB BLOOD ORDERABLES Final Result Performing Organization Address [facility] de Phone Number [facility] [address] [place] [address] * (ABNORMAL) Uric Acid (10/22/2024 3:00 AM EDT) Only the most recent of2 resultswithin the time period is included. Uric Acid 7.0(H) 2.3 - 6.6 mg/dL [facility] 10/22/2024 3:00 AM EDT 10/23/2024 2:22 PM EDT Doug Henao MD LAB BLOOD ORDERABLES Final Result Performing Organization Address [facility] de Phone Number [facility] [address] [place] [address] * (ABNORMAL) Protein, Total, Random Urine w/Creatinine [...] sult Performing Organization Address [facility] Phone Number [facility] See order comments [place] [address] * (ABNORMAL) PTH, Intact (10/08/2024 11:54 AM EDT) [facility] Parathyroid Hormone, Intact 548.3(H) 8.7 - 77.1 pg/mL See order comments 10/08/2024 11:5 4 AM EDT 10/08/2024 11:54 AM EDT us Reuben Holbrook MD LAB BLOOD ORDERABLES Final Re sult Performing Organization Address [facility] Phone Number [place] See order comments [place] [address] * Hepatitis C antibody (10/08/2024 11:54 AM EDT) [facility] Hepatitis C Antibody Nonreactive Nonreactive See order comments Comment: Antibodies to HCV not detected; does not exclude early acute HCV infection. Blood Venous blood / Unknown 10/08/2024 11:54 AM EDT 10/08/2024 11:54 AM EDT us Reuben Holbrook MD LAB BLOOD ORDERABLES Final Re sult Performing Organization Address [facility] Phone Number [place] See order comments [place] [address] * Hepatitis B Surface Antigen (10/08/2024 11:54 AM EDT) Hep B Surface Antigen Negative Negative See order comments Blood Venous blood / Unknown 10/08/2024 11:54 AM EDT 10/08/2024 11:54 AM EDT us Reuben Holbrook MD LAB BLOOD ORDERABLES Final Re sult Performing Organization Address [facility] Co de Phone Number [place] See order comments [place] [address] * (ABNORMAL) Phosphorus (10/08/2024 11:54 AM EDT) Phosphorus, Serum 5.3(H) 2.7 - 4.5 mg/dL See order comments Blood Venous blood / Unknown 10/08/2024 11:54 AM EDT 10/08/2024 11:54 AM EDT us Reuben Holbrook MD LAB BLOOD ORDERABLES Final Re sult Performing Organization Address [facility] de Phone Number [place] See order comments [place] [address] * (ABNORMAL) Comprehensive Metabolic Panel (10/08/2024 11:54 [...] order comments [place] [address] from Last 3 [place] [id number] Medicare [place] Care Teams Sailboat Captain Relationship Specialty Start Date End Date Ty Barros MD [address] [address] PCP - General Internal Medicine 06/21/23
[2025-01-03 13:41] LABS: Hematocrit 33.2 % (37.0-47.0); Hemoglobin 10.6 g/dl (12.0-16.0); Imm Gran Abs Auto 0.11 X10*3/uL (0.00-0.03); Imm Gran Pct Auto 1.6 % (0.0-0.4); Lymphocytes Absolute Auto 1.4 X10*3/uL (1.2-4.9); Mean Corpuscular HGB Conc 31.9 g/dl (31.0-35.0); Mean Corpuscular Hemoglobin 31.5 pg (27.0-33.0); Mean Corpuscular Volume 98.5 fL (80.0-98.0); NRBC Abs Auto 0.000 X10*3/uL (0.0-0.012); NRBC Pct Auto 0.0 /100WBC (0.0-0.2); Platelet Count 211 X10*3/uL (160-400); Red Blood Count 3.37 X10*6/uL (4.20-5.50); White Blood Count 7.1 X10*3/uL (4.8-10.8)
[2025-01-03 15:00] LABS: Alanine Aminotransferase 15 U/L (0-31); Albumin Level 4.0 g/dL (3.5-5.0); Alkaline Phosphatase 95 U/L (39-117); Anion Gap 14 (12-20); Aspartate Amino Transferase 20 U/L (5-31); Blood Urea Nitrogen 41 mg/dL (9-16); Calcium 8.8 mg/dL (8.4-10.2); Carbon Dioxide 28 mmol/L (22-29); Chloride 98 mmol/L (96-108); Potassium 3.9 mmol/L (3.3-5.1); Sodium 136 mmol/L (135-145); Total Protein 7.0 g/dL (6.5-8.0)
[2025-01-03 15:03] LABS: Estimated Glomerular Filt Rate 10
== END 2025-01-03 12:46 | disposition home or self-care (01) ==
LOC: HO.CT 12:45
PROVIDERS: PCP Internal Medicine; Visit Provider Internal Medicine Medical Oncology
DX: R91.1 Solitary pulmonary nodule (principal); C34.90 Malignant neoplasm of unspecified part of unspecified bronchus or lung
CPT/HCPCS: 36415; 71250; 80053; 85025

== ENCOUNTER → 2025-01-03 13:26 | Outpatient (BNV) | payer MEDICARE, MEDICAID, SELFPAY | PROVIDERS: PCP Internal Medicine; Visit Provider Radiology Diagnostic Radiology | DX: C34.90 Malignant neoplasm of unspecified part of unspecified bronchus or lung (principal); R91.8 Other nonspecific abnormal finding of lung field | CPT/HCPCS: 71250 ==